=== PATIENT | female | born 1940 | race Two or more races ===

== ENCOUNTER 2024-05-10 10:37 | Emergency (ER) | payer MEDICARE, MEDICAID, SELFPAY ==
--- NOTE | 2024-05-10 11:11 | XR_ITS ---
Examination: AP lateral chest 2 views TECHNIQUE: AP upright chest lateral 2 views Exam date and time: May 10, 2024 1208 hours INDICATIONS: Chest pain today FINDINGS: Mild enlargement cardiac contour No pneumonia or pulmonary edema Moderate osteopenia Increased AP dimension chest IMPRESSION: COPD Mild hepatomegaly No pneumonia or pulmonary edema
--- NOTE | 2024-05-10 11:11 | EKG_ITS ---
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
--- NOTE | 2024-05-10 11:11 | PD.EDRME ---
Rapid Medical Screening Exam RME Arrival date/time: 05/10/24 10:37 83-year-old female presents to the emergency department today with complaints of generalized pain patient reports taking 2 nitros prior to arrival Chief Complaint: Anxiety Time Seen by Provider: 05/10/24 10:44
[2024-05-10 11:18] VITALS: BP 109/59; PULSE 73; RESP 18; TEMP 36.6; O2SAT 95; BMI 28.5
[2024-05-10 11:46] LABS: Basophils % (Auto) 0 % (0-2.5); Eosinophils # (Auto) 0.1 Thou/mm3 (0.0-0.5); Eosinophils % (Auto) 3 % (0-10); Hematocrit 35.3 % (36.0-46.0); Hemoglobin 11.4 g/dL (12.0-16.0); Immature Granulocytes % (Auto) 0 % (0-0); Immature Granulocytes Auto 0.01 Thou/mm3 (0.00-0.00); Lymphocytes # (Auto) 1.5 Thou/mm3 (1.0-4.8); Lymphocytes % (Auto) 30 % (10-50); Mean Corpuscular HGB Conc 32.3 g/dl (31.0-37.0); Mean Corpuscular Hemoglobin 26.5 pg (25.0-35.0); Mean Corpuscular Volume 82 fL (80-100); Monocytes # (Auto) 0.4 Thou/mm3 (0.0-0.8); Monocytes % (Auto) 8 % (0-12); Neutrophils # (Auto) 2.9 Thou/mm3 (1.8-7.7); Neutrophils % (Auto) 59 % (37-80); Nucleated Red Blood Cell % 0 /100 WBC (0); Platelet Count 230 Thou/mm3 (140-440); Red Blood Count 4.31 Miln/mm3 (4.00-5.20); White Blood Count 4.9 Thou/mm3 (3.6-11.0)
[2024-05-10 12:04] LABS: Partial Thromboplastin Time 26.1 Seconds (22.0-36.0); Prothrombin Time 11.4 Seconds (9.0-12.2)
[2024-05-10 12:07] LABS: Alanine Aminotransferase 16 U/L (10-49); Albumin/Globulin Ratio 1.3 (1.2-2.2); Alkaline Phosphatase 103 U/L (46-116); Anion Gap 4 (7-16); Aspartate Amino Transferase 23 U/L (0-34); BUN/Creatinine Ratio 29 Ratio (12-20); Bilirubin,Total 0.9 mg/dL (0.3-1.2); Blood Urea Nitrogen 38 mg/dL (9-23); Calcium 10.1 mg/dL (8.3-10.6); Calcium (Corrected) 10.1 mg/dL (8.5-10.1); Carbon Dioxide 31.6 mMol/L (20.0-31.0); Chloride 100 mMol/L (98-107); Creatinine (Component) 1.3 mg/dL (0.6-1.3); Estimated Creatinine Clearance 23.5 mL/min (>60); Globulin 3.1 gm/dL (2.3-3.5); Glucose 106 mg/dL (74-106); Magnesium 2.2 mg/dL (1.6-2.6); Osmolality,Calculated 280 (275-295); Sodium 136 mMol/L (136-145); Total Protein 7.1 gm/dL (5.7-8.2); Troponin I 0.026 ng/mL (0.0-0.045); eGFR 40 See Note
[2024-05-10 12:08] LABS: B-Type Natriuretic Peptide > 3280 pg/mL (0-100)
--- NOTE | 2024-05-10 12:40 | EDNOTE_ITS ---
ED General RME/HPI General Chief complaint: Anxiety Stated complaint: Anxiety, pain all over Time Seen by Provider: 05/10/24 10:44 Arrival date/time: 05/10/24 10:37 CC: Throat pressure/pain and then changed to anxiety HPI ongoing for the past 2 weeks after she stopped taking medicines that were given to her by her PCP for the prior 2 weeks. Granddaughter at bedside states the patient story changes all the time for the patient has no chest pain shortness of breath or difficulty breathing. Patient is awake alert and oriented states that she called her doctor when this onset started but nobody answered the phone . Going to the patient's medication show the patient has a history of diet hypertension diabetes GERD and is on tramadol. RME / HPI RME / HPI narrative: 05/10/24 10:37 83-year-old female presents to the emergency department today with complaints of generalized pain patient reports taking 2 nitros prior to arrival Related Data Home Medications ?Medication ?Instructions ?Recorded ?Confirmed furosemide 20 mg tablet (Lasix) 20 mg PO QDAY #0 tabs 06/20/14 10/26/21 loratadine 10 mg tablet (Claritin) 10 mg PO QDAY #0 tabs 06/20/14 10/26/21 tramadol 50 mg tablet (Ultram) 1 tab PO QID PRN PAIN #0 tabs 06/20/14 10/26/21 atorvastatin 10 mg tablet (Lipitor) 10 mg PO HS #0 tabs 12/22/15 10/26/21 benazepril 20 mg tablet (Lotensin) 20 mg PO QDAY #0 tabs 12/22/15 10/26/21 nitroglycerin 0.4 mg sublingual 0.4 mg SL PRN PRN CHEST PAIN #0 09/19/16 10/26/21 tablet (Nitrostat) tabs ticagrelor 90 mg tablet (Brilinta) 90 mg PO BID ##0 09/19/16 10/26/21 amlodipine 5 mg tablet (Norvasc) 5 mg PO QDAY 09/16/20 10/26/21 aspirin 81 mg capsule,delayed 81 mg PO QDAY 09/16/20 10/26/21 release albuterol 90 mcg/actuation aerosol 90 mcg inhalation Q4HR PRN Dyspnea 10/26/21 10/26/21 inhaler meloxicam 15 mg tablet 15 mg PO QDAY 10/26/21 10/26/21 mirabegron 25 mg tablet,extended 25 mg PO QDAY 10/26/21 10/26/21 release 24 hr (Myrbetriq) Previous Rx's ?Medication ?Instructions ?Recorded pantoprazole 40 mg granules 40 mg PO QDAY #30 ea 08/15/21 delayed-release for susp in packet (Protonix) Allergies Allergy/AdvReac Type Severity Reaction Status Date / Time codeine Allergy Unknown Verified 08/19/22 19:51 Review of Systems Review of Systems Narrative Review of Systems: GEN: No fever, no chills, no weight loss EYES: No discharge, no visual changes, no pain HEENT: No ear pain, no congestion, no sore throat PULM: No shortness of breath, no cough, no congestion CV: No chest pain, no dyspnea on exertion, no palpitations GI: No nausea, no vomiting, no diarrhea, no pain, no constipation : No frequency, no urgency, no dysuria MUSC/SKEL: No joint pain, no back pain SKIN: No rash PSYCH: No hallucinations, no depression HEME/LYMPH: No easy bleeding or bruising tendencies NEURO: No weakness, no headache Past Medical History Past Medical History NEUROLOGIC: Negative Neurological Disorders CARDIAC: Positive Cardiac Disorders, Myocardial Infarction, Cardiac Arrhythmia, Angina, Hypercholesterolemia, Edema and Hypertension; Negative Congestive Heart Failure RESPIRATORY: Positive Asthma, Bronchitis and Pneumonia; Negative Chronic Obstructive Pulmonary Disease (COPD) GASTROINTESTINAL: Negative Gastrointestinal Disorders GENITOURINARY: Positive Genitourinary Disorders and Kidney Stones; Negative Renal Disease MUSCULOSKELETAL: Positive Musculoskeletal Disorders and Arthritis ENT: Positive Cataracts ENDOCRINE: Positive Endocrine Disorders and Diabetes Mellitus Type 2; Negative Diabetes Mellitus Type 1 HEMATOLOGIC: Negative Blood Disorders or Anemia PSYCHO/SOCIAL: Positive Depression and Anxiety OTHER HISTORY: Positive Chicken Pox; Negative Measles, Mumps or Cancer Surgical History SURGICAL: Positive Coronary Stent, Cardiac Catheterization, Angiogram and Hysterectomy Social History SMOKING STATUS: Current every day smoker ED Exam Narrative Physical exam: [General: Frail but not disheveled not in any acute distress Head normocephalic HEENT: Within acceptable limits Neck is supple nontender Chest equal chest rise nontender to palpation Respiratory: Clear to auscultation no wheezes crackles or rubs CV: Rate rhythm is irregular no murmurs rubs or clicks Abdomen is distended secondary to body habitus soft nontender no masses positive bowel sounds all 4 quadrants Back: No CVA tenderness no spinous process tenderness from cervical spine thoracic and lumbar spine Skin: Intact no petechiae rash induration ulceration or crepitus Extremities: Moving all extremity against resistance cap refill less than 2 seconds neurosensory intact Neuro: Awake alert oriented x2, person and place, Glascow coma 15 no focal deficits] Course Quality Measures none Orders Category Date Time Status EKG (ED ONLY) *Do not use* NOW Care 05/10/24 11:11 Completed EKG (ED Only) Stat Exams 05/10/24 11:11 Draft XR chest 2V Stat Exams 05/10/24 11:11 Completed B-Type Natriuretic Peptide Stat Lab 05/10/24 11:23 Completed CBC Stat Lab 05/10/24 11:23 Completed Comprehensive Metabolic Panel Stat Lab 05/10/24 11:23 Completed Magnesium Stat Lab 05/10/24 11:23 Completed Partial Thromboplastin Time Stat Lab 05/10/24 11:23 Completed Prothrombin Time with INR Stat Lab 05/10/24 11:23 Completed Troponin I Stat Lab 05/10/24 11:23 Completed Urinalysis Stat Lab 05/10/24 12:33 Completed Urinalysis Stat Lab 05/10/24 12:40 Ordered Sodium Chloride 0.9% 1000 ml [Ns] 1,000 ml Med 05/10/24 13:09 Discontinued IV 999 mls/hr Sodium Chloride 0.9% 1000 ml [Ns] 500 ml Med 05/10/24 13:03 Discontinued IV 999 mls/hr Sodium Chloride 0.9% 500 ml [Ns] 500 ml Med 05/10/24 14:33 Active IV 500 mls/hr Vital Signs Vital signs: Vital Signs Temperature 97.9 F 05/10/24 11:18 Pulse Rate 73 05/10/24 11:18 Respiratory Rate 18 05/10/24 11:18 Blood Pressure 109/59 L 05/10/24 11:18 Pulse Oximetry (%) 95 05/10/24 11:18 Oxygen Delivery Method Room Air 05/10/24 11:18 [facility] Patient data External records reviewed:: [facility] previous records Clinical information provided by:: patient and family Social determinants that could affect healthcare access:: none Patient has the following chronic illnesses:: A-fib hypertension hyperlipidemia How is presenting disease/condition affected by chronic disease/condition?: u neffected by Evaluation data The following diagnostics were reviewed and interpreted by me:: lab results and EKG tracing(s) Lab and/or radiology exams considered but not ordered:: EKG performed at 1135 shows a ventricular rate of 81 QRS of 185 QTc of 466 this is A-fib with left bundle branch block. CBC shows no acute leukocytosis anemia thrombocytopenia CMP shows no significant electrolyte abnormalities, BUN is elevated at 38. And is normal, no transaminitis or T. bili ovation BNP is elevated, Troponin is negative Interpretation Summary: Patient mildly hypotensive although she states that her blood pressure usually runs low over the course of 3 hours the patient was given 1 L of fluid for the elevated BUN. The patient has no shortness of breath or difficulty breathing. Although the BNP is elevated I feel the patient was intervascular dry. The patient states she has no complaints whatsoever now patient is awake alert oriented with stable vital signs we will discharge the patient home. Medications Medications considered but not ordered:: None Medication administrations:: Medication Administration History Sodium Chloride (Ns) 500 mls @ 500 mls/hr IV .Q1H ONE Stop: 05/10/24 15:32 Last Admin: 05/10/24 14:36 Dose: 500 mls/hr Documented By: GARY Discontinued Medications Sodium Chloride (Ns) 500 mls @ 999 mls/hr IV .Q31M ONE Stop: 05/10/24 13:33 Last Admin: 05/10/24 13:59 Dose: Not Given Documented By: GARY Non-Admin Reason: Discontinued Sodium Chloride (Ns) 1,000 mls @ 999 mls/hr IV .Q1H1M ONE Stop: 05/10/24 14:09 Last Infusion: 05/10/24 13:59 Dose: Infused Documented By: Infusion: 05/10/24 13:58 Dose: 999 mls/hr Documented By: Admin: 05/10/24 13:12 Dose: 999 mls/hr Documented By: GARY None Consultations Consultation(s) initiated? (list below): No Diagnosis Differential Diagnosis ED Complaint MDM: CHF ACS pneumonia Most likely diagnosis given after review of the tests above:: Anxiety Admission Indicated Admission indicated?: not indicated Explain why admission is indicated or not indicated:: Stable for outpatient follow-up Admission Request Was there a request for admission?: No Disposition Plan Disposition Plan: Discharge Discharge Attestation Discharge Attestation: The patient and all family members were given an opportunity to ask questions and understood the discharge instructions. Discharge instructions specifically effects, indications for sooner follow up or return to the emergency department, and the expected course of current diagnosis. Patient condition: Stable Medical Decision Making Differential Diagnosis Differential Diagnosis: CHF ACS pneumonia Lab Data 05/10/24 11:23 05/10/24 11:23 Labs: Lab Results 05/10/24 05/10/24 Range/Units 11:23 12:33 WBC 4.9 (3.6-11.0) Thou/mm3 RBC 4.31 (4.00-5.20) Miln/mm3 Hgb 11.4 L (12.0-16.0) g/dL Hct 35.3 L (36.0-46.0) % MCV 82 (80-100) fL MCH 26.5 (25.0-35.0) pg MCHC 32.3 (31.0-37.0) g/dl RDW Std Deviation 52.0 H (36.4-46.3) fL Plt Count 230 (140-440) Thou/mm3 Neut % (Auto) 59 (37-80) % Lymph % (Auto) 30 (10-50) % [place] % (Auto) 8 (0-12) % Eos % (Auto) 3 (0-10) % Baso % (Auto) 0 (0-2.5) % Neut # (Auto) 2.9 (1.8-7.7) Thou/mm3 Lymph # (Auto) 1.5 (1.0-4.8) Thou/mm3 [place] # (Auto) 0.4 (0.0-0.8) Thou/mm3 Eos # (Auto) 0.1 (0.0-0.5) Thou/mm3 Baso # (Auto) 0.0 (0.0-0.2) Thou/mm3 Immature Gran # (Auto) 0.01 H (0.00-0.00) Thou/mm3 Absolute Nucleated RBC 0.00 (0.00-0.00) Thou/mm3 Immature Gran % 0 (0-0) % Nucleated RBC % 0 (0) /100 WBC PT 11.4 (9.0-12.2) Seconds INR 1.0 (0.9-1.3) APTT 26.1 (22.0-36.0) Seconds Sodium 136 (136-145) mMol/L Potassium 5.0 (3.4-5.1) mMol/L Chloride 100 (98-107) mMol/L Carbon Dioxide 31.6 H (20.0-31.0) mMol/L Anion Gap 4 L (7-16) BUN 38 H (9-23) mg/dL Creatinine 1.3 (0.6-1.3) mg/dL Estim Creat Clear Calc 23.5 L (>60) mL/min eGFR 40 L (60 - ) See Note BUN/Creatinine Ratio 29 H (12-20) Ratio Glucose 106 (74-106) mg/dL Calculated Osmolality 280 (275-295) Calcium 10.1 (8.3-10.6) mg/dL Corrected Calcium 10.1 (8.5-10.1) mg/dL Magnesium 2.2 (1.6-2.6) mg/dL Total Bilirubin 0.9 (0.3-1.2) mg/dL AST 23 (0-34) U/L ALT 16 (10-49) U/L Alkaline Phosphatase 103 (46-116) U/L Troponin I 0.026 (0.0-0.045) ng/mL B-Natriuretic Peptide > 3280 H* (0-100) pg/mL Total Protein 7.1 (5.7-8.2) gm/dL Albumin 4.0 (3.4-4.8) gm/dL Globulin 3.1 (2.3-3.5) gm/dL Albumin/Globulin Ratio 1.3 (1.2-2.2) Ur Collection Type Clean Catch Urine Color Colorless A (Lt Yel-Yel) Urine Clarity Clear (Clear/Hazy) Urine pH 6.5 (5.0-7.0) Ur Specific [place] 1.006 (1.001-1.035) Urine Protein Negative (Neg - Trace) Urine Glucose (UA) 1+ A (Negative) Urine Ketones Negative (Negative) Urine Blood Negative (Negative) Urine Nitrite Negative (Negative) Urine Bilirubin Negative (Negative) Urine Urobilinogen (Auto) Negative (0.0-1.0) mg/dL Ur Leukocyte Esterase Negative (Negative) Urine RBC 1 (0-3) /hpf Urine WBC 1 (0-5) /hpf Ur Squamous Epith Cells 0 (0-5) /hpf Urine Bacteria None (None) Discharge Plan Plan Patient Disposition: HOME (Self Care) Patient condition on transfer: Stable Prescriptions/Referrals Prescriptions/Med Rec: No Action tramadol [Ultram] 50 MG tablet 1 tab PO QID PRN (Reason: PAIN) Qty: 0 Patient Comments: FOR PAIN, NOT TO EXCEED 8 TABS IN 24 HRS furosemide [Lasix] 20 MG tablet 20 mg PO QDAY Qty: 0 loratadine [Claritin] 10 MG tablet 10 mg PO QDAY Qty: 0 benazepril [Lotensin] 20 MG tablet 20 mg PO QDAY Qty: 0 atorvastatin [Lipitor] 10 MG tablet 10 mg PO HS Qty: 0 nitroglycerin [Nitrostat] 0.4 MG tablet, sublingual 0.4 mg SL PRN PRN (Reason: CHEST PAIN) Qty: 0 Brilinta 90 MG tablet 90 mg PO BID Qty: 0 pantoprazole [Protonix] [address] for susp in packet 40 mg PO QDAY Qty: 30 0RF amlodipine [Norvasc] 5 mg Tablet 5 mg PO QDAY aspirin 81 mg Capsule,Delayed Release(Dr/Ec) 81 mg PO QDAY meloxicam 15 mg Tablet 15 mg PO QDAY Myrbetriq 25 mg Tablet Extended Release 24 Hr 25 mg PO QDAY albuterol 90 mcg/actuation Aerosol 90 mcg INHALATION Q4HR PRN (Reason: Dyspnea) Referrals: Maryanne Fontana PA-C [Primary Care Provider] - In 1 week Problem List Clinical Impression: Throat pain Patient/Caregiver Discharge Instructions Education Materials: Understanding the Pain Response Additional Instructions: Continue taking all medications as prescribed there is worsening of symptoms return the emergency room immediately for further evaluation. Print Language: Monegasque Stand Alone Forms: Yesi Award Info., Patient Portal Info Letter, Work/School Release BERTIN/JEAN Supervising Physician BERTIN/JEAN Supervising Physician: Maninder Cristina ENP
[2024-05-10 12:56] LABS: Collection Type, Urine Clean Catch; Squamous Epithelial Cell,Urine 0 /hpf (0-5)
[2024-05-10 13:11] LABS: Bilirubin,Urine Negative (Negative); Blood,Urine Negative (Negative); Clarity,Urine Clear (Clear/Hazy); Color,Urine Colorless (Lt Yel-Yel); Glucose, Urine 1+ (Negative); Ketones,Urine Negative (Negative); Leukocyte Esterase,Urine Negative (Negative); Nitrite,Urine Negative (Negative); PH,Urine 6.5 (5.0-7.0); Protein,Urine Negative (Neg - Trace); RBC,Urine 1 /hpf (0-3); Specific Gravity,Urine 1.006 (1.001-1.035); Urobilinogen,Urine Negative mg/dL (0.0-1.0); WBC,Urine 1 /hpf (0-5)
[2024-05-10] MEDS: SODIUM CHLORIDE 0.9% 1000 ML 1,000 ML 999 ML IV (13:12)
--- NOTE | 2024-05-10 14:01 | PC.NURSE ---
500 mls given per provider. 500 bag infused
[2024-05-10 14:05] VITALS: BP 102/58; PULSE 82; RESP 20; O2SAT 95
[2024-05-10] MEDS: SODIUM CHLORIDE 0.9% 500 ML 500 ML IV (14:36)
[2024-05-10 16:02] VITALS: BP 97/58
== END 2024-05-10 16:04 | disposition home or self-care (01) ==
PROVIDERS: Nurse Practitioner Primary Care; Emergency Provider Emergency Medicine; PCP Physician Assistant
DX: R07.0 Pain in throat (principal); R07.9 Chest pain, unspecified; I48.91 Unspecified atrial fibrillation; I44.7 Left bundle-branch block, unspecified; I10 Essential (primary) hypertension; E78.00 Pure hypercholesterolemia, unspecified; I25.2 Old myocardial infarction; F17.210 Nicotine dependence, cigarettes, uncomplicated; Z79.02 Long term (current) use of antithrombotics/antiplatelets
CPT/HCPCS: 36415; 71046; 80053; 81001; 83735; 83880; 84484; 85025; 85610; 85730; 93005; 99284; J7030; J7040

== ENCOUNTER 2024-06-10 09:22 | Emergency (ER) | payer MEDICARE, MEDICAID, SELFPAY ==
[2024-06-10 09:54] VITALS: BP 104/53; PULSE 87; RESP 20; TEMP 36.8; O2SAT 96; BMI 21.7
--- NOTE | 2024-06-10 10:51 | PD.EDRME ---
Rapid Medical Screening Exam [facility] Arrival date/time: 06/10/24 09:22 Chief Complaint: Shortness of Breath/Dyspnea Vital signs: Vital Signs Temperature 98.2 F 06/10/24 09:54 Pulse Rate 87 06/10/24 09:54 Respiratory Rate 20 06/10/24 09:54 Blood Pressure 104/53 L 06/10/24 09:54 Pulse Oximetry (%) 96 06/10/24 09:54 Oxygen Delivery Method Room Air 06/10/24 09:54 E Narrative: 83-year-old patient presents emergency department with complaint of shortness of breath and difficulty breathing for the past 1 week. Patient is currently afebrile nontoxic-appearing. Patient appears in respiratory distress
--- NOTE | 2024-06-10 10:52 | XR_ITS ---
Examination: PA lateral chest 2 views Technique: Upright PA lateral chest 2 views Exam date and time: June 10, 2024 1137 hrs. Comparison May 10, 2024 Indications: Chest pain coughing sore throat today Findings: Mild to moderate CHF Mild to moderate enlargement cardiac contour Enlarged ectatic thoracic aorta. Prominent vascular congestion including central vascular engorgement. Perihilar basilar edema. Increased AP dimension chest Moderate to advanced diffuse thoracic degenerative disc disease Impression: Mild to moderate CHF
[2024-06-10] MEDS: ALBUTEROL/IPRATROPIUM (Duoneb) RT SOL 3 ML NEBU 6 ML INH (11:04)
[2024-06-10 11:13] VITALS: PULSE 79; RESP 20; O2SAT 99
--- NOTE | 2024-06-10 14:15 | EDNOTE_ITS ---
ED SOB =RME/HPI General Chief Complaint: Shortness of Breath/Dyspnea Stated Complaint: CX PAIN; COUGH, SORE THROAT; HX ASTHMA Time Seen by Provider: 06/10/24 14:13 Arrival date/time: 06/10/24 09:22 This is an 83-year-old female that comes in with complaints of chest pain that happened earlier in the day but denies chest pain at this time. Patient also has complaints of fever, runny nose, cough, and shortness of breath. Patient reports history of high blood pressure, arthritis, hyperlipidemia. Patient repo rts that history of CAD with stents. RME / HPI RME / HPI Narrative: 83-year-old patient presents emergency department with complaint of shortness of breath and difficulty breathing for the past 1 week. Patient is currently afebrile nontoxic-appearing. Patient appears in respiratory distress Related Data Home Medications ?Medication ?Instructions ?Recorded ?Confirmed furosemide 20 mg tablet (Lasix) 20 mg PO QDAY #0 tabs 06/20/14 10/26/21 loratadine 10 mg tablet (Claritin) 10 mg PO QDAY #0 tabs 06/20/14 10/26/21 tramadol 50 mg tablet (Ultram) 1 tab PO QID PRN PAIN #0 tabs 06/20/14 10/26/21 atorvastatin 10 mg tablet (Lipitor) 10 mg PO HS #0 tabs 12/22/15 10/26/21 benazepril 20 mg tablet (Lotensin) 20 mg PO QDAY #0 tabs 12/22/15 10/26/21 nitroglycerin 0.4 mg sublingual 0.4 mg SL PRN PRN CHEST PAIN #0 09/19/16 10/26/21 tablet (Nitrostat) tabs ticagrelor 90 mg tablet (Brilinta) 90 mg PO BID ##0 09/19/16 10/26/21 amlodipine 5 mg tablet (Norvasc) 5 mg PO QDAY 09/16/20 10/26/21 aspirin 81 mg capsule,delayed 81 mg PO QDAY 09/16/20 10/26/21 release albuterol 90 mcg/actuation aerosol 90 mcg inhalation Q4HR PRN Dyspnea 10/26/21 10/26/21 inhaler meloxicam 15 mg tablet 15 mg PO QDAY 10/26/21 10/26/21 mirabegron 25 mg tablet,extended 25 mg PO QDAY 10/26/21 10/26/21 release 24 hr (Myrbetriq) Previous Rx's ?Medication ?Instructions ?Recorded pantoprazole 40 mg granules 40 mg PO QDAY #30 ea 08/15/21 delayed-release for susp in packet (Protonix) albuterol sulfate 90 mcg/actuation 2 puff inhalation QID PRN 06/10/24 aerosol inhaler shortness of breath or wheezing #8.5 grams oseltamivir 75 mg capsule (Tamiflu) 75 mg PO BID 5 days #10 caps 06/10/24 Allergies Allergy/AdvReac Type Severity Reaction Status Date / Time codeine Allergy Unknown Verified 06/10/24 09:24 Review of Systems Review of Systems Systems Reviewed: All systems reviewed, normal except as documented Past Medical History Past Medical History NEUROLOGIC: Negative Neurological Disorders CARDIAC: Positive Cardiac Disorders, Myocardial Infarction, Cardiac Arrhythmia, Angina, Hypercholesterolemia, Edema and Hypertension; Negative Congestive Heart Failure RESPIRATORY: Positive Asthma, Bronchitis and Pneumonia; Negative Chronic Obstructive Pulmonary Disease (COPD) GASTROINTESTINAL: Negative Gastrointestinal Disorders GENITOURINARY: Positive Genitourinary Disorders and Kidney Stones; Negative Renal Disease MUSCULOSKELETAL: Positive Musculoskeletal Disorders and Arthritis ENT: Positive Cataracts ENDOCRINE: Positive Endocrine Disorders and Diabetes Mellitus Type 2; Negative Diabetes Mellitus Type 1 HEMATOLOGIC: Negative Blood Disorders or Anemia PSYCHO/SOCIAL: Positive Depression and Anxiety OTHER HISTORY: Positive Chicken Pox; Negative Measles, Mumps or Cancer Surgical History SURGICAL: Positive Coronary Stent, Cardiac Catheterization, Angiogram and Hysterectomy Social History SMOKING STATUS: Current every day smoker ED Exam General General appearance: Present alert and in no apparent distress Head Head exam: Present atraumatic Eye Eye exam: Present normal appearance, PERRL and EOMI ENT ENT exam: Present normal exam, normal oropharynx and mucous membranes moist Neck Neck exam: Present normal inspection, full ROM and trachea midline Chest Chest inspection: Present normal inspection and symmetric chest wall rise Respiratory Respiratory exam: Present other (Expiratory wheezing posteriorly. Improved with breathing treatments.) Cardiovascular Cardiovascular exam: Present normal heart sounds Abdominal Exam Abdominal exam: Present soft Extremities Exam Extremities exam: Present normal inspection and full ROM Back Exam Back exam: Present normal inspection and full ROM Neurological Exam Neurological exam: Present alert, oriented X3 and CN II-XII intact Psychiatric Psychiatric exam: Present normal affect and normal mood Skin Skin exam: Present warm, dry, intact and normal color Course Quality Measures none Orders Category Date Time Status Bedside COVID-19 Antigen Test NOW Care 06/10/24 14:34 Completed Bedside Influenza A&B Antigen Test NOW Care 06/10/24 14:35 Completed EKG (ED ONLY) *Do not use* NOW Care 06/10/24 14:34 Completed EKG (ED Only) Stat Exams 06/10/24 14:33 Draft XR chest 2V Stat Exams 06/10/24 10:52 Completed BNP [B-Type Natriuretic Peptide] Stat Lab 06/10/24 15:32 Completed CBC Stat Lab 06/10/24 15:32 Completed Comprehensive Metabolic Panel Stat Lab 06/10/24 15:32 Completed Procalcitonin Stat Lab 06/10/24 15:32 Completed Troponin I Stat Lab 06/10/24 15:32 Completed ALBUTEROL RT 0.5ml [Proventil Rt 0.5ml] Med 06/10/24 14:33 Discontinued 2.5 mg INH X1 ONE Albuterol/Ipratr Rt Torri [Duoneb Rt Torri] Med 06/10/24 10:51 Discontinued 6 ml INH X1 ONE Oseltamivir [Tamiflu] Med 06/10/24 15:15 Discontinued 75 mg PO X1 ONE Sodium Chloride Rt Torri 0.9% [NS Rt Torri 0.9%] Med 06/10/24 14:33 Discontinued 3 ml INH PRN PRN Vital Signs Vital signs: Vital Signs Temperature 98.2 F 06/10/24 09:54 Pulse Rate 87 06/10/24 09:54 Respiratory Rate 20 06/10/24 09:54 Blood Pressure 104/53 L 06/10/24 09:54 Pulse Oximetry (%) 96 06/10/24 09:54 Oxygen Delivery Method Room Air 06/10/24 09:54 Procedures -ED EKG Interpretation #1: Date of EK06/10/24 Time of EK:46 Rate: 97 Interpretation: Interpreted by me (With the left bundle branch block.) EKG Impression: Bundle branch block and Atrial fibrillation Shortness of Breath / Dyspnea MDM Narrative MDM Narrative:: chest x ray shows: Findings: Mild to moderate CHF Mild to moderate enlargement cardiac contour Enlarged ectatic thoracic aorta. Prominent vascular congestion including central vascular engorgement. Perihilar basilar edema. Increased AP dimension chest Moderate to advanced diffuse thoracic degenerative disc disease Impression: Mild to moderate CHF Patient's breathing did improve with the 2 breathing treatments. Patient was given Tamiflu for positive influenza. C BC and BMP unremarkable. Patient did have an elevation of BNP of greater than 3280. Chest x-ray shows mild CHF. Be cause of cardiac history I was concerned and called hospitalist team to admit. I called hospitalist team and tried admit patient to the hospital they excepted patient but patient does not want to be admitted. Patient's son is at bedside with patient. Hospitalist discussed at length benefits of staying in the hospital and risk of going home all including . Patient would like to be discharged home. I told patient to come back to the emergency room if symptoms change or worsen. Follow-up with primary provider in 1 to 2 days. Patient data External records reviewed:: [facility] previous records Clinical information provided by:: patient Social determinants that could affect healthcare access:: none Patient has the following chronic illnesses:: See HPI How is presenting disease/condition affected by chronic disease/condition?: exacerbated by Evaluation data The following diagnostics were reviewed and interpreted by me:: lab results, radiology exam(s) and EKG tracing(s) Lab and/or radiology exams considered but not ordered:: None Interpretation Summary: See note Medications / Prescriptions Medications or Prescriptions considered but not ordered:: None Medication administrations:: Medication Administration History Discontinued Medications Albuterol (Albuterol Rt 2.5 Mg/0.5 Ml Nebu) 2.5 mg INH X1 ONE Stop: 06/10/24 14:34 Last Admin: 06/10/24 16:51 Dose: 2.5 mg Documented By: FRANDY Albuterol/Ipratropium (Albuterol/Ipratropium (Duoneb) Rt Torri 3 Ml Nebu) 6 ml INH X1 ONE Stop: 06/10/24 10:52 Last Admin: 06/10/24 11:04 Dose: 6 ml Documented By: EV Oseltamivir Phosphate (Oseltamivir 75 Mg Capsule) 75 mg PO X1 ONE Stop: 06/10/24 15:16 Last Admin: 06/10/24 15:52 Dose: 75 mg Documented By: VG Sodium Chloride (Sodium Chloride Rt Torri 0.9% 3 Ml Nebu) 3 ml INH PRN PRN PRN Reason: SOLN Stop: 07/10/24 14:32 Last Admin: 06/10/24 16:51 Dose: 3 ml Documented By: FYS See MAR Consultations Consultation(s) initiated? (list below): No Diagnosis Shortness of Breath Differential Diagnosis: acute exacerbation of chronic obstructive airways disease, congestive heart failure, community acquired pneumonia, asthma with exacerbation and other (OH, CHF) Most likely diagnosis given after review of the tests above:: Influenza Admission Indicated Admission indicated?: indicated Admission Request Was there a request for admission?: Yes Admission Attestation Admission request attestation: Discussed case with Hospitalist service regarding admission. Discussed patients ED course, exam findings, labs, and radiology results. The Hospitalist agrees to accept the patient for admission. Patient refused Disposition Plan Disposition Plan: Discharge Discharge Attestation Discharge Attestation: The patient and all family members were given an opportunity to ask questions and understood the discharge instructions. Discharge instructions specifically effects, indications for sooner follow up or return to the emergency department, and the expected course of current diagnosis. Patient condition: Stable Discharge Plan Plan Patient Disposition: HOME (Self Care) Patient condition on transfer: Stable Prescriptions/Referrals Prescriptions/Med Rec: New albuterol sulfate 90 mcg/actuation HFA aerosol inhaler 2 puff inhalation QID PRN (Reason: shortness of breath or wheezing) Qty: 8.5 0RF oseltamivir [Tamiflu] 75 mg capsule 75 mg PO BID 5 Days Qty: 10 0RF No Action tramadol [Ultram] 50 MG tablet 1 tab PO QID PRN (Reason: PAIN) Qty: 0 Patient Comments: FOR PAIN, NOT TO EXCEED 8 TABS IN 24 HRS furosemide [Lasix] 20 MG tablet 20 mg PO QDAY Qty: 0 loratadine [Claritin] 10 MG tablet 10 mg PO QDAY Qty: 0 benazepril [Lotensin] 20 MG tablet 20 mg PO QDAY Qty: 0 atorvastatin [Lipitor] 10 MG tablet 10 mg PO HS Qty: 0 nitroglycerin [Nitrostat] 0.4 MG tablet, sublingual 0.4 mg SL PRN PRN (Reason: CHEST PAIN) Qty: 0 Brilinta 90 MG tablet 90 mg PO BID Qty: 0 pantoprazole [Protonix] [address] for susp in packet 40 mg PO QDAY Qty: 30 0RF amlodipine [Norvasc] 5 mg Tablet 5 mg PO QDAY aspirin 81 mg Capsule,Delayed Release(Dr/Ec) 81 mg PO QDAY meloxicam 15 mg Tablet 15 mg PO QDAY Myrbetriq 25 mg Tablet Extended Release 24 Hr 25 mg PO QDAY albuterol 90 mcg/actuation Aerosol 90 mcg INHALATION Q4HR PRN (Reason: Dyspnea) Referrals: Maryanne Fontana PA-C [Primary Care Provider] - In 1 week Problem List Clinical Impression: Influenza A, RAD (reactive airway disease) Patient/Caregiver Discharge Instructions Discharge Activity: activity as tolerated Education Materials: ED Influenza (Adult) Additional Instructions: Follow-up with primary provider in 1 to 2 days. Come back to the emergency room if symptoms change or worsen. Print Language: Lao Stand Alone Forms: Yesi Award Info., Patient Portal Info Letter PA/SONAR SUBSYSTEM EQUIPMENT OPERATOR Supervising Physician PA/JEAN Supervising Physician: keisha
[2024-06-10 14:30] VITALS: BP 97/60; PULSE 83; RESP 20; TEMP 36.8; O2SAT 96
--- NOTE | 2024-06-10 14:33 | EKG_ITS ---
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
[2024-06-10 15:38] VITALS: BP 107/63; PULSE 92; RESP 21; TEMP 36.8; O2SAT 95
[2024-06-10] MEDS: OSELTAMIVIR 75 MG CAPSULE PO (15:52)
[2024-06-10 15:58] LABS: Basophils % (Auto) 0 % (0-2.5); Eosinophils % (Auto) 0 % (0-10); Hematocrit 33.1 % (36.0-46.0); Hemoglobin 10.5 g/dL (12.0-16.0); Immature Granulocytes % (Auto) 1 % (0-0); Immature Granulocytes Auto 0.03 Thou/mm3 (0.00-0.00); Lymphocytes # (Auto) 0.7 Thou/mm3 (1.0-4.8); Lymphocytes % (Auto) 11 % (10-50); Mean Corpuscular HGB Conc 31.7 g/dl (31.0-37.0); Mean Corpuscular Hemoglobin 26.4 pg (25.0-35.0); Mean Corpuscular Volume 83 fL (80-100); Monocytes # (Auto) 0.5 Thou/mm3 (0.0-0.8); Monocytes % (Auto) 9 % (0-12); Neutrophils # (Auto) 4.7 Thou/mm3 (1.8-7.7); Neutrophils % (Auto) 79 % (37-80); Nucleated Red Blood Cell % 0 /100 WBC (0); Platelet Count 218 Thou/mm3 (140-440); RDW Standard Deviation 56.3 fL (36.4-46.3); Red Blood Count 3.98 Miln/mm3 (4.00-5.20); White Blood Count 5.9 Thou/mm3 (3.6-11.0)
[2024-06-10 16:17] LABS: B-Type Natriuretic Peptide > 3280 pg/mL (0-100)
[2024-06-10 16:28] LABS: Alanine Aminotransferase 17 U/L (10-49); Albumin, Serum 4.4 gm/dL (3.4-4.8); Albumin/Globulin Ratio 1.6 (1.2-2.2); Alkaline Phosphatase 116 U/L (46-116); Anion Gap 8 (7-16); Aspartate Amino Transferase 23 U/L (0-34); BUN/Creatinine Ratio 28 Ratio (12-20); Bilirubin,Total 0.8 mg/dL (0.3-1.2); Blood Urea Nitrogen 33 mg/dL (9-23); Calcium 9.4 mg/dL (8.3-10.6); Calcium (Corrected) 9.4 mg/dL (8.5-10.1); Carbon Dioxide 25.9 mMol/L (20.0-31.0); Chloride 104 mMol/L (98-107); Creatinine (Component) 1.2 mg/dL (0.6-1.3); Estimated Creatinine Clearance 27.1 mL/min (>60); Globulin 2.8 gm/dL (2.3-3.5); Glucose 102 mg/dL (74-106); Osmolality,Calculated 282 (275-295); Sodium 138 mMol/L (136-145); Total Protein 7.2 gm/dL (5.7-8.2); eGFR 44 See Note
[2024-06-10 16:51] VITALS: PULSE 100; PULSE 92; RESP 24; O2SAT 100
[2024-06-10] MEDS: SODIUM CHLORIDE RT SOL 0.9% 3 ML NEBU INH (16:51)
[2024-06-10] MEDS: ALBUTEROL RT 2.5 MG/0.5 ML NEBU INH (16:51)
--- NOTE | 2024-06-10 17:47 | PD.RESEVENT ---
Documentation for date of: 06/10/24 Event Note Event Note: We were called today to assess 83-year-old female with past medical history of HFrEF (40 to 45% in 2019), A-fib, arthritis, hyperlipidemia, and hypertension due to influenza positive pneumonia. Patient initially complained of shortness of breath cough anxiety and she took 2 nitroglycerin tablets prior to coming to the ED. She said that she had a sick contact of her grandson during New Year's Michelle, but denies any fevers, chills, or sweats. Initial BNP was elevated and patient had 1+ pitting edema bilateral, but clinical picture showed more pneumonia. During assessment patient stated that she did not want to be admitted to the hospital and risk were discussed with the patient and she understood the risks which could also include . Told the patient that she experience any worsening symptoms or symptoms persisted for prolonged time to come back to the ED. Spoke with ED physician, patient wanted to be admitted to the hospital. Case disclosed with Attending Dr. Keke Roldan PGY1
[2024-06-10 18:15] LABS: Procalcitonin 0.18 ng/ml (0.0-0.49)
[2024-06-10 18:19] VITALS: BP 112/66; PULSE 100; RESP 20; TEMP 37.2; O2SAT 94
== END 2024-06-10 18:20 | disposition home or self-care (01) ==
PROVIDERS: Nurse Practitioner Family; Emergency Provider Emergency Medicine; PCP Physician Assistant
DX: J10.1 Influenza due to other identified influenza virus with other respiratory manifestations (principal); J45.909 Unspecified asthma, uncomplicated; E78.5 Hyperlipidemia, unspecified; I25.10 Atherosclerotic heart disease of native coronary artery without angina pectoris; Z95.5 Presence of coronary angioplasty implant and graft; M19.90 Unspecified osteoarthritis, unspecified site
CPT/HCPCS: 36415; 71046; 80053; 83880; 84145; 84484; 85025; 87400; 87811; 94640; 99284; A9270

== ENCOUNTER 2024-08-19 19:49 | Inpatient (IN) | payer MEDICARE, MEDICAID, SELFPAY ==
[2024-08-19] VITALS (7 sets, daily range): BP systolic 103–114; BP diastolic 45–69; PULSE 81–101; RESP 20–95; TEMP 36.3–36.6; O2SAT 93–100; BMI 35.5
--- NOTE | 2024-08-19 20:11 | EKG_ITS ---
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
--- NOTE | 2024-08-19 20:11 | XR_ITS ---
Examination: PA chest single view Technique: Upright PA chest single view Exam date and time: August 19, 2024, 2019 hrs. Comparison June 10, 2024 Indications: Coughing beginning 2 months ago Findings: Mild heart failure Moderate enlargement cardiac contour with prominent vascular congestion Suspicious for early pneumonia in the right upper lobe Impression: Mild heart failure Suspicious for early pneumonia in the right upper lobe
--- NOTE | 2024-08-19 20:12 | PD.EDRME ---
Rapid Medical Screening Exam [facility] Arrival date/time: 08/19/24 19:49 83F with history of HTN, afib, and CAD/GA presents to ED with 2 weeks of cough and intermittent SOB. Patient has been taking ABX from clinic w/o relief. Chief Complaint: Shortness of Breath/Dyspnea Vital signs: Vital Signs Temperature 97.4 F 08/19/24 20:07 Pulse Rate 92 08/19/24 20:07 Respiratory Rate 20 08/19/24 20:07 Blood Pressure 114/69 08/19/24 20:07 Pulse Oximetry (%) 96 08/19/24 20:07 Oxygen Delivery Method Room Air 08/19/24 20:07
[2024-08-19] MEDS: ALBUTEROL/IPRATROPIUM (Duoneb) RT SOL 3 ML NEBU INH (20:36)
[2024-08-19 21:22] LABS: Basophils % (Auto) 0 % (0-2.5); Eosinophils % (Auto) 0 % (0-10); Hemoglobin 11.2 g/dL (12.0-16.0); Immature Granulocytes % (Auto) 0 % (0-0); Immature Granulocytes Auto 0.02 Thou/mm3 (0.00-0.00); Lymphocytes # (Auto) 1.2 Thou/mm3 (1.0-4.8); Lymphocytes % (Auto) 20 % (10-50); Mean Corpuscular HGB Conc 31.1 g/dl (31.0-37.0); Mean Corpuscular Hemoglobin 25.6 pg (25.0-35.0); Mean Corpuscular Volume 82 fL (80-100); Monocytes # (Auto) 0.4 Thou/mm3 (0.0-0.8); Monocytes % (Auto) 7 % (0-12); Neutrophils # (Auto) 4.5 Thou/mm3 (1.8-7.7); Neutrophils % (Auto) 72 % (37-80); Nucleated Red Blood Cell # 0.02 Thou/mm3 (0.00-0.00); Nucleated Red Blood Cell % 0 /100 WBC (0); Platelet Count 310 Thou/mm3 (140-440); RDW Standard Deviation 56.9 fL (36.4-46.3); Red Blood Count 4.37 Miln/mm3 (4.00-5.20); White Blood Count 6.2 Thou/mm3 (3.6-11.0)
[2024-08-19 21:38] LABS: B-Type Natriuretic Peptide > 3280 pg/mL (0-100)
--- NOTE | 2024-08-19 21:40 | PD.EDSOB ---
ED SOB =RME/HPI General Chief Complaint: Shortness of Breath/Dyspnea Stated Complaint: couugh Time Seen by Provider: 08/19/24 20:21 Arrival date/time: 08/19/24 19:49 RME / HPI RME / HPI Narrative: 08/19/24 19:49 83F with history of HTN, afib, and CAD/VA presents to ED with 2 weeks of cough and intermittent SOB. Patient has been taking ABX from clinic w/o relief. DR. POOJA ALONSO ED EVALUATION: 83 year old female with past medical history significant for hypertension, atrial fibrillation, and CHF presents to the Emergency Department accompanied by the son with complaint of shortness of breath and wheezing onset 2 months. Symptoms are moderate. Patient saw her PCP today for her dyspnea and was sent over for evaluation. She states she took her ASA at home today. She states she is not really coughing, just has a sporadic cough with white phlegm. No chest pain. Related Data Home Medications ?Medication ?Instructions ?Recorded ?Confirmed furosemide 20 mg tablet (Lasix) 20 mg PO QDAY #0 tabs 06/20/14 10/26/21 loratadine 10 mg tablet (Claritin) 10 mg PO QDAY #0 tabs 06/20/14 10/26/21 tramadol 50 mg tablet (Ultram) 1 tab PO QID PRN PAIN #0 tabs 06/20/14 10/26/21 atorvastatin 10 mg tablet (Lipitor) 10 mg PO HS #0 tabs 12/22/15 10/26/21 benazepril 20 mg tablet (Lotensin) 20 mg PO QDAY #0 tabs 12/22/15 10/26/21 nitroglycerin 0.4 mg sublingual 0.4 mg SL PRN PRN CHEST PAIN #0 09/19/16 10/26/21 tablet (Nitrostat) tabs ticagrelor 90 mg tablet (Brilinta) 90 mg PO BID ##0 09/19/16 10/26/21 amlodipine 5 mg tablet (Norvasc) 5 mg PO QDAY 09/16/20 10/26/21 aspirin 81 mg capsule,delayed 81 mg PO QDAY 09/16/20 10/26/21 release albuterol 90 mcg/actuation aerosol 90 mcg inhalation Q4HR PRN Dyspnea 10/26/21 10/26/21 inhaler meloxicam 15 mg tablet 15 mg PO QDAY 10/26/21 10/26/21 mirabegron 25 mg tablet,extended 25 mg PO QDAY 10/26/21 10/26/21 release 24 hr (Myrbetriq) Previous Rx's ?Medication ?Instructions ?Recorded pantoprazole 40 mg granules 40 mg PO QDAY #30 ea 08/15/21 delayed-release for susp in packet (Protonix) albuterol sulfate 90 mcg/actuation 2 puff inhalation QID PRN 06/10/24 aerosol inhaler shortness of breath or wheezing #8.5 grams Allergies Allergy/AdvReac Type Severity Reaction Status Date / Time codeine Allergy Unknown Verified 08/19/24 19:56 Review of Systems Review of Systems Systems Reviewed: All systems reviewed, normal except as documented Past Medical History Past Medical History NEUROLOGIC: Negative Neurological Disorders CARDIAC: Positive Cardiac Disorders, Myocardial Infarction, Cardiac Arrhythmia, Angina, Hypercholesterolemia, Edema and Hypertension; Negative Congestive Heart Failure RESPIRATORY: Positive Asthma, Bronchitis and Pneumonia; Negative Chronic Obstructive Pulmonary Disease (COPD) GASTROINTESTINAL: Negative Gastrointestinal Disorders GENITOURINARY: Positive Genitourinary Disorders and Kidney Stones; Negative Renal Disease MUSCULOSKELETAL: Positive Musculoskeletal Disorders and Arthritis ENT: Positive Cataracts ENDOCRINE: Positive Endocrine Disorders and Diabetes Mellitus Type 2; Negative Diabetes Mellitus Type 1 HEMATOLOGIC: Negative Blood Disorders or Anemia PSYCHO/SOCIAL: Positive Depression and Anxiety OTHER HISTORY: Positive Chicken Pox; Negative Measles, Mumps or Cancer Surgical History SURGICAL: Positive Coronary Stent, Cardiac Catheterization, Angiogram and Hysterectomy Social History SMOKING STATUS: Never smoker SUBSTANCE USE: does not use ALCOHOL: Never ED Exam Narrative Physical exam: GENERAL APPEARANCE:? alert and oriented x 4, well-developed, well-nourished. HEENT: Normocephalic, atraumatic; pupils equal, round, reactive to light; EOMI; mucous membranes pink, moist; oropharynx clear NECK: Supple LUNGS: There is wheezing throughout and coarse breath sounds throughout as well. HEART: Regular rate, regular rhythm; normal S1, S2; no murmurs ABDOMEN: non distended; normal BS;? soft, no tenderness, no guarding, no rebound; no masses, no organomegaly, no hernia?? BACK:? no CVA tenderness EXTREMITIES:? atraumatic; no edema NEUROLOGIC: awake; alert and oriented x4; cranial nerves II-XII grossly intact; no focal sensory or motor deficits PSYCHIATRIC:? appropriate mood and affect SKIN: warm, dry, normal color; no rashes Course Quality Measures none Orders Category Date Time Status Admit to Inpatient Status Routine Admission 08/19/24 23:35 Active Patient Condition Routine Admission 08/19/24 23:35 Ordered Bedrest QS Care 08/19/24 23:35 Active Bedside COVID-19 Antigen Test NOW Care 08/19/24 22:00 Active Bedside Influenza A&B Antigen Test NOW Care 08/19/24 22:00 Completed COVID-19 Screening Questionnaire NOW Care 08/19/24 23:26 Active Geologist NOW Care 08/19/24 22:04 Active Continuous Pulse Oximetry NOW Care 08/19/24 22:04 Completed EKG (ED ONLY) *Do not use* NOW Care 08/19/24 20:11 Completed EKG (ED ONLY) *Do not use* NOW Care 08/19/24 23:46 Active Flu & Pneumonia Vaccine Screen ONCE Care 08/19/24 23:41 Active Fluid restriction QSHIFT Care 08/19/24 23:41 Active Insert IV NOW Care 08/19/24 22:04 Active Miscellaneous Nursing Order NOW Care 08/19/24 23:50 Active Notify provider NEEDED Care 08/19/24 23:35 Active Obtain weight daily Care 08/19/24 23:36 Active Strict Intake and Output Q1H Care 08/19/24 23:45 Ordered Consult to Cardiology Urgent Cons 08/19/24 23:47 Ordered Diet Cardiac Diet 08/19/24 Dinner Active CA echo doppler complete Stat Exams 08/19/24 23:41 Ordered EKG (ED Only) Stat Exams 08/19/24 20:11 Draft EKG (ED Only) Stat Exams 08/19/24 23:41 Ordered US abdomen Routine Exams 08/19/24 23:43 Ordered XR chest 1V portable Stat Exams 08/19/24 20:11 Completed Arterial Blood Gas Stat Lab 08/19/24 22:35 Completed B-Type Natriuretic Peptide Stat Lab 08/19/24 20:56 Completed CBC AM DRAW Lab 08/20/24 05:00 Ordered CBC AM DRAW Lab 08/21/24 05:00 Ordered CBC AM DRAW Lab 08/22/24 05:00 Ordered CBC Stat Lab 08/19/24 20:56 Completed Comprehensive Metabolic Panel AM DRAW Lab 08/20/24 05:00 Ordered Comprehensive Metabolic Panel AM DRAW Lab 08/21/24 05:00 Ordered Comprehensive Metabolic Panel AM DRAW Lab 08/22/24 05:00 Ordered Comprehensive Metabolic Panel Stat Lab 08/19/24 20:56 Completed D-Dimer Stat Lab 08/19/24 23:43 Ordered Magnesium AM DRAW Lab 08/20/24 05:00 Ordered Magnesium AM DRAW Lab 08/21/24 05:00 Ordered Magnesium AM DRAW Lab 08/22/24 05:00 Ordered Magnesium Stat Lab 08/19/24 20:56 Completed Partial Thromboplastin Time Stat Lab 08/19/24 20:56 Completed Phosphorous AM DRAW Lab 08/20/24 05:00 Ordered Phosphorous AM DRAW Lab 08/21/24 05:00 Ordered Phosphorous AM DRAW Lab 08/22/24 05:00 Ordered Procalcitonin Stat Lab 08/19/24 20:56 Completed Prothrombin Time with INR Stat Lab 08/19/24 20:56 Completed RSV [Respiratory Syncytial Virus Ag] Stat Lab 08/19/24 22:20 Completed Thyroid Stimulating Hormone Routine Lab 08/19/24 23:45 Ordered Troponin I Q6H Lab 08/20/24 01:00 Ordered Troponin I Q6H Lab 08/20/24 07:00 Ordered Troponin I Stat Lab 08/19/24 20:56 Completed Urinalysis Routine Lab 08/19/24 23:42 Ordered Acetaminophen Tab [Tylenol Tab] Med 08/19/24 23:35 Active 650 mg PO Q6H PRN Albuterol/Ipratr Rt Torri [Duoneb Rt Torri] Med 08/19/24 23:35 Active 3 ml INH Q6HRRT PRN Albuterol/Ipratr Rt Torri [Duoneb Rt Torri] Med 08/19/24 20:11 Discontinued 3 ml INH X1 ONE Apixaban [Eliquis] Med 08/20/24 09:00 Active 2.5 mg PO BID Aspirin Med 08/19/24 22:22 Discontinued 325 mg PO X1 ONE Aspirin [Ecotrin] Med 08/20/24 09:00 Active 81 mg PO QDAY Bumetanide Inj [Bumex Inj] Med 08/20/24 09:00 Active 1 mg IVP QDAY Furosemide Inj [Lasix Inj] Med 08/19/24 22:22 Discontinued 40 mg IVP X1 ONE Furosemide Inj [Lasix Inj] Med 08/19/24 23:56 Once 40 mg IVP X1 ONE Furosemide [Lasix Inj] Med 08/19/24 23:41 Discontinued 20 mg IVP X1 ONE Heparin Inj Med 08/20/24 06:00 Discontinued 5,000 unit SC Q8HR MethylPREDNISolone.* [SoluMEDROL Inj] Med 08/19/24 22:06 Discontinued 125 mg IVP X1 ONE Pantoprazole [Protonix] Med 08/20/24 09:00 Active 40 mg PO QDAY Code Status Routine Oth 08/19/24 23:35 Ordered Oxygen Delivery NOW RT 08/19/24 22:04 Active Oxygen Delivery PRN RT 08/19/24 23:37 Active Vital Signs Vital signs: Vital Signs Temperature 97.4 F 08/19/24 20:07 Pulse Rate 92 08/19/24 20:07 Respiratory Rate 20 08/19/24 20:07 Blood Pressure 114/69 08/19/24 20:07 Pulse Oximetry (%) 96 08/19/24 20:07 Oxygen Delivery Method Room Air 08/19/24 20:07 Procedures -ED EKG Interpretation #1: Date of EK08/19/24 Time of EK:15 Rate: 94 Interpretation: Interpreted by me Additional EKG comment: atrial fibrillation, ventricular rate of 94, left axis deviation, left bundle branch block, no sign of acute ischemia based on sgarbossa criteria, unchaged from EKG dated 06/12/24 Shortness of Breath / Dyspnea MDM Narrative MDM Narrative:: I, Lilibeth Friedman, am scribing for and in the presence of Dr. Fields. Patient data External records reviewed:: [facility] previous records (Reviewed last ED visit dated 06/16/24, discharged with the following: Influenza A) Clinical information provided by:: patient and family (son) Social determinants that could affect healthcare access:: none Patient has the following chronic illnesses:: hypertension, atrial fibrillation, and CHF How is presenting disease/condition affected by chronic disease/condition?: exacerbated by Evaluation data The following diagnostics were reviewed and interpreted by me:: lab results, radiology exam(s) and EKG tracing(s) Lab and/or radiology exams considered but not ordered:: none Interpretation Summary: 1 view portable chest xray Indication: shortness of breath My interpretation: cardiomegaly, chronic changes, vascular congestion, mild CHF Medications / Prescriptions Medications or Prescriptions considered but not ordered:: none Medication administrations:: Medication Administration History Acetaminophen (Acetaminophen 325 Mg Tablet) 650 mg PO Q6H PRN PRN Reason: Fever >101.5 Stop: 09/18/24 23:34 Albuterol/Ipratropium (Albuterol/Ipratropium (Duoneb) Rt Torri 3 Ml Nebu) 3 ml INH Q6HRRT PRN PRN Reason: WHEEZING Stop: 09/19/24 00:59 Apixaban (Apixaban 2.5 Mg Tablet) 2.5 mg PO BID [facility] Stop: 09/19/24 08:59 Aspirin (Aspirin Ec 81 Mg Tabec) 81 mg PO QDAY [facility] Stop: 09/19/24 08:59 Bumetanide (Bumetanide Inj 0.25 Mg/Ml Vial 4 Ml) 1 mg IVP QDAY [facility] Stop: 09/19/24 08:59 Furosemide (Furosemide Inj 10 Mg/Ml 4ml Vial) 40 mg IVP X1 ONE Stop: 08/19/24 23:57 Pantoprazole Sodium (Pantoprazole 40 Mg Tablet) 40 mg PO QDAY [facility] Stop: 09/19/24 08:59 Discontinued Medications Albuterol/Ipratropium (Albuterol/Ipratropium (Duoneb) Rt Torri 3 Ml Nebu) 3 ml INH X1 ONE Stop: 08/19/24 20:12 Last Admin: 08/19/24 20:36 Dose: 3 ml Documented By: NE Aspirin (Aspirin 325 Mg Tablet) 325 mg PO X1 ONE Stop: 08/19/24 22:23 Last Admin: 08/19/24 22:41 Dose: 325 mg Documented By: CCT Furosemide (Furosemide Inj 10 Mg/Ml 4ml Vial) 40 mg IVP X1 ONE Stop: 08/19/24 22:23 Last Admin: 08/19/24 22:40 Dose: 40 mg Documented By: CCT Furosemide (Furosemide Inj 10 Mg/Ml Vial 2 Ml) 20 mg IVP X1 ONE Stop: 08/19/24 23:42 Heparin Sodium (Porcine) (Heparin Sod Inj 5000 Unit/Ml Vial) 5,000 unit SC Q8HR [facility] Stop: 09/03/24 05:59 Methylprednisolone Sodium Succinate (Methylprednisolone Sod Succ 62.5 Mg/Ml 2ml Vial) 125 mg IVP X1 ONE Stop: 08/19/24 22:07 Last Admin: 08/19/24 22:40 Dose: 125 mg Documented By: CCT see above Consultations Consultation(s) initiated? (list below): Yes Consultation #1 (Physician, Specialty, Details): Discussed test HPI, PMHx, lab, radiology results and/or management with hospitalist. Will admit for further evaluation and management. Accepts patient for admission. Time: 22:23 Diagnosis Shortness of Breath Differential Diagnosis: acute exacerbation of chronic obstructive airways disease, congestive heart failure and community acquired pneumonia Most likely diagnosis given after review of the tests above:: CHF exacerbation troponin elevated Admission Indicated Admission indicated?: indicated Admission Request Was there a request for admission?: Yes Admission Attestation Admission request attestation: Discussed case with [] from Hospitalist service regarding admission. Discussed patients ED course, exam findings, labs, and radiology results. The Hospitalist [agrees,declines] to accept the patient for admission. Disposition Plan Disposition Plan: Admit Discharge Plan Plan Patient Disposition: Admit Acute Care w/in Hospital Prescriptions/Referrals Prescriptions/Med Rec: No Action tramadol [Ultram] 50 MG tablet 1 tab PO QID PRN (Reason: PAIN) Qty: 0 Patient Comments: FOR PAIN, NOT TO EXCEED 8 TABS IN 24 HRS furosemide [Lasix] 20 MG tablet 20 mg PO QDAY Qty: 0 loratadine [Claritin] 10 MG tablet 10 mg PO QDAY Qty: 0 benazepril [Lotensin] 20 MG tablet 20 mg PO QDAY Qty: 0 atorvastatin [Lipitor] 10 MG tablet 10 mg PO HS Qty: 0 nitroglycerin [Nitrostat] 0.4 MG tablet, sublingual 0.4 mg SL PRN PRN (Reason: CHEST PAIN) Qty: 0 Brilinta 90 MG tablet 90 mg PO BID Qty: 0 pantoprazole [Protonix] [address] for susp in packet 40 mg PO QDAY Qty: 30 0RF amlodipine [Norvasc] 5 mg Tablet 5 mg PO QDAY aspirin 81 mg Capsule,Delayed Release(Dr/Ec) 81 mg PO QDAY meloxicam 15 mg Tablet 15 mg PO QDAY Myrbetriq 25 mg Tablet Extended Release 24 Hr 25 mg PO QDAY albuterol 90 mcg/actuation Aerosol 90 mcg INHALATION Q4HR PRN (Reason: Dyspnea) albuterol sulfate 90 mcg/actuation HFA aerosol inhaler 2 puff inhalation QID PRN (Reason: shortness of breath or wheezing) Qty: 8.5 0RF Referrals: No Primary/Family,Physician [Primary Care Provider] - In 1 week Problem List Clinical Impression: CHF exacerbation, Troponin level elevated Patient/Caregiver Discharge Instructions Print Language: Urdu Stand Alone Forms: [employer] Award Info., Patient Portal Info Letter
[2024-08-19 21:47] LABS: Alanine Aminotransferase 41 U/L (10-49); Albumin/Globulin Ratio 1.3 (1.2-2.2); Alkaline Phosphatase 123 U/L (46-116); Anion Gap 6 (7-16); Aspartate Amino Transferase 33 U/L (0-34); BUN/Creatinine Ratio 43 Ratio (12-20); Bilirubin,Total 0.6 mg/dL (0.3-1.2); Blood Urea Nitrogen 65 mg/dL (9-23); Calcium 9.5 mg/dL (8.3-10.6); Calcium (Corrected) 9.5 mg/dL (8.5-10.1); Chloride 107 mMol/L (98-107); Creatinine (Component) 1.5 mg/dL (0.6-1.3); Estimated Creatinine Clearance 26.1 mL/min (>60); Glucose 108 mg/dL (74-106); Osmolality,Calculated 299 (275-295); Potassium 4.6 mMol/L (3.4-5.1); Procalcitonin 0.15 ng/ml (0.0-0.49); Sodium 140 mMol/L (136-145); eGFR 34 See Note
[2024-08-19 21:51] LABS: Troponin I 0.054 ng/mL (0.0-0.045)
[2024-08-19 22:40] LABS: INR 1.1 (0.9-1.3); Partial Thromboplastin Time 27.8 Seconds (22.0-36.0); Prothrombin Time 12.3 Seconds (9.0-12.2)
[2024-08-19] MEDS: MethylPREDNISolone SOD SUCC 62.5 MG/ML 2ML VIAL 125 MG IVP (22:40)
[2024-08-19] MEDS: FUROSEMIDE INJ 10 MG/ML 4ML VIAL 40 MG IVP (22:40)
[2024-08-19] MEDS: Aspirin 325 MG TABLET PO (22:41)
[2024-08-19 22:45] LABS: Magnesium 2.3 mg/dL (1.6-2.6)
[2024-08-19 22:52] LABS: Respiratory Syncytial Virus Ag Positive (Negative)
[2024-08-19 23:31] LABS: Base Excess -1 (-3-3); HCO3 24 mEq/L (20-26); Inspired Oxygen, FIO2 21 %; O2 Saturation 97 % (91-98); PCO2 38 mmHg (32.0-48.0); PO2 79 mmHg (83-108)
[2024-08-19 23:33] LABS: Allen Test Performed/OK; Puncture Site Right Radial
--- NOTE | 2024-08-19 23:43 | XR_ITS ---
Examination: Abdomen sonogram, complete Date and time of exam: August 20, 2024 at 0042 hrs. Indications: Diarrhea abdominal pain today Technique: Multiple real-time grayscale transabdominal sonographic images of the abdomen have been obtained. Findings: Absent gallbladder Common bile duct 0.6 cm Pancreatic head 2.7 cm Proximal aorta visualized 1.6 cm Liver 12.8 cm fatty infiltration. Normal hepatopedal portal venous flow Patent IVC Right kidney 7.2 cm cortex 1.4 cm Left kidney 9.2 cm cortex 1.5 cm Spleen 6.9 cm Impression: Normal common bile duct. Fatty liver Small kidneys with bilateral renal cortical thinning, no hydronephrosis
--- NOTE | 2024-08-19 23:58 | ESHP_ITS ---
<Statement entered by Shravan Lr MD - 08/21/24 04:51> 83-year-old female with multiple comorbidities including hypertension, hyperlipidemia with subsequent CAD and heart failure with reduced EF with a EF 40-45% and atrial fibrillation who presented with signs and symptoms of acute systolic CHF exacerbation. Currently, patient is not on any oxygen and does have crackles and lower extremity edema for which plan to start patient on IV diuretic therapy and monitor closely. Also there is a concern for possible community-acquired pneumonia for which we will start patient on Rocephin and azithromycin.I reviewed above note and agree with findings and plans. I have also personally examined the patient with medicine team and went over assessment and plan with medical team including video editing intern and resident physician. Documentation for date of: 08/19/24 HPI History of Present Illness Chief complaint: SOB and abdominal pain History of present illness: HPI:An 83-year-old female Malian speaker patient, poor historian with past medical history of hypertension, CHF last echo in chart was in 2019 EF of 40 to 45% following up with manager of development Dr. Franks, coronary artery disease, A-fib on Eliquis, chronic abdominal pain, came to the ED after she was referred by her PCP because of shortness of breath. Her son mentions that she has been suffering from chronic pain for the past 20 years after she had hernia repair surgery, and she has been following up with her PCP in which 3 days ago he started the patient on a medication that made her have diarrhea and worsened her abdominal pain. They contacted her primary care physician through the phone however he heard that the patient was wheezy and and heard her out of her breath and she recommended her to go to the ED. Upon presentation patient mentions that her shortness of breath has been going on for a long time and she has been taking water pills and following up with Dr. Franks. Home medications:Pending med rec ED course: On presentation patient was short of breath, unable to speak 1 sentence in a single breath. Vital signs was normal except heart rate was 92, she was saturating As per the ED note patient was wheezy, 96% on room air. Her labs showed hemoglobin of 11.2, her ABG was only significant for mild hypoxia of 79, CMP was only significant for BUN of 65, serum creatinine 1.5 her baseline is 1.2, glucose 108, troponin was within normal limits, BNP was more than 3200, chest x-ray showed vascular congestion, pending official read. He tested positive for RSV virus. Patient was given breathing treatment, methylprednisolone, Lasix 40 mg, and aspirin 325mg, PMH: As above Social hx: Alcohol: Remote history of social drinking Tobacco: Remote history of smoking 3 cigarettes/day Illicit drugs: Denied Allergies: Codeine Review of Systems Review of Systems Systems Reviewed: All systems reviewed, normal except as documented Exam Vital Signs Temp Pulse Resp BP Pulse Ox O2 Del Method O2 Flow Rate 97.8 F 101 H 20 103/45 L 100 Room Air 6 08/19/24 22:40 08/19/24 23:31 08/19/24 23:31 08/19/24 22:40 08/19/24 23:19 08/19/24 23:19 08/19/24 20:38 Narrative Exam GEN: AOx3, short of breath, Malian speaker HEENT: NC/AC, oral mucosa dry, neck supple CVS: RRR, S1-S2 present, no murmurs appreciated RESP: Diffuse fine crepitations bilaterally more on the back GI: soft,non distended, mild discomfort on palpation, NBS MSK: able to move all 4 limbs, +1 lower extremity edema SKIN: warm and dry MECHANICAL PRODUCT ENGINEER: CN II-XII and Sensation grossly intact. Results: Labs 08/19/24 20:56 08/19/24 20:56 Labs: Short CBC 08/19/24 Range/Units 20:56 WBC 6.2 (3.6-11.0) Thou/mm3 Hgb 11.2 L (12.0-16.0) g/dL Hct 36.0 (36.0-46.0) % Plt Count 310 (140-440) Thou/mm3 BMP 08/19/24 20:56 Sodium 140 Potassium 4.6 Chloride 107 Carbon Dioxide 27.0 BUN 65 H Creatinine 1.5 H Glucose 108 H Calcium 9.5 Cardiac Enzymes 08/19/24 Range/Units 20:56 Troponin I 0.054 H* (0.0-0.045) ng/mL Liver Function 08/19/24 Range/Units 20:56 Total Bilirubin 0.6 (0.3-1.2) mg/dL AST 33 (0-34) U/L ALT 41 (10-49) U/L Alkaline Phosphatase 123 H (46-116) U/L Albumin 4.0 (3.4-4.8) gm/dL ABG Interpretation ABG results: 08/19/24 22:35 ABG pH 7.40 ABG pCO2 38 ABG pO2 79 L ABG HCO3 24 ABG O2 Saturation 97 ABG Base Excess -1 Quality Measures Quality Measures none Advance care planning discussed with:: patient and child Medications Home Medications and Allergies Home Medications ?Medication ?Instructions ?Recorded ?Confirmed ?Type furosemide 20 mg tablet (Lasix) 20 mg PO QDAY #0 tabs 06/20/14 10/26/21 History loratadine 10 mg tablet (Claritin) 10 mg PO QDAY #0 ta bs 06/20/14 10/26/21 History tramadol 50 mg tablet (Ultram) 1 tab PO QID PRN PAIN # 0 tabs 06/20/14 10/26/21 History atorvastatin 10 mg tablet (Lipitor) 10 mg PO HS #0 tab s 12/22/15 10/26/21 History benazepril 20 mg tablet (Lotensin) 20 mg PO QDAY #0 ta bs 12/22/15 10/26/21 History nitroglycerin 0.4 mg sublingual 0.4 mg SL PRN PRN CHES T PAIN #0 09/19/16 10/26/21 History tablet (Nitrostat) tabs ticagrelor 90 mg tablet (Brilinta) 90 mg PO BID ##0 10/26/21 History amlodipine 5 mg tablet (Norvasc) 5 mg PO QDAY 09/16/20 10/26/21 History aspirin 81 mg capsule,delayed 81 mg PO QDAY 09/16/20 0 10/26/21 History release albuterol 90 mcg/actuation aerosol 90 mcg inhalation Q 4HR PRN Dyspnea 10/26/21 10/26/21 History inhaler meloxicam 15 mg tablet 15 mg PO QDAY 10/26/2110/26 History mirabegron 25 mg tablet,extended 25 mg PO QDAY 2 10/26/21 History release 24 hr (Myrbetriq) Allergies Allergy/AdvReac Type Severity Reaction Status Date / Time codeine Allergy Unknown Verified 08/19/24 19:56 Visit Medications Acetaminophen (Acetaminophen 325 Mg Tablet) 650 mg PO Q6H PRN PRN Reason: Fever >101.5 Stop: 09/18/24 23:34 Albuterol/Ipratropium (Albuterol/Ipratropium (Duoneb) Rt Torri 3 Ml Nebu) 3 ml INH Q6HRRT PRN PRN Reason: WHEEZING Stop: 09/19/24 00:59 Apixaban (Apixaban 2.5 Mg Tablet) 2.5 mg PO BID [facility] Stop: 09/19/24 08:59 Aspirin (Aspirin Ec 81 Mg Tabec) 81 mg PO QDAY [facility] Stop: 09/19/24 08:59 Bumetanide (Bumetanide Inj 0.25 Mg/Ml Vial 4 Ml) 1 mg IVP QDAY [facility] Stop: 09/19/24 08:59 Pantoprazole Sodium (Pantoprazole 40 Mg Tablet) 40 mg PO QDAY [facility] Stop: 09/19/24 08:59 Discontinued Medications Albuterol/Ipratropium (Albuterol/Ipratropium (Duoneb) Rt Torri 3 Ml Nebu) 3 ml INH X1 ONE Stop: 08/19/24 20:12 Last Admin: 08/19/24 20:36 Dose: 3 ml Aspirin (Aspirin 325 Mg Tablet) 325 mg PO X1 ONE Stop: 08/19/24 22:23 Last Admin: 08/19/24 22:41 Dose: 325 mg Furosemide (Furosemide Inj 10 Mg/Ml 4ml Vial) 40 mg IVP X1 ONE Stop: 08/19/24 22:23 Last Admin: 08/19/24 22:40 Dose: 40 mg Furosemide (Furosemide Inj 10 Mg/Ml Vial 2 Ml) 20 mg IVP X1 ONE Stop: 08/19/24 23:42 Furosemide (Furosemide Inj 10 Mg/Ml 4ml Vial) 40 mg IVP X1 ONE Stop: 08/19/24 23:57 Heparin Sodium (Porcine) (Heparin Sod Inj 5000 Unit/Ml Vial) 5,000 unit SC Q8HR [facility] Stop: 09/03/24 05:59 Methylprednisolone Sodium Succinate (Methylprednisolone Sod Succ 62.5 Mg/Ml 2ml Vial) 125 mg IVP X1 ONE Stop: 08/19/24 22:07 Last Admin: 08/19/24 22:40 Dose: 125 mg Assessment & Plan Plan Summary:An 83-year-old female Malian speaker patient, poor historian with past medical history of hypertension, CHF last echo in chart was in 2019 EF of 40 to 45% following up with manager of development Dr. Franks, coronary artery disease, A-fib on Eliquis, chronic abdominal pain, came to the ED after she was referred by her PCP because of shortness of breath. Patient was admitted for management of acute CHF exacerbation and abdominal pain work up.. Assessment and plan #Acute CHF exacerbation #Suspected pneumonia #Hx of CAD #History of coronary artery disease #A-fib on Eliquis Patient is known case of CHF, presented with severe shortness of breath, orthopnea, paroxysmal nocturnal dyspnea, mild lower extremity edema. Examination she had coarse crepitations BNP more than 3200, WBC within normal limits, no fever or chills. Chest x-ray showed vascular congestion, possible early pneumonia WBC within normal limits, saturating 96% on room air. Plan ? Admit patient to telemetry ? Consult manager of development Dr. Alvarado - Continue patient on aspirin 81mg po qday ? Echocardiogram ? Start the patient on Bumex 1 mg daily ? Give the patient another dose of Lasix 40 mg IV x 1 ? Strict in and out ? Fluid restriction to 1500 mL ? Start the patient on ceftriaxone, azithromycin for suspected pneumonia ? Resume the patient Eliquis ? Consider resuming home medication for goal-directed medical therapy for heart failure #Questionable History of hypertension plan - follow up on med rec and resume if appropriate #hx of Asthma plan - Duonebs q6hrrt as needed Hospital Maintenance: FEN:Cardiac diet DVT ppx:On eliquis GI ppx:protonix IV lines:PIV Jay:Yes Code status:Full code Dispo: Tele - Patient's plan and care discussed with my attending, Dr. Adeline Mota MD Internal Medicine PGY-2
[2024-08-20] VITALS (11 sets, daily range): BP systolic 93–110; BP diastolic 52–88; PULSE 77–109; RESP 18–94; TEMP 36.1–36.9; O2SAT 90–99
[2024-08-20 00:33] LABS: Collection Type, Urine Clean Catch; RBC,Urine 0 /hpf (0-3)
[2024-08-20] MEDS: FUROSEMIDE INJ 10 MG/ML 4ML VIAL 40 MG IVP (00:34)
[2024-08-20 00:57] LABS: D-Dimer 295 ng/mL (<600)
[2024-08-20] MEDS: LORazepam 2 MG/ML VIAL 0.5 MG IVP (01:10)
[2024-08-20 01:34] LABS: Bacteria,Urine Rare; Bilirubin,Urine Negative (Negative); Blood,Urine Negative (Negative); Clarity,Urine Turbid (Clear/Hazy); Color,Urine Colorless (Lt Yel-Yel); Glucose, Urine Negative (Negative); Hyaline Casts,Urine < 1 /hpf (0-1); Ketones,Urine Negative (Negative); Leukocyte Esterase,Urine Positive (Negative); Nitrite,Urine Negative (Negative); PH,Urine 6.5 (5.0-7.0); Protein,Urine Negative (Neg - Trace); Specific Gravity,Urine 1.011 (1.001-1.035); Squamous Epithelial Cell,Urine < 1 /hpf (0-5); Urobilinogen,Urine Negative mg/dL (0.0-1.0); WBC,Urine 1 /hpf (0-5)
[2024-08-20 02:01] LABS: Thyroid Stimulating Hormone 3.09 uIU/mL (0.55-4.78); Troponin I 0.044 ng/mL (0.0-0.045)
--- NOTE | 2024-08-20 03:27 | PRELIM_ITS ---
Ultrasound Abdomen with doppler and wave doppler spectral analysis the portal vein is patent with hepatopetal flow and normal with Doppler spectral analysis.. August 20, 2024 0042 hours Clinical history: Abdominal pain, Agoraphobia Technique: Grayscale and color flow images of the abdomen are provided. Hepatic and portal veins were also imaged with color flow images. Comparison: None. Findings: The study is limited by the limited patient cooperation and hyperventilation. The liver demonstrates heterogenous echogenicity. No intrahepatic biliary ductal dilatation. The gallbladder is not visualized. The common bile duct is normal in caliber at 5.7 mm. No free fluid is demonstrated on the submitted images. The pancreas is mildly hyperechoic. The right kidney measures 7.2 cm. The left kidney measures 9.2 cm. There is no hydronephrosis and the corticomedullary differentiation is maintained. The spleen is normal measuring 6.9 cm in length. The abdominal aorta and inferior vena cava to the extent visualized are within normal limits. Reina sign is not available at the time of this report. Impression: Mildly hyperechoic pancreas, consider acute pancreatitis in the differential diagnosis. The gallbladder was not visualized, consider further evaluation if clinically indicated. Heterogenous liver are suspicious for cirrhosis. Report Electronically Signed By: Omar Kulkarni 08/20/2024 3:26:54 AM [EST]
[2024-08-20] MEDS: cefTRIAXone 1,000 MG in SODIUM CHLORIDE 0.9% (Popper) 50 ML 100 MG IV (07:02)
[2024-08-20 07:06] LABS: Basophils % (Auto) 0 % (0-2.5); Eosinophils % (Auto) 0 % (0-10); Hematocrit 36.2 % (36.0-46.0); Hemoglobin 11.7 g/dL (12.0-16.0); Immature Granulocytes % (Auto) 0 % (0-0); Immature Granulocytes Auto 0.01 Thou/mm3 (0.00-0.00); Lymphocytes # (Auto) 0.4 Thou/mm3 (1.0-4.8); Lymphocytes % (Auto) 9 % (10-50); Mean Corpuscular HGB Conc 32.3 g/dl (31.0-37.0); Mean Corpuscular Hemoglobin 26.1 pg (25.0-35.0); Mean Corpuscular Volume 81 fL (80-100); Monocytes % (Auto) 1 % (0-12); Neutrophils # (Auto) 3.5 Thou/mm3 (1.8-7.7); Neutrophils % (Auto) 90 % (37-80); Nucleated Red Blood Cell # 0.02 Thou/mm3 (0.00-0.00); Nucleated Red Blood Cell % 1 /100 WBC (0); Platelet Count 318 Thou/mm3 (140-440); RDW Standard Deviation 55.2 fL (36.4-46.3); Red Blood Count 4.48 Miln/mm3 (4.00-5.20); White Blood Count 3.9 Thou/mm3 (3.6-11.0)
[2024-08-20 07:35] LABS: Glucose Estimated Average 143 mg/dL (80-131); Hemoglobin A1C 6.6 % Hgb (4.8-6.0)
[2024-08-20 07:39] LABS: Alanine Aminotransferase 38 U/L (10-49); Albumin, Serum 4.1 gm/dL (3.4-4.8); Albumin/Globulin Ratio 1.4 (1.2-2.2); Alkaline Phosphatase 122 U/L (46-116); Anion Gap 9 (7-16); Aspartate Amino Transferase 28 U/L (0-34); BUN/Creatinine Ratio 38 Ratio (12-20); Bilirubin,Total 0.6 mg/dL (0.3-1.2); Blood Urea Nitrogen 60 mg/dL (9-23); Calcium 9.1 mg/dL (8.3-10.6); Calcium (Corrected) 9.1 mg/dL (8.5-10.1); Carbon Dioxide 25.7 mMol/L (20.0-31.0); Cardiac Risk Estimate 1.9 RATIO (3.7-5.6); Chloride 104 mMol/L (98-107); Cholesterol 125 mg/dL (132-200); Creatinine (Component) 1.6 mg/dL (0.6-1.3); Estimated Creatinine Clearance 24.5 mL/min (>60); Globulin 2.9 gm/dL (2.3-3.5); Glucose 207 mg/dL (74-106); HDL Cholesterol 67 mg/dL (40-60); LDL Cholesterol,Calculated 47 mg/dL (0-130); Lipase 32 U/L (12-53); Magnesium 2.3 mg/dL (1.6-2.6); Osmolality,Calculated 300 (275-295); Phosphorous 3.6 mg/dL (2.4-5.1); Sodium 139 mMol/L (136-145); Triglycerides 57 mg/dL (30-150); Troponin I 0.036 ng/mL (0.0-0.045); eGFR 31 See Note
--- NOTE | 2024-08-20 08:07 | PC.CC ---
Patient is an 83 year old female who presents to the Emergency Department for CHF Exacerbation. 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 Limits of confidentiality were discussed. Patient appears to be alert and oriented to self, location and situation. Patient was pleasant and engaged in initial assessment. Patient confirmed information on demographics. Patient is currently unemployed and lives with her son and her three grandchildren. Patient stated her surrogate decision maker is her daughter Janeth Lovett . Patients primary care physician is Maryanne Fontana and her pharmacy of preference is [facility]. Patient stated she ambulates using a walker and is able to complete her ADL's independently. Upon discharge patient plans to return home. developmental services worker will follow up with any discharge needs.
[2024-08-20] MEDS: ASPIRIN EC 81 MG TABEC PO (08:55)
[2024-08-20] MEDS: AZITHROMYCIN 250 MG TABLET 500 MG PO (08:55)
[2024-08-20] MEDS: APIXABAN 2.5 MG TABLET PO ×2 (08:55→20:36)
[2024-08-20] MEDS: PANTOPRAZOLE 40 MG TABLET PO (08:55)
[2024-08-20] MEDS: BUMETANIDE INJ 0.25 MG/ML VIAL 4 ML 1 MG IVP (08:55)
[2024-08-20] MEDS: predniSONE 20 MG TABLET 40 MG PO (12:00)
[2024-08-20] MEDS: INSULIN LISPRO (AdmeLOG) 1 UNIT/0.01 ML UNIT SC ×2 (12:01→18:10)
[2024-08-20] MEDS: HYDROcodone/APAP 5/325 TABLET 1 TAB PO (12:42)
--- NOTE | 2024-08-20 15:45 | ESPR_ITS ---
Documentation for date of: 08/20/24 Subjective Subjective Interval history: No overnight events. Patient seen examined at bedside, and moderate distress. Patient complaining of chronic abdominal pain and lower back pain exacerbated by uncomfortable bed. Patient denies shortness of breath despite visibly short of breath on exam. Patient has fever, chills, chest pain, nausea, vomiting. Contact patient in chair, encourage patient to remain for treatment. Discontinue ceftriaxone. Will continue treatment for COPD and CHF exacerbations. [place] 5 x 1 given for abdominal pain. Exam Vital Signs Temp Pulse Resp BP Pulse Ox O2 Del Method O2 Flow Rate 97.0 F 93 20 107/76 95 Room Air 6 08/20/24 14:19 08/20/24 14:19 08/20/24 14:19 08/20/24 14:19 08/20/24 14:19 08/20/24 14:08/19/24 20:38 Narrative Exam PE: Gen: Well-developed and well-nourished. Moderate distress. HEENT: NCAT, PERRLA, EOMI, MMM, anicteric conjunctivae. CVS: normal S1 and S2. RRR. No M/R/G. Resp: Diffuse expiratory wheezing. Amphoric breath sounds. Abd: Diffuse abdominal tenderness. MSK: Good ROM in BUE & BLE. No rash. Trace BLE edema. Neuro: CN II-XII grossly intact. Strength 5/5 in BUE & BLE. Alert and oriented x3. Psych: appropriate mood and affect. Objective Labs 08/20/24 06:59 08/20/24 06:59 Labs: Laboratory Results - last 24 hr 08/19/24 08/19/24 08/19/24 20:56 22:20 22:35 WBC 6.2 RBC 4.37 Hgb 11.2 L Hct 36.0 MCV 82 MCH 25.6 MCHC 31.1 RDW Std Deviation 56.9 H Plt Count 310 Neut % (Auto) 72 Lymph % (Auto) 20 [place] % (Auto) 7 Eos % (Auto) 0 Baso % (Auto) 0 Neut # (Auto) 4.5 Lymph # (Auto) 1.2 [place] # (Auto) 0.4 Eos # (Auto) 0.0 Baso # (Auto) 0.0 Immature Gran # (Auto) 0.02 H Absolute Nucleated RBC 0.02 H Immature Gran % 0 Nucleated RBC % 0 PT 12.3 H INR 1.1 APTT 27.8 D-Dimer 295 Puncture Site Right Radial ABG pH 7.40 ABG pCO2 38 ABG pO2 79 L ABG HCO3 24 ABG O2 Saturation 97 ABG Base Excess -1 FiO2 21 Sodium 140 Potassium 4.6 Chloride 107 Carbon Dioxide 27.0 Anion Gap 6 L BUN 65 H Creatinine 1.5 H Estim Creat Clear Calc 26.1 L eGFR 34 L BUN/Creatinine Ratio 43 H Glucose [address] Glu mg/dL Hemoglobin A1c Calculated Osmolality 299 H Calcium 9.5 Corrected Calcium 9.5 Phosphorus Magnesium 2.3 Total Bilirubin 0.6 AST 33 ALT 41 Alkaline Phosphatase 123 H Troponin I 0.054 H* B-Natriuretic Peptide > 3280 H* Total Protein 7.0 Albumin 4.0 Globulin 3.0 Albumin/Globulin Ratio 1.3 Triglycerides Cholesterol LDL Cholesterol, Calc HDL Cholesterol Cholesterol/HDL Ratio Lipase Procalcitonin 0.15 TSH Ur Collection Type Urine Color Urine Clarity Urine pH Ur Specific [place] Urine Protein Urine Glucose (UA) Urine Ketones Urine Blood Urine Nitrite Urine Bilirubin Urine Urobilinogen (Auto) Ur Leukocyte Esterase Urine RBC Urine WBC Ur Squamous Epith Cells Urine Bacteria Hyaline Casts RSV Rapid Positive A 08/20/24 08/20/24 08/20/24 00:13 01:12 06:59 WBC 3.9 RBC 4.48 Hgb 11.7 L Hct 36.2 MCV 81 MCH 26.1 MCHC 32.3 RDW Std Deviation 55.2 H Plt Count 318 Neut % (Auto) 90 H Lymph % (Auto) 9 L [place] % (Auto) 1 Eos % (Auto) 0 Baso % (Auto) 0 Neut # (Auto) 3.5 Lymph # (Auto) 0.4 L [place] # (Auto) 0.0 Eos # (Auto) 0.0 Baso # (Auto) 0.0 Immature Gran # (Auto) 0.01 H Absolute Nucleated RBC 0.02 H Immature Gran % 0 Nucleated RBC % 1 H PT INR APTT D-Dimer Puncture Site ABG pH ABG pCO2 ABG pO2 ABG HCO3 ABG O2 Saturation ABG Base Excess FiO2 Sodium 139 Potassium 4.0 D Chloride 104 Carbon Dioxide 25.7 Anion Gap 9 BUN 60 H Creatinine 1.6 H Estim Creat Clear Calc 24.5 L eGFR 31 L BUN/Creatinine Ratio 38 H Glucose [address] Glu mg/dL 143 H Hemoglobin A1c 6.6 H Calculated Osmolality 300 H Calcium 9.1 Corrected Calcium 9.1 Phosphorus 3.6 Magnesium 2.3 Total Bilirubin 0.6 AST 28 ALT 38 Alkaline Phosphatase 122 H Troponin I 0.044 0.036 B-Natriuretic Peptide Total Protein 7.0 Albumin 4.1 Globulin 2.9 Albumin/Globulin Ratio 1.4 Triglycerides 57 Cholesterol 125 L LDL Cholesterol, Calc 47 HDL Cholesterol 67 H Cholesterol/HDL Ratio 1.9 L Lipase 32 Procalcitonin TSH 3.09 Ur Collection Type Clean Catch Urine Color Colorless A Urine Clarity Turbid A Urine pH 6.5 Ur Specific [place] 1.011 Urine Protein Negative Urine Glucose (UA) Negative Urine Ketones Negative Urine Blood Negative Urine Nitrite Negative Urine Bilirubin Negative Urine Urobilinogen (Auto) Negative Ur Leukocyte Esterase Positive Urine RBC 0 Urine WBC 1 Ur Squamous Epith Cells < 1 Urine Bacteria Rare Hyaline Casts < 1 RSV Rapid ABG Interpretation ABG results: 08/19/24 22:35 ABG pH 7.40 ABG pCO2 38 ABG pO2 79 L ABG HCO3 24 ABG O2 Saturation 97 ABG Base Excess -1 Quality Measures Quality Measures VTE prophylaxis Advance care planning discussed with:: patient and child Assessment & Plan Assessment Current Active Medications: Generic Name Dose Route Start Last Admin Trade Name Freq PRN Reason Stop Dose Admin Acetaminophen 650 mg 08/19/24 23:35 Acetaminophen 325 Mg Tablet PO 09/18/24 23:34 Q6H PRN Fever >101.5 Albuterol/Ipratropium 3 ml 08/19/24 23:35 Albuterol/Ipratropium (Duoneb) Rt Torri 3 Ml Nebu INH 09/19/24 00:59 Q6HRRT PRN WHEEZING Apixaban 2.5 mg 08/20/24 09:00 08/20/24 08:55 Apixaban 2.5 Mg Tablet PO 09/19/24 08:59 2.5 mg BID ALVARO Administration Aspirin 81 mg 08/20/24 09:00 08/20/24 08:55 Aspirin Ec 81 Mg Tabec PO 09/19/24 08:59 81 mg QDAY ALVARO Administration Azithromycin 500 mg 08/20/24 09:00 08/20/24 08:55 Azithromycin 250 Mg Tablet PO 08/24/24 08:59 500 mg QDAY ALVARO Administration Bumetanide 1 mg 08/20/24 09:00 08/20/24 08:55 Bumetanide Inj 0.25 Mg/Ml Vial 4 Ml IVP 09/19/24 08:59 1 mg QDAY ALVARO Administration Dextrose 25 ml 08/20/24 09:46 Dextrose 50%-Water Inj 50 Ml Syringe IV 09/19/24 09:45 Q15MIN PRN BG 50-70 responsive npo pt Dextrose 50 ml 08/20/24 09:46 Dextrose 50%-Water Inj 50 Ml Syringe IV 09/19/24 09:45 Q15MIN PRN BG <50 OR BG <70 & pt unresponsive Glucagon 1 mg 08/20/24 09:46 Glucagon Inj 1 Mg Vial IM Q15MIN PRN BG <70, and no IV access Insulin Human Lispro 0 unit 08/20/24 11:30 08/20/24 12:01 Insulin Lispro (Admelog) 1 Unit/0.01 Ml Unit SC 09/19/24 11:29 1 unit AC ALVARO Administration Protocol Pantoprazole Sodium 40 mg 08/20/24 09:00 08/20/24 08:55 Pantoprazole 40 Mg Tablet PO 09/19/24 08:59 40 mg QDAY ALVARO Administration Prednisone 40 mg 08/20/24 11:15 08/20/24 12:00 Prednisone 20 Mg Tablet PO 08/23/24 11:13 40 mg QDAY ALVARO Administration Plan 83-year-old female Mohawk speaker patient, poor historian with past medical history of hypertension, CHF last echo in chart was in 2019 EF of 40 to 45% following up with director of safety and security Dr. Franks, coronary artery disease, A-fib on Eliquis, chronic abdominal pain, came to the ED after she was referred by her PCP because of shortness of breath. Patient was admitted for management of acute CHF exacerbation and abdominal pain work up.. #Acute hypoxic respiratory failure (resolved) secondary to #Acute CHF exacerbation #COPD exacerbation #Emphysema #RSV infection Patient is known case of CHF, presented with severe shortness of breath, orthopnea, paroxysmal nocturnal dyspnea, mild lower extremity edema. BNP more than 3200, WBC within normal limits, no fever or chills. Chest x-ray showed vascular congestion, possible early pneumonia. WBC within normal limits, saturating 96% on room air. Patient has known history of emphysema, is a lifelong smoker. RSV positive, likely trigger for COPD and CHF exacerbations. -Admit patient to telemetry -Consult director of safety and security Dr. Alvarado -Echocardiogram ordered, follow-up -Bumex 1 mg IV daily -Strict in and out -Fluid restriction to 1500 mL -Azithromycin 500 mg p.o. daily x 3 days (started 08/20) -DuoNebs as needed -Prednisone 40 mg p.o. daily x 5 days (finished 08/23) #Hx of CAD #History of coronary artery disease #A-fib on Eliquis #History of hypertension #Hx of Asthma Patient history as above -Continue patient on aspirin 81mg po qday -Eliquis 2.5 mg p.o. twice daily -Consider resuming other home meds when appropriate DVT prophylaxis: Eliquis GI prophylaxis: Protonix Diet: Cardiac, low-sodium, fluid restriction 1500 cc Lines: Peripheral IV, pure wick Code status: Full code Plan of care discussed with attending Dr. Luu. Praful Klein MD PGY?1 Attending Provider Attestation/Addendum I attest that I was physically present for the evaluation, physical examination, lab and imaging review of the patient with the residents. I discussed the case with the residents and agree with the findings and plans of care as documented above. Bedside, sent was upset that she had to stay in the bed all the time. Transferred her to a chair, patient was short of breath even on transfer or talking continuously. But able to saturate well on room air. Tested positive for RSV. Will continue her diuretics and azithromycin but discontinue Rocephin. Continues to be on steroids. Awaiting PT evaluation. Kassi Luu MD
[2024-08-20] MEDS: ACETAMINOPHEN 325 MG TABLET 650 MG PO (20:35)
[2024-08-20] MEDS: ALBUTEROL/IPRATROPIUM (Duoneb) RT SOL 3 ML NEBU INH (20:58)
[2024-08-21] VITALS (7 sets, daily range): BP systolic 94–108; BP diastolic 56–62; PULSE 85–101; RESP 16–96; TEMP 36.2–36.6; O2SAT 93–99
[2024-08-21 06:26] LABS: Basophils % (Auto) 0 % (0-2.5); Eosinophils % (Auto) 0 % (0-10); Hematocrit 34.6 % (36.0-46.0); Hemoglobin 11.2 g/dL (12.0-16.0); Immature Granulocytes % (Auto) 0 % (0-0); Immature Granulocytes Auto 0.03 Thou/mm3 (0.00-0.00); Lymphocytes # (Auto) 0.7 Thou/mm3 (1.0-4.8); Lymphocytes % (Auto) 8 % (10-50); Mean Corpuscular HGB Conc 32.4 g/dl (31.0-37.0); Mean Corpuscular Volume 80 fL (80-100); Monocytes # (Auto) 0.4 Thou/mm3 (0.0-0.8); Monocytes % (Auto) 5 % (0-12); Neutrophils # (Auto) 7.4 Thou/mm3 (1.8-7.7); Neutrophils % (Auto) 86 % (37-80); Nucleated Red Blood Cell # 0.03 Thou/mm3 (0.00-0.00); Nucleated Red Blood Cell % 0 /100 WBC (0); Platelet Count 306 Thou/mm3 (140-440); Red Blood Count 4.31 Miln/mm3 (4.00-5.20); White Blood Count 8.6 Thou/mm3 (3.6-11.0)
[2024-08-21 06:54] LABS: Alanine Aminotransferase 32 U/L (10-49); Albumin, Serum 3.6 gm/dL (3.4-4.8); Albumin/Globulin Ratio 1.3 (1.2-2.2); Alkaline Phosphatase 107 U/L (46-116); Anion Gap 9 (7-16); Aspartate Amino Transferase 22 U/L (0-34); BUN/Creatinine Ratio 44 Ratio (12-20); Bilirubin,Total 0.5 mg/dL (0.3-1.2); Blood Urea Nitrogen 57 mg/dL (9-23); Calcium 9.1 mg/dL (8.3-10.6); Calcium (Corrected) 9.4 mg/dL (8.5-10.1); Carbon Dioxide 28.1 mMol/L (20.0-31.0); Chloride 103 mMol/L (98-107); Creatinine (Component) 1.3 mg/dL (0.6-1.3); Estimated Creatinine Clearance 26.5 mL/min (>60); Globulin 2.8 gm/dL (2.3-3.5); Glucose 150 mg/dL (74-106); Magnesium 2.1 mg/dL (1.6-2.6); Osmolality,Calculated 298 (275-295); Phosphorous 3.6 mg/dL (2.4-5.1); Sodium 140 mMol/L (136-145); Total Protein 6.4 gm/dL (5.7-8.2); eGFR 40 See Note
[2024-08-21] MEDS: predniSONE 20 MG TABLET 40 MG PO (08:37)
[2024-08-21] MEDS: PANTOPRAZOLE 40 MG TABLET PO (08:38)
[2024-08-21] MEDS: ASPIRIN EC 81 MG TABEC PO (08:38)
[2024-08-21] MEDS: APIXABAN 2.5 MG TABLET PO (08:38)
[2024-08-21] MEDS: BUMETANIDE INJ 0.25 MG/ML VIAL 4 ML 1 MG IVP (08:38)
[2024-08-21] MEDS: AZITHROMYCIN 250 MG TABLET 500 MG PO (08:38)
[2024-08-21] MEDS: ALBUTEROL/IPRATROPIUM (Duoneb) RT SOL 3 ML NEBU INH (10:53)
[2024-08-21] MEDS: INSULIN LISPRO (AdmeLOG) 1 UNIT/0.01 ML UNIT SC (13:00)
--- NOTE | 2024-08-21 13:36 | PD.RESPRO ---
Documentation for date of: 08/21/24 Subjective Subjective Interval history: No overnight events. Patient seen examined at bedside, mild distress, improved from yesterday. Patient continues to endorse abdominal pain, denies shortness of breath, chest pain, fever, chills, nausea, vomiting. Continue current medical management. Pending PT eval. Exam Vital Signs Temp Pulse Resp BP Pulse Ox O2 Del Method O2 Flow Rate 97.9 F 91 19 104/59 L 93 L Nasal Cannula 2 08/21/24 12:00 08/21/24 12:00 08/21/24 12:00 08/21/24 12:00 08/21/24 12:00 08/21/24 12:00 08/21/24 12:00 Narrative Exam PE: Gen: Well-developed and well-nourished. Mild distress. HEENT: NCAT, PERRLA, EOMI, MMM, anicteric conjunctivae. CVS: normal S1 and S2. RRR. No M/R/G. Resp: Diffuse expiratory wheezing. Amphoric breath sounds. Abd: Diffuse abdominal tenderness. MSK: Good ROM in BUE & BLE. No rash. Trace BLE edema. Neuro: CN II-XII grossly intact. Strength 5/5 in BUE & BLE. Alert and oriented x3. Psych: appropriate mood and affect. Objective Labs 08/21/24 04:36 08/21/24 04:36 Labs: Laboratory Results - last 24 hr 08/21/24 04:36 WBC 8.6 D RBC 4.31 Hgb 11.2 L Hct 34.6 L MCV 80 MCH 26.0 MCHC 32.4 RDW Std Deviation 55.0 H Plt Count 306 Neut % (Auto) 86 H Lymph % (Auto) 8 L [place] % (Auto) 5 Eos % (Auto) 0 Baso % (Auto) 0 Neut # (Auto) 7.4 Lymph # (Auto) 0.7 L [place] # (Auto) 0.4 Eos # (Auto) 0.0 Baso # (Auto) 0.0 Immature Gran # (Auto) 0.03 H Absolute Nucleated RBC 0.03 H Immature Gran % 0 Nucleated RBC % 0 Sodium 140 Potassium 4.0 Chloride 103 Carbon Dioxide 28.1 Anion Gap 9 BUN 57 H Creatinine 1.3 Estim Creat Clear Calc 26.5 L eGFR 40 L BUN/Creatinine Ratio 44 H Glucose 150 H D Calculated Osmolality 298 H Calcium 9.1 Corrected Calcium 9.4 Phosphorus 3.6 Magnesium 2.1 Total Bilirubin 0.5 AST 22 ALT 32 Alkaline Phosphatase 107 Total Protein 6.4 Albumin 3.6 D Globulin 2.8 Albumin/Globulin Ratio 1.3 ABG Interpretation ABG results: 08/19/24 22:35 ABG pH 7.40 ABG pCO2 38 ABG pO2 79 L ABG HCO3 24 ABG O2 Saturation 97 ABG Base Excess -1 Quality Measures Quality Measures VTE prophylaxis Advance care planning discussed with:: patient Assessment & Plan Assessment Current Active Medications: Generic Name Dose Route Start Last Admin Trade Name Freq PRN Reason Stop Dose Admin Acetaminophen 650 mg 08/19/24 23:35 08/20/24 20:35 Acetaminophen 325 Mg Tablet PO 09/18/24 23:34 650 mg Q6H PRN Administration Fever >101.5 Albuterol/Ipratropium 3 ml 08/19/24 23:35 08/21/24 10:53 Albuterol/Ipratropium (Duoneb) Rt Torri 3 Ml Nebu INH 09/19/24 00:59 3 ml Q6HRRT PRN Administration WHEEZING Apixaban 2.5 mg 08/20/24 09:00 08/21/24 08:38 Apixaban 2.5 Mg Tablet PO 09/19/24 08:59 2.5 mg BID ALVARO Administration Aspirin 81 mg 08/20/24 09:00 08/21/24 08:38 Aspirin Ec 81 Mg Tabec PO 09/19/24 08:59 81 mg QDAY ALVARO Administration Azithromycin 500 mg 08/20/24 09:00 08/21/24 08:38 Azithromycin 250 Mg Tablet PO 08/24/24 08:59 500 mg QDAY ALVARO Administration Bumetanide 1 mg 08/20/24 09:00 08/21/24 08:38 Bumetanide Inj 0.25 Mg/Ml Vial 4 Ml IVP 09/19/24 08:59 1 mg QDAY ALVARO Administration Dextrose 25 ml 08/20/24 09:46 Dextrose 50%-Water Inj 50 Ml Syringe IV 09/19/24 09:45 Q15MIN PRN BG 50-70 responsive npo pt Dextrose 50 ml 08/20/24 09:46 Dextrose 50%-Water Inj 50 Ml Syringe IV 09/19/24 09:45 Q15MIN PRN BG <50 OR BG <70 & pt unresponsive Glucagon 1 mg 08/20/24 09:46 Glucagon Inj 1 Mg Vial IM Q15MIN PRN BG <70, and no IV access Insulin Human Lispro 0 unit 08/20/24 11:30 08/21/24 13:00 Insulin Lispro (Admelog) 1 Unit/0.01 Ml Unit SC 09/19/24 11:29 1 unit AC ALVARO Administration Protocol Pantoprazole Sodium 40 mg 08/20/24 09:00 08/21/24 08:38 Pantoprazole 40 Mg Tablet PO 09/19/24 08:59 40 mg QDAY ALVARO Administration Prednisone 40 mg 08/20/24 11:15 08/21/24 08:37 Prednisone 20 Mg Tablet PO 08/23/24 11:13 40 mg QDAY ALVARO Administration Plan 83-year-old female Bol[place]ian speaker patient, poor historian with past medical history of hypertension, CHF last echo in chart was in 2019 EF of 40 to 45% following up with senior medical billing specialist Dr. Franks, coronary artery disease, A-fib on Eliquis, chronic abdominal pain, came to the ED after she was referred by her PCP because of shortness of breath. Patient was admitted for management of acute CHF exacerbation and abdominal pain work up.. #Acute hypoxic respiratory failure (resolved) secondary to #Acute CHF exacerbation #COPD exacerbation #Emphysema #RSV infection Patient is known case of CHF, presented with severe shortness of breath, orthopnea, paroxysmal nocturnal dyspnea, mild lower extremity edema. BNP more than 3200, WBC within normal limits, no fever or chills. Chest x-ray showed vascular congestion, possible early pneumonia. WBC within normal limits, saturating 96% on room air. Patient has known history of emphysema, is a lifelong smoker. RSV positive, likely trigger for COPD and CHF exacerbations. -Admit patient to telemetry -Consult senior medical billing specialist Dr. Franks -Echocardiogram ordered, follow-up -Bumex 1 mg IV daily -Strict in and out -Fluid restriction to 1500 mL -Azithromycin 500 mg p.o. daily x 3 days (started 08/20) -DuoNebs as needed -Prednisone 40 mg p.o. daily x 5 days (finished 08/23) #Hx of CAD #History of coronary artery disease #A-fib on Eliquis #History of hypertension #Hx of Asthma Patient history as above -Continue patient on aspirin 81mg po qday -Eliquis 2.5 mg p.o. twice daily -Consider resuming other home meds when appropriate DVT prophylaxis: Eliquis GI prophylaxis: Protonix Diet: Cardiac, low-sodium, fluid restriction 1500 cc Lines: Peripheral IV, pure wick Code status: Full code Plan of care discussed with attending Dr. Luu. Praful Klein MD PGY?1
--- NOTE | 2024-08-21 14:34 | PC.SS ---
Patient needs a manual wheelchair for home. The patient and her family are requesting a wheel chair. Patients diagnosis creates mobility limitations that significantly impairs ability to participate in the patient?s activities of daily living either in their entirety or in a reasonable timeframe in the home and the patient?s mobility limitations cannot be sufficiently resolved with an appropriately fitted cane or walker. Also, the use of a manual wheelchair will sufficiently improve patients ability to participate in the activities of daily living in the home and the patient is willing to use the wheelchair that is provided in the home. The patient has some one in the home that is available, willing and able to provide assistance with the wheelchair.
--- NOTE | 2024-08-21 15:02 | PD.RESDS ---
Planned Discharge Date 08/21/24 DS: Providers Provider Date of admission: 08/19/24 23:35 Primary care physician: Physician No Primary/Family Admitting Provider: Shravan Lr MD Attending Provider on Admission: Kassi Luu MD Consults: 08/19/24 23:47 Consult to Cardiology Urgent Comment: CHF exacerbation Consulting Provider: Paddy Franks 08/20/24 09:25 Referral Physical Therapy Routine Comment: Physician Instructions: Attending Provider on DC: Kassi Luu MD Discharging Provider: Praful Klein MD DS: Diagnosis Problem List Completed Was Problem List Reviewed/Reconciled?: Yes Hospital Course Hospital Course Hospital course: 83-year-old female with past medical history of hypertension, emphysema, CHF, coronary artery disease, A-fib on Eliquis, chronic abdominal pain, came to the ED on 08/19/2024 with chief complaint of shortness of breath, admitted due to CHF exacerbation and COPD exacerbation. Patient found to have positive RSV test in the ED. Patient to with diuretics, azithromycin, DuoNebs as needed. Patient started on steroid course. Patient complained of chronic abdominal and lower back pain, adequately controlled with [place]. Patient showed significant symptomatic improvement with treatment, was cleared by PT for discharge back home. Patient medically stable and cleared for discharge. Discharge plan: You have been started on the following medications: -Prednisone 40 mg/day for 2 days Please continue taking all other medications as previously prescribed. Please follow-up with your PCP in 1-2 weeks. Please follow-up with double spindle shaper operator in 1-2 weeks. Return to the ED if you develop new or worsening symptoms. Diagnoses: #Acute hypoxic respiratory failure (resolved) secondary to #Acute CHF exacerbation, improved #COPD exacerbation, improved #Emphysema #RSV infection #Hx of CAD #History of coronary artery disease #A-fib on Eliquis #History of hypertension #Hx of Asthma Plan of care discussed with senior resident Dr. Alexis PGY?[address] Luu. Praful Klein MD PGY?1 Time Spent with Patient Time attestation: Total time spent providing and/or coordinating discharge services: Exam Vital Signs Temp Pulse Resp BP Pulse Ox O2 Del Method O2 Flow Rate 97.9 F 91 19 104/59 L 93 L Nasal Cannula 2 08/21/24 12:00 08/21/24 12:08/21/24 12:08/21/24 12:08/21/24 12:08/21/24 12:08/21/24 12:00 Narrative Exam PE: Gen: Well-developed and well-nourished. Mild distress. HEENT: NCAT, PERRLA, EOMI, MMM, anicteric conjunctivae. CVS: normal S1 and S2. RRR. No M/R/G. Resp: Diffuse expiratory wheezing. Amphoric breath sounds. Abd: Diffuse abdominal tenderness. MSK: Good ROM in BUE & BLE. No rash. Trace BLE edema. Neuro: CN II-XII grossly intact. Strength 5/5 in BUE & BLE. Alert and oriented x3. Psych: appropriate mood and affect. Discharge Plan Plan Patient Disposition: HOME (Self Care) Patient condition on transfer: Stable Care Plan Goals: You have been started on the following medications: -Prednisone 40 mg/day for 2 days Please continue taking all other medications as previously prescribed. Please follow-up with your primary care provider in 1-2 weeks. Please follow-up with double spindle shaper operator in 1-2 weeks. Return to the ED if you develop new or worsening symptoms. [place] comenzado a katie los siguientes medicamentos: Prednisone 40 mg/d?a osito 2 d?as Contin?e tomando todos los dem?s medicamentos seg?n lo prescrito previamente. Consulte con [facility] m?dico de cabecera en 1 o 2 semanas. Consulte con [facility] cardi?logo en 1 o 2 semanas. Regrese a urgencias si presenta s?ntomas nuevos o empeoran. Prescriptions/Referrals Prescriptions/Med Rec: New prednisone 20 mg Tablet 40 mg PO QDAY 2 Days Qty: 4 0RF Continued tramadol [Ultram] 50 MG tablet 1 tab PO QID PRN (Reason: PAIN) Qty: 0 Patient Comments: FOR PAIN, NOT TO EXCEED 8 TABS IN 24 HRS furosemide [Lasix] 20 MG tablet 40 mg PO BID Qty: 0 Patient Comments: 1 and 1/2 tablets by mouth loratadine [Claritin] 10 MG tablet 10 mg PO QDAY Qty: 0 benazepril [Lotensin] 20 MG tablet 20 mg PO QDAY Qty: 0 atorvastatin [Lipitor] 10 MG tablet 10 mg PO HS Qty: 0 nitroglycerin [Nitrostat] 0.4 MG tablet, sublingual 0.4 mg SL PRN PRN (Reason: CHEST PAIN) Qty: 0 Brilinta 90 MG tablet 90 mg PO BID Qty: 0 pantoprazole [Protonix] [address] for susp in packet 40 mg PO QDAY Qty: 30 0RF amlodipine [Norvasc] 5 mg Tablet 5 mg PO QDAY aspirin 81 mg Capsule,Delayed Release(Dr/Ec) 81 mg PO QDAY meloxicam 15 mg Tablet 15 mg PO QDAY mirabegron [Myrbetriq] 25 mg Tablet Extended Release 24 Hr 25 mg PO QDAY albuterol 90 mcg/actuation Aerosol 90 mcg INHALATION Q4HR PRN (Reason: Dyspnea) albuterol sulfate 90 mcg/actuation HFA aerosol inhaler 2 puff inhalation QID PRN (Reason: shortness of breath or wheezing) Qty: 8.5 0RF spironolactone 25 mg tablet 25 mg PO .am Patient Comments: TAKE 1/2 TABLET BY MOUTH EVERY MORNING A DIURETIC Trelegy Ellipta 100-62.5-25 mcg blister with device 1 inh inhalation QDAY Entresto 49-51 mg tablet 1 tab PO BID Rx Instructions: take 1/2 tablet by mouth twice daily Jardiance 10 mg tablet 10 mg PO QDAY Eliquis 2.5 mg tablet 2.5 mg PO BID Referrals: No Primary/Family,Physician [Primary Care Provider] - Patient/Caregiver Discharge Instructions Discharge Activity: walk with walker only, as per physical therapy and resume usual activities Education Materials: Heart Failure Meds, Heart Failure Signs of Flare-Up, Coping with Heart Failure, RSV (Respiratory Syncytial Virus), Heart Failure Print Language: Kittitian Stand Alone Forms: Yesi Award Info., Patient Portal Info Letter Discharge Order Discharge Orders: Discharge (Routine); Ordered 08/21/24 Ordered By: Praful Klein Quality Discharge Quality Measures VTE prophylaxis Attestestation Attestation I attest that I was physically present for the evaluation, physical examination, lab and imaging review of the patient with the residents. I discussed the case with the residents and agree with the findings and plans of care as documented above. At bedside today, patient appears comfortable, saturating well on room air. Only has trace pedal edema, less concerning for CHF exacerbation. More likely to have COPD exacerbation from RSV infection. Evaluated by PT, recommended discharge to home with wheelchair. We will arrange for wheelchair for the patient and discharge her on short course of steroid for her COPD exacerbation. Recommended patient to follow-up with PCP and cardiology in 1 to 2 weeks of discharge. Kassi Luu MD
--- NOTE | 2024-08-21 15:33 | PC.SS ---
Follow up note: PT called to indicate that patient will need a manual wheelchair for home. Possible d/c home today. Family at bedside. IHSS information provided
== END 2024-08-21 18:37 | disposition home or self-care (01) | DRG 291 ==
LOC: SERX 22:22 → SERHOLD 23:58 → S2SX 08-20 09:51 → S3NX 08-20 14:09
PROVIDERS: Physician Assistant; Student in an Organized Health Care Education/Training Program; Admitting Provider Internal Medicine; Emergency Provider Emergency Medicine; Visit Provider Student in an Organized Health Care Education/Training Program
DX: I11.0 Hypertensive heart disease with heart failure (principal); I50.23 Acute on chronic systolic (congestive) heart failure; J96.01 Acute respiratory failure with hypoxia; J44.1 Chronic obstructive pulmonary disease with (acute) exacerbation; I25.10 Atherosclerotic heart disease of native coronary artery without angina pectoris; I48.91 Unspecified atrial fibrillation; M54.50 Low back pain, unspecified; G89.29 Other chronic pain; R19.7 Diarrhea, unspecified; B97.4 Respiratory syncytial virus as the cause of diseases classified elsewhere; R10.9 Unspecified abdominal pain; J43.9 Emphysema, unspecified; Z79.01 Long term (current) use of anticoagulants; Z87.891 Personal history of nicotine dependence; Z79.899 Other long term (current) drug therapy; Z79.82 Long term (current) use of aspirin; Z79.02 Long term (current) use of antithrombotics/antiplatelets; I25.2 Old myocardial infarction
CPT/HCPCS: 36415; 36600; 71045; 76700; 80053; 80061; 81001; 82803; 83036; 83690; 83735; 83880; 84100; 84145; 84443; 84484; 85025; 85379; 85610; 85730; 87400; 87634; 87811; 93005; 94640; 96374; 96375; 97162; 99285; A9270; J0696; J1815; J1940; J2060; J2919; J3490; J7050; J7512

== ENCOUNTER 2024-12-27 18:04 | Inpatient (IN) | payer MEDICARE, MEDICAID, SELFPAY ==
[2024-12-27 19:58] VITALS: BP 111/73; PULSE 92; RESP 20; TEMP 36.6; O2SAT 96
--- NOTE | 2024-12-27 21:07 | XR_ITS ---
Examination: AP chest single view TECHNIQUE: Upright AP chest single view Date and time: December 27, 2026 2136 hours INDICATIONS: Shortness of breath today. FINDINGS: Mild enlargement cardiac contour Moderate vascular congestion. No lobar pneumonia or pulmonary edema IMPRESSION: Moderate vascular congestion
--- NOTE | 2024-12-27 21:08 | EKG_ITS ---
[facility] Test Date: 2024-12-27 Pat Name: MARTINE HOWARD Department: Room: - Gender: Female Clinical Research Monitor: : 1940 Requested By: Claire Sanchez Order Number: [id number] Reading MD: Claire Sanchez Measurements Intervals [place] Rate: 97 P: SD: QRS: -51 QRSD: 168 T: 142 QT: 393 QTc: 499 Interpretive Statements ATRIAL FIBRILLATION LEFT AXIS DEVIATION [QRS AXIS < -30] LEFT BUNDLE BRANCH BLOCK [120+ ms QRS DURATION, 80+ ms Q/S IN V1/V2, 85+ ms R IN I/aVL/V5/V6] Compared to ECG 08/20/2024 00:01:41 No significant changes /store/S0/[id number].pdf
--- NOTE | 2024-12-27 21:08 | EDNOTE_ITS ---
ED SOB =RME/HPI General Chief Complaint: General Adult/Misc Complain Stated Complaint: SWOLLEN LEGS, PAIN INSIDE , SENT BY PCP Time Seen by Provider: 12/27/24 21:07 Arrival date/time: 12/27/24 18:04 Limitations: no limitations RME / HPI RME / HPI Narrative: Patient is a 84-year-old female who is here today with her daughter who provides the history. She is [place]-speaking. She is here with a 1 week history of increased lower leg edema, exertional dyspnea, and fatigue. She also has increasing anxiety. She has had no falls or injury. She has no chest pain. She does have a history of CHF, anxiety, hyperlipidemia, hypertension, and atrial fibrillation. She takes Lasix 40 mg daily in addition to Eliquis 2.5 mg. Related Data Home Medications ?Medication ?Instructions ?Recorded ?Confirmed furosemide 20 mg tablet (Lasix) 40 mg PO BID #0 tabs 0 06/20/14 08/20/24 loratadine 10 mg tablet (Claritin) 10 mg PO QDAY #0 ta bs 06/20/14 08/20/24 tramadol 50 mg tablet (Ultram) 1 tab PO QID PRN PAIN # 0 tabs 06/20/14 10/26/21 atorvastatin 10 mg tablet (Lipitor) 10 mg PO HS #0 tab s 12/22/15 08/20/24 benazepril 20 mg tablet (Lotensin) 20 mg PO QDAY #0 ta bs 12/22/15 10/26/21 nitroglycerin 0.4 mg sublingual 0.4 mg SL PRN PRN CHES T PAIN #0 09/19/16 10/26/21 tablet (Nitrostat) tabs ticagrelor 90 mg tablet (Brilinta) 90 mg PO BID ##0 10/26/21 amlodipine 5 mg tablet (Norvasc) 5 mg PO QDAY 09/16/20 10/26/21 aspirin 81 mg capsule,delayed 81 mg PO QDAY 09/16/20 0 08/20/24 release albuterol 90 mcg/actuation aerosol 90 mcg inhalation Q 4HR PRN Dyspnea 10/26/21 10/26/21 inhaler meloxicam 15 mg tablet 15 mg PO QDAY 10/26/2110/26 mirabegron 25 mg tablet,extended 25 mg PO QDAY 2 08/20/24 release 24 hr (Myrbetriq) apixaban 2.5 mg tablet (Eliquis) 2.5 mg PO BID 5 08/20/24 empagliflozin 10 mg tablet 10 mg PO QDAY 08/20/2408/05 (Jardiance) fluticasone fur. 100 mcg-umeclid 1 inh inhalation QDAY 08/20/24 08/20/24 62.5 mcg-vilant 25 mcg inhalat.powder (Trelegy Ellipta) sacubitril 49 mg-valsartan 51 mg 1 tab PO BID 08/20/24 08/20/24 tablet (Entresto) spironolactone 25 mg tablet 25 mg PO .am 08/20/2408/05 Previous Rx's ?Medication ?Instructions ?Recorded pantoprazole 40 mg granules 40 mg PO QDAY #30 ea 08/15 delayed-release for susp in packet (Protonix) albuterol sulfate 90 mcg/actuation 2 puff inhalation Q ID PRN 06/10/24 aerosol inhaler shortness of breath or wheez ing #8.5 grams Allergies Allergy/AdvReac Type Severity Reaction Status Date / Time codeine Allergy Intermediate ITCHY Verified 12/27/24 18:11 Review of Systems Review of Systems Systems Reviewed: All systems reviewed, normal except as documented ED Exam General Limitations: Present no limitations General appearance: Present alert and in no apparent distress Head Head exam: Present atraumatic Eye Eye exam: Present normal appearance, PERRL and EOMI ENT ENT exam: Present normal exam, normal oropharynx and mucous membranes moist Neck Neck exam: Present normal inspection, full ROM and trachea midline Chest Chest inspection: Present normal inspection and symmetric chest wall rise Respiratory Respiratory exam: Present normal lung sounds bilaterally Cardiovascular Cardiovascular exam: Present regular rate, normal rhythm and normal heart sounds Abdominal Exam Abdominal exam: Present soft and normal bowel sounds Extremities Exam Extremities exam: Present normal inspection, full ROM and pedal edema (+3 pretibial bilateral edema) Back Exam Back exam: Present normal inspection and full ROM Neurological Exam Neurological exam: Present alert and oriented X3 Psychiatric Psychiatric exam: Present normal affect and normal mood Skin Skin exam: Present warm, dry, intact and normal color Course Quality Measures none Orders Category Date Time Status COVID-19 Screening Questionnaire NOW Care 12/27/24 22:14 Ordered Decision to Admit X1 Care 12/27/24 22:14 Ordered EKG (ED ONLY) *Do not use* NOW Care 12/27/24 21:08 Completed EKG (ED Only) Stat Exams 12/27/24 21:08 Draft XR chest 1V Stat Exams 12/27/24 21:07 Taken BNP [B-Type Natriuretic Peptide] Stat Lab 12/27/24 21:23 Completed CBC Stat Lab 12/27/24 21:23 Completed CMP [Comprehensive Metabolic Panel] Stat Lab 12/27/24 21:23 Completed Mag [Magnesium] Stat Lab 12/27/24 21:23 Completed Furosemide [Lasix Inj] Med 12/27/24 21:10 Discontinued 40 mg IM X1 ONE Vital Signs Vital signs: Vital Signs Temperature 97.8 F 12/27/24 19:58 Pulse Rate 92 12/27/24 19:58 Respiratory Rate 20 12/27/24 19:58 Blood Pressure 111/73 12/27/24 19:58 Pulse Oximetry (%) 96 12/27/24 19:58 Oxygen Delivery Method Room Air 12/27/24 19:58 Shortness of Breath / Dyspnea MDM Narrative MDM Narrative:: Patient is a 84-year-old female who is here today with her daughter who provides the history. She is [place]-speaking. She is here with a 1 week history of increased lower leg edema, exertional dyspnea, and fatigue. She also has increasing anxiety. She has had no falls or injury. She has no chest pain. She does have a history of CHF, anxiety, hyperlipidemia, hypertension, and atrial fibrillation. She takes Lasix 40 mg daily in addition to Eliquis 2.5 mg. On exam, patient is ill-appearing but nontoxic-appearing. She has no tachypnea. She has significant lower leg edema bilaterally. Her vital signs are stable. She is oxygenating at 96% on room air. Workup reveals moderate anemia and a creatinine of 1.5. Her BNP is greater than 3280. Checks her reveals vascular congestion. EKG reveals atrial fibrillation. Patient received a single dose of furosemide 40 mg here. We will admit to medicine, Dr. Luu was contacted, case discussed, he will see the patient in the ER. Patient data External records reviewed:: [facility] previous records Clinical information provided by:: patient and family Social determinants that could affect healthcare access:: none Patient has the following chronic illnesses:: Hypertension, asthma, hyperlipidemia, CHF, atrial fibrillation How is presenting disease/condition affected by chronic disease/condition?: exacerbated by Evaluation data The following diagnostics were reviewed and interpreted by me:: lab results (CBC reveals moderate anemia hemoglobin 9.5 hematocrit 30.1. There is no leukocytosis. Metabolic panel reveals creatinine 1.5, her creatinine passes ranged between 1.6-1.3. Glucose is 110. Patient's BNP is greater than 3280.), radiology exam(s) (Vascular congestion, no pneumonia) and EKG tracing(s) (Atrial fibrillation at no ST changes or dynamic T waves.) Lab and/or radiology exams considered but not ordered:: n/a Interpretation Summary: CHF exasperation Medications / Prescriptions Medications or Prescriptions considered but not ordered:: n/a Medication administrations:: Medication Administration History Discontinued Medications Furosemide (Furosemide Inj 10 Mg/Ml Vial 2 Ml) 40 mg IM X1 ONE Stop: 12/27/24 21:11 Last Admin: 12/27/24 22:01 Dose: 40 mg Documented By: CB See above Consultations Consultation(s) initiated? (list below): No Diagnosis Shortness of Breath Differential Diagnosis: congestive heart failure, community acquired pneumonia and asthma with exacerbation Most likely diagnosis given after review of the tests above:: CHF Admission Indicated Admission indicated?: indicated Admission Request Was there a request for admission?: Yes Admission Attestation Admission request attestation: Discussed case with [] from Hospitalist service regarding admission. Discussed patients ED course, exam findings, labs, and radiology results. The Hospitalist [agrees,declines] to accept the patient for admission. Disposition Plan Disposition Plan: Admit Discharge Plan Plan Patient Disposition: Admit Acute Care w/in Hospital Patient condition on transfer: Stable Prescriptions/Referrals Prescriptions/Med Rec: No Action tramadol [Ultram] 50 MG tablet 1 tab PO QID PRN (Reason: PAIN) Qty: 0 Patient Comments: FOR PAIN, NOT TO EXCEED 8 TABS IN 24 HRS furosemide [Lasix] 20 MG tablet 40 mg PO BID Qty: 0 Patient Comments: 1 and 1/2 tablets by mouth loratadine [Claritin] 10 MG tablet 10 mg PO QDAY Qty: 0 benazepril [Lotensin] 20 MG tablet 20 mg PO QDAY Qty: 0 atorvastatin [Lipitor] 10 MG tablet 10 mg PO HS Qty: 0 nitroglycerin [Nitrostat] 0.4 MG tablet, sublingual 0.4 mg SL PRN PRN (Reason: CHEST PAIN) Qty: 0 Brilinta 90 MG tablet 90 mg PO BID Qty: 0 pantoprazole [Protonix] [address] for susp in packet 40 mg PO QDAY Qty: 30 0RF amlodipine [Norvasc] 5 mg Tablet 5 mg PO QDAY aspirin 81 mg Capsule,Delayed Release(Dr/Ec) 81 mg PO QDAY meloxicam 15 mg Tablet 15 mg PO QDAY mirabegron [Myrbetriq] 25 mg Tablet Extended Release 24 Hr 25 mg PO QDAY albuterol 90 mcg/actuation Aerosol 90 mcg INHALATION Q4HR PRN (Reason: Dyspnea) albuterol sulfate 90 mcg/actuation HFA aerosol inhaler 2 puff inhalation QID PRN (Reason: shortness of breath or wheezing) Qty: 8.5 0RF spironolactone 25 mg tablet 25 mg PO .am Patient Comments: TAKE 1/2 TABLET BY MOUTH EVERY MORNING A DIURETIC Trelegy Ellipta 100-62.5-25 mcg blister with device 1 inh inhalation QDAY Entresto 49-51 mg tablet 1 tab PO BID Rx Instructions: take 1/2 tablet by mouth twice daily Jardiance 10 mg tablet 10 mg PO QDAY Eliquis 2.5 mg tablet 2.5 mg PO BID Referrals: No Primary/Family,Physician [Primary Care Provider] - In 1 week Problem List Clinical Impression: CHF (congestive heart failure) Patient/Caregiver Discharge Instructions Print Language: [place] Island[place] Stand Alone Forms: Yesi Award Info., Patient Portal Info Letter
[2024-12-27 21:41] LABS: Basophils # (Auto) 0.0 Thou/mm3 (0.0-0.2); Basophils % (Auto) 0 % (0-2.5); Eosinophils # (Auto) 0.1 Thou/mm3 (0.0-0.5); Eosinophils % (Auto) 2 % (0-10); Hematocrit 30.1 % (36.0-46.0); Hemoglobin 9.5 g/dL (12.0-16.0); Immature Granulocytes Auto 0.02 Thou/mm3 (0.00-0.00); Lymphocytes # (Auto) 0.9 Thou/mm3 (1.0-4.8); Lymphocytes % (Auto) 18 % (10-50); Mean Corpuscular HGB Conc 31.6 g/dl (31.0-37.0); Mean Corpuscular Hemoglobin 24.6 pg (25.0-35.0); Mean Corpuscular Volume 78 fL (80-100); Monocytes # (Auto) 0.5 Thou/mm3 (0.0-0.8); Monocytes % (Auto) 10 % (0-12); Neutrophils # (Auto) 3.5 Thou/mm3 (1.8-7.7); Neutrophils % (Auto) 70 % (37-80); Nucleated Red Blood Cell # 0.00 Thou/mm3 (0.00-0.00); Nucleated Red Blood Cell % 0 /100 WBC (0); Platelet Count 250 Thou/mm3 (140-440); RDW Standard Deviation 58.3 fL (36.4-46.3); Red Blood Count 3.86 Miln/mm3 (4.00-5.20); White Blood Count 5.0 Thou/mm3 (3.6-11.0)
[2024-12-27 22:01] VITALS: BP 111/73; PULSE 92
[2024-12-27] MEDS: FUROSEMIDE INJ 10 MG/ML VIAL 2 ML 40 MG IM (22:01)
[2024-12-27 22:03] LABS: B-Type Natriuretic Peptide > 3280 pg/mL (0-100)
[2024-12-27 22:05] LABS: Alanine Aminotransferase 35 U/L (10-49); Albumin, Serum 3.8 gm/dL (3.4-4.8); Albumin/Globulin Ratio 1.4 (1.2-2.2); Alkaline Phosphatase 200 U/L (46-116); Anion Gap 8 (7-16); Aspartate Amino Transferase 38 U/L (0-34); BUN/Creatinine Ratio 42 Ratio (12-20); Bilirubin,Total 0.7 mg/dL (0.3-1.2); Blood Urea Nitrogen 63 mg/dL (9-23); Calcium 8.9 mg/dL (8.3-10.6); Calcium (Corrected) 9.1 mg/dL (8.5-10.1); Carbon Dioxide 28.8 mMol/L (20.0-31.0); Chloride 101 mMol/L (98-107); Creatinine (Component) 1.5 mg/dL (0.6-1.3); Estimated Creatinine Clearance 20.9 mL/min (>60); Globulin 2.7 gm/dL (2.3-3.5); Glucose 110 mg/dL (74-106); Magnesium 2.2 mg/dL (1.6-2.6); Osmolality,Calculated 294 (275-295); Potassium 5.0 mMol/L (3.4-5.1); Sodium 138 mMol/L (136-145); Total Protein 6.5 gm/dL (5.7-8.2); eGFR 34 See Note
[2024-12-27 22:32] VITALS: BP 101/57; PULSE 95; RESP 22; TEMP 36.7; O2SAT 97
--- NOTE | 2024-12-27 22:45 | ECHO_ITS ---
Transthoracic Echo Report Ht (in): 59 Wt (lb): 128 Exam Location: Echo Lab Status: Emergency Bobbin Washer: Alexus Dueñas Indications: Procedure Performed: BP: 100 / 72 HR: 116 MEASUREMENTS (Male / Female) Normal Values 2D ECHO LV Diastolic Diameter PLAX 6.0 cm 4.2 - 5.9 / 3.9 - 5.3 cm LV Systolic Diameter PLAX 5.4 cm IVS Diastolic Thickness 0.7 cm 0.6 - 1.0 / 0.6 - 0.9 cm LVPW Diastolic Thickness 1.2 cm 0.6 - 1.0 / 0.6 - 0.9 cm LV Relative Wall Thickness 0.3 LVOT Diameter 1.9 cm Aortic Root Diameter 2.4 cm LA Systolic Diameter LX 4.7 cm 3.0 - 4.0 / 2.7 - 3.8 cm LV Ejection Fraction MOD BP 17.5 % >= 55 % LV Cardiac Index MOD BP 3102.3 cm?/min?m? LV Ejection Fraction MOD 4C 18.0 % LV Cardiac Index MOD 4C 3176.1 cm?/min?m? LV Ejection Fraction 4C AL 21.1 % LV Cardiac Index 4C AL 3920.6 cm?/min?m? LV Ejection Fraction MOD 2C 15.5 % LV Cardiac Index MOD 2C 2733.0 cm?/min?m? LV Ejection Fraction 2C AL 17.3 % LV Cardiac Index 2C AL 3173.8 cm?/min?m? LA Volume Index 63.3 cm?/m? 16 - 28 cm?/m? M-MODE Aortic Root Diameter MM 2.7 cm LA Systolic Diameter MM 4.9 cm LA Ao Ratio MM 1.8 AV Cusp Separation MM 1.8 cm DOPPLER AV Peak Velocity 151.0 cm/s AV Peak Gradient 9.1 mmHg AV Mean Gradient 5.0 mmHg AV Velocity Time Integral 29.1 cm LVOT Peak Velocity 122.0 cm/s LVOT Peak Gradient 6.0 mmHg LVOT Velocity Time Integral 24.2 cm LVOT Cardiac Index 5068.1 cm?/min?m? AV Area Cont Eq vti 2.4 cm? AV Area Cont Eq pk 2.3 cm? MV Area PHT 4.1 cm? MR Peak Velocity 398.5 cm/s MR Peak Gradient 63.5 mmHg Mitral E Point Velocity 72.3 cm/s Mitral A Point Velocity 22.3 cm/s Mitral E to A Ratio 3.2 LV E' Lateral Velocity 10.6 cm/s Mitral E to LV E' Lateral Ratio 6.8 LV E' Septal Velocity 3.9 cm/s Mitral E to LV E' Septal Ratio 18.4 TR Peak Velocity 346.7 cm/s TR Peak Gradient 48.1 mmHg PV Peak Velocity 103.0 cm/s PV Peak Gradient 4.2 mmHg FINDINGS Left Ventricle The left ventricular cavity size is mildly increased with normal wall thickness. The ejection fraction is visually estimated at 20 %. Global left ventricular systolic function is severely decreased. There is grade II diastolic dysfunction of the left ventricle Right Ventricle The right ventricular size is mildy increased with mildly decreased systolic function. The estimated right ventricular systolic pressure, 72 mmHg. RAP 15. Left Atrium Severely increased left atrial volume 63.3 mL/m?. Right Atrium The right atrium is normal by two-dimensional imaging, color flow and Doppler imaging with no structural abnormalities, no thrombus formation present. Atrial Septum The interatrial septum appears normal with no evidence of a shunt. Aorta The aorta is normal by two-dimensional, color flow and Doppler interrogation. Mitral Valve Iousitav-wj-whngpo mitral regurgitation. Aortic Valve Aortic valve sclerosis. Tricuspid Valve There is moderate to severe tricuspid valve regurgitation. Pulmonic Valve The pulmonic valve is not well visualized. There is no significant pulmonic valve regurgitation. Vessels Dilated inferior vena cava. Pericardium The pericardium is normal by two-dimensional imaging. There is no significant pericardial effusion. CONCLUSIONS Indication: CHF exacerbation Dilated cardiomyopathy with severe global hypokinesis. Estimated EF at 20 %. The Rv Vsize is mildy increased with mildly decreased systolic function. Moderate pulmonary hypetension estimated PASP, 65 mmHg. Severely increased LA volume. [id number] MR and TR. Aortic valve sclerosis no stensois Dilated IVC. Kayla Peralta (Electronically Signed) Final Date: 30 December 2024 14:10
[2024-12-27 23:53] VITALS: BP 97/55; PULSE 96; RESP 17; TEMP 36.7; O2SAT 93
[2024-12-28] VITALS (17 sets, daily range): BP systolic 98–118; BP diastolic 54–74; PULSE 85–132; RESP 15–88; TEMP 36.1–37.7; O2SAT 90–99
--- NOTE | 2024-12-28 00:14 | PD.RESHP ---
Documentation for date of: 12/28/24 [facility] History of Present Illness History of present illness: Carla Dos Santos an 84-year-old F with a PMH of hypertension, emphysema, HFrEF (EF of 40-45% per 2019 echo), coronary artery disease, T2DM, A-fib on Eliquis, hip injury 2/2 traumatic fall, and chronic abdominal pain who presents today with 2 weeks of generalized deterioration. According to daughter, who translated for her Telugu-speaking mother, the patient has recently stopped being able to self?ambulate with her walker and her legs have grown more swollen. In the last 2 weeks, she has also complained that everything hurts , had episodes of hyperventilation, and screamed all night while sleeping very little. When asked to clarify regarding the location of her pain, patient refers vaguely to the stomach region and her feet but insists that everything hurts. Other symptoms the patient endorsed included palpitations (one of the most significant complaints that incited the current admission per daughter), chest pain, dry cough, shortness of breath, wheezing, umbilical abdominal pain, nausea, urinary incontinence, depression, and anxiety. During the interview, patient also expressed the desire to be laid on her right side in order to alleviate pain she was feeling due to her right shoulder fracture (not a typo). At this time, she rates her pain as a 6 out of 10. In the ED, vitals showed: BP 111/73 HR 92 RR 20 Temp 97.8 SpO2 96% on room air ED Course: CBC showed low hemoglobin 9.5, slightly low MCV 78, and high RDW 58.3. CMP showed high BUN 63, high creatinine 1.5, low EGFR of 34, slightly elevated AST 38 (normal ALT 35), high alkaline phosphatase 200, and significantly elevated BNP 3280. Imaging: CXR showed moderate vascular congestion, possibly suggesting acute exacerbation of CHF. EKG has been conducted but has not been read. In the ED, patient was given IM Lasix 40 mg x 1, IV Ativan 0.5 mg x 1, nicotine patch 7 mg x 1, and restarted on her home medication of p.o. buspirone 7.5 mg twice daily. Patient was admitted for the work-up and management of acute CHF exacerbation. An order for cardiology consult (Dr. Franks) has been placed. Review of Systems Review of Systems Narrative Review of Systems: (per daughter) General: Denies fevers or chills HEENT: Denies congestion or sore throat Heart: Endorses palpitations. Endorses chest pain. Endorses leg swelling. Lungs: Endorses dry cough. Endorses shortness of breath. Endorses wheezing. Abdomen: Endorses abdominal pain (umbilical). Endorses nausea. Denies vomiting, constipation, diarrhea, or blood in stool Genitourinary: Endorses urinary incontinence. Denies frequency, urgency, dysuria, or hematuria Neurology: Denies any changes in vision, weakness or difficulty speaking Psychiatric: Endorses depression and anxiety. Endorses new forgetfulness and confusion. Denies active suicidal ideation Review of systems otherwise negative except what is mentioned above. Past Medical History Past Medical History NEUROLOGIC: Negative Neurological Disorders CARDIAC: Positive Cardiac Disorders, Myocardial Infarction, Cardiac Arrhythmia, Angina, Hypercholesterolemia, Edema and Hypertension; Negative Congestive Heart Failure RESPIRATORY: Positive Asthma, Bronchitis and Pneumonia; Negative Chronic Obstructive Pulmonary Disease (COPD) GASTROINTESTINAL: Negative Gastrointestinal Disorders GENITOURINARY: Positive Genitourinary Disorders and Kidney Stones; Negative Renal Disease MUSCULOSKELETAL: Positive Musculoskeletal Disorders and Arthritis ENT: Positive Cataracts ENDOCRINE: Positive Endocrine Disorders and Diabetes Mellitus Type 2; Negative Diabetes Mellitus Type 1 HEMATOLOGIC: Negative Blood Disorders or Anemia PSYCHO/SOCIAL: Positive Depression and Anxiety OTHER HISTORY: Positive Chicken Pox; Negative Measles, Mumps or Cancer Surgical History SURGICAL: Positive Coronary Stent, Cardiac Catheterization, Angiogram and Hysterectomy Social History SMOKING STATUS: Current every day smoker SECOND HAND EXPOSURE: Yes SUBSTANCE USE: does not use Past Medical History Comments PMH COMMENT: (per daughter) PMH: hypertension, emphysema, HFrEF (EF of 40-45% per 2019 echo), coronary artery disease, T2DM, A-fib, hip injury 2/2 traumatic fall, and chronic abdominal pain PSH: cholecystectomy, bilateral salpingo-oophorectomy Medications: patient did not know but an order for medication reconciliation has been made Allergies: Vicodin (itchy eyes and swelling) FH: both mother and father had history of heart failure SH: lives in a home in [place], with son and 2 granddaughters, current smoker who has smoked an average of 4-5 cigarettes per day for 68 years, no significant drinking or recreational drug use history Exam Vital Signs Temp Pulse Resp BP Pulse Ox O2 Del Method 98.0 F 96 17 97/55 L 93 L Room Air 07/23/25 23:53 12/27/24 23:53 12/27/24 23:53 12/27/24 23:53 12/27/24 23:53 12/27/24 23:53 Narrative Exam Physical Exam: General: Distressed, agitated. Skin: Warm, dry, intact, no obvious rash. Head: Normocephalic, atraumatic. Eye: Normal conjunctiva, PERRL. Throat: Oral mucosa moist. No obvious lesions in oropharynx. Cardiovascular: Tachycardic rate and rhythm, no murmur, +S1/S2. Respiratory: Tachypneic. Lungs are clear to auscultation, no crackles, no wheezing. Gastrointestinal: Tenderness to palpation of epigastric, umbilical, and suprapubic abdominal regions. Soft, non-distended. No guarding or rebound tenderness. Extremities: 2+ bilateral pitting edema. No cyanosis, no clubbing. 2+ radial pulse bilaterally, 2+ posterior tibial pulse bilaterally. Neuro: No focal deficits observed. Conversant, moving all extremities. No overt cerebellar signs/incoordination. Psychiatric: Uncooperative, dysphoric and weepy affect. Results: Labs 12/27/24 21:23 12/27/24 21:23 Labs: Short CBC 12/27/24 Range/Units 21:23 WBC 5.0 (3.6-11.0) Thou/mm3 Hgb 9.5 L (12.0-16.0) g/dL Hct 30.1 L (36.0-46.0) % Plt Count 250 (140-440) Thou/mm3 BMP 12/27/24 21:23 Sodium 138 Potassium 5.0 Chloride 101 Carbon Dioxide 28.8 BUN 63 H Creatinine 1.5 H Glucose 110 H Calcium 8.9 Liver Function 12/27/24 Range/Units 21:23 Total Bilirubin 0.7 (0.3-1.2) mg/dL AST 38 H (0-34) U/L ALT 35 (10-49) U/L Alkaline Phosphatase 200 H (46-116) U/L Albumin 3.8 (3.4-4.8) gm/dL Quality Measures Quality Measures none Advance care planning discussed with:: child (daughter) Medications Home Medications and Allergies Home Medications ?Medication ?Instructions ?Recorded ?Confirmed ?Type furosemide 20 mg tablet (Lasix) 40 mg PO BID #0 tabs 06/20/14 08/20/24 History loratadine 10 mg tablet (Claritin) 10 mg PO QDAY #0 tabs 06/20/14 08/20/24 History tramadol 50 mg tablet (Ultram) 1 tab PO QID PRN PAIN #0 tabs 06/20/14 10/26/21 History atorvastatin 10 mg tablet (Lipitor) 10 mg PO HS #0 tabs 12/22/15 08/20/24 History benazepril 20 mg tablet (Lotensin) 20 mg PO QDAY #0 tabs 12/22/15 10/26/21 History nitroglycerin 0.4 mg sublingual 0.4 mg SL PRN PRN CHEST PAIN #0 09/19/16 10/26/21 History tablet (Nitrostat) tabs ticagrelor 90 mg tablet (Brilinta) 90 mg PO BID ##0 09/19/16 10/26/21 History amlodipine 5 mg tablet (Norvasc) 5 mg PO QDAY 09/16/20 10/26/21 History aspirin 81 mg capsule,delayed 81 mg PO QDAY 09/16/20 08/20/24 History release albuterol 90 mcg/actuation aerosol 90 mcg inhalation Q4HR PRN Dyspnea 10/26/21 10/26/21 History inhaler meloxicam 15 mg tablet 15 mg PO QDAY 10/26/21 10/26/21 History mirabegron 25 mg tablet,extended 25 mg PO QDAY 10/26/21 08/20/24 History release 24 hr (Myrbetriq) apixaban 2.5 mg tablet (Eliquis) 2.5 mg PO BID 08/20/24 08/20/24 History empagliflozin 10 mg tablet 10 mg PO QDAY 08/20/24 08/20/24 History (Jardiance) fluticasone fur. 100 mcg-umeclid 1 inh inhalation QDAY 08/20/24 08/20/24 History 62.5 mcg-vilant 25 mcg inhalat.powder (Trelegy Ellipta) sacubitril 49 mg-valsartan 51 mg 1 tab PO BID 08/20/24 08/20/24 History tablet (Entresto) spironolactone 25 mg tablet 25 mg PO .am 08/20/24 08/20/24 History Allergies Allergy/AdvReac Type Severity Reaction Status Date / Time codeine Allergy Intermediate ITCHY Verified 12/27/24 18:11 Visit Medications Acetaminophen (Acetaminophen 325 Mg Tablet) 650 mg PO Q6H PRN PRN Reason: PAIN SCALE 1-3 (mild Stop: 01/26/25 22:43 Apixaban (Apixaban 2.5 Mg Tablet) 2.5 mg PO BID [facility] Stop: 01/27/25 08:59 Bumetanide (Bumetanide Inj 0.25 Mg/Ml Vial 4 Ml) 1 mg IVP BIDD [facility] Stop: 01/27/25 05:59 Buspirone HCl (Buspirone Hcl 5 Mg Tablet) 7.5 mg PO BID [facility] Stop: 01/27/25 00:04 Dextrose (Dextrose 50%-Water Inj 50 Ml Syringe) 25 ml IV Q15MIN PRN PRN Reason: BG 50-70 responsive npo pt Stop: 01/26/25 22:43 Dextrose (Dextrose 50%-Water Inj 50 Ml Syringe) 50 ml IV Q15MIN PRN PRN Reason: BG <50 OR BG <70 & pt unresponsive Stop: 01/26/25 22:43 Glucagon (Glucagon Inj 1 Mg Vial) 1 mg IM Q15MIN PRN PRN Reason: BG <70, and no IV access Insulin Human Lispro (Insulin Lispro (Admelog) 1 Unit/0.01 Ml Unit) 0 unit SC ACHS [facility]; Protocol Stop: 01/27/25 07:29 Levalbuterol HCl (Levalbuterol Rt 0.63 Mg/3 Ml Nebu) 0.63 mg INH Q8HR PRN PRN Reason: WHEEZING Stop: 01/26/25 22:50 Ondansetron HCl (Ondansetron Inj 2 Mg/Ml Inj 2 Ml) 4 mg IVP Q6H PRN; Protocol PRN Reason: NAUSEA OR VOMITING Stop: 01/26/25 22:43 Sennosides (Senna Tablet) 1 tab PO QDAY [facility]; Protocol Stop: 01/27/25 08:59 Discontinued Medications Buspirone HCl (Buspirone Hcl 5 Mg Tablet) 7.5 mg PO BID [facility] Stop: 01/27/25 08:59 Furosemide (Furosemide Inj 10 Mg/Ml Vial 2 Ml) 40 mg IM X1 ONE Stop: 12/27/24 21:11 Last Admin: 12/27/24 22:01 Dose: 40 mg Heparin Sodium (Porcine) (Heparin Sod Inj 5000 Unit/Ml Vial) 5,000 unit SC Q12HR [facility] Stop: 01/11/25 08:59 Assessment & Plan Assessment Carla Dos Santos an 84-year-old F with a PMH of hypertension, emphysema, HFrEF (EF of 40-45% per 2019 echo), coronary artery disease, T2DM, A-fib on Eliquis, hip injury 2/2 traumatic fall, and chronic abdominal pain who presents today with 2 weeks of generalized deterioration. Patient was admitted for the work-up and management of acute CHF exacerbation. #Acute exacerbation of HFrEF #Anasarca NYHA severity classification: IV Patient endorsed shortness of breath, onset 2 weeks ago, that worsens with exertion and laying flat, and is normally on Lotensin 20 mg qD, Entresto 49-51 mg BID, Lasix 40 mg TID, Jardiance 10 mg qD, and spironolactone 25 mg qAM. Patient has history of HFrEF, last EF 40-45% in 2019. Last time patient had a hospitalization for CHF exacerbation here at [facility] was 08/19/2024. CMP showed a significantly elevated BNP 3280 and CXR showed moderate vascular congestion. Diagnostic Inquiry 1. Ordered an EKG to detect arrhythmia (atrial fibrillation increases likelihood of HFpEF) and signs of acute or prior ischemic event 2. Ordered CBC and CMP to assess for conditions associated with HF exacerbation (especially hyponatremia which may suggest severe HF) 3. Ordered echocardiogram to assess current EF (last echo done 6 years ago in 2019) 4. Cardiology consult, awaiting recommendations Treatment Plan -Maintain SpO2 above 90% and ventilation 1. Ordered continuous pulse oximetry 2. Supplemental oxygen and ventilatory support as indicated 3. Consider elevation of the head of patient's bed to semi-Lakhani's position (between 30 and 45 degrees) to allow gravity to shift excess fluid downwards and away from the lungs -Correct hemodynamic and intravascular volume derangements 2/2 acute HF decompensation 1. Started IV Bumex 1 mg BID for diuresis and reduction of volume overload 2. Ordered continuous blood pressure and cardiac monitoring 3. Ordered strict I&O as well as daily weights to monitor volume status 4. Ordered fluid restriction of 1800 mL #Emphysema #Shortness of breath #Wheezing Patient is a current smoker who has smoked an average of 4-5 cigarettes per day for 68 years Upon admission, SpO2 was 96% on room air Home medications include: albuterol sulfate inhaler, Trelegy Ellipta inhaler Diagnostic Inquiry -No current recommendation (CXR negative for pneumonia or other acute pulmonary processes besides vascular congestion) Treatment Plan -Inhaled levalbuterol 0.63 mg q8HR prn for symptomatic treatment of shortness of breath/wheezing -CHF management as listed above #Microcytic anemia Low hemoglobin 9.5 in the setting of slightly low MCV 78 and elevated RDW 58.3 is suggestive of possible iron deficiency anemia Differentials include: anemia of chronic disease, active bleeding or hemolysis, sideroblastic anemia Diagnostic Inquiry -Reticulocyte count -Iron panel -Ferritin Treatment Plan -No current recommendation (awaiting work-up results) #Shoulder fracture (right) Daughter mentioned patient having a right shoulder fracture which the patient seemed to be complaining about Diagnostic Inquiry -Consider shoulder X-ray Treatment Plan -Pain management as necessary #Chronic medical problems #Atrial Fibrillation (chronic) #T2DM #Depression/anxiety #Agitation 2/2 delirium and/or dementia #Chronic smoker (Agitation 2/2 delirium and/or dementia) Patient was agitated in the early hours of 12/28/2024 In the setting of recent changes in memory and behavior per daughter, current agitation is suspected to be 2/2 progressing dementia (with possible hospital environment delirium contribution) Diagnostic Inquiry -No current recommendation Treatment Plan -Restarted home medications: Eliquis 2.5 mg BID, Buspar 7.5 mg BID -Insulin sliding scale -s/p IV Ativan 0.5 mg x2 and IV Haloperidol 1 mg x1 for agitation (first administration of Ativan 0.5 only was insufficient for quelling agitation) -Nicotine patch 7 mg x1 Hospital Management: Disposition: undergoing work-up and management of acute CHF exacerbation Diet: cardiac GI Prophylaxis: none Bowel Prophylaxis: senna DVT Prophylaxis: Eliquis CODE STATUS: Full Code I have examined the patient and conferred with my attending, Dr. Luu, and my senior resident, Dr. Stearns, regarding them. Nicolas Wolfe, DO PGY-1 Internal Medicine Attending Provider Attestation/Addendum I attest that I was physically present for the evaluation, physical examination, lab and imaging review of the patient with the residents. I discussed the case with the residents and agree with the findings and plans of care as documented above. After examination of the patient and review of the clinical data I feel that this patient needs admission to the hospital for further treatment/evaluation. Patient is a 84 years old female with past medical history of hypertension, CHF, emphysema, CAD, A-fib who presented to the ED with complaint of generalized weakness, bilateral pedal edema, exertional dyspnea. As per the daughter, she has been having the symptoms getting progressively worse for more than a week. Patient is also having increasing anxiety. In the ED, vitals are within normal limits, patient is saturating well on room air. Noted to have 2+ bilateral pedal edema below knee level. Patient appears tired but wakes up on calling and able to follow commands. Daughter at bedside stated that patient makes urine but despite being on furosemide 40 mg 3 times daily, has not been producing enough urine. Lab results are significant for hemoglobin of 9.5, MCV 78. Also noted to have BUN/creatinine of 63/1.5, baseline appears to be around 1.3. BNP is more than 3280. Chest x-ray was obtained, shows vascular congestion. EKG shows A-fib. We will admit the patient for HFrEF exacerbation and anasarca. We will start her on aggressive diuresis with IV Bumex 1 mg twice daily, strict ins and outs, fluid restriction, daily weights. We will also obtain echocardiography and cardiology consult. We will resume her Eliquis for A-fib. Added nicotine patch as patient continues to smoke. Started on insulin regimen for diabetes. Kassi Luu MD
[2024-12-28] MEDS: LORazepam 2 MG/ML VIAL 0.5 MG IVP ×2 (01:57→03:50)
[2024-12-28] MEDS: NICOTINE PATCH 7 MG/24 HR PATCH.TD24 TOP (02:28)
[2024-12-28] MEDS: HALOPERIDOL LACT INJ 5 MG/ML VIAL 1 MG IV (03:50)
[2024-12-28 05:56] LABS: Basophils # (Auto) 0.0 Thou/mm3 (0.0-0.2); Basophils % (Auto) 0 % (0-2.5); Eosinophils # (Auto) 0.1 Thou/mm3 (0.0-0.5); Eosinophils % (Auto) 2 % (0-10); Hematocrit 32.6 % (36.0-46.0); Hemoglobin 10.3 g/dL (12.0-16.0); Immature Granulocytes Auto 0.03 Thou/mm3 (0.00-0.00); Immature Reticulocyte Fraction 30.9 % (3.0-15.9); Lymphocytes # (Auto) 1.6 Thou/mm3 (1.0-4.8); Lymphocytes % (Auto) 23 % (10-50); Mean Corpuscular HGB Conc 31.6 g/dl (31.0-37.0); Mean Corpuscular Hemoglobin 25.2 pg (25.0-35.0); Mean Corpuscular Volume 80 fL (80-100); Monocytes # (Auto) 0.5 Thou/mm3 (0.0-0.8); Monocytes % (Auto) 8 % (0-12); Neutrophils # (Auto) 4.5 Thou/mm3 (1.8-7.7); Neutrophils % (Auto) 66 % (37-80); Nucleated Red Blood Cell # 0.02 Thou/mm3 (0.00-0.00); Nucleated Red Blood Cell % 0 /100 WBC (0); Platelet Count 245 Thou/mm3 (140-440); RDW Standard Deviation 59.0 fL (36.4-46.3); Red Blood Count 4.09 Miln/mm3 (4.00-5.20); Reticulocyte % (Auto) 2.2 % (0.5-1.5); Reticulocyte Absolute Auto 90.0 Biln/L (25.0-75.0); Reticulocyte Hgb Content 23.0 pg (28.0-35.0); White Blood Count 6.7 Thou/mm3 (3.6-11.0)
[2024-12-28 06:09] LABS: Alanine Aminotransferase 36 U/L (10-49); Albumin, Serum 4.2 gm/dL (3.4-4.8); Albumin/Globulin Ratio 1.8 (1.2-2.2); Alkaline Phosphatase 209 U/L (46-116); Anion Gap 8 (7-16); Aspartate Amino Transferase 50 U/L (0-34); BUN/Creatinine Ratio 43 Ratio (12-20); Bilirubin,Total 1.0 mg/dL (0.3-1.2); Blood Urea Nitrogen 60 mg/dL (9-23); Calcium 9.8 mg/dL (8.3-10.6); Calcium (Corrected) 9.8 mg/dL (8.5-10.1); Carbon Dioxide 27.0 mMol/L (20.0-31.0); Chloride 100 mMol/L (98-107); Creatinine (Component) 1.4 mg/dL (0.6-1.3); Estimated Creatinine Clearance 22.4 mL/min (>60); Globulin 2.4 gm/dL (2.3-3.5); Glucose 132 mg/dL (74-106); Osmolality,Calculated 289 (275-295); Potassium 5.0 mMol/L (3.4-5.1); Sodium 135 mMol/L (136-145); Total Protein 6.6 gm/dL (5.7-8.2); eGFR 37 See Note
[2024-12-28 06:10] LABS: Ferritin 11 ng/mL (7.3-270.7); Iron 15 mcg/dL (50-170); Percent Iron Saturation 3 % (20-55); Total Iron Binding Capacity 474 mcg/dL (250-425); Unsaturated Iron Binding 459 (225-295)
[2024-12-28] MEDS: BUMETANIDE INJ 0.25 MG/ML VIAL 4 ML 1 MG IVP ×2 (06:21→20:27)
--- NOTE | 2024-12-28 07:45 | PC.NURSE ---
pt brief and linens changed, purewick placed, pt adjusted in bed.
[2024-12-28 08:09] LABS: Base Excess 4 (-3-3); HCO3 30 mEq/L (20-26); Inspired O2, VO2 Liters 4 L/min; O2 Saturation 99 % (91-98); PCO2 47 mmHg (32.0-48.0); PO2 113 mmHg (83-108); pH, Arterial 7.41 (7.35-7.45)
--- NOTE | 2024-12-28 08:09 | PC.CC ---
Patient is a 84 year-old female who presents to the hospital for CHF Exacerbation. CALEBWStephanie made [id number] contact with patient. ASW introduced self, role, and reason for visit.?Patient was not alert and oriented. At bedside was patient's daughter, Janeth Lovett . ASW completed initial with patient's daughter, Janeth. Patient's daughter has POA and this documentation was provided to registration to be scanned into patient's chart. Patient resides with her son Pepito Rodriguez and her two granddaughters. Per daughter, patient was able to ambulate with a walker up until approximately a week ago when she began to have generalized weakness now is requiring a wheelchair to ambulate. Patient is max assist with her ADLs. Patient requires oxygen the daughter is not sure how many liters. Patient's produce department manager is Dr. Franks, cancer provider Johann, and primary provider is Maryanne Fontana. Patient pharmacy for prescription medications is [facility]. Upon discharge the patient's family plans to take her back home. administrative services specialist to follow up with any discharge needs.
[2024-12-28 08:10] LABS: Allen Test Performed/OK; Puncture Site Right Radial
--- NOTE | 2024-12-28 09:06 | XR_ITS ---
Examination: CT brain head without contrast. 2-D sagittal coronal reconstructions Date and time of exam:December 28, 2024 1009 hours Comparison June 17, 2016 INDICATIONS: Onset left-sided body weakness today CTDI: vol (mGy):21.2 DLP: (mGycm):799 Technique: Multiple CT axial sections of the brain have been obtained, 5 mm slice thickness. Contrast has not been administered. 2-D sagittal, coronal reconstructions have been obtained Low dose protocols were performed. One or more of the following dose reduction techniques were used; automated exposure control, adjustment of the mA and/or KV according to patient size, use of iterative reconstruction technique. Findings: No significant ventricular enlargement. Intra-axial or extra-axial hemorrhage density is not seen. No mass effect or midline shift Basal cisterns are not remarkable. Fourth ventricle is midline. Cranial vault intact. Impression: Negative for acute hemorrhage, mass effect or midline shift Consider brain MRI MRA stroke protocol follow-up
[2024-12-28] MEDS: APIXABAN 2.5 MG TABLET PO ×2 (09:51→20:22)
--- NOTE | 2024-12-28 10:00 | PC.NURSE ---
PT TAKEN TO CT.
--- NOTE | 2024-12-28 11:30 | PC.NURSE ---
brief and linens changed, pt adjusted in bed.
--- NOTE | 2024-12-28 13:24 | PD.RESPRO ---
Documentation for date of: 12/28/24 Overnight admission, for acute congestive heart failure, HFrEF 40-45% (02/2019) with orthopnea, PND, and lower peripheral edema.Chest x-ray noted moderate vascular congestion. BNP >3280. Patient was admitted for CHF exacerbation, fluid restricted, and start on agressive diuretics with Bumex 1 mg IV BID. Continue to fluid restrict. Pending medication reconciliation. Family at bedside given rapid decline within the last 2 weeks with increased confusion and no longer Alert and Oreinetated to self. Patient previously able to ambulate with walker and overall independent to activity of daily living. Patient now presented with acute encephalopathy, concern for stroke vs UTI giventurbid urine and positive leukoocyte w/ rare bacteria. NO suprapubic tenderness, continue to monitor as there is no elevation in WBC vs delirium in the setting of Ativan & Haloperidol given on admission with buspirone. Currently holding buspirone as per daughter at bedside, increased confusion with buspirone. CT head ordered. MRI. Mild hypervolemic hyponatremia, likely in the setting of CHF exacerbation. DEMETRIUS on CKD, strict ins and out. BUN/Cr 43 likely pre-renal. Previous US noted small bilateral renal cortical thinning. Fatty liver. Hemoglobin 10.3 and Hct 32.6 w/ iron deficiency, consider iron outpatient. Sever osteopenia noted on should x-ray, outpatient bisphophonates. Pending medication reconcilliation. Bumex 1 mg IV BID. Continue diuresis. Asprin 81 mg and Atorvastatin 40 mg HS. PO. MRI brain. Pending Neuro Loan Smith PGY 1 Subjective Subjective Interval history: Patient seen and examined at bedside this AM. Per daughter, patient has been deteriorating for the past 2 weeks, suddenly, is unable to walk anymore due to dyspnea on exertion and generalized weakness. Also endorsed accompanying headache at the beginning. Daughter also reports that patient fell recently, obtained XR imaging outpatient for right arm which sustained a small fracture. Unable to be evaluated with MRI due to claustrophobia. Patient endorses diffuse abdominal pain, was very anxious during interview. Labs and vitals were reviewed. CT head negative for acute changes. Plan to order MRI head due to concern for stroke, patient was agreeable as long as she is sedated. Consulted neurology Dr. Alexis for recommendations. Will consult PT for evaluation. Ordered XR for bilateral humerus due to pain, concern for fracture. Will continue diuresing. Ordered haloperidol prn for anxiety tonight. Review of systems otherwise negative except what is mentioned above. Exam Vital Signs Temp Pulse Resp BP Pulse Ox O2 Del Method O2 Flow Rate 98.4 F 93 23 H 108/60 97 Nasal Cannula 4 12/28/24 11:57 12/28/24 11:57 12/28/24 11:57 12/28/24 11:57 12/28/24 11:57 12/28/24 11:57 12/28/24 11:57 Narrative Exam Physical Exam General: Awake, in mild acute distress due to anxiety. Conversational. Elderly woman laying in bed. Confused. HEENT: Normocephalic, atraumatic, mucous membranes moist. Heart: Irregular rhythm, normal S1 and S2, no murmurs. Lungs: Clear to auscultation with no wheezing or crackles appreciated. Mild rhonchi likely secondary extensive to smoking history. Abdomen: Soft, nondistended, positive bowel sounds. Diffuse tenderness on palpation, chronic. No guarding or rebound tenderness. Neurologic: Alert and oriented x1 (oriented to self, not time or place), no gross neurological deficit, and patient able to move all 4 extremities. Extremities: 2+ pitting lower extremity edema bilaterally. Skin: No rash or ecchymoses. Objective Labs 12/29/24 05:02 12/29/24 05:02 Labs: Laboratory Results - last 24 hr 12/27/24 12/28/24 12/28/24 21:23 05:30 08:04 WBC 5.0 6.7 RBC 3.86 L 4.09 Hgb 9.5 L 10.3 L Hct 30.1 L 32.6 L MCV 78 L 80 MCH 24.6 L 25.2 MCHC 31.6 31.6 RDW Std Deviation 58.3 H 59.0 H Plt Count 250 245 Neut % (Auto) 70 66 Lymph % (Auto) 18 23 [place] % (Auto) 10 8 Eos % (Auto) 2 2 Baso % (Auto) 0 0 Neut # (Auto) 3.5 4.5 Lymph # (Auto) 0.9 L 1.6 [place] # (Auto) 0.5 0.5 Eos # (Auto) 0.1 0.1 Baso # (Auto) 0.0 0.0 Immature Gran # (Auto) 0.02 H 0.03 H Absolute Nucleated RBC 0.00 0.02 H Immature Gran % 0 0 Nucleated RBC % 0 0 Retic Count (auto) 2.2 H Absolute Retic 90.0 H Immature Retic Fraction 30.9 H Retic Hgb Content CHr 23.0 L Puncture Site Right Radial ABG pH 7.41 ABG pCO2 47 ABG pO2 113 H ABG HCO3 30 H ABG O2 Saturation 99 H ABG Base Excess 4 H Oxygen Liter Flow 4 Sodium 138 135 L Potassium 5.0 5.0 Chloride 101 100 Carbon Dioxide 28.8 27.0 Anion Gap 8 8 BUN 63 H 60 H Creatinine 1.5 H 1.4 H Estim Creat Clear Calc 20.9 L 22.4 L eGFR 34 L 37 L BUN/Creatinine Ratio 42 H 43 H Glucose 110 H 132 H Calculated Osmolality 294 289 Calcium 8.9 9.8 Corrected Calcium 9.1 9.8 Magnesium 2.2 Iron 15 L TIBC 474 H Iron Saturation 3 L Unsat Iron Binding 459 H Ferritin 11 Total Bilirubin 0.7 1.0 AST 38 H 50 H ALT 35 36 Alkaline Phosphatase 200 H 209 H B-Natriuretic Peptide > 3280 H* Total Protein 6.5 6.6 Albumin 3.8 4.2 Globulin 2.7 2.4 Albumin/Globulin Ratio 1.4 1.8 ABG Interpretation ABG results: 12/28/24 08:04 ABG pH 7.41 ABG pCO2 47 ABG pO2 113 H ABG HCO3 30 H ABG O2 Saturation 99 H ABG Base Excess 4 H Quality Measures Quality Measures none Advance care planning discussed with:: patient and other (daughter) Assessment & Plan Assessment Current Active Medications: Generic Name Dose Route Start Last Admin Trade Name Freq PRN Reason Stop Dose Admin Acetaminophen 650 mg 12/27/24 22:44 Acetaminophen 325 Mg Tablet PO 01/26/25 22:43 Q6H PRN PAIN SCALE 1-3 (mild Apixaban 2.5 mg 12/28/24 09:00 12/28/24 09:51 Apixaban 2.5 Mg Tablet PO 01/27/25 08:59 2.5 mg BID AVLARO Administration Bumetanide 1 mg 12/28/24 06:00 12/28/24 06:21 Bumetanide Inj 0.25 Mg/Ml Vial 4 Ml IVP 01/27/25 05:59 1 mg BIDD ALVARO Administration Buspirone HCl 7.5 mg 12/28/24 00:05 12/28/24 09:45 Buspirone Hcl 5 Mg Tablet PO 01/27/25 00:04 Not Given BID ALVARO Dextrose 25 ml 12/27/24 22:44 Dextrose 50%-Water Inj 50 Ml Syringe IV 01/26/25 22:43 Q15MIN PRN BG 50-70 responsive npo pt Dextrose 50 ml 12/27/24 22:44 Dextrose 50%-Water Inj 50 Ml Syringe IV 01/26/25 22:43 Q15MIN PRN BG <50 OR BG <70 & pt unresponsive Glucagon 1 mg 12/27/24 22:44 Glucagon Inj 1 Mg Vial IM Q15MIN PRN BG <70, and no IV access Insulin Human Lispro 0 unit 12/28/24 07:30 12/28/24 11:51 Insulin Lispro (Admelog) 1 Unit/0.01 Ml Unit SC 01/27/25 07:29 Not Given ACHS [facility] Protocol Levalbuterol HCl 0.63 mg 12/27/24 22:51 Levalbuterol Rt 0.63 Mg/3 Ml Nebu INH 01/26/25 22:50 Q8HR PRN WHEEZING Nicotine 7 mg 12/29/24 09:00 Nicotine Patch 7 Mg/24 Hr Patch.Td24 TOP 01/28/25 08:59 QDAY ALVARO Ondansetron HCl 4 mg 12/27/24 22:44 Ondansetron Inj 2 Mg/Ml Inj 2 Ml IVP 01/26/25 22:43 Q6H PRN NAUSEA OR VOMITING Protocol Sennosides 1 tab 12/28/24 09:00 12/28/24 09:51 Senna Tablet PO 01/27/25 08:59 1 tab QDAY [facility] Administration Protocol Plan Patient is a 84 year old female with past medical history of HTN, emphysemia, HFrEF (EF 40-45%), CAD, DM2 non insulin dependent, Afib on Eliquis, and chronic abdominal pain who presented on 12/28 for 2 weeks of generalized deterioration, admitted for work up and management of acute CHF exacerbation. #Acute on chronic CHF exacerbation #HFrEF EF 40-45% (02/2019) #Mild Pulmonic valve regurgitation Patient endorsed worsening dyspnea on exertion, orthopnea, and paroxysmal nocturnal dyspnea. Physical exam was pertinent for JVD and 2+ pitting lower extremity edema bilaterally. Home medications include benazepril, Lasix, Jardiance, and spiranolactone. Patient follows with emergency service worker Dr. Franks outpatient. Echo 02/12/19: EF 40-45% with trace MR with valve thickening, mild TR, mild pulmonic valve regurgitation, and sclerotic aortic valve. Plan: - Pending echo - Continue IV Bumex 1g BID - Strict I&O's, daily weights - Fluid restriction 1800 mL -K>4 and Mg >2 - Supplemental oxygen as needed, keep O2 saturation between 88-92% -Pending medication reconciliation -work toward GDMT, may be taking entresto as home medication - Consult cardiology Dr. Franks, appreciate recommendation #Acute metabolic encephalopathy #rule out stroke #Generalized weakness Per daughter, patient has been deteriorating for the past 2 weeks, started suddenly. Complained of headache during the first week and has been unable to ambulate independently. Is also not at mental baseline. On physical exam, patient was unable to lift her arms, likely due to pain but also concern for neurologic deficit, physicist solid earth strength was 4/5. Also endorses urinary incontinence since 2 week onset. Possible NPH (wet, wacky, wobbly) versus stroke versus medication induced (per daughter, pt is confused on buspirone). CT head negative for acute hemorrhage, mass effect or midline shift, no ventricular abnormalities noted; patient is agreeable to MRI with sedation. Physical exam was unremarkable for specific pattern of neurologic deficit. Additionally per daughter, she fell recently and previous imaging showed possible fracture of right humerus. Required MRI for better evaluation but patient was too anxious to do test. Plan: - ASA 81 mg and home dose atorvastatin - Ordered bilateral humerus XRs - Ordered MRI without contrast - Ordered EEG - Ordered PT evaluation - Consulted neurology Dr. Alexis, appreciate recommendations #DEMETRIUS on CKD # Bilateral Renal Cortical thinning, US (08/2024) Patient has a past medical history likely underlying CKD given bilateral renal cortical thinning from previous echo sounds. DEMETRIUS likely pre-renal given raio. Plan -Strick ins and out -avoid nephrotoxins -renall dose medication -if worsening DEMETRIUS on CKD consider nephrology consult #Anxiety Takes Buspar 7.5mg BID at home; however was discontinued recently as it caused the patient to be confused. Continues to be anxious throughout admission, likely due to hospital/medical environment. - Hold home dose Buspar (may be contributing to encephalopathy) - Haloperidol prn #Emphysema #COPD Patient has been smoking average of 4-5 cigarettes daily for the past 68 years, continues to smoke. Has developed emphysema/COPD as a result. - Continue levalbuterol prn - CHF management as above - Supplemental oxygen as needed, keep O2 saturation 88-92% #Microcytic anemia #BRISA On admission, Hgb 9.5 with MCV 78 and RDW 58.3. Baseline appears to be around 11. Iron panel 12/28 shows iron 15, TIBC 474, iron saturation 3, unsat iron binding 459, indicating iron deficiency anemia. Denies hemoptysis, melena, blood per rectum, hematuria, low concern for acute bleed at this time. - Consider starting on iron supplementation outpatient - Continue to monitor H&H #Afib on Eliquis Takes Eliquis 2.5 mg daily. - Continue home dose Eliquis #DM2, non insulin dependent A1c 08/20 was 6.6. Per daugther this is a recent diagnosis, taking Jardiance at home. - start on sensitive insulin sliding scale #Hx of CAD Takes atorvastatin at home. - Continue home dose atorvastatin - Pending lipid panel #Incidential, Severe Osteopenia, noted on humerous #Fatty liver Health Maintenance Disposition: management of CHF exacerbation, work up for weakness, concern for stroke DVT prophylaxis: Eliquis GI prophylaxis: Senna Diet: Cardiac CODE STATUS: FULL Patient plan of care was discussed with the resident, Dr. Smith, and attending physician, Dr. Cooper. Molly Montano, PGY-1 - The patient's plan was discussed with attending Dr. Kenneth Smith MD PGY2 Internal Medicine Attending Provider Attestation/Addendum I have examined the patient, reviewed labs and imaging findings, discussed the case with the resident(s), and reviewed entered orders. I agree with the plan of care as outlined in this note, with these additional summaries/recommendations: Patient seen at bedside. No acute overnight events. Patient was admitted for acute CHF exacerbation and fluid overload. Previous echo in 2019 showed EF of 40 to 45%. Echocardiogram ordered. Continue with diuresis, strict I's and O's, and fluid restriction. Cardiology consulted, recommendations appreciated. We will institute goal-directed medical therapy as needed based on echocardiogram results. Patient has underlying atrial fibrillation on Eliquis. Pulse has been somewhat labile with short runs of rapid ventricular response. Currently controlled and we will monitor closely. Patient has a history of emphysematous COPD and continue breathing treatments as needed. Continue insulin sliding scale for diabetes mellitus type 2 with Accu-Cheks. Order physical therapy consultation. Patient updated on the plan and in agreement. All questions answered to satisfaction. Please see residents note for additional details and management. Dr. Kenneth MD
--- NOTE | 2024-12-28 15:30 | PC.NURSE ---
pt is increasingly agitated, attempting to get out of bed and take off gown/monitor. admitting provider called and notified. provider to come to bedside to assess pt and speak with daughter.
--- NOTE | 2024-12-28 16:27 | XR_ITS ---
Examination: Bilateral humerus 4 views TECHNIQUE: AP and lateral right and left humerus 4 views Date and time: December 28, 2024 1652 hours INDICATIONS: Patient fell last night with injury to both arms, arm pain FINDINGS: No bilateral shoulder fractures or dislocations Right and left humeral shaft appear intact There is severe osteopenia IMPRESSION: No fractures detected Given the severe osteopenia, recommend short-term follow-up films as clinically warranted
--- NOTE | 2024-12-28 17:32 | PD.RESCONSUL ---
HPI Data of Consult Requesting Physician: Kassi Luu MD Admitting Provider: Kassi Luu MD Attending Provider: Kassi Luu MD Primary Care Provider: Physician No Primary/Family Consult Narrative History of present illness: Carla Dos Santos an 84-year-old F with a PMH of hypertension, emphysema, HFrEF (EF of 40-45% per 2019 echo), coronary artery disease, T2DM, A-fib on Eliquis, hip injury 2/2 traumatic fall, and chronic abdominal pain who presented 12/27 with 2 weeks of generalized deterioration. According to daughter, the patient has recently stopped being able to self?ambulate with her walker and her legs have grown more swollen. In the last 2 weeks, she has also complained that everything hurts , had episodes of hyperventilation, and screamed all night while sleeping very little. Patient admitted for acute exacerbation of CHF. Patient examined at bedside. Daughter reports that patient is able to perform ADLs at home at baseline, but over the past 2 weeks she has been unable to perform these tasks on her own. Daughter does not remember any previous illnesses, hospitalizations, traumas that preceded her 2 weeks of declining function. In the evening patient was visited by family members and was interactive, engaged engaging in conversation, remembering family members names. Denies any symptoms. cc:: cc: Kassi Luu MD Review of Systems Review of Systems Narrative Review of Systems: 14 point review of system negative other than HPI Exam Vital Signs Temp Pulse Resp BP Pulse Ox O2 Del Method O2 Flow Rate 98.5 F 97 21 H 116/67 96 Nasal Cannula 3 12/28/24 14:12 12/28/24 17:23 12/28/24 17:23 12/28/24 17:23 12/28/24 17:23 12/28/24 17:23 12/28/24 17:23 Narrative Exam General: No acute distress, well nourished, sitting on edge of bed and conversing with family members Eye: PERRL, EOMI, normal conjunctiva, no scleral icterus HENT: Normocephalic, atraumatic, hearing intact to conversation at normal volume, moist oral mucosa Neck: Supple, non-tender, no JVD, no lymphadenopathy Lungs: Non-labored respirations, symmetric chest rise Heart: Peripheral pulses intact bilaterally Abdomen: Soft, non-tender, non-distended Musculoskeletal: Normal range of motion and strength Skin: Skin is warm, dry, no rashes or lesions. Psychiatric: Cooperative, appropriate mood and affect Neurologic: Mental status: Orientation: AOx1 Communication: Patient is cooperative and can follow simple instructions Language: Speech fluent, normal rate and volume, comprehension intact Cranial nerves: CN II: Visual thayer intact CN III: Pupils equal, round, and reactive to light CN III, IV, : No gaze deviation, no nystagmus Horizontal pursuit: intact Vertical pursuit: intact Ptosis: none CN V: Facial sensation to light touch intact bilaterally at the forehead, cheeks, and jaw line CN VII: Face symmetric, no facial droop appreciated CN VIII: Able to hear and respond to conversation at normal volume, intact to finger rub CN IX, X: Palate elevation symmetric, uvula midline CN XI: Head turn and shoulder shrug strong, symmetric bilaterally CN XII: Normal tongue protrusion without deviation, no fasciculations Motor: Normal bulk and tone No atrophy No abnormal movements or fasciculations Muscle strength 5/5 b/l and symmetric in all extremities Light touch intact and symmetric in all extremities Results Labs 12/28/24 05:30 12/28/24 05:30 Labs: Short CBC 12/27/24 12/28/24 Range/Units 21:23 05:30 WBC 5.0 6.7 (3.6-11.0) Thou/mm3 Hgb 9.5 L 10.3 L (12.0-16.0) g/dL Hct 30.1 L 32.6 L (36.0-46.0) % Plt Count 250 245 (140-440) Thou/mm3 BMP 12/27/24 12/28/24 21:23 05:30 Sodium 138 135 L Potassium 5.0 5.0 Chloride 101 100 Carbon Dioxide 28.8 27.0 BUN 63 H 60 H Creatinine 1.5 H 1.4 H Glucose 110 H 132 H Calcium 8.9 9.8 Liver Function 12/27/24 12/28/24 Range/Units 21:23 05:30 Total Bilirubin 0.7 1.0 (0.3-1.2) mg/dL AST 38 H 50 H (0-34) U/L ALT 35 36 (10-49) U/L Alkaline Phosphatase 200 H 209 H (46-116) U/L Albumin 3.8 4.2 (3.4-4.8) gm/dL ABG Interpretation ABG results: 12/28/24 08:04 ABG pH 7.41 ABG pCO2 47 ABG pO2 113 H ABG HCO3 30 H ABG O2 Saturation 99 H ABG Base Excess 4 H Quality Measures Quality Measures none Advance care planning discussed with:: patient and child Medications Home Medications and Allergies Home Medications ?Medication ?Instructions ?Recorded ?Confirmed ?Type furosemide 20 mg tablet (Lasix) 40 mg PO BID #0 tabs 06/20/14 12/28/24 History loratadine 10 mg tablet (Claritin) 10 mg PO QDAY #0 tabs 06/20/14 12/28/24 History tramadol 50 mg tablet (Ultram) 1 tab PO QID PRN PAIN #0 tabs 06/20/14 12/28/24 History atorvastatin 10 mg tablet (Lipitor) 10 mg PO HS #0 tabs 12/22/15 12/28/24 History nitroglycerin 0.4 mg sublingual 0.4 mg SL PRN PRN CHEST PAIN #0 09/19/16 12/28/24 History tablet (Nitrostat) tabs aspirin 81 mg capsule,delayed 81 mg PO QDAY 09/16/20 12/28/24 History release albuterol 90 mcg/actuation aerosol 90 mcg inhalation Q4HR PRN Dyspnea 10/26/21 12/28/24 History inhaler mirabegron 25 mg tablet,extended 25 mg PO QDAY 10/26/21 12/28/24 History release 24 hr (Myrbetriq) apixaban 2.5 mg tablet (Eliquis) 2.5 mg PO BID 08/20/24 12/28/24 History empagliflozin 10 mg tablet 10 mg PO QDAY 08/20/24 12/28/24 History (Jardiance) fluticasone fur. 100 mcg-umeclid 1 inh inhalation QDAY 08/20/24 08/20/24 History 62.5 mcg-vilant 25 mcg inhalat.powder (Trelegy Ellipta) sacubitril 49 mg-valsartan 51 mg 1 tab PO BID 08/20/24 12/28/24 History tablet (Entresto) spironolactone 25 mg tablet 25 mg PO .am 08/20/24 12/28/24 History Allergies Allergy/AdvReac Type Severity Reaction Status Date / Time codeine Allergy Intermediate ITCHY Verified 12/27/24 18:11 Visit Medications Acetaminophen (Acetaminophen 325 Mg Tablet) 650 mg PO Q6H PRN PRN Reason: PAIN SCALE 1-3 (mild Stop: 01/26/25 22:43 Apixaban (Apixaban 2.5 Mg Tablet) 2.5 mg PO BID [facility] Stop: 01/27/25 08:59 Last Admin: 12/28/24 09:51 Dose: 2.5 mg Aspirin (Aspirin Ec 81 Mg Tabec) 81 mg PO QDAY [facility] Stop: 01/28/25 08:59 Atorvastatin Calcium (Atorvastatin Calcium 20 Mg Tablet) 40 mg PO HS [facility] Stop: 01/27/25 20:59 Bumetanide (Bumetanide Inj 0.25 Mg/Ml Vial 4 Ml) 1 mg IVP BIDD [facility] Stop: 01/27/25 05:59 Last Admin: 12/28/24 06:21 Dose: 1 mg Buspirone HCl (Buspirone Hcl 5 Mg Tablet) 7.5 mg PO BID [facility] Stop: 01/27/25 00:04 Last Admin: 12/28/24 09:45 Dose: Not Given Dextrose (Dextrose 50%-Water Inj 50 Ml Syringe) 25 ml IV Q15MIN PRN PRN Reason: BG 50-70 responsive npo pt Stop: 01/26/25 22:43 Dextrose (Dextrose 50%-Water Inj 50 Ml Syringe) 50 ml IV Q15MIN PRN PRN Reason: BG <50 OR BG <70 & pt unresponsive Stop: 01/26/25 22:43 Glucagon (Glucagon Inj 1 Mg Vial) 1 mg IM Q15MIN PRN PRN Reason: BG <70, and no IV access Haloperidol Lactate (Haloperidol Lact Inj 5 Mg/Ml Vial) 0.5 mg IM Q30MIN PRN PRN Reason: AGITATION Insulin Human Lispro (Insulin Lispro (Admelog) 1 Unit/0.01 Ml Unit) 0 unit [place] [facility]; Protocol Stop: 01/27/25 07:29 Last Admin: 12/28/24 17:03 Dose: Not Given Levalbuterol HCl (Levalbuterol Rt 0.63 Mg/3 Ml Nebu) 0.63 mg INH Q8HR PRN PRN Reason: WHEEZING Stop: 01/26/25 22:50 Nicotine (Nicotine Patch 7 Mg/24 Hr Patch.Td24) 7 mg TOP QDAY ALVARO Stop: 01/28/25 08:59 Ondansetron HCl (Ondansetron Inj 2 Mg/Ml Inj 2 Ml) 4 mg IVP Q6H PRN; Protocol PRN Reason: NAUSEA OR VOMITING Stop: 01/26/25 22:43 Sennosides (Senna Tablet) 1 tab PO QDAY ALVARO; Protocol Stop: 01/27/25 08:59 Last Admin: 12/28/24 09:51 Dose: 1 tab Discontinued Medications Buspirone HCl (Buspirone Hcl 5 Mg Tablet) 7.5 mg PO BID ALVARO Stop: 01/27/25 08:59 Furosemide (Furosemide Inj 10 Mg/Ml Vial 2 Ml) 40 mg IM X1 ONE Stop: 12/27/24 21:11 Last Admin: 12/27/24 22:01 Dose: 40 mg Haloperidol Lactate (Haloperidol Lact Inj 5 Mg/Ml Vial) 1 mg IV X1 ONE Stop: 12/28/24 03:34 Last Admin: 12/28/24 03:50 Dose: 1 mg Heparin Sodium (Porcine) (Heparin Sod Inj 5000 Unit/Ml Vial) 5,000 unit SC Q12HR [facility] Stop: 01/11/25 08:59 Lorazepam (Lorazepam 2 Mg/Ml Vial) 0.5 mg IVP X1 ONE Stop: 12/28/24 01:39 Last Admin: 12/28/24 01:57 Dose: 0.5 mg Lorazepam (Lorazepam 2 Mg/Ml Vial) 0.5 mg IVP X1 ONE Stop: 12/28/24 03:30 Last Admin: 12/28/24 03:50 Dose: 0.5 mg Nicotine (Nicotine Patch 7 Mg/24 Hr Patch.Td24) 7 mg TOP X1 ONE Stop: 12/28/24 00:40 Last Admin: 12/28/24 02:28 Dose: 7 mg Assessment & Plan Plan #Generalized weakness # AMS, improving Per daughter, patient has been unable to walk for the past 2 weeks, likely worsening due to CHF exacerbation. On initial physical exam, patient was unable to lift her arms due to pain. Patient able to perform ADLs at baseline, no longer at baseline over the past [address] head: Negative for acute hemorrhage No focal neuro deficits noted on exam. AOx1 DDX: delirium, acute CHF exacerbation, dementia, DEMETRIUS, CVA Plan: - MRI/MRA w/ and w/o - Pending lipid panel, A1C, TTE #Anxiety Home med: Buspar 7.5mg BID Plan: - Management per primary - Continue home dose Buspar - Haloperidol prn #Afib On Eliquis 2.5 mg BID #Acute CHF exacerbation #HFrEF (EF 40-45%) (02/2019) Patient endorsed worsening dyspnea on exertion, orthopnea, and paroxysmal nocturnal dyspnea. Physical exam was pertinent for JVD and 2+ pitting lower extremity edema bilaterally. Home medications include benazepril, Lasix, Jardiance, and spiranolactone. #Emphysema #DEMETRIUS #COPD #Microcytic anemia #DM2, non insulin dependent A1c 08/20 was 6.6. Per daugther this is a recent diagnosis, taking Jardiance at home. #Hx of CAD Plan: - Management per primary Plan discussed with Dr. Vanesa Allison, PGY1 Attending Provider Attestation/Addendum I personally have seen and examined the patient at the bedside and I agreed with the resident's findings, assessment and plan of care. Follow-up with MRI brain and EEG.
[2024-12-28] MEDS: ATORVASTATIN CALCIUM 20 MG TABLET 40 MG PO (20:23)
[2024-12-29] VITALS (12 sets, daily range): BP systolic 100–136; BP diastolic 55–81; PULSE 86–116; RESP 16–28; TEMP 36.1–36.6; O2SAT 97–99; BMI 29.9
[2024-12-29] MEDS: HALOPERIDOL LACT INJ 5 MG/ML VIAL IM ×2 (01:32→03:04)
[2024-12-29] MEDS: BUMETANIDE INJ 0.25 MG/ML VIAL 4 ML 1 MG IVP ×2 (06:20→17:18)
[2024-12-29 06:39] LABS: Basophils # (Auto) 0.0 Thou/mm3 (0.0-0.2); Basophils % (Auto) 1 % (0-2.5); Eosinophils # (Auto) 0.1 Thou/mm3 (0.0-0.5); Eosinophils % (Auto) 1 % (0-10); Hematocrit 31.5 % (36.0-46.0); Hemoglobin 9.6 g/dL (12.0-16.0); Immature Granulocytes Auto 0.01 Thou/mm3 (0.00-0.00); Lymphocytes # (Auto) 1.2 Thou/mm3 (1.0-4.8); Lymphocytes % (Auto) 23 % (10-50); Mean Corpuscular HGB Conc 30.5 g/dl (31.0-37.0); Mean Corpuscular Hemoglobin 24.4 pg (25.0-35.0); Mean Corpuscular Volume 80 fL (80-100); Monocytes # (Auto) 0.5 Thou/mm3 (0.0-0.8); Monocytes % (Auto) 10 % (0-12); Neutrophils # (Auto) 3.5 Thou/mm3 (1.8-7.7); Neutrophils % (Auto) 66 % (37-80); Nucleated Red Blood Cell # 0.00 Thou/mm3 (0.00-0.00); Nucleated Red Blood Cell % 0 /100 WBC (0); Platelet Count 217 Thou/mm3 (140-440); RDW Standard Deviation 58.8 fL (36.4-46.3); Red Blood Count 3.94 Miln/mm3 (4.00-5.20); White Blood Count 5.3 Thou/mm3 (3.6-11.0)
[2024-12-29 07:21] LABS: Glucose Estimated Average 140 mg/dL (80-131); Hemoglobin A1C 6.5 % Hgb (4.8-6.0)
[2024-12-29 07:28] LABS: Alanine Aminotransferase 36 U/L (10-49); Albumin, Serum 3.7 gm/dL (3.4-4.8); Albumin/Globulin Ratio 1.4 (1.2-2.2); Alkaline Phosphatase 187 U/L (46-116); Anion Gap 14 (7-16); Aspartate Amino Transferase 50 U/L (0-34); BUN/Creatinine Ratio 36 Ratio (12-20); Bilirubin,Total 1.0 mg/dL (0.3-1.2); Blood Urea Nitrogen 54 mg/dL (9-23); Calcium 9.0 mg/dL (8.3-10.6); Calcium (Corrected) 9.2 mg/dL (8.5-10.1); Carbon Dioxide 26.3 mMol/L (20.0-31.0); Cardiac Risk Estimate 1.7 RATIO (3.7-5.6); Chloride 100 mMol/L (98-107); Cholesterol 98 mg/dL (132-200); Creatinine (Component) 1.5 mg/dL (0.6-1.3); Estimated Creatinine Clearance 22.5 mL/min (>60); Globulin 2.7 gm/dL (2.3-3.5); Glucose 102 mg/dL (74-106); HDL Cholesterol 57 mg/dL (40-60); LDL Cholesterol,Calculated 32 mg/dL (0-130); Magnesium 2.0 mg/dL (1.6-2.6); Osmolality,Calculated 294 (275-295); Phosphorous 3.6 mg/dL (2.4-5.1); Potassium 4.6 mMol/L (3.4-5.1); Sodium 140 mMol/L (136-145); Total Protein 6.4 gm/dL (5.7-8.2); Triglycerides 47 mg/dL (30-150); eGFR 34 See Note
[2024-12-29] MEDS: ASPIRIN EC 81 MG TABEC PO (08:49)
[2024-12-29] MEDS: APIXABAN 2.5 MG TABLET PO ×2 (08:49→20:44)
[2024-12-29] MEDS: NICOTINE PATCH 7 MG/24 HR PATCH.TD24 TOP (08:49)
[2024-12-29] MEDS: ACETAMINOPHEN 325 MG TABLET 650 MG PO (08:49)
--- NOTE | 2024-12-29 09:55 | XR_ITS ---
Examination: Abdomen sonogram, complete Date and time of exam: December 29, 2024 1046 hours INDICATIONS: Abdominal pain this week. Technique: Multiple real-time grayscale transabdominal sonographic images of the abdomen have been obtained. Findings: Absent gallbladder Normal common bile duct 0.5 cm Pancreatic head 3.3 cm Aorta not enlarged. Liver 16.6 cm fatty infiltration lobular contour Normal hepatopedal portal venous flow Patent IVC Right kidney 10.5 cm cortex 1.4 cm Left kidney 9.5 cm cortex 1.2 cm Mild renal scar formation Spleen 8.3 cm IMPRESSION: Normal common bile duct Mild hepatomegaly fatty infiltration, suspect primary hepatocellular disease
--- NOTE | 2024-12-29 10:07 | ESPR_ITS ---
Documentation for date of: 12/29/24 Overnight. Patient given X 1 of PRN Haloperidol. Patient continues to be agitated. Patient is alert and not orientated to self, place, or time. Per family history, this a decline within the last two weeks. Patient previously able to perform Activities of daily living. Previously complained of severe headache. Per daughter continues to deny any recent falls. CT head negative. MRI ordered, d/c. Per neurology recommendations to order EEG and discontinue MRI. Concern for dementia. Resume buspar 10 mg TID, cymbalta 20 once daily, and Gabapentin 300 mg TID. Discontinue Seroquel. Consider reducing Bumex from 1 mg BID to once daily. Pending Echo. Subjective Subjective Interval history: Overnight, patient continued to be anxious and complained of worsening abdominal pain, given tramadol x1 and assigned sitter. Has Haloperidol and Seroquel prn. Patient seen and examined at bedside this AM. Patient was re-oriented when family present. She continues to endorse diffuse abdominal pain, will get abdominal US. Per daughter, patient has had chronic pain since hernia repair but patient more vocal regarding pain recently. Labs and vitals were reviewed. Urine output not well recorded in ED but has good urine output per nurse, will measure more closely. Pending MRI w/o contrast and EEG to rule out stroke. Review of systems otherwise negative except what is mentioned above. Exam Vital Signs Temp Pulse Resp BP Pulse Ox O2 Del Method O2 Flow Rate 96.9 F 87 18 115/75 98 Room Air 1 12/29/24 08:00 12/29/24 08:00 12/29/24 08:00 12/29/24 08:00 12/29/24 08:00 12/29/24 08:00 12/29/24 07:17 Narrative Exam Physical Exam General: Awake, in mild acute distress due to anxiety. Conversational. Elderly woman laying in bed. Confused. HEENT: Normocephalic, atraumatic, mucous membranes moist. Heart: Regular rate and rhythm, normal S1 and S2, no murmurs. Lungs: Clear to auscultation with no wheezing or crackles appreciated. Mild rhonchi likely secondary extensive to smoking history. Abdomen: Soft, nondistended, positive bowel sounds. Diffuse tenderness on palpation, chronic. No guarding or rebound tenderness. Neurologic: Alert and oriented x1 (oriented to self, not time or place), no gross neurological deficit, and patient able to move all 4 extremities. Extremities: 2+ pitting lower extremity edema bilaterally. Skin: No rash or ecchymoses. Objective Labs 12/30/24 05:55 12/30/24 05:55 Labs: Laboratory Results - last 24 hr 12/29/24 05:02 WBC 5.3 RBC 3.94 L Hgb 9.6 L Hct 31.5 L MCV 80 MCH 24.4 L MCHC 30.5 L RDW Std Deviation 58.8 H Plt Count 217 Neut % (Auto) 66 Lymph % (Auto) 23 [place] % (Auto) 10 Eos % (Auto) 1 Baso % (Auto) 1 Neut # (Auto) 3.5 Lymph # (Auto) 1.2 [place] # (Auto) 0.5 Eos # (Auto) 0.1 Baso # (Auto) 0.0 Immature Gran # (Auto) 0.01 H Absolute Nucleated RBC 0.00 Immature Gran % 0 Nucleated RBC % 0 Sodium 140 Potassium 4.6 Chloride 100 Carbon Dioxide 26.3 Anion Gap 14 BUN 54 H Creatinine 1.5 H Estim Creat Clear Calc 22.5 L eGFR 34 L BUN/Creatinine Ratio 36 [address] Glucose [address] Glu mg/dL 140 H Hemoglobin A1c 6.5 H Calculated Osmolality 294 Calcium 9.0 Corrected Calcium 9.2 Phosphorus 3.6 Magnesium 2.0 Total Bilirubin 1.0 AST 50 H ALT 36 Alkaline Phosphatase 187 H D Total Protein 6.4 Albumin 3.7 D Globulin 2.7 Albumin/Globulin Ratio 1.4 Triglycerides 47 Cholesterol 98 L LDL Cholesterol, Calc 32 HDL Cholesterol 57 Cholesterol/HDL Ratio 1.7 L ABG Interpretation ABG results: 12/28/24 08:04 ABG pH 7.41 ABG pCO2 47 ABG pO2 113 H ABG HCO3 30 H ABG O2 Saturation 99 H ABG Base Excess 4 H Quality Measures Quality Measures none Advance care planning discussed with:: patient and child Assessment & Plan Assessment Current Active Medications: Generic Name Dose Route Start Last Admin Trade Name Freq PRN Reason Stop Dose Admin Acetaminophen 650 mg 12/27/24 22:44 12/29/24 08:49 Acetaminophen 325 Mg Tablet PO 01/26/25 22:43 650 mg Q6H PRN Administration PAIN SCALE 1-3 (mild Apixaban 2.5 mg 12/28/24 09:00 12/29/24 08:49 Apixaban 2.5 Mg Tablet PO 01/27/25 08:59 2.5 mg BID ALVARO Administration Aspirin 81 mg 12/29/24 09:00 12/29/24 08:49 Aspirin Ec 81 Mg Tabec PO 01/28/25 08:59 81 mg QDAY ALVARO Administration Atorvastatin Calcium 40 mg 12/28/24 21:00 12/28/24 20:23 Atorvastatin Calcium 20 Mg Tablet PO 01/27/25 20:59 40 mg HS ALVARO Administration Bumetanide 1 mg 12/28/24 06:00 12/29/24 06:20 Bumetanide Inj 0.25 Mg/Ml Vial 4 Ml IVP 01/27/25 05:59 1 mg BIDD ALVARO Administration Buspirone HCl 7.5 mg 12/28/24 00:05 12/28/24 09:45 Buspirone Hcl 5 Mg Tablet PO 01/27/25 00:04 Not Given BID ALVARO Dextrose 25 ml 12/27/24 22:44 Dextrose 50%-Water Inj 50 Ml Syringe IV 01/26/25 22:43 Q15MIN PRN BG 50-70 responsive npo pt Dextrose 50 ml 12/27/24 22:44 Dextrose 50%-Water Inj 50 Ml Syringe IV 01/26/25 22:43 Q15MIN PRN BG <50 OR BG <70 & pt unresponsive Glucagon 1 mg 12/27/24 22:44 Glucagon Inj 1 Mg Vial IM Q15MIN PRN BG <70, and no IV access Haloperidol Lactate 0.5 mg 12/28/24 16:20 12/29/24 03:04 Haloperidol Lact Inj 5 Mg/Ml Vial IM 0.5 mg Q30MIN PRN Administration AGITATION Insulin Human Lispro 0 unit 12/28/24 07:30 12/29/24 08:54 Insulin Lispro (Admelog) 1 Unit/0.01 Ml Unit SC 01/27/25 07:29 Not Given ACHS [facility] Protocol Levalbuterol HCl 0.63 mg 12/27/24 22:51 Levalbuterol Rt 0.63 Mg/3 Ml Nebu INH 01/26/25 22:50 Q8HR PRN WHEEZING Nicotine 7 mg 12/29/24 09:00 12/29/24 08:49 Nicotine Patch 7 Mg/24 Hr Patch.Td24 TOP 01/28/25 08:59 7 mg QDAY ALVARO Administration Ondansetron HCl 4 mg 12/27/24 22:44 Ondansetron Inj 2 Mg/Ml Inj 2 Ml IVP 01/26/25 22:43 Q6H PRN NAUSEA OR VOMITING Protocol Sennosides 1 tab 12/28/24 09:00 12/29/24 08:49 Senna Tablet PO 01/27/25 08:59 1 tab QDAY ALVARO Administration Protocol Tramadol HCl 50 mg 12/28/24 22:08 12/28/24 22:28 Tramadol Hcl 50 Mg Tablet PO 01/02/25 22:07 50 mg Q6HR PRN Administration PAIN SCALE 7-10 (Severe Plan Patient is a 84 year old female with past medical history of HTN, emphysemia, HFrEF (EF 40-45%), CAD, DM2 non insulin dependent, Afib on Eliquis, and chronic abdominal pain who presented on 12/28 for 2 weeks of generalized deterioration, admitted for work up and management of acute CHF exacerbation. #Acute on chronic CHF exacerbation #HFrEF EF 40-45% (02/2019) #Mild Pulmonic valve regurgitation Patient endorsed worsening dyspnea on exertion, orthopnea, and paroxysmal nocturnal dyspnea. Physical exam was pertinent for JVD and 2+ pitting lower extremity edema bilaterally. Home medications include benazepril, Lasix, Jardiance, and spiranolactone. Patient follows with photographic equipment assembler Dr. Franks outpatient. Echo 02/12/19: EF 40-45% with trace MR with valve thickening, mild TR, mild pulmonic valve regurgitation, and sclerotic aortic valve. Plan: - Pending echo - Continue IV Bumex 1g BID - Strict I&O's, daily weights - Fluid restriction 1800 mL - K>4 and Mg >2 - Supplemental oxygen as needed, keep O2 saturation between 88-92% - Pending medication reconciliation - work toward GDMT, may be taking entresto as home medication - Consult cardiology Dr. Franks, appreciate recommendation #Acute encephalopathy, metabolic vs toxic vs infectious #Rule out stroke #Generalized weakness Per daughter, patient has been deteriorating for the past 2 weeks, started suddenly. Complained of headache during the first week and has been unable to ambulate independently. Is also not at mental baseline per family. On physical exam, patient was unable to lift her arms, likely due to pain but also concern for neurologic deficit, infrastructure analyst strength was 4/5. Also endorses urinary incontinence since 2 week onset. Will need to rule out stroke. Unlikely NPH (wet, wacky, wobbly) as CT head did not note any ventricular abnormalities/enlargement. Possibly medication induced; per daughter, pt is confused on buspirone but is one of her home medications. Possibly infectious, is having worsening abdominal pain, UA not ordered on admission CT head negative for acute hemorrhage, mass effect or midline shift; patient is agreeable to MRI with sedation. 12/29: Per daughter, patient has been having chronic abdominal pain since hernia repair (mesh placed?); however has been worsening as of late. PT evaluated patient, recommend SNF for short term rehab but patient not enthusiastic, family understands and will discuss with patient. Plan: - Continue ASA 81 mg and home dose atorvastatin - Ordered abdominal ultrasound, CT deferred due to DEMETRIUS - Ordered UA - Pending MRI without contrast - Pending EEG - Consulted neurology Dr. Alexis, appreciate recommendations #DEMETRIUS on CKD #Bilateral Renal Cortical thinning, US (08/2024) Patient has a past medical history likely underlying CKD given bilateral renal cortical thinning from previous echo sounds. DEMETRIUS likely pre-renal given elevated BUN/Cr ratio, patient is altered and likely has not been well hydrated. Baseline creatinine 1.3 in 2023. Likely worsened with diuresis. Plan -Strict I&O's -Avoid nephrotoxins -Renally dose medication -if worsening DEMETRIUS on CKD, consider nephrology consult #Anxiety Takes Buspar 7.5mg BID at home; however was discontinued recently as it caused the patient to be confused. Continues to be anxious throughout admission, likely due to hospital/medical environment. - Hold home dose Buspar (may be contributing to encephalopathy) - Haloperidol, Seroquel, and diphenhydramine prn #Emphysema #COPD Patient has been smoking average of 4-5 cigarettes daily for the past 68 years, continues to smoke. Has developed emphysema/COPD as a result. - Continue levalbuterol prn - CHF management as above - Supplemental oxygen as needed, keep O2 saturation 88-92% #Microcytic anemia #BRISA On admission, Hgb 9.5 with MCV 78 and RDW 58.3. Baseline appears to be around 11. Iron panel 12/28 shows iron 15, TIBC 474, iron saturation 3, unsat iron binding 459, indicating iron deficiency anemia. Denies hemoptysis, melena, blood per rectum, hematuria, low concern for acute bleed at this time. - Consider starting on iron supplementation outpatient - Continue to monitor H&H #Afib on Eliquis Takes Eliquis 2.5 mg daily. - Continue home dose Eliquis #DM2, non insulin dependent A1c 08/20 was 6.6. Per karleneugther this is a recent diagnosis, taking Jardiance at home. - Continue sensitive insulin sliding scale #Hx of CAD Takes atorvastatin at home. Lipid panel 12/29: trig 47, total chol 98, LDL 32, HDL 57. ASCVD risk score: unable to be calculated as pt is over 79. - Continue home dose atorvastatin #Incidential, Severe Osteopenia, noted on humerus XR - Consider on starting bisphosphonates outpatient - Family still concerned for fracture, scheduled open MRI outpatient #NAFLD On US abdomen. No significant alcohol use on history. - Recommend weight loss and diet modification # Health Maintenance Disposition: management of CHF exacerbation, work up for weakness, concern for stroke DVT prophylaxis: Eliquis GI prophylaxis: Senna Diet: Cardiac CODE STATUS: FULL Patient plan of care was discussed with the resident, Dr. Smith, and attending physician, Dr. Cooper. Molly Montano, PGY-1 - The patient's plan was discussed with attending Dr. Daniele Smith MD PGY2 Internal Medicine Attending Provider Attestation/Addendum I have examined the patient, reviewed labs and imaging findings, discussed the case with the resident(s), and reviewed entered orders. I agree with the plan of care as outlined in this note, with these additional summaries/recommendations: Patient seen at bedside. No acute overnight events. Additional history obtained from family who report patient has a stepwise decline in her mentation and ambulation over the last couple weeks. CT head on admission negative for acute hemorrhage, mass effect or midline shift. Etiology unclear at this time although possibly secondary to metabolic causes versus undiagnosed dementia. In-house neurology consulted, recommendations appreciated. Will obtain brain MRI to rule out old/subacute stroke. Order EEG to rule out seizures. Consult physical therapy. Patient also diagnosed acute CHF exacerbation and fluid overload. Previous echo in 2019 showed EF of 40 to 45%. Echocardiogram ordered. Continue with diuresis, strict I's and O's, and fluid restriction. Cardiology consulted, recommendations appreciated. We will institute goal- directed medical therapy as needed based on echocardiogram results. Patient has underlying atrial fibrillation on Eliquis. Pulse has been somewhat labile with short runs of rapid ventricular response. Currently controlled and we will monitor closely. Patient has a history of emphysematous COPD and continue breathing treatments as needed. Continue insulin sliding scale for diabetes mellitus type 2 with Accu-Cheks. Order physical therapy consultation. Patient updated on the plan and in agreement. All questions answered to satisfaction. Please see residents note for additional details and management. Dr. Kenneth MD
--- NOTE | 2024-12-29 12:46 | PC.SS ---
SS received a call from [facility], PT recommendation is SNF but family is unsure at this time. PT stated if pt goes home, she will need HH with DME: 3in1 BSC and a hospital bed. SS met with pt and family at bedside. Dtr Janeth was present. SS explained SS can NOT order DME if pt goes to SNF. Janeth stated she wants to wait to speak to her siblings, she can have an answer for me around 4pm.
--- NOTE | 2024-12-29 13:04 | PC.SS ---
SS submitted SNF referral, pending responses.
--- NOTE | 2024-12-29 13:37 | PD.RESPRO ---
Documentation for date of: 12/29/24 Subjective Subjective Interval history: Patient evaluated at bedside. Patient sitting up at the edge of the bed, with psychomotor agitation. Daughter at bedside, notes that patient cognition and mood fluctuates throughout the day. Patient given hydroxyzine dose in preparation for MRI, only made patient more anxious. Overnight patient was trying to get up out of bed most likely secondary to anxiety. Daughter notes that patient's symptoms, though more intensely exacerbated over the past 2 weeks, have been ongoing for at least several months. At least 1 month ago patient was seen by primary care doctor who had brought up the diagnosis of dementia, which prompted patient and daughter to initiate POA paperwork. Three weeks ago patient and daughter were able to sign and notarize medical power of workers compensation defense attorney paperwork. 2 months ago patient was prescribed BuSpar 7.5 mg twice daily for anxiety. Daughter noticed that BuSpar was not helping patient's agitation or mood after at leat a 6-week trial and thus discontinued. Per daughter, patient has not tried other antidepressants. Patient has been refusing to eat when alone at least for the past 2 months, only eats when family members actively encouraged her to do so. Patient has chronic headaches, takes Tylenol and Slid[place] almost daily, more exacerbated over the past 3 weeks. Daughter notes that patient's medication including Slidell was completed before time of appropriate refill. Overall, daughter notes that patient has had a more progressive cognitive decline, with headaches, depression, anxiety, excess use of Tylenol and [place]/polypharmacy, and possible dementia all contributing. Exam Vital Signs Temp Pulse Resp BP Pulse Ox O2 Del Method O2 Flow Rate 97.8 F 116 H 25 H 100/72 99 Nasal Cannula 3 12/29/24 12:00 12/29/24 12:12/29/24 12:12/29/24 12:00 12/29/24 12:00 12/29/24 12:12/29/24 12:00 Narrative Exam General: No acute distress, well nourished, sitting on edge of bed and conversing with family members Eye: PERRL, EOMI, normal conjunctiva, no scleral icterus HENT: Normocephalic, atraumatic, hearing intact to conversation at normal volume, moist oral mucosa Neck: Supple, non-tender, no JVD, no lymphadenopathy Lungs: Non-labored respirations, symmetric chest rise Heart: Peripheral pulses intact bilaterally Abdomen: Soft, non-tender, non-distended Musculoskeletal: Normal range of motion and strength Skin: Skin is warm, dry, no rashes or lesions. Psychiatric: Cooperative, anxious. Patient's mood fluctuates throughout the day. Neurologic: Mental status: Orientation: AOx1. Ability to name family members fluctuates throughout the day Communication: Patient is cooperative and can follow simple instructions Language: Speech fluent, normal rate and volume, comprehension intact Cranial nerves: CN II: Visual thayer intact CN III: Pupils equal, round, and reactive to light CN III, IV, : No gaze deviation, no nystagmus Horizontal pursuit: intact Vertical pursuit: intact Ptosis: none CN V: Facial sensation to light touch intact bilaterally at the forehead, cheeks, and jaw line CN VII: Face symmetric, no facial droop appreciated CN VIII: Able to hear and respond to conversation at normal volume, intact to finger rub CN IX, X: Palate elevation symmetric, uvula midline CN XI: Head turn and shoulder shrug strong, symmetric bilaterally CN XII: Normal tongue protrusion without deviation, no fasciculations Motor: Normal bulk and tone No atrophy Psychomotor agitation Muscle strength 5/5 b/l and symmetric in b/l lower extremities. Elbow flexion and extension symmetric and 5/5. Shoulder abduction 3/5 but easily fatigued Light touch intact and symmetric in all extremities Objective Labs 12/30/24 05:55 12/30/24 05:55 Labs: Laboratory Results - last 24 hr 12/29/24 05:02 WBC 5.3 RBC 3.94 L Hgb 9.6 L Hct 31.5 L MCV 80 MCH 24.4 L MCHC 30.5 L RDW Std Deviation 58.8 H Plt Count 217 Neut % (Auto) 66 Lymph % (Auto) 23 [place] % (Auto) 10 Eos % (Auto) 1 Baso % (Auto) 1 Neut # (Auto) 3.5 Lymph # (Auto) 1.2 [place] # (Auto) 0.5 Eos # (Auto) 0.1 Baso # (Auto) 0.0 Immature Gran # (Auto) 0.01 H Absolute Nucleated RBC 0.00 Immature Gran % 0 Nucleated RBC % 0 Sodium 140 Potassium 4.6 Chloride 100 Carbon Dioxide 26.3 Anion Gap 14 BUN 54 H Creatinine 1.5 H Estim Creat Clear Calc 22.5 L eGFR 34 L BUN/Creatinine Ratio 36 [address]ucose [address] Glu mg/dL 140 H Hemoglobin A1c 6.5 H Calculated Osmolality 294 Calcium 9.0 Corrected Calcium 9.2 Phosphorus 3.6 Magnesium 2.0 Total Bilirubin 1.0 AST 50 H ALT 36 Alkaline Phosphatase 187 H D Total Protein 6.4 Albumin 3.7 D Globulin 2.7 Albumin/Globulin Ratio 1.4 Triglycerides 47 Cholesterol 98 L LDL Cholesterol, Calc 32 HDL Cholesterol 57 Cholesterol/HDL Ratio 1.7 L ABG Interpretation ABG results: 12/28/24 08:04 ABG pH 7.41 ABG pCO2 47 ABG pO2 113 H ABG HCO3 30 H ABG O2 Saturation 99 H ABG Base Excess 4 H Quality Measures Quality Measures none Advance care planning discussed with:: patient and child Assessment & Plan Assessment Current Active Medications: Generic Name Dose Route Start Last Admin Trade Name Freq PRN Reason Stop Dose Admin Acetaminophen 650 mg 12/27/24 22:44 12/29/24 08:49 Acetaminophen 325 Mg Tablet PO 01/26/25 22:43 650 mg Q6H PRN Administration PAIN SCALE 1-3 (mild Apixaban 2.5 mg 12/28/24 09:00 12/29/24 08:49 Apixaban 2.5 Mg Tablet PO 01/27/25 08:59 2.5 mg BID ALVARO Administration Aspirin 81 mg 12/29/24 09:00 12/29/24 08:49 Aspirin Ec 81 Mg Tabec PO 01/28/25 08:59 81 mg QDAY ALVARO Administration Atorvastatin Calcium 40 mg 12/28/24 21:00 12/28/24 20:23 Atorvastatin Calcium 20 Mg Tablet PO 01/27/25 20:59 40 mg HS ALVARO Administration Bumetanide 1 mg 12/28/24 06:00 12/29/24 06:20 Bumetanide Inj 0.25 Mg/Ml Vial 4 Ml IVP 01/27/25 05:59 1 mg BIDD ALVARO Administration Buspirone HCl 7.5 mg 12/28/24 00:05 12/28/24 09:45 Buspirone Hcl 5 Mg Tablet PO 01/27/25 00:04 Not Given BID ALVARO Dextrose 25 ml 12/27/24 22:44 Dextrose 50%-Water Inj 50 Ml Syringe IV 01/26/25 22:43 Q15MIN PRN BG 50-70 responsive npo pt Dextrose 50 ml 12/27/24 22:44 Dextrose 50%-Water Inj 50 Ml Syringe IV 01/26/25 22:43 Q15MIN PRN BG <50 OR BG <70 & pt unresponsive Glucagon 1 mg 12/27/24 22:44 Glucagon Inj 1 Mg Vial IM Q15MIN PRN BG <70, and no IV access Haloperidol Lactate 0.5 mg 12/28/24 16:20 12/29/24 03:04 Haloperidol Lact Inj 5 Mg/Ml Vial IM 0.5 mg Q30MIN PRN Administration AGITATION Hydroxyzine HCl 25 mg 12/29/24 12:00 12/29/24 12:27 Hydroxyzine Hcl 25 Mg Tablet PO 01/28/25 11:59 25 mg QDAY ALVARO Administration Insulin Human Lispro 0 unit 12/28/24 07:30 12/29/24 12:27 Insulin Lispro (Admelog) 1 Unit/0.01 Ml Unit SC 01/27/25 07:29 Not Given ACHS [facility] Protocol Levalbuterol HCl 0.63 mg 12/27/24 22:51 Levalbuterol Rt 0.63 Mg/3 Ml Nebu INH 01/26/25 22:50 Q8HR PRN WHEEZING Nicotine 21 mg 12/30/24 09:00 Nicotine Patch 21 Mg/24 Hr Patch.Td24 TOP 01/29/25 08:59 QDAY ALVARO Ondansetron HCl 4 mg 12/27/24 22:44 Ondansetron Inj 2 Mg/Ml Inj 2 Ml IVP 01/26/25 22:43 Q6H PRN NAUSEA OR VOMITING Protocol Sennosides 1 tab 12/28/24 09:00 12/29/24 08:49 Senna Tablet PO 01/27/25 08:59 1 tab QDAY ALVARO Administration Protocol Tramadol HCl 50 mg 12/28/24 22:08 12/28/24 22:28 Tramadol Hcl 50 Mg Tablet PO 01/02/25 22:07 50 mg Q6HR PRN Administration PAIN SCALE 7-10 (Severe Plan # Generalized weakness # AMS, fluctuates Per daughter, patient has been unable to walk for the past 2 weeks, likely worsening due to CHF exacerbation. On initial physical exam, patient was unable to lift her arms due to pain. Patient able to perform ADLs at baseline, no longer at baseline over the past 2 weeks. A1C: 6.5 Lipids: Triglyceride 47, Cholesterol 98, LDL 32, HDL 57 CT head: Negative for acute hemorrhage No focal neuro deficits noted on exam. AOx1 Meds received: Buspar, Haldol, Tramadol, Ativan, Quetiapine DDX: polypharmacy, delirium, acute CHF exacerbation, dementia, DEMETRIUS, CVA, deconditioning Most likely acute delirium on chronic dementia, exacerbated by DEMETRIUS and CHF exacerbation Plan: - Patient unable to tolerate MRI/MRA w/ and w/o due to agitation despite hydroxyzine. MRI not needed at this time, as nonspecific dementia can be diagnosed with EEG. - EEG - TTE - F/U neurology outpatient #Anxiety # Headache - chronic Home med: Buspar 7.5mg BID - started 2 months ago, discontinued because med was not helping anxiety Patient takes Tylenol and [place] at home daily for headaches Patient expressed depressed mood for over 2 months Plan: - Increase Buspar to 10 mg TID - Start Duloxetine 20 mg daily for depression and chronic pain/headaches - Start Gabapentin 300 mg TID #Afib On Eliquis 2.5 mg BID #Acute CHF exacerbation #HFrEF (EF 40-45%) (02/2019) Patient endorsed worsening dyspnea on exertion, orthopnea, and paroxysmal nocturnal dyspnea. Physical exam was pertinent for JVD and 2+ pitting lower extremity edema bilaterally. Home medications include benazepril, Lasix, Jardiance, and spiranolactone. #Emphysema #DEMETRIUS #COPD #Microcytic anemia #DM2, non insulin dependent (A1C 6.5) A1c 08/20 was 6.6. Per daughter this is a recent diagnosis, taking Jardiance at home. #Hx of CAD #Mild hepatomegaly with fatty infiltration Plan: - Management per primary Plan discussed with Dr. Vanesa Allison, PGY1 Attending Provider Attestation/Addendum Patient was seen and examined at the bedside and I agreed with resident's findings, assessment and plan of care. Will try GP for headache, increased Bupar and try Duloxetine for dual benefits. Continue to monitor her closely.
[2024-12-29] MEDS: NICOTINE PATCH 14 MG/24 HR PATCH.TD24 TOP (13:40)
[2024-12-29] MEDS: DULoxetine HCL 20 MG CAPSULE PO (19:01)
--- NOTE | 2024-12-29 19:43 | PC.NURSE ---
technical document writer arrived on unit to do echocardiogram on patient. Family member is at bedside with patient.
[2024-12-29] MEDS: ATORVASTATIN CALCIUM 20 MG TABLET 40 MG PO (20:44)
[2024-12-29] MEDS: GABAPENTIN 300 MG CAPSULE PO (21:07)
--- NOTE | 2024-12-29 21:22 | PC.NURSE ---
Patient's family was notified regarding visiting hours and was told multiple times. Patient's family replied by saying okay to staff. When nurse went to round on patient, the family members were still there after multiple notifying them regarding visiting hours. Security was contacted and notified.
--- NOTE | 2024-12-29 23:42 | RESP.EEG ---
EEG has been completed and is ready for MD interpretation. NOTE: Pt moving and talking through most of the procedure. Pt agitated and restless.
[2024-12-30] VITALS (12 sets, daily range): BP systolic 91–110; BP diastolic 51–78; PULSE 82–115; RESP 20–24; TEMP 36–36.6; O2SAT 96–98; BMI 29.9
[2024-12-30] MEDS: BUMETANIDE INJ 0.25 MG/ML VIAL 4 ML 1 MG IVP ×2 (05:09→14:51)
[2024-12-30] MEDS: GABAPENTIN 300 MG CAPSULE PO ×3 (05:10→21:29)
[2024-12-30 06:16] LABS: Basophils # (Auto) 0.0 Thou/mm3 (0.0-0.2); Basophils % (Auto) 1 % (0-2.5); Eosinophils # (Auto) 0.0 Thou/mm3 (0.0-0.5); Eosinophils % (Auto) 1 % (0-10); Hematocrit 30.5 % (36.0-46.0); Hemoglobin 9.6 g/dL (12.0-16.0); Immature Granulocytes Auto 0.02 Thou/mm3 (0.00-0.00); Lymphocytes # (Auto) 0.8 Thou/mm3 (1.0-4.8); Lymphocytes % (Auto) 12 % (10-50); Mean Corpuscular HGB Conc 31.5 g/dl (31.0-37.0); Mean Corpuscular Hemoglobin 24.7 pg (25.0-35.0); Mean Corpuscular Volume 79 fL (80-100); Monocytes # (Auto) 0.4 Thou/mm3 (0.0-0.8); Monocytes % (Auto) 7 % (0-12); Neutrophils # (Auto) 4.9 Thou/mm3 (1.8-7.7); Neutrophils % (Auto) 79 % (37-80); Nucleated Red Blood Cell # 0.00 Thou/mm3 (0.00-0.00); Nucleated Red Blood Cell % 0 /100 WBC (0); Platelet Count 229 Thou/mm3 (140-440); RDW Standard Deviation 58.2 fL (36.4-46.3); Red Blood Count 3.88 Miln/mm3 (4.00-5.20); White Blood Count 6.2 Thou/mm3 (3.6-11.0)
[2024-12-30 06:34] LABS: Alanine Aminotransferase 36 U/L (10-49); Albumin, Serum 3.9 gm/dL (3.4-4.8); Albumin/Globulin Ratio 1.5 (1.2-2.2); Alkaline Phosphatase 187 U/L (46-116); Anion Gap 10 (7-16); Aspartate Amino Transferase 46 U/L (0-34); BUN/Creatinine Ratio 41 Ratio (12-20); Bilirubin,Total 0.9 mg/dL (0.3-1.2); Blood Urea Nitrogen 58 mg/dL (9-23); Calcium 8.8 mg/dL (8.3-10.6); Calcium (Corrected) 8.9 mg/dL (8.5-10.1); Carbon Dioxide 28.9 mMol/L (20.0-31.0); Chloride 100 mMol/L (98-107); Creatinine (Component) 1.4 mg/dL (0.6-1.3); Estimated Creatinine Clearance 24.1 mL/min (>60); Globulin 2.6 gm/dL (2.3-3.5); Glucose 141 mg/dL (74-106); Magnesium 2.3 mg/dL (1.6-2.6); Osmolality,Calculated 295 (275-295); Phosphorous 3.3 mg/dL (2.4-5.1); Potassium 4.4 mMol/L (3.4-5.1); Sodium 139 mMol/L (136-145); Total Protein 6.5 gm/dL (5.7-8.2); eGFR 37 See Note
--- NOTE | 2024-12-30 07:45 | XR_ITS ---
Examination: AP chest single view Technique one AP portable upright chest single view Date and time: December 30, 2024, 0757 hrs., Comparison December 27, 2024 Indications: Chest pain today. Findings: Mild CHF. Moderate cardiomegaly. Prominent vascular congestion with basilar edema. Impression: Mild CHF.
[2024-12-30] MEDS: NICOTINE PATCH 21 MG/24 HR PATCH.TD24 TOP (09:49)
[2024-12-30] MEDS: ASPIRIN EC 81 MG TABEC PO (09:50)
[2024-12-30] MEDS: APIXABAN 2.5 MG TABLET PO ×2 (09:51→21:29)
[2024-12-30] MEDS: DULoxetine HCL 20 MG CAPSULE PO (09:51)
--- NOTE | 2024-12-30 14:03 | ESPR_ITS ---
Documentation for date of: 12/30/24 Subjective Subjective Interval history: The patient was evaluated at bedside, currently seen sitting upright in bed, patient's granddaughter is helping her finish her breakfast. Patient's daughter was present at the bedside, questions and concerns were answered. No acute overnight events reported. Urine output 600 mL overnight, patient is net fluid +1600 mL. Increased diuretics to 1 mg Bumex IV three times daily Spoke to daughter regarding possible diagnosis of dementia and she did report that the patient's PCP Dr. Bazzi, was concerned about dementia as patient had been missing her medications and forgetting to eat her meals unless brought to attention by family. The patient is pending neurology recommendations. Exam Vital Signs Temp Pulse Resp BP Pulse Ox O2 Del Method O2 Flow Rate 97.9 F 96 21 H 105/77 98 Nasal Cannula 3 12/30/24 12:00 12/30/24 12:00 12/30/24 12:00 12/30/24 12:00 12/30/24 12:00 12/30/24 12:00 12/30/24 12:00 Narrative Exam Physical Exam General: Awake, in no acute distress due to anxiety. Conversational. Elderly woman sitting upright at the edge of bed, eating her breakfast. Being helped by her granddaughter. HEENT: Normocephalic, atraumatic, mucous membranes moist. Heart: Regular rate and rhythm, normal S1 and S2, no murmurs. Lungs: Clear to auscultation with no wheezing or crackles appreciated. Mild rhonchi likely secondary extensive to smoking history. Abdomen: Soft, nondistended, positive bowel sounds. Diffuse tenderness on palpation, chronic. No guarding or rebound tenderness. Neurologic: Alert and oriented x1 (oriented to self, not time or place), no gross neurological deficit, and patient able to move all 4 extremities. Extremities: 2+ pitting lower extremity edema bilaterally. Skin: No rash or ecchymoses. Objective Labs 12/31/24 05:16 12/31/24 05:16 Labs: Laboratory Results - last 24 hr 12/30/24 05:55 WBC 6.2 RBC 3.88 L Hgb 9.6 L Hct 30.5 L MCV 79 L MCH 24.7 L MCHC 31.5 RDW Std Deviation 58.2 H Plt Count 229 Neut % (Auto) 79 Lymph % (Auto) 12 [place] % (Auto) 7 Eos % (Auto) 1 Baso % (Auto) 1 Neut # (Auto) 4.9 Lymph # (Auto) 0.8 L [place] # (Auto) 0.4 Eos # (Auto) 0.0 Baso # (Auto) 0.0 Immature Gran # (Auto) 0.02 H Absolute Nucleated RBC 0.00 Immature Gran % 0 Nucleated RBC % 0 Sodium 139 Potassium 4.4 Chloride 100 Carbon Dioxide 28.9 Anion Gap 10 BUN 58 H Creatinine 1.4 H Estim Creat Clear Calc 24.1 L eGFR 37 L BUN/Creatinine Ratio 41 H Glucose 141 H Calculated Osmolality 295 Calcium 8.8 Corrected Calcium 8.9 Phosphorus 3.3 Magnesium 2.3 Total Bilirubin 0.9 AST 46 H ALT 36 Alkaline Phosphatase 187 H Total Protein 6.5 Albumin 3.9 Globulin 2.6 Albumin/Globulin Ratio 1.5 ABG Interpretation ABG results: 12/28/24 08:04 ABG pH 7.41 ABG pCO2 47 ABG pO2 113 H ABG HCO3 30 H ABG O2 Saturation 99 H ABG Base Excess 4 H Quality Measures Quality Measures none Advance care planning discussed with:: patient Assessment & Plan Assessment Current Active Medications: Generic Name Dose Route Start Last Admin Trade Name Freq PRN Reason Stop Dose Admin Acetaminophen 650 mg 12/27/24 22:44 12/29/24 08:49 Acetaminophen 325 Mg Tablet PO 01/26/25 22:43 650 mg Q6H PRN Administration PAIN SCALE 1-3 (mild Apixaban 2.5 mg 12/28/24 09:00 12/30/24 09:51 Apixaban 2.5 Mg Tablet PO 01/27/25 08:59 2.5 mg BID ALVARO Administration Aspirin 81 mg 12/29/24 09:00 12/30/24 09:50 Aspirin Ec 81 Mg Tabec PO 01/28/25 08:59 81 mg QDAY ALVARO Administration Atorvastatin Calcium 40 mg 12/28/24 21:00 12/29/24 20:44 Atorvastatin Calcium 20 Mg Tablet PO 01/27/25 20:59 40 mg HS ALVARO Administration Bumetanide 1 mg 12/30/24 14:00 Bumetanide Inj 0.25 Mg/Ml Vial 4 Ml IVP 01/29/25 13:59 Q8HR ALVARO Buspirone HCl 10 mg 12/29/24 22:00 Buspirone Hcl 5 Mg Tablet PO 01/28/25 21:59 TID ALVARO Dextrose 25 ml 12/27/24 22:44 Dextrose 50%-Water Inj 50 Ml Syringe IV 01/26/25 22:43 Q15MIN PRN BG 50-70 responsive npo pt Dextrose 50 ml 12/27/24 22:44 Dextrose 50%-Water Inj 50 Ml Syringe IV 01/26/25 22:43 Q15MIN PRN BG <50 OR BG <70 & pt unresponsive Duloxetine HCl 20 mg 12/29/24 17:30 12/30/24 09:51 Duloxetine Hcl 20 Mg Capsule PO 01/28/25 17:29 20 mg QDAY ALVARO Administration Gabapentin 300 mg 12/29/24 22:00 12/30/24 05:10 Gabapentin 300 Mg Capsule PO 01/28/25 21:59 300 mg TID ALVARO Administration Glucagon 1 mg 12/27/24 22:44 Glucagon Inj 1 Mg Vial IM Q15MIN PRN BG <70, and no IV access Haloperidol Lactate 0.5 mg 12/28/24 16:20 12/29/24 03:04 Haloperidol Lact Inj 5 Mg/Ml Vial IM 0.5 mg Q30MIN PRN Administration AGITATION Insulin Human Lispro 0 unit 12/28/24 07:30 12/29/24 20:43 Insulin Lispro (Admelog) 1 Unit/0.01 Ml Unit SC 01/27/25 07:29 Not Given ACHS [facility] Protocol Levalbuterol HCl 0.63 mg 12/27/24 22:51 Levalbuterol Rt 0.63 Mg/3 Ml Nebu INH 01/26/25 22:50 Q8HR PRN WHEEZING Nicotine 21 mg 12/30/24 09:00 12/30/24 09:49 Nicotine Patch 21 Mg/24 Hr Patch.Td24 TOP 01/29/25 08:59 21 mg QDAY ALVARO Administration Non-Formulary Medication 10 mg 12/30/24 09:00 Empagliflozin [Jardiance] PO 01/29/25 08:59 QDAY ALVARO Ondansetron HCl 4 mg 12/27/24 22:44 Ondansetron Inj 2 Mg/Ml Inj 2 Ml IVP 01/26/25 22:43 Q6H PRN NAUSEA OR VOMITING Protocol Sacubitril/Valsartan 2 tab 12/30/24 09:00 12/30/24 09:50 Sacubitril 24 Mg/Valsartan 26 Mg Tablet PO 01/29/25 08:59 2 tab BID ALVARO Administration Sennosides 1 tab 12/28/24 09:00 12/30/24 09:50 Senna Tablet PO 01/27/25 08:59 1 tab QDAY ALVARO Administration Protocol Tramadol HCl 50 mg 12/28/24 22:08 12/28/24 22:28 Tramadol Hcl 50 Mg Tablet PO 01/02/25 22:07 50 mg Q6HR PRN Administration PAIN SCALE 7-10 (Severe Plan Patient is a 84 year old female with past medical history of HTN, emphysemia, HFrEF (EF 40-45%), CAD, DM2 non insulin dependent, Afib on Eliquis, and chronic abdominal pain who presented on 12/28 for 2 weeks of generalized deterioration, admitted for work up and management of acute CHF exacerbation. #Acute on chronic CHF exacerbation #HFrEF EF 40-45% (02/2019) #Mild Pulmonic valve regurgitation Patient endorsed worsening dyspnea on exertion, orthopnea, and paroxysmal nocturnal dyspnea. Physical exam was pertinent for JVD and 2+ pitting lower extremity edema bilaterally. Home medications include benazepril, Lasix, Jardiance, and spiranolactone. Patient follows with executive meeting manager Dr. Franks outpatient. Echo 02/12/19: EF 40-45% with trace MR with valve thickening, mild TR, mild pulmonic valve regurgitation, and sclerotic aortic valve. Plan: - Pending echo - Continue IV Bumex 1g TID - Strict I&O's, daily weights - Fluid restriction 1800 mL - K>4 and Mg >2 - Supplemental oxygen as needed, keep O2 saturation between 88-92% - Pending medication reconciliation - work toward GDMT, may be taking entresto as home medication - Consult cardiology Dr. Franks, appreciate recommendation #Acute encephalopathy, metabolic vs toxic vs infectious #Rule out stroke #Generalized weakness Per daughter, patient has been deteriorating for the past 2 weeks, started suddenly. Complained of headache during the first week and has been unable to ambulate independently. Is also not at mental baseline per family. On physical exam, patient was unable to lift her arms, likely due to pain but also concern for neurologic deficit, sales consultant residential manager strength was 4/5. Also endorses urinary incontinence since 2 week onset. Will need to rule out stroke. Unlikely NPH (wet, wacky, wobbly) as CT head did not note any ventricular abnormalities/enlargement. Possibly medication induced; per daughter, pt is confused on buspirone but is one of her home medications. Possibly infectious, is having worsening abdominal pain, UA not ordered on admission CT head negative for acute hemorrhage, mass effect or midline shift; patient is agreeable to MRI with sedation. 12/29: Per daughter, patient has been having chronic abdominal pain since hernia repair (mesh placed?); however has been worsening as of late. PT evaluated patient, recommend SNF for short term rehab but patient not enthusiastic, family understands and will discuss with patient. Plan: - Continue ASA 81 mg and home dose atorvastatin - Ordered abdominal ultrasound, CT deferred due to DEMETRIUS - Ordered UA - Pending MRI without contrast - Pending EEG - Consulted neurology Dr. Alexis, appreciate recommendations #DEMETRIUS on CKD #Bilateral Renal Cortical thinning, US (08/2024) Patient has a past medical history likely underlying CKD given bilateral renal cortical thinning from previous echo sounds. DEMETRIUS likely pre-renal given elevated BUN/Cr ratio, patient is altered and likely has not been well hydrated. Baseline creatinine 1.3 in 2023. Likely worsened with diuresis. Plan -Strict I&O's -Avoid nephrotoxins -Renally dose medication -if worsening DEMETRIUS on CKD, consider nephrology consult #Anxiety Takes Buspar 7.5mg BID at home; however was discontinued recently as it caused the patient to be confused. Continues to be anxious throughout admission, likely due to hospital/medical environment. - Hold home dose Buspar (may be contributing to encephalopathy) - Haloperidol, Seroquel, and diphenhydramine prn #Emphysema #COPD Patient has been smoking average of 4-5 cigarettes daily for the past 68 years, continues to smoke. Has developed emphysema/COPD as a result. - Continue levalbuterol prn - CHF management as above - Supplemental oxygen as needed, keep O2 saturation 88-92% #Microcytic anemia #BRISA On admission, Hgb 9.5 with MCV 78 and RDW 58.3. Baseline appears to be around 11. Iron panel 12/28 shows iron 15, TIBC 474, iron saturation 3, unsat iron binding 459, indicating iron deficiency anemia. Denies hemoptysis, melena, blood per rectum, hematuria, low concern for acute bleed at this time. - Consider starting on iron supplementation outpatient - Continue to monitor H&H #Afib on Eliquis Takes Eliquis 2.5 mg daily. - Continue home dose Eliquis #DM2, non insulin dependent A1c 08/20 was 6.6. Per daugther this is a recent diagnosis, taking Jardiance at home. - Continue sensitive insulin sliding scale #Hx of CAD Takes atorvastatin at home. Lipid panel 12/29: trig 47, total chol 98, LDL 32, HDL 57. ASCVD risk score: unable to be calculated as pt is over 79. - Continue home dose atorvastatin #Incidential, Severe Osteopenia, noted on humerus XR - Consider on starting bisphosphonates outpatient - Family still concerned for fracture, scheduled open MRI outpatient #NAFLD On US abdomen. No significant alcohol use on history. - Recommend weight loss and diet modification Health Maintenance Disposition: management of CHF exacerbation, work up for weakness, concern for stroke DVT prophylaxis: Eliquis GI prophylaxis: Senna Diet: Cardiac CODE STATUS: FULL The patient's plan was discussed with attending Dr. Daniele Coombs pgy3 Attending Provider Attestation/Addendum I have examined the patient, reviewed labs and imaging findings, discussed the case with the resident(s), and reviewed entered orders. I agree with the plan of care as outlined in this note, with these additional summaries/recommendations: Patient & family seen at bedside. No acute overnight events. Family reports patient was being evaluated outpatient for dementia. Family endorses forgetfulness, forgetting to eat and drink foods, and agitation at night most likely consistent with undiagnosed dementia. CT head on admission negative for acute hemorrhage, mass effect or midline shift. Continue non-pharm measures to prevent delirium. In-house neurology consulted, recommendations appreciated. Cancel MRI as findings are not consistent with CVA. Pending EEG to rule out seizures. Physical therapy recommends SNF when medically cleared for discharge and family in agreement. Patient also diagnosed acute CHF exacerbation and fluid overload. Previous echo in 2019 showed EF of 40 to 45%. Echocardiogram ordered. Continue with diuresis, strict I's and O's, and fluid restriction. Patient is still net positive and we will increase IV diuresis. Cardiology consulted, recommendations appreciated. Continue goal-directed medical therapy and titrate as tolerated. Patient has underlying atrial fibrillation on Eliquis. Pulse has been somewhat labile with short runs of rapid ventricular response. Currently controlled and we will monitor closely. Patient has a history of emphysematous COPD and continue breathing treatments as needed. Continue insulin sliding scale for diabetes mellitus type 2 with Accu-Cheks. Order physical therapy consultation. Patient updated on the plan and in agreement. All questions answered to satisfaction. Please see residents note for additional details and management. Dr. Kenneth MD
--- NOTE | 2024-12-30 14:12 | PC.NURSE ---
pt's daughter brought in two bottles of Jaurdiance form home. Sent to pharmacy for verification and dispense
[2024-12-30] MEDS: JARDIANCE (EMPAGLIFLOZIN) 10 MG TABLET PO (15:52)
[2024-12-30 17:34] LABS: Collection Type, Urine Clean Catch; Squamous Epithelial Cell,Urine 0 /hpf (0-5)
[2024-12-30 17:55] LABS: Bacteria,Urine 1+; Bilirubin,Urine Negative (Negative); Blood,Urine Negative (Negative); Clarity,Urine Clear (Clear/Hazy); Color,Urine Lt-Yellow (Lt Yel-Yel); Glucose, Urine Negative (Negative); Hyaline Casts,Urine < 1 /hpf (0-1); Ketones,Urine Negative (Negative); Leukocyte Esterase,Urine Positive (Negative); Nitrite,Urine Positive (Negative); PH,Urine 5.0 (5.0-7.0); Protein,Urine Negative (Neg - Trace); RBC,Urine 1 /hpf (0-3); Specific Gravity,Urine 1.011 (1.001-1.035); Urobilinogen,Urine Negative mg/dL (0.0-1.0); WBC,Urine 13 /hpf (0-5)
--- NOTE | 2024-12-30 19:09 | PC.NURSE ---
Notified hospitalist Dr. Ramos regarding patient and family concern regarding patient having blurry vision after patient received a medication. Paitient and family does not know which medication may have caused the blurry vision. Per family member, after a few minutes the patient was able to regain her vision. Patient is laying in bed resting and is showing no sign of distress. Patient's family is at bedside.
[2024-12-30] MEDS: ATORVASTATIN CALCIUM 20 MG TABLET 40 MG PO (21:28)
--- NOTE | 2024-12-30 23:56 | ESPR_ITS ---
Documentation for date of: 12/30/24 Subjective Subjective Interval history: Patient is in telemetry with family at the bedside, still confused, could not sleep last night. Given Haldol this morning at 3 am. Exam - Neurology Vital Signs Temp Pulse Resp BP Pulse Ox O2 Del Method O2 Flow Rate 97.9 F 85 24 H 93/51 L 96 Nasal Cannula 3 12/30/24 20:00 12/30/24 22:08 12/30/24 20:00 12/30/24 22:08 12/30/24 20:00 12/30/24 20:00 12/30/24 20:00 Objective Labs 12/30/24 05:55 12/30/24 05:55 Labs: Laboratory Results - last 24 hr 12/30/24 12/30/24 05:55 16:40 WBC 6.2 RBC 3.88 L Hgb 9.6 L Hct 30.5 L MCV 79 L MCH 24.7 L MCHC 31.5 RDW Std Deviation 58.2 H Plt Count 229 Neut % (Auto) 79 Lymph % (Auto) 12 [place] % (Auto) 7 Eos % (Auto) 1 Baso % (Auto) 1 Neut # (Auto) 4.9 Lymph # (Auto) 0.8 L [place] # (Auto) 0.4 Eos # (Auto) 0.0 Baso # (Auto) 0.0 Immature Gran # (Auto) 0.02 H Absolute Nucleated RBC 0.00 Immature Gran % 0 Nucleated RBC % 0 Sodium 139 Potassium 4.4 Chloride 100 Carbon Dioxide 28.9 Anion Gap 10 BUN 58 H Creatinine 1.4 H Estim Creat Clear Calc 24.1 L eGFR 37 L BUN/Creatinine Ratio 41 H Glucose 141 H Calculated Osmolality 295 Calcium 8.8 Corrected Calcium 8.9 Phosphorus 3.3 Magnesium 2.3 Total Bilirubin 0.9 AST 46 H ALT 36 Alkaline Phosphatase 187 H Total Protein 6.5 Albumin 3.9 Globulin 2.6 Albumin/Globulin Ratio 1.5 Ur Collection Type Clean Catch Urine Color Lt-Yellow Urine Clarity Clear Urine pH 5.0 Ur Specific [place] 1.011 Urine Protein Negative Urine Glucose (UA) Negative Urine Ketones Negative Urine Blood Negative Urine Nitrite Positive Urine Bilirubin Negative Urine Urobilinogen (Auto) Negative Ur Leukocyte Esterase Positive Urine RBC 1 Urine WBC 13 H Ur Squamous Epith Cells 0 Urine Bacteria 1+ A Hyaline Casts < 1 ABG Interpretation ABG results: 12/28/24 08:04 ABG pH 7.41 ABG pCO2 47 ABG pO2 113 H ABG HCO3 30 H ABG O2 Saturation 99 H ABG Base Excess 4 H Assessment & Plan Additional Assessment & Plan Additional Plan: Altered mental status with baseline dementia: Most likely acute delirium on chronic dementia, exacerbated by DEMETRIUS and CHF exacerbation Per daughter, patient has been unable to walk for the past 2 weeks, likely worsening due to CHF exacerbation. Patient able to perform ADLs at baseline, no longer at baseline over the past 2 weeks. Workup: CT head: Negative for acute hemorrhage No focal neuro deficits noted Plan: - Patient unable to tolerate MRI/MRA w/ and w/o due to agitation despite hydroxyzine. MRI not needed at this time, as nonspecific dementia can be diagnosed with EEG. - FU with EEG #Anxiety: -Continue Buspar 10 mg TID and Duloxetine 20 mg daily # Headache - chronic: -continue Gabapentin 300 mg TID #Afib On Eliquis 2.5 mg BID #Acute CHF exacerbation #HFrEF (EF 40-45%) (02/2019) #Emphysema #DEMETRIUS #COPD #Microcytic anemia #DM2, non insulin dependent (A1C 6.5): A1c 08/20 was 6.6. Per daughter this is a recent diagnosis, taking Jardiance at home. #Hx of CAD #Mild hepatomegaly with fatty infiltration Plan: - Management per primary
[2024-12-31] VITALS (16 sets, daily range): BP systolic 89–109; BP diastolic 49–71; PULSE 75–107; RESP 17–21; TEMP 36.3–36.8; O2SAT 97–100; BMI 30.4
[2024-12-31] MEDS: GABAPENTIN 300 MG CAPSULE PO ×3 (06:00→21:09)
[2024-12-31] MEDS: BUMETANIDE INJ 0.25 MG/ML VIAL 4 ML 1 MG IVP ×2 (06:00→14:10)
[2024-12-31 06:02] LABS: Basophils # (Auto) 0.0 Thou/mm3 (0.0-0.2); Basophils % (Auto) 0 % (0-2.5); Eosinophils # (Auto) 0.1 Thou/mm3 (0.0-0.5); Eosinophils % (Auto) 2 % (0-10); Hematocrit 31.5 % (36.0-46.0); Hemoglobin 9.7 g/dL (12.0-16.0); Immature Granulocytes Auto 0.02 Thou/mm3 (0.00-0.00); Lymphocytes # (Auto) 0.7 Thou/mm3 (1.0-4.8); Lymphocytes % (Auto) 14 % (10-50); Mean Corpuscular HGB Conc 30.8 g/dl (31.0-37.0); Mean Corpuscular Hemoglobin 24.7 pg (25.0-35.0); Mean Corpuscular Volume 80 fL (80-100); Monocytes # (Auto) 0.3 Thou/mm3 (0.0-0.8); Monocytes % (Auto) 6 % (0-12); Neutrophils # (Auto) 4.0 Thou/mm3 (1.8-7.7); Neutrophils % (Auto) 77 % (37-80); Nucleated Red Blood Cell # 0.00 Thou/mm3 (0.00-0.00); Nucleated Red Blood Cell % 0 /100 WBC (0); Platelet Count 220 Thou/mm3 (140-440); RDW Standard Deviation 58.9 fL (36.4-46.3); Red Blood Count 3.93 Miln/mm3 (4.00-5.20); White Blood Count 5.1 Thou/mm3 (3.6-11.0)
[2024-12-31 06:37] LABS: Alanine Aminotransferase 33 U/L (10-49); Albumin, Serum 3.7 gm/dL (3.4-4.8); Albumin/Globulin Ratio 1.4 (1.2-2.2); Alkaline Phosphatase 182 U/L (46-116); Anion Gap 11 (7-16); Aspartate Amino Transferase 42 U/L (0-34); BUN/Creatinine Ratio 33 Ratio (12-20); Bilirubin,Total 1.0 mg/dL (0.3-1.2); Blood Urea Nitrogen 40 mg/dL (9-23); Calcium 8.7 mg/dL (8.3-10.6); Calcium (Corrected) 8.9 mg/dL (8.5-10.1); Carbon Dioxide 26.9 mMol/L (20.0-31.0); Chloride 101 mMol/L (98-107); Creatinine (Component) 1.2 mg/dL (0.6-1.3); Estimated Creatinine Clearance 28.3 mL/min (>60); Globulin 2.6 gm/dL (2.3-3.5); Glucose 106 mg/dL (74-106); Magnesium 1.8 mg/dL (1.6-2.6); Osmolality,Calculated 287 (275-295); Phosphorous 3.1 mg/dL (2.4-5.1); Potassium 3.9 mMol/L (3.4-5.1); Sodium 139 mMol/L (136-145); Total Protein 6.3 gm/dL (5.7-8.2); eGFR 44 See Note
[2024-12-31] MEDS: cefTRIAXone/D5w 1gm IV premix 1 GM/50 ML BAG IV (09:26)
[2024-12-31] MEDS: APIXABAN 2.5 MG TABLET PO ×2 (09:28→21:09)
[2024-12-31] MEDS: DULoxetine HCL 20 MG CAPSULE PO (09:28)
[2024-12-31] MEDS: JARDIANCE (EMPAGLIFLOZIN) 10 MG TABLET PO (09:28)
[2024-12-31] MEDS: ASPIRIN EC 81 MG TABEC PO (09:28)
[2024-12-31] MEDS: NICOTINE PATCH 21 MG/24 HR PATCH.TD24 TOP (09:29)
--- NOTE | 2024-12-31 09:56 | PC.SS ---
Addendum entered by Savana Houston 12/31/24 16:01: Per afternoon rounding notes, the pt has a UTI, on IV antibiotics and her heart failure is worsening. Pt will remain at the hospital one more day. Addendum entered by Savana Houston 12/31/24 11:59: Packet is ready and in Chart. SS will need to arrange transportation to SNF upon d/c. PASSR is completed and inside packet at the Chart station. Addendum entered by Savana Houston 12/31/24 11:47: Per attending resident, Pt will remain at the hospital one more day for cardiology to see her due to dx of heat failure. Attending was made aware that pt was accepted to [facility] and all has been submitted for acceptance. At this point, we are waiting for pt to be medically cleared to be d/c to SNF. Original Note: SS submitted to [facility] along with updated packet and PASSR. [facility] accepted, per Margaux Yi [phone]. ASW will submit for AUTH. [facility] will do a bedside with pt and family today, possibly.
--- NOTE | 2024-12-31 13:42 | ESPR_ITS ---
Documentation for date of: 12/31/24 Subjective Subjective Interval history: No acute events overnight. Patient seen and examined at bedside this AM. Patient continues to be pleasantly confused. Patient still appears to be fluid overloaded, increased Bumex to 3 times daily, will start on chest physio as needed. UA from 12/30 showed UTI, pending urine cultures. Started on IV ceftriaxone. DEMETRIUS resolved. Still pending EEG. Continue Buspar, gabapentin and duloxetine. Review of systems otherwise negative except what is mentioned above. Exam Vital Signs Temp Pulse Resp BP Pulse Ox O2 Del Method O2 Flow Rate 97.4 F 88 18 89/49 L 97 Nasal Cannula 3 12/31/24 11:57 12/31/24 11:57 12/31/24 11:57 12/31/24 11:57 12/31/24 11:57 12/31/24 11:57 12/31/24 11:57 Narrative Exam Physical Exam General: Awake, in mild acute distress due to anxiety. Conversational. Elderly woman laying in bed. Confused. HEENT: Normocephalic, atraumatic, mucous membranes moist. Heart: Regular rate and rhythm, normal S1 and S2, no murmurs. Lungs: Clear to auscultation with no wheezing or crackles appreciated. Mild rhonchi likely secondary extensive to smoking history. Abdomen: Soft, nondistended, positive bowel sounds. Diffuse tenderness on palpation, chronic. No guarding or rebound tenderness. Neurologic: Alert and oriented x1 (oriented to self, not time or place), no gross neurological deficit, and patient able to move all 4 extremities. Extremities: 2+ pitting lower extremity edema bilaterally. Skin: No rash or ecchymoses. Objective Labs 01/01/25 05:20 01/01/25 05:20 Labs: Laboratory Results - last 24 hr 12/30/24 12/31/24 16:40 05:16 WBC 5.1 RBC 3.93 L Hgb 9.7 L Hct 31.5 L MCV 80 MCH 24.7 L MCHC 30.8 L RDW Std Deviation 58.9 H Plt Count 220 Neut % (Auto) 77 Lymph % (Auto) 14 Barber % (Auto) 6 Eos % (Auto) 2 Baso % (Auto) 0 Neut # (Auto) 4.0 Lymph # (Auto) 0.7 L Barber # (Auto) 0.3 Eos # (Auto) 0.1 Baso # (Auto) 0.0 Immature Gran # (Auto) 0.02 H Absolute Nucleated RBC 0.00 Immature Gran % 0 Nucleated RBC % 0 Sodium 139 Potassium 3.9 D Chloride 101 Carbon Dioxide 26.9 Anion Gap 11 BUN 40 H Creatinine 1.2 Estim Creat Clear Calc 28.3 L eGFR 44 L BUN/Creatinine Ratio 33 H Glucose 106 Calculated Osmolality 287 Calcium 8.7 Corrected Calcium 8.9 Phosphorus 3.1 Magnesium 1.8 Total Bilirubin 1.0 AST 42 H ALT 33 Alkaline Phosphatase 182 H Total Protein 6.3 Albumin 3.7 Globulin 2.6 Albumin/Globulin Ratio 1.4 Ur Collection Type Clean Catch Urine Color Lt-Yellow Urine Clarity Clear Urine pH 5.0 Ur Specific Vidor 1.011 Urine Protein Negative Urine Glucose (UA) Negative Urine Ketones Negative Urine Blood Negative Urine Nitrite Positive Urine Bilirubin Negative Urine Urobilinogen (Auto) Negative Ur Leukocyte Esterase Positive Urine RBC 1 Urine WBC 13 H Ur Squamous Epith Cells 0 Urine Bacteria 1+ A Hyaline Casts < 1 ABG Interpretation ABG results: 12/28/24 08:04 ABG pH 7.41 ABG pCO2 47 ABG pO2 113 H ABG HCO3 30 H ABG O2 Saturation 99 H ABG Base Excess 4 H Quality Measures Quality Measures none Advance care planning discussed with:: patient and child Assessment & Plan Assessment Current Active Medications: Generic Name Dose Route Start Last Admin Trade Name Freq PRN Reason Stop Dose Admin Acetaminophen 650 mg 12/27/24 22:44 12/29/24 08:49 Acetaminophen 325 Mg Tablet PO 01/26/25 22:43 650 mg Q6H PRN Administration PAIN SCALE 1-3 (mild Apixaban 2.5 mg 12/28/24 09:00 12/31/24 09:28 Apixaban 2.5 Mg Tablet PO 01/27/25 08:59 2.5 mg BID ALVARO Administration Aspirin 81 mg 12/29/24 09:00 12/31/24 09:28 Aspirin Ec 81 Mg Tabec PO 01/28/25 08:59 81 mg QDAY ALVARO Administration Atorvastatin Calcium 40 mg 12/28/24 21:00 12/30/24 21:28 Atorvastatin Calcium 20 Mg Tablet PO 01/27/25 20:59 40 mg HS ALVARO Administration Bumetanide 1 mg 12/30/24 14:00 12/31/24 06:00 Bumetanide Inj 0.25 Mg/Ml Vial 4 Ml IVP 01/29/25 13:59 1 mg Q8HR ALVARO Administration Buspirone HCl 10 mg 12/29/24 22:00 Buspirone Hcl 5 Mg Tablet PO 01/28/25 21:59 TID ALVARO Jardiance ( 0 ea 12/30/24 15:00 12/31/24 09:28 Empagliflozin) 10 Mg PO 01/29/25 14:59 1 tablet Tablet DAILY ALVARO Administration Dextrose 25 ml 12/27/24 22:44 Dextrose 50%-Water Inj 50 Ml Syringe IV 01/26/25 22:43 Q15MIN PRN BG 50-70 responsive npo pt Dextrose 50 ml 12/27/24 22:44 Dextrose 50%-Water Inj 50 Ml Syringe IV 01/26/25 22:43 Q15MIN PRN BG <50 OR BG <70 & pt unresponsive Duloxetine HCl 20 mg 12/29/24 17:30 12/31/24 09:28 Duloxetine Hcl 20 Mg Capsule PO 01/28/25 17:29 20 mg QDAY ALVARO Administration Gabapentin 300 mg 12/29/24 22:00 12/31/24 06:00 Gabapentin 300 Mg Capsule PO 01/28/25 21:59 300 mg TID ALVARO Administration Glucagon 1 mg 12/27/24 22:44 Glucagon Inj 1 Mg Vial IM Q15MIN PRN BG <70, and no IV access Haloperidol Lactate 0.5 mg 12/28/24 16:20 12/29/24 03:04 Haloperidol Lact Inj 5 Mg/Ml Vial IM 0.5 mg Q30MIN PRN Administration AGITATION Ceftriaxone Sodium/Dextrose 1 gm in 50 mls @ 100 mls/hr 12/31/24 07:35 12/31/24 09:26 Rocephin/D5w 1gm Iv Premix IV 01/07/25 07:34 100 mls/hr QDAY ALVARO Administration Insulin Human Lispro 0 unit 12/28/24 07:30 12/31/24 11:54 Insulin Lispro (Admelog) 1 Unit/0.01 Ml Unit SC 01/27/25 07:29 Not Given ACHS ALVARO Protocol Levalbuterol HCl 0.63 mg 12/27/24 22:51 Levalbuterol Rt 0.63 Mg/3 Ml Nebu INH 01/26/25 22:50 Q8HR PRN WHEEZING Midodrine 2.5 mg 12/31/24 09:08 Midodrine 5 Mg Tablet PO 01/30/25 13:59 TID PRN Hypotension Nicotine 21 mg 12/30/24 09:00 12/31/24 09:29 Nicotine Patch 21 Mg/24 Hr Patch.Td24 TOP 01/29/25 08:59 21 mg QDAY ALVARO Administration Ondansetron HCl 4 mg 12/27/24 22:44 Ondansetron Inj 2 Mg/Ml Inj 2 Ml IVP 01/26/25 22:43 Q6H PRN NAUSEA OR VOMITING Protocol Sacubitril/Valsartan 1 tab 12/31/24 21:00 Sacubitril 24 Mg/Valsartan 26 Mg Tablet PO 01/30/25 20:59 BID ALVARO Sennosides 1 tab 12/28/24 09:00 12/31/24 09:28 Senna Tablet PO 01/27/25 08:59 1 tab QDAY ALVARO Administration Protocol Tramadol HCl 50 mg 12/28/24 22:08 12/28/24 22:28 Tramadol Hcl 50 Mg Tablet PO 01/02/25 22:07 50 mg Q6HR PRN Administration PAIN SCALE 7-10 (Severe Plan Patient is a 84 year old female with past medical history of HTN, emphysema, HFrEF (EF 40-45%), CAD, DM2 non insulin dependent, Afib on Eliquis, and chronic abdominal pain who presented on 12/28 for 2 weeks of generalized deterioration, admitted for work up and management of acute CHF exacerbation, found to have UTI. #Acute on chronic CHF exacerbation #HFrEF EF 40-45% (02/2019) #Mild Pulmonic valve regurgitation Patient endorsed worsening dyspnea on exertion, orthopnea, and paroxysmal nocturnal dyspnea. Physical exam was pertinent for JVD and 2+ pitting lower extremity edema bilaterally. Home medications include benazepril, Lasix, Jardiance, and spiranolactone. Patient follows with receiving room clerk Dr. Franks outpatient. Echo 02/12/19: EF 40-45% with trace MR with valve thickening, mild TR, mild pulmonic valve regurgitation, and sclerotic aortic valve. Echo 12/27/24: EF 20% with dilated cardiomyopathy with severe global hypokinesis, moderate pulmonary hypertension. Plan: - Increased IV Bumex 1g TID - Strict I&O's, daily weights - Fluid restriction 1800 mL - K>4 and Mg >2 - Supplemental oxygen as needed, keep O2 saturation between 88-92% - Continue Entresto as tolerated (MAP >65), work toward GDMT - Consult cardiology Dr. Franks, appreciate recommendation #Acute encephalopathy 2/2 UTI #Stroke - ruled out #Generalized weakness Per daughter, patient has been deteriorating for the past 2 weeks, started suddenly. Complained of headache during the first week and has been unable to ambulate independently. Is also not at mental baseline per family. On physical exam, patient was unable to lift her arms, likely due to pain but also concern for neurologic deficit, director of vocational training strength was 4/5. Also endorses urinary incontinence since 2 week onset. Will need to rule out stroke. Unlikely NPH (wet, wacky, wobbly) as CT head did not note any ventricular abnormalities/enlargement. Possibly medication induced; per daughter, pt is confused on buspirone but is one of her home medications. Possibly infectious, is having worsening abdominal pain, UA positive CT head negative for acute hemorrhage, mass effect or midline shift. Per neurology, patient has had step walsh decline in mental status, likely secondary to dementia. Pending EEG read. 12/29: Per daughter, patient has been having chronic abdominal pain since hernia repair (mesh placed?); however has been worsening as of late. PT evaluated patient, recommend SNF for short term rehab but patient not enthusiastic, family understands and will discuss with patient. 12/30: Abdominal US shows absent gallbladder, mild renal scar formation, and mild hepatomegaly with fatty infiltration, otherwise unremarkable. 12/31: UA 12/30 shows positive leukocyte esterase, nitrites, 13 WBC, and +1 bacteria, pending urine culture Plan: - Continue ASA 81 mg and home dose atorvastatin - Pending urine culture - Pending EEG - Consulted neurology Dr. Alexis, appreciate recommendations #DEMETRIUS on CKD - resolved #Bilateral Renal Cortical thinning, US (08/2024) Patient has a past medical history likely underlying CKD given bilateral renal cortical thinning from previous echo sounds. DEMETRIUS likely pre-renal given elevated BUN/Cr ratio, patient is altered and likely has not been well hydrated. Baseline creatinine 1.3 in 2023. Likely worsened with diuresis. Plan -Strict I&O's -Avoid nephrotoxins -Renally dose medication -if worsening DEMETRIUS on CKD, consider nephrology consult #Anxiety Takes Buspar 7.5mg BID at home; however was discontinued recently as it caused the patient to be confused. Continues to be anxious throughout admission, likely due to hospital/medical environment. - BuSpar 10 mg 3 times daily - Duloxitine 20 mg daily per neurology - Haloperidol, Seroquel, and diphenhydramine prn #Emphysema #COPD Patient has been smoking average of 4-5 cigarettes daily for the past 68 years, continues to smoke. Has developed emphysema/COPD as a result. - Continue levalbuterol prn - CHF management as above - Supplemental oxygen as needed, keep O2 saturation 88-92% #Microcytic anemia #BRISA On admission, Hgb 9.5 with MCV 78 and RDW 58.3. Baseline appears to be around 11. Iron panel 12/28 shows iron 15, TIBC 474, iron saturation 3, unsat iron binding 459, indicating iron deficiency anemia. Denies hemoptysis, melena, blood per rectum, hematuria, low concern for acute bleed at this time. - Consider starting on iron supplementation outpatient - Continue to monitor H&H #Afib on Eliquis Takes Eliquis 2.5 mg daily. - Continue home dose Eliquis #DM2, non insulin dependent A1c 08/20 was 6.6. Per daugther this is a recent diagnosis, taking Jardiance at home. - Continue sensitive insulin sliding scale #Hx of CAD Takes atorvastatin at home. Lipid panel 12/29: trig 47, total chol 98, LDL 32, HDL 57. ASCVD risk score: unable to be calculated as pt is over 79. - Continue home dose atorvastatin #Incidential, Severe Osteopenia, noted on humerus XR - Consider on starting bisphosphonates outpatient - Family still concerned for fracture, scheduled open MRI outpatient #NAFLD On US abdomen. No significant alcohol use on history. - Recommend weight loss and diet modification outpatient Health Maintenance Disposition: management of CHF exacerbation DVT prophylaxis: Eliquis GI prophylaxis: Senna Diet: Cardiac CODE STATUS: FULL Patient plan of care was discussed with the attending physician, Dr. Cooper. Molly Montano, PGY-1 Attending Provider Attestation/Addendum I have examined the patient, reviewed labs and imaging findings, discussed the case with the resident(s), and reviewed entered orders. I agree with the plan of care as outlined in this note, with these additional summaries/recommendations: Patient and family seen at bedside. Patient is still net positive for CHF exacerbation. Increase diuresis. I suspect MARIA LUISA's may not be adequately tracked as patient removed her Jay catheter. Will see if we can replace PureWick catheter. Echocardiogram completed which revealed dilated cardiomyopathy with severe global hypokinesis, EF 20%, moderate pulmonary hypertension, and aortic valve sclerosis. Per patient's family she follows cardiology Dr. Franks and have been informed that patient's heart failure has worsened. We will follow-up with cardiology for any additional recommendations. We will attempt to reinstitute goal-directed medical therapy as tolerated although patient is currently hypotensive and unable to titrate up further. Patient was suspected of having encephalopathy on admission and later determined most likely underlying dementia as etiology. Although we did obtain urinalysis today that revealed urinary tract infection and possibly infectious component. Order urine culture and start IV antibiotic. Patient has underlying atrial fibrillation on Eliquis. Pulse has been somewhat labile with short runs of rapid ventricular response. Currently controlled and we will monitor closely. Patient has a history of emphysematous COPD and continue breathing treatments as needed. Continue insulin sliding scale for diabetes mellitus type 2 with Accu-Cheks. Patient updated on the plan and in agreement. All questions answered to satisfaction. Please see residents note for additional details and management. Dr. Kenneth MD
[2024-12-31] MEDS: MIDODRINE 5 MG TABLET 2.5 MG PO ×2 (14:08→21:09)
--- NOTE | 2024-12-31 15:13 | ESCONSULT_ITS ---
<Statement entered by Ana Luisa Adhikari MD - 01/03/25 13:02> I personally evaluated examined this patient with resident physician Dr. Hansen PGY 2 patient has known history of chronic systolic heart failure A-fib chronic left bundle branch block on Eliquis and medical management came severe shortness of acute decompensated systolic heart failure I reviewed the findings and all essential components with PGY 2 examined the patient took the history patient appears to be in class IV congestive heart failure with orthopnea PND and acute decompensated heart failure aggressive IV diuretic to be continued GDMT with HUSSAIN ARB as tolerated and low-dose beta-mallorie once the patient's heart failure improves. Patient may meet criteria for AIR ANALYSIS TECHNICIAN defibrillator implantation once her heart failure improves and if she can lay flat for more than 1 hour. Also may require right and left heart cardiac evaluation prior to discharge in preparation for possible AIR ANALYSIS TECHNICIAN-D implantation only indicated if there is no revascularization lesions. Evaluated the patient with resident physician will continue to monitor the patient closely HPI Data of Consult Requesting Physician: Kassi Luu MD Admitting Provider: Kassi Luu MD Attending Provider: Kassi Luu MD Primary Care Provider: Physician No Primary/Family Consult Narrative History of present illness: Ms. Dos Santos is a 83-year-old female Thai speaker patient with past medical history of hypertension, HFrEF EF 20% , CAD status post PCI, type 2 diabetes and A-fib rate controlled on Eliquis following up with reel blade bender furnace tender Dr. Franks presented to the ED on 12/28/2024 complaining of generalized weakness. Patient's family is at bedside who stated the patient has progressively complained of worsening shortness of breath for several weeks now. Patient is aware that her heart is functioning low however she was told by her reel blade bender furnace tender that she would not be a candidate for any type of intervention however the family is unsure the reasoning behind it. Patient normally ambulates independently however for the past week and a half patient had worsening edema in her lower extremity and stopped ambulating. Patient also had worsening shortness of breath and was unable to lay flat. Patient has regular follow-ups with her reel blade bender furnace tender regarding her orthopnea. Patient has been on GDMT for a long time and has been very compliant with her medications. Patient has not had repeat angiograms since 2019 and no other stents were placed since then. Patient currently denies any chest pain, pressure. Currently patient only has shortness of breath and orthopnea. Patient denies any dizziness, syncopal episodes or PND. Patient does not use any oxygen at home. Cardiology is consulted for worsening acute decompensated heart failure. PMH: Hypertension, COPD, type 2 diabetes, HFrEF, CAD status post PCI, A-fib on Eliquis PSH: Cholecystectomy, bilateral salpingo-oophorectomy, PCI SH: Currently smokes 4 to 5 cigarettes daily for the past 68 years, denies use of any illicit drugs and denies alcohol. Medications: Eliquis 2.5 mg twice daily, spironolactone 25 mg, atorvastatin 10 mg, aspirin 81 mg, Jardiance 10 mg, Entresto 1 tablet twice daily, Trelegy inhaler cc:: cc: Kassi Luu MD Review of Systems Review of Systems Systems Reviewed: All systems reviewed, normal except as documented Exam Vital Signs Temp Pulse Resp BP Pulse Ox O2 Del Method O2 Flow Rate 97.4 F 87 18 97/71 97 Nasal Cannula 3 12/31/24 11:57 12/31/24 14:10 12/31/24 11:57 12/31/24 14:10 12/31/24 11:57 12/31/24 11:57 12/31/24 11:57 Narrative Exam GENERAL: A&Ox3 . Awake, Not in acute distress NEURO: no focal neurological deficits HEENT: Atraumatic, Normocephalic. mucous membranes moist. Eyes open, symmetrical, & clear HEART: regular rhythm and rate, S3 gallop and systolic murmur heard, JVD LUNGS: Clear to auscultation with no wheezing or crackles. ABDOMEN: soft, non-distended, non-tender, bowel sounds heard, no guarding or rebound tenderness SKIN: No Rash or ecchymoses EXTREMITIES: 1+ LE edema, no tenderness in LE, L shoulder tenderness, able to move all 4 extremities, pedal pulses palpated Results Labs 12/31/24 05:16 12/31/24 05:16 Labs: Short CBC 12/31/24 Range/Units 05:16 WBC 5.1 (3.6-11.0) Thou/mm3 Hgb 9.7 L (12.0-16.0) g/dL Hct 31.5 L (36.0-46.0) % Plt Count 220 (140-440) Thou/mm3 BMP 12/31/24 05:16 Sodium 139 Potassium 3.9 D Chloride 101 Carbon Dioxide 26.9 BUN 40 H Creatinine 1.2 Glucose 106 Calcium 8.7 Liver Function 12/31/24 Range/Units 05:16 Total Bilirubin 1.0 (0.3-1.2) mg/dL AST 42 H (0-34) U/L ALT 33 (10-49) U/L Alkaline Phosphatase 182 H (46-116) U/L Albumin 3.7 (3.4-4.8) gm/dL Urine 12/30/24 Range/Units 16:40 Urine Color Lt-Yellow (Lt Yel-Yel) Urine Clarity Clear (Clear/Hazy) Urine pH 5.0 (5.0-7.0) Ur Specific [place] 1.011 (1.001-1.035) Urine Protein Negative (Neg - Trace) Urine Glucose (UA) Negative (Negative) ABG Interpretation ABG results: 12/28/24 08:04 ABG pH 7.41 ABG pCO2 47 ABG pO2 113 H ABG HCO3 30 H ABG O2 Saturation 99 H ABG Base Excess 4 H Quality Measures Quality Measures none Advance care planning discussed with:: patient and child Medications Home Medications and Allergies Home Medications ?Medication ?Instructions ?Recorded ?Confirmed ?Type furosemide 20 mg tablet (Lasix) 40 mg PO BID #0 tabs 0 06/20/14 12/28/24 History loratadine 10 mg tablet (Claritin) 10 mg PO QDAY #0 ta bs 06/20/14 12/28/24 History tramadol 50 mg tablet (Ultram) 1 tab PO QID PRN PAIN # 0 tabs 06/20/14 12/28/24 History atorvastatin 10 mg tablet (Lipitor) 10 mg PO HS #0 tab s 12/22/15 12/28/24 History nitroglycerin 0.4 mg sublingual 0.4 mg SL PRN PRN CHES T PAIN #0 09/19/16 12/28/24 History tablet (Nitrostat) tabs aspirin 81 mg capsule,delayed 81 mg PO QDAY 09/16/20 0 12/28/24 History release albuterol 90 mcg/actuation aerosol 90 mcg inhalation Q 4HR PRN Dyspnea 10/26/21 12/28/24 History inhaler mirabegron 25 mg tablet,extended 25 mg PO QDAY 2 12/28/24 History release 24 hr (Myrbetriq) apixaban 2.5 mg tablet (Eliquis) 2.5 mg PO BID 5 12/28/24 History empagliflozin 10 mg tablet 10 mg PO QDAY 08/20/2412/06 History (Jardiance) fluticasone fur. 100 mcg-umeclid 1 inh inhalation QDAY 08/20/24 08/20/24 History 62.5 mcg-vilant 25 mcg inhalat.powder (Trelegy Ellipta) sacubitril 49 mg-valsartan 51 mg 1 tab PO BID 08/20/24 12/28/24 History tablet (Entresto) spironolactone 25 mg tablet 25 mg PO .am 08/20/2412/06 History Allergies Allergy/AdvReac Type Severity Reaction Status Date / Time codeine Allergy Intermediate ITCHY Verified 12/27/24 18:11 Visit Medications Acetaminophen (Acetaminophen 325 Mg Tablet) 650 mg PO Q6H PRN PRN Reason: PAIN SCALE 1-3 (mild Stop: 01/26/25 22:43 Last Admin: 12/29/24 08:49 Dose: 650 mg Apixaban (Apixaban 2.5 Mg Tablet) 2.5 mg PO BID ALVARO Stop: 01/27/25 08:59 Last Admin: 12/31/24 09:28 Dose: 2.5 mg Aspirin (Aspirin Ec 81 Mg Tabec) 81 mg PO QDAY ALVARO Stop: 01/28/25 08:59 Last Admin: 12/31/24 09:28 Dose: 81 mg Atorvastatin Calcium (Atorvastatin Calcium 20 Mg Tablet) 40 mg PO HS ALVARO Stop: 01/27/25 20:59 Last Admin: 12/30/24 21:28 Dose: 40 mg Bumetanide (Bumetanide Inj 0.25 Mg/Ml Vial 4 Ml) 1 mg IVP Q8HR ALVARO Stop: 01/29/25 13:59 Last Admin: 12/31/24 14:10 Dose: 1 mg Buspirone HCl (Buspirone Hcl 5 Mg Tablet) 10 mg PO TID ALVARO Stop: 01/28/25 21:59 Jardiance ( Empagliflozin) 10 Mg Tablet 0 ea PO DAILY [facility] Stop: 01/29/25 14:59 Last Admin: 12/31/24 09:28 Dose: 1 tablet Dextrose (Dextrose 50%-Water Inj 50 Ml Syringe) 25 ml IV Q15MIN PRN PRN Reason: BG 50-70 responsive npo pt Stop: 01/26/25 22:43 Dextrose (Dextrose 50%-Water Inj 50 Ml Syringe) 50 ml IV Q15MIN PRN PRN Reason: BG <50 OR BG <70 & pt unresponsive Stop: 01/26/25 22:43 Duloxetine HCl (Duloxetine Hcl 20 Mg Capsule) 20 mg PO QDAY [facility] Stop: 01/28/25 17:29 Last Admin: 12/31/24 09:28 Dose: 20 mg Gabapentin (Gabapentin 300 Mg Capsule) 300 mg PO TID [facility] Stop: 01/28/25 21:59 Last Admin: 12/31/24 14:10 Dose: 300 mg Glucagon (Glucagon Inj 1 Mg Vial) 1 mg IM Q15MIN PRN PRN Reason: BG <70, and no IV access Haloperidol Lactate (Haloperidol Lact Inj 5 Mg/Ml Vial) 0.5 mg IM Q30MIN PRN PRN Reason: AGITATION Last Admin: 12/29/24 03:04 Dose: 0.5 mg Ceftriaxone Sodium/Dextrose (Rocephin/D5w 1gm Iv Premix) 1 gm in 50 mls @ 100 mls/hr IV QDAY [facility] Stop: 01/07/25 07:34 Last Admin: 12/31/24 09:26 Dose: 100 mls/hr Insulin Human Lispro (Insulin Lispro (Admelog) 1 Unit/0.01 Ml Unit) 0 unit SC [facility]; Protocol Stop: 01/27/25 07:29 Last Admin: 12/31/24 11:54 Dose: Not Given Levalbuterol HCl (Levalbuterol Rt 0.63 Mg/3 Ml Nebu) 0.63 mg INH Q8HR PRN PRN Reason: WHEEZING Stop: 01/26/25 22:50 Midodrine (Midodrine 5 Mg Tablet) 2.5 mg PO TID [facility] Stop: 01/30/25 13:59 Last Admin: 12/31/24 14:08 Dose: 2.5 mg Nicotine (Nicotine Patch 21 Mg/24 Hr Patch.Td24) 21 mg TOP QDAY [facility] Stop: 01/29/25 08:59 Last Admin: 12/31/24 09:29 Dose: 21 mg Ondansetron HCl (Ondansetron Inj 2 Mg/Ml Inj 2 Ml) 4 mg IVP Q6H PRN; Protocol PRN Reason: NAUSEA OR VOMITING Stop: 01/26/25 22:43 Sacubitril/Valsartan (Sacubitril 24 Mg/Valsartan 26 Mg Tablet) 1 tab PO BID [facility] Stop: 01/30/25 20:59 Sennosides (Senna Tablet) 1 tab PO QDAY [facility]; Protocol Stop: 01/27/25 08:59 Last Admin: 12/31/24 09:28 Dose: 1 tab Tramadol HCl (Tramadol Hcl 50 Mg Tablet) 50 mg PO Q6HR PRN PRN Reason: PAIN SCALE 7-10 (Severe Stop: 01/02/25 22:07 Last Admin: 12/28/24 22:28 Dose: 50 mg Discontinued Medications Bumetanide (Bumetanide Inj 0.25 Mg/Ml Vial 4 Ml) 1 mg IVP BIDD [facility] Stop: 01/27/25 05:59 Last Admin: 12/30/24 05:09 Dose: 1 mg Buspirone HCl (Buspirone Hcl 5 Mg Tablet) 7.5 mg PO BID [facility] Stop: 01/27/25 08:59 Buspirone HCl (Buspirone Hcl 5 Mg Tablet) 7.5 mg PO BID [facility] Stop: 01/27/25 00:04 Last Admin: 12/28/24 09:45 Dose: Not Given Furosemide (Furosemide Inj 10 Mg/Ml Vial 2 Ml) 40 mg IM X1 ONE Stop: 12/27/24 21:11 Last Admin: 12/27/24 22:01 Dose: 40 mg Haloperidol Lactate (Haloperidol Lact Inj 5 Mg/Ml Vial) 1 mg IV X1 ONE Stop: 12/28/24 03:34 Last Admin: 12/28/24 03:50 Dose: 1 mg Heparin Sodium (Porcine) (Heparin Sod Inj 5000 Unit/Ml Vial) 5,000 unit SC Q12HR [facility] Stop: 01/11/25 08:59 Hydroxyzine HCl (Hydroxyzine Hcl 25 Mg Tablet) 25 mg PO QDAY [facility] Stop: 01/28/25 11:59 Last Admin: 12/29/24 12:27 Dose: 25 mg Lorazepam (Lorazepam 2 Mg/Ml Vial) 0.5 mg IVP X1 ONE Stop: 12/28/24 01:39 Last Admin: 12/28/24 01:57 Dose: 0.5 mg Lorazepam (Lorazepam 2 Mg/Ml Vial) 0.5 mg IVP X1 ONE Stop: 12/28/24 03:30 Last Admin: 12/28/24 03:50 Dose: 0.5 mg Midodrine (Midodrine 5 Mg Tablet) 2.5 mg PO TID PRN PRN Reason: Hypotension Stop: 01/30/25 13:59 Midodrine (Midodrine 5 Mg Tablet) 2.5 mg PO TID [facility]VARO Stop: 01/30/25 13:59 Nicotine (Nicotine Patch 7 Mg/24 Hr Patch.Td24) 7 mg TOP X1 ONE Stop: 12/28/24 00:40 Last Admin: 12/28/24 02:28 Dose: 7 mg Nicotine (Nicotine Patch 7 Mg/24 Hr Patch.Td24) 7 mg TOP QDAY [facility] Stop: 01/28/25 08:59 Last Admin: 12/29/24 08:49 Dose: 7 mg Nicotine (Nicotine Patch 14 Mg/24 Hr Patch.Td24) 14 mg TOP X1 ONE Stop: 12/29/24 13:35 Last Admin: 12/29/24 13:40 Dose: 14 mg Quetiapine Fumarate (Quetiapine Fumarate 25 Mg Tablet) 12.5 mg PO X1 ONE Stop: 12/28/24 17:46 Last Admin: 12/28/24 20:23 Dose: 12.5 mg Sacubitril/Valsartan (Sacubitril 24 Mg/Valsartan 26 Mg Tablet) 2 tab PO BID [facility] Stop: 01/29/25 08:59 Last Admin: 12/31/24 10:04 Dose: Not Given Sacubitril/Valsartan (Sacubitril 24 Mg/Valsartan 26 Mg Tablet) 1 tab PO BID [facility] Stop: 01/30/25 20:59 Assessment & Plan Plan Ms. Dos Santos is a 83-year-old female Thai speaker patient with past medical history of hypertension, HFrEF EF 20% , CAD status post PCI, type 2 diabetes and A-fib rate controlled on Eliquis following up with reel blade bender furnace tender Dr. Franks presented to the ED on 12/28/2024 complaining of generalized weakness. Cardiology is consulted for worsening acute decompensated heart failure. #Acute on chronic CHF exacerbation #HFrEF EF 20% #Chronic A-fib, rate controlled Patient has chronic history of HFrEF and follows Dr. Alvarado outpatient regularly. Patient has been on GDMT for a long time as well. -Patient has been having worsening shortness of breath and lower extremity edema as well as orthopnea. -Currently patient is saturating well on 3 L of oxygen and on physical examination patient has severe shortness of breath and S3 gallop and severe JVD -Echo done on 12/27/2024: Dilated cardiomyopathy with severe global hypokinesis. Estimated EF at 20 %. The Rv Vsize is mildy increased with mildly decreased systolic function. Moderate pulmonary hypetension estimated PASP, 65 mmHg. Severely increased LA volume. [id number] MR and TR. Aortic valve sclerosis no stensois. Dilated IVC. - EKG on admission shows A-fib with left bundle branch block, rate 97 QTc 499 -[id number] score 7 - 15.7% risk of stroke/TIA/systemic embolism. -Has bled score 3 -NYHA class lV, BNP on admission > 3280 Plan: -Recommend continue patient's home GDMT: Bumex, spironolactone, Entresto -Continue Eliquis 2.5mg BID, pt is currently rate controlled, will add beta mallorie as BP tolerates -Once patient is more stable and orthopnea improves, will discuss with patient option of AIR ANALYSIS TECHNICIAN, Pt does qualify because she is NYHA class IV and EKG shows left bundle branch block #CAD s/p PCI #Hx of [place] in 2019 -Patient has history of FL in 2019 and had 2 stents placed in [facility]. Patient follows Dr. Alvarado outpatient regularly -Pt denies any chest pain, pressure or palpitations -Takes atorvastatin and aspirin 81 mg daily at home. -Lipid panel 12/29: trig 47, total chol 98, LDL 32, HDL 57. Plan: - Continue home dose atorvastatin and aspirin #Acute encephalopathy 2/2 UTI #Stroke - ruled out #Generalized weakness #DM2, non insulin dependent #Microcytic anemia #Iron defiency anemia #DEMETRIUS on CKD - resolved #Bilateral Renal Cortical thinning, US (08/2024) #Severe Osteopenia, noted on humerus XR #NAFLD #Emphysema #COPD #Anxiety Thank you for the consult and allowing us to participate in the care of the patient. Cardiology will continue to follow. Assessment and plan discussed with my attending [employer] Dr. Onofre Hansen (PGY-2)- Internal medicine resident
[2024-12-31] MEDS: INSULIN LISPRO (AdmeLOG) 1 UNIT/0.01 ML UNIT SC (17:14)
--- NOTE | 2024-12-31 19:25 | VVPN_ITS ---
Telemedicine visit statement This visit was conducted with the use of phone was obtained on 12/31/24 at 1925. Documentation for date of: 12/31/24 Subjective Subjective Interval history: Patient is in telemetry, no new symptoms or issues overnight, still confused and agitated at times. Virtual exam Vital Signs Temp Pulse Resp BP Pulse Ox O2 Del Method O2 Flow Rate 98.0 F 95 17 96/54 L 98 Nasal Cannula 3 12/31/24 15:38 12/31/24 16:00 12/31/24 15:38 12/31/24 15:38 12/31/24 15:38 12/31/24 15:38 12/31/24 15:38 Objective Labs 01/01/25 05:20 01/01/25 05:20 Labs: Laboratory Results - last 24 hr 12/31/24 05:16 WBC 5.1 RBC 3.93 L Hgb 9.7 L Hct 31.5 L MCV 80 MCH 24.7 L MCHC 30.8 L RDW Std Deviation 58.9 H Plt Count 220 Neut % (Auto) 77 Lymph % (Auto) 14 [place] % (Auto) 6 Eos % (Auto) 2 Baso % (Auto) 0 Neut # (Auto) 4.0 Lymph # (Auto) 0.7 L [place] # (Auto) 0.3 Eos # (Auto) 0.1 Baso # (Auto) 0.0 Immature Gran # (Auto) 0.02 H Absolute Nucleated RBC 0.00 Immature Gran % 0 Nucleated RBC % 0 Sodium 139 Potassium 3.9 D Chloride 101 Carbon Dioxide 26.9 Anion Gap 11 BUN 40 H Creatinine 1.2 Estim Creat Clear Calc 28.3 L eGFR 44 L BUN/Creatinine Ratio 33 H Glucose 106 Calculated Osmolality 287 Calcium 8.7 Corrected Calcium 8.9 Phosphorus 3.1 Magnesium 1.8 Total Bilirubin 1.0 AST 42 H ALT 33 Alkaline Phosphatase 182 H Total Protein 6.3 Albumin 3.7 Globulin 2.6 Albumin/Globulin Ratio 1.4 ABG Interpretation ABG results: 12/28/24 08:04 ABG pH 7.41 ABG pCO2 47 ABG pO2 113 H ABG HCO3 30 H ABG O2 Saturation 99 H ABG Base Excess 4 H Assessment & Plan Assessment Altered mental status with baseline dementia: Most likely acute delirium on chronic dementia, exacerbated by DEMETRIUS and CHF exacerbation Per daughter, patient has been unable to walk for the past 2 weeks, likely worsening due to CHF exacerbation. Patient able to perform ADLs at baseline, but over the past 2 significantly impaired last 2 weeks. Workup: CT head: Negative for acute hemorrhage No focal neuro deficits noted EEG showed normal study. Will hold off on cognition enhancer therapy because of potential SE. #Anxiety: -Continue Buspar and Duloxetine 20 mg daily # Headache - chronic: -continue Gabapentin 300 mg TID with close monitoring for edema legs and kidney dysfunction #Afib On Eliquis 2.5 mg BID #Acute CHF exacerbation: on Goal directed medical therapy with Bumex, Spironolactone and Entresto #HFrEF (EF 40-45%) (02/2019) #Emphysema #DEMETRIUS #COPD #Microcytic anemia #DM2, non insulin dependent (A1C 6.5): A1c 08/20 was 6.6. Per daughter this is a recent diagnosis, taking Jardiance at home. #Hx of CAD #Mild hepatomegaly with fatty infiltration Plan: - Management per primary
[2024-12-31] MEDS: ATORVASTATIN CALCIUM 20 MG TABLET 40 MG PO (21:08)
[2025-01-01] VITALS (14 sets, daily range): BP systolic 90–121; BP diastolic 49–78; PULSE 70–100; RESP 14–21; TEMP 36.2–37; O2SAT 94–100; BMI 30.7
[2025-01-01] MEDS: MIDODRINE 5 MG TABLET 2.5 MG PO ×3 (05:34→22:06)
[2025-01-01] MEDS: GABAPENTIN 300 MG CAPSULE PO ×3 (05:34→22:05)
--- NOTE | 2025-01-01 05:49 | PD.RESPRO ---
Documentation for date of: 01/01/25 Subjective Subjective Interval history: Patient evaluated at bedside, accompanied by daughter. Denies new symptoms. Anxiety has improved somewhat, but patient's mentation fluctuates throughout the day. Exam Vital Signs Temp Pulse Resp BP Pulse Ox O2 Del Method O2 Flow Rate 97.2 F 70 14 90/52 L 99 Nasal Cannula 3 01/01/25 04:00 01/01/25 05:34 01/01/25 04:00 01/01/25 05:34 01/01/25 04:00 01/01/25 04:00 01/01/25 04:00 Narrative Exam General: No acute distress, well nourished, sitting on edge of bed and conversing with family members Eye: PERRL, EOMI, normal conjunctiva, no scleral icterus HENT: Normocephalic, atraumatic, hearing intact to conversation at normal volume, moist oral mucosa Neck: Supple, non-tender, no JVD, no lymphadenopathy Lungs: Non-labored respirations, symmetric chest rise Heart: Peripheral pulses intact bilaterally Abdomen: Soft, non-tender, non-distended Musculoskeletal: Normal range of motion and strength Skin: Skin is warm, dry, no rashes or lesions. Psychiatric: Cooperative, anxious. Patient's mood fluctuates throughout the day. Neurologic: Mental status: Orientation: AOx1. Ability to name family members fluctuates throughout the day Communication: Patient is cooperative and can follow simple instructions Language: Speech fluent, normal rate and volume, comprehension intact Cranial nerves: CN II: Visual thayer intact CN III: Pupils equal, round, and reactive to light CN III, IV, : No gaze deviation, no nystagmus Horizontal pursuit: intact Vertical pursuit: intact Ptosis: none CN V: Facial sensation to light touch intact bilaterally at the forehead, cheeks, and jaw line CN VII: Face symmetric, no facial droop appreciated CN VIII: Able to hear and respond to conversation at normal volume, intact to finger rub CN IX, X: Palate elevation symmetric, uvula midline CN XI: Head turn and shoulder shrug strong, symmetric bilaterally CN XII: Normal tongue protrusion without deviation, no fasciculations Motor: Normal bulk and tone No atrophy Psychomotor agitation Muscle strength 5/5 b/l and symmetric in b/l lower extremities. Elbow flexion and extension symmetric and 5/5. Shoulder abduction 3/5 but easily fatigued Light touch intact and symmetric in all extremities Objective Labs 01/01/25 05:20 01/01/25 05:20 Labs: Laboratory Results - last 24 hr 12/31/24 05:16 WBC 5.1 RBC 3.93 L Hgb 9.7 L Hct 31.5 L MCV 80 MCH 24.7 L MCHC 30.8 L RDW Std Deviation 58.9 H Plt Count 220 Neut % (Auto) 77 Lymph % (Auto) 14 [place] % (Auto) 6 Eos % (Auto) 2 Baso % (Auto) 0 Neut # (Auto) 4.0 Lymph # (Auto) 0.7 L [place] # (Auto) 0.3 Eos # (Auto) 0.1 Baso # (Auto) 0.0 Immature Gran # (Auto) 0.02 H Absolute Nucleated RBC 0.00 Immature Gran % 0 Nucleated RBC % 0 Sodium 139 Potassium 3.9 D Chloride 101 Carbon Dioxide 26.9 Anion Gap 11 BUN 40 H Creatinine 1.2 Estim Creat Clear Calc 28.3 L eGFR 44 L BUN/Creatinine Ratio 33 H Glucose 106 Calculated Osmolality 287 Calcium 8.7 Corrected Calcium 8.9 Phosphorus 3.1 Magnesium 1.8 Total Bilirubin 1.0 AST 42 H ALT 33 Alkaline Phosphatase 182 H Total Protein 6.3 Albumin 3.7 Globulin 2.6 Albumin/Globulin Ratio 1.4 ABG Interpretation ABG results: 12/28/24 08:04 ABG pH 7.41 ABG pCO2 47 ABG pO2 113 H ABG HCO3 30 H ABG O2 Saturation 99 H ABG Base Excess 4 H Quality Measures Quality Measures none Advance care planning discussed with:: patient and child Assessment & Plan Assessment Current Active Medications: Generic Name Dose Route Start Last Admin Trade Name Freq PRN Reason Stop Dose Admin Acetaminophen 650 mg 12/27/24 22:44 12/29/24 08:49 Acetaminophen 325 Mg Tablet PO 01/26/25 22:43 650 mg Q6H PRN Administration PAIN SCALE 1-3 (mild Apixaban 2.5 mg 12/28/24 09:00 12/31/24 21:09 Apixaban 2.5 Mg Tablet PO 01/27/25 08:59 2.5 mg BID ALVARO Administration Aspirin 81 mg 12/29/24 09:00 12/31/24 09:28 Aspirin Ec 81 Mg Tabec PO 01/28/25 08:59 81 mg QDAY ALVARO Administration Atorvastatin Calcium 40 mg 12/28/24 21:00 12/31/24 21:08 Atorvastatin Calcium 20 Mg Tablet PO 01/27/25 20:59 40 mg HS ALVARO Administration Bumetanide 1 mg 12/30/24 14:00 12/31/24 22:51 Bumetanide Inj 0.25 Mg/Ml Vial 4 Ml IVP 01/29/25 13:59 Not Given Q8HR ALVARO Buspirone HCl 10 mg 12/29/24 22:00 01/01/25 05:34 Buspirone Hcl 5 Mg Tablet PO 01/28/25 21:59 10 mg TID ALVARO Administration Jardiance ( 0 ea 12/30/24 15:00 12/31/24 09:28 Empagliflozin) 10 Mg PO 01/29/25 14:59 1 tablet Tablet DAILY ALVARO Administration Dextrose 25 ml 12/27/24 22:44 Dextrose 50%-Water Inj 50 Ml Syringe IV 01/26/25 22:43 Q15MIN PRN BG 50-70 responsive npo pt Dextrose 50 ml 12/27/24 22:44 Dextrose 50%-Water Inj 50 Ml Syringe IV 01/26/25 22:43 Q15MIN PRN BG <50 OR BG <70 & pt unresponsive Duloxetine HCl 20 mg 12/29/24 17:30 12/31/24 09:28 Duloxetine Hcl 20 Mg Capsule PO 01/28/25 17:29 20 mg QDAY ALVARO Administration Gabapentin 300 mg 12/29/24 22:00 01/01/25 05:34 Gabapentin 300 Mg Capsule PO 01/28/25 21:59 300 mg TID ALVARO Administration Glucagon 1 mg 12/27/24 22:44 Glucagon Inj 1 Mg Vial IM Q15MIN PRN BG <70, and no IV access Haloperidol Lactate 0.5 mg 12/28/24 16:20 12/29/24 03:04 Haloperidol Lact Inj 5 Mg/Ml Vial IM 0.5 mg Q30MIN PRN Administration AGITATION Ceftriaxone Sodium/Dextrose 1 gm in 50 mls @ 100 mls/hr 12/31/24 07:35 12/31/24 09:56 Rocephin/D5w 1gm Iv Premix IV 01/07/25 07:34 Infused QDAY ALVARO Infusion Insulin Human Lispro 0 unit 12/28/24 07:30 12/31/24 21:02 Insulin Lispro (Admelog) 1 Unit/0.01 Ml Unit SC 01/27/25 07:29 Not Given ACHS ALVARO Protocol Levalbuterol HCl 0.63 mg 12/27/24 22:51 Levalbuterol Rt 0.63 Mg/3 Ml Nebu INH 01/26/25 22:50 Q8HR PRN WHEEZING Midodrine 2.5 mg 12/31/24 14:00 01/01/25 05:34 Midodrine 5 Mg Tablet PO 01/30/25 13:59 2.5 mg TID ALVARO Administration Nicotine 21 mg 12/30/24 09:00 12/31/24 09:29 Nicotine Patch 21 Mg/24 Hr Patch.Td24 TOP 01/29/25 08:59 21 mg QDAY ALVARO Administration Ondansetron HCl 4 mg 12/27/24 22:44 Ondansetron Inj 2 Mg/Ml Inj 2 Ml IVP 01/26/25 22:43 Q6H PRN NAUSEA OR VOMITING Protocol Sacubitril/Valsartan 1 tab 12/31/24 21:00 12/31/24 21:08 Sacubitril 24 Mg/Valsartan 26 Mg Tablet PO 01/30/25 20:59 1 tab BID ALVARO Administration Sennosides 1 tab 12/28/24 09:00 12/31/24 09:28 Senna Tablet PO 01/27/25 08:59 1 tab QDAY ALVARO Administration Protocol Tramadol HCl 50 mg 12/28/24 22:08 12/31/24 17:22 Tramadol Hcl 50 Mg Tablet PO 01/02/25 22:07 50 mg Q6HR PRN Administration PAIN SCALE 7-10 (Severe Plan # Generalized weakness # AMS, fluctuates Per daughter, patient has been unable to walk for the past 2 weeks, likely worsening due to CHF exacerbation. On initial physical exam, patient was unable to lift her arms due to pain. Patient able to perform ADLs at baseline, no longer at baseline over the past 2 weeks. A1C: 6.5 Lipids: Triglyceride 47, Cholesterol 98, LDL 32, HDL 57 CT head: Negative for acute hemorrhage TTE: LVEF 20%. Dilated cardioyopathy, severe global hypokinesis EEG: Normal. No focal, diffuse, or generalized abnormalities. No focal neuro deficits noted on exam. AOx1 Meds received: Buspar, Haldol, Tramadol, Ativan, Quetiapine DDX: polypharmacy, delirium, acute CHF exacerbation, dementia, DEMETRIUS, CVA, deconditioning, UTI Most likely acute delirium on chronic dementia, exacerbated by DEMETRIUS and CHF exacerbation Plan: - Patient unable to tolerate MRI/MRA w/ and w/o due to agitation despite hydroxyzine. MRI not needed at this time, as nonspecific dementia can be diagnosed with EEG. - F/U neurology outpatient #Anxiety # Headache - chronic Home med: Buspar 7.5mg BID - started 2 months ago, discontinued because med was not helping anxiety Patient takes Tylenol and [place] at home daily for headaches Patient expressed depressed mood for over 2 months Plan: - COntinue Buspar to 10 mg TID - Continue Duloxetine 20 mg daily for depression and chronic pain/headaches - Continue Gabapentin 300 mg TID #Afib On Eliquis 2.5 mg BID #Acute CHF exacerbation #HFrEF (EF 40-45%) (02/2019) Patient endorsed worsening dyspnea on exertion, orthopnea, and paroxysmal nocturnal dyspnea. Physical exam was pertinent for JVD and 2+ pitting lower extremity edema bilaterally. Home medications include benazepril, Lasix, Jardiance, and spiranolactone. #Emphysema #DEMETRIUS #COPD #Microcytic anemia #Iron deficiency anemia #DM2, non insulin dependent (A1C 6.5) A1c 08/20 was 6.6. Per daughter this is a recent diagnosis, taking Jardiance at home. #Hx of CAD #Mild hepatomegaly with fatty infiltration Plan: - Management per primary Plan discussed with Dr. Vanesa Allison, PGY1 Attending Provider Attestation/Addendum Patient was seen and examined at the bedside and I agreed with resident's findings, assessment and plan of care. She is lot more calmer when she has family around. COntinue with current meds.
[2025-01-01 06:13] LABS: Basophils # (Auto) 0.0 Thou/mm3 (0.0-0.2); Basophils % (Auto) 0 % (0-2.5); Eosinophils # (Auto) 0.2 Thou/mm3 (0.0-0.5); Eosinophils % (Auto) 4 % (0-10); Hematocrit 31.3 % (36.0-46.0); Hemoglobin 9.7 g/dL (12.0-16.0); Immature Granulocytes Auto 0.01 Thou/mm3 (0.00-0.00); Lymphocytes # (Auto) 0.8 Thou/mm3 (1.0-4.8); Lymphocytes % (Auto) 17 % (10-50); Mean Corpuscular HGB Conc 31.0 g/dl (31.0-37.0); Mean Corpuscular Hemoglobin 25.2 pg (25.0-35.0); Mean Corpuscular Volume 81 fL (80-100); Monocytes # (Auto) 0.4 Thou/mm3 (0.0-0.8); Monocytes % (Auto) 9 % (0-12); Neutrophils # (Auto) 3.4 Thou/mm3 (1.8-7.7); Neutrophils % (Auto) 70 % (37-80); Nucleated Red Blood Cell # 0.00 Thou/mm3 (0.00-0.00); Nucleated Red Blood Cell % 0 /100 WBC (0); Platelet Count 232 Thou/mm3 (140-440); RDW Standard Deviation 59.7 fL (36.4-46.3); Red Blood Count 3.85 Miln/mm3 (4.00-5.20); White Blood Count 4.9 Thou/mm3 (3.6-11.0)
[2025-01-01] MEDS: BUMETANIDE INJ 0.25 MG/ML VIAL 4 ML 1 MG IVP ×2 (06:26→22:05)
[2025-01-01 06:33] LABS: Alanine Aminotransferase 28 U/L (10-49); Albumin, Serum 3.5 gm/dL (3.4-4.8); Albumin/Globulin Ratio 1.4 (1.2-2.2); Alkaline Phosphatase 165 U/L (46-116); Anion Gap 8 (7-16); Aspartate Amino Transferase 34 U/L (0-34); BUN/Creatinine Ratio 42 Ratio (12-20); Bilirubin,Total 0.7 mg/dL (0.3-1.2); Blood Urea Nitrogen 50 mg/dL (9-23); Calcium 8.6 mg/dL (8.3-10.6); Calcium (Corrected) 9.0 mg/dL (8.5-10.1); Carbon Dioxide 33.2 mMol/L (20.0-31.0); Chloride 100 mMol/L (98-107); Creatinine (Component) 1.2 mg/dL (0.6-1.3); Estimated Creatinine Clearance 28.4 mL/min (>60); Globulin 2.5 gm/dL (2.3-3.5); Glucose 119 mg/dL (74-106); Magnesium 1.8 mg/dL (1.6-2.6); Osmolality,Calculated 295 (275-295); Phosphorous 3.4 mg/dL (2.4-5.1); Potassium 3.9 mMol/L (3.4-5.1); Sodium 141 mMol/L (136-145); Total Protein 6.0 gm/dL (5.7-8.2); eGFR 44 See Note
[2025-01-01] MEDS: NICOTINE PATCH 21 MG/24 HR PATCH.TD24 TOP (08:19)
[2025-01-01] MEDS: ASPIRIN EC 81 MG TABEC PO (08:20)
[2025-01-01] MEDS: APIXABAN 2.5 MG TABLET PO (08:20)
[2025-01-01] MEDS: DULoxetine HCL 20 MG CAPSULE PO (08:22)
[2025-01-01] MEDS: POTASSIUM CHLORIDE 10% 20 MEQ/15 ML UDC PO (08:22)
[2025-01-01] MEDS: cefTRIAXone/D5w 1gm IV premix 1 GM/50 ML BAG IV (08:22)
--- NOTE | 2025-01-01 09:03 | PC.SS ---
[employer] CHIEF SCIENTIST confirmed with [facility] staff that patient has been accepted to SNF. Awaiting medical clearance for placement.
--- NOTE | 2025-01-01 09:05 | PC.SS ---
Update: Possible d/c pending medical clearance.
[2025-01-01] MEDS: Magnesium Sulfate 2 GM Ivpb 2 GM/50 ML BAG IV (09:33)
[2025-01-01] MEDS: JARDIANCE (EMPAGLIFLOZIN) 10 MG TABLET PO (09:34)
--- NOTE | 2025-01-01 11:16 | PD.RESPRO ---
Documentation for date of: 01/01/25 ------ No overnight events reported. Patient examined at bedside. Patient sitting at the edge of bed, following commands. Patient is alert and orientated X 1 which is improved from previous day. Day 2 of antibiotics. Family agreeable to SNF-->accepted at [facility]. Continue to diuresis. GDMT treatment with Entresto and Jardiace. Bumetanide 1 mg IV BID. Plan to discharge within the next 24 hours. Repeat BNP. Continue IV antibiotics for UTI, day 2. NET +200 Balance 1290/600/690 Loan Smith PGY2 Subjective Subjective Interval history: No acute events overnight. Patient seen and examined at bedside this AM. Complained of chronic bilateral shoulder pain, pain medication on board. Patient appears more conversational however still alert and oriented only x 1 (oriented to self, not time and place). Patient was sitting up on edge of bed and talking to hualeta this morning. She still has 2+ pitting edema lower extremities however will decrease Bumex to twice daily as patient has developed contraction alkalosis. Per nurse records, patient is still net positive +690, however urine output is not well measured as patient urinates in diaper. Blood pressures are soft, midodrine is on board. Pending urine cultures. Will continue IV ceftriaxone.Per Dr. Adhikari, possible TRAFFIC LINE PAINTER placement after treatment of infection and improvement of orthopnea, will discuss with Dr. Franks. Review of systems otherwise negative except what is mentioned above. Exam Vital Signs Temp Pulse Resp BP Pulse Ox O2 Del Method O2 Flow Rate 97.4 F 86 19 121/62 99 Nasal Cannula 2 01/01/25 08:00 01/01/25 08:00 01/01/25 08:00 01/01/25 08:00 01/01/25 08:00 01/01/25 08:00 01/01/25 08:00 Narrative Exam Physical Exam General: Awake in no acute distress. Conversational. Elderly woman sitting up on edge of bed. Pleasantly confused. HEENT: Normocephalic, atraumatic, mucous membranes moist. Heart: Regular rate and rhythm, normal S1 and S2, no murmurs. Lungs: Clear to auscultation with no wheezing or crackles appreciated. Mild rhonchi likely secondary extensive to smoking history. Abdomen: Soft, nondistended, positive bowel sounds. Diffuse tenderness on palpation, chronic. No guarding or rebound tenderness. Neurologic: Alert and oriented x1 (oriented to self, not time or place), no gross neurological deficit, and patient able to move all 4 extremities. Extremities: 2+ pitting lower extremity edema bilaterally. Skin: No rash or ecchymoses. Objective Labs 01/05/25 10:26 01/05/25 10:26 Labs: Laboratory Results - last 24 hr 01/01/25 05:20 WBC 4.9 RBC 3.85 L Hgb 9.7 L Hct 31.3 L MCV 81 MCH 25.2 MCHC 31.0 RDW Std Deviation 59.7 H Plt Count 232 Neut % (Auto) 70 Lymph % (Auto) 17 [place] % (Auto) 9 Eos % (Auto) 4 Baso % (Auto) 0 Neut # (Auto) 3.4 Lymph # (Auto) 0.8 L [place] # (Auto) 0.4 Eos # (Auto) 0.2 Baso # (Auto) 0.0 Immature Gran # (Auto) 0.01 H Absolute Nucleated RBC 0.00 Immature Gran % 0 Nucleated RBC % 0 Sodium 141 Potassium 3.9 Chloride 100 Carbon Dioxide 33.2 H Anion Gap 8 BUN 50 H Creatinine 1.2 Estim Creat Clear Calc 28.4 L eGFR 44 L BUN/Creatinine Ratio 42 H Glucose 119 H Calculated Osmolality 295 Calcium 8.6 Corrected Calcium 9.0 Phosphorus 3.4 Magnesium 1.8 Total Bilirubin 0.7 AST 34 ALT 28 Alkaline Phosphatase 165 H Total Protein 6.0 Albumin 3.5 Globulin 2.5 Albumin/Globulin Ratio 1.4 ABG Interpretation ABG results: 12/28/24 08:04 ABG pH 7.41 ABG pCO2 47 ABG pO2 113 H ABG HCO3 30 H ABG O2 Saturation 99 H ABG Base Excess 4 H Quality Measures Quality Measures none Advance care planning discussed with:: patient and child Assessment & Plan Assessment Current Active Medications: Generic Name Dose Route Start Last Admin Trade Name Freq PRN Reason Stop Dose Admin Acetaminophen 650 mg 12/27/24 22:44 12/29/24 08:49 Acetaminophen 325 Mg Tablet PO 01/26/25 22:43 650 mg Q6H PRN Administration PAIN SCALE 1-3 (mild Apixaban 2.5 mg 12/28/24 09:00 01/01/25 08:20 Apixaban 2.5 Mg Tablet PO 01/27/25 08:59 2.5 mg BID ALVARO Administration Aspirin 81 mg 12/29/24 09:00 01/01/25 08:20 Aspirin Ec 81 Mg Tabec PO 01/28/25 08:59 81 mg QDAY ALVARO Administration Atorvastatin Calcium 40 mg 12/28/24 21:00 12/31/24 21:08 Atorvastatin Calcium 20 Mg Tablet PO 01/27/25 20:59 40 mg HS ALVARO Administration Bumetanide 1 mg 01/01/25 21:00 Bumetanide Inj 0.25 Mg/Ml Vial 4 Ml IVP 01/31/25 20:59 BID ALVARO Buspirone HCl 10 mg 12/29/24 22:00 01/01/25 05:34 Buspirone Hcl 5 Mg Tablet PO 01/28/25 21:59 10 mg TID ALVARO Administration Jardiance ( 0 ea 12/30/24 15:00 01/01/25 09:34 Empagliflozin) 10 Mg PO 01/29/25 14:59 1 tablet Tablet DAILY ALVARO Administration Dextrose 25 ml 12/27/24 22:44 Dextrose 50%-Water Inj 50 Ml Syringe IV 01/26/25 22:43 Q15MIN PRN BG 50-70 responsive npo pt Dextrose 50 ml 12/27/24 22:44 Dextrose 50%-Water Inj 50 Ml Syringe IV 01/26/25 22:43 Q15MIN PRN BG <50 OR BG <70 & pt unresponsive Duloxetine HCl 20 mg 12/29/24 17:30 01/01/25 08:22 Duloxetine Hcl 20 Mg Capsule PO 01/28/25 17:29 20 mg QDAY ALVARO Administration Gabapentin 300 mg 12/29/24 22:00 01/01/25 05:34 Gabapentin 300 Mg Capsule PO 01/28/25 21:59 300 mg TID ALVARO Administration Glucagon 1 mg 12/27/24 22:44 Glucagon Inj 1 Mg Vial IM Q15MIN PRN BG <70, and no IV access Haloperidol Lactate 0.5 mg 12/28/24 16:20 12/29/24 03:04 Haloperidol Lact Inj 5 Mg/Ml Vial IM 0.5 mg Q30MIN PRN Administration AGITATION Ceftriaxone Sodium/Dextrose 1 gm in 50 mls @ 100 mls/hr 12/31/24 07:35 01/01/25 08:22 Rocephin/D5w 1gm Iv Premix IV 01/07/25 07:34 100 mls/hr QDAY ALVARO Administration Insulin Human Lispro 0 unit 12/28/24 07:30 01/01/25 11:12 Insulin Lispro (Admelog) 1 Unit/0.01 Ml Unit SC 01/27/25 07:29 Not Given ACHS ALVARO Protocol Levalbuterol HCl 0.63 mg 12/27/24 22:51 Levalbuterol Rt 0.63 Mg/3 Ml Nebu INH 01/26/25 22:50 Q8HR PRN WHEEZING Midodrine 2.5 mg 12/31/24 14:00 01/01/25 05:34 Midodrine 5 Mg Tablet PO 01/30/25 13:59 2.5 mg TID ALVARO Administration Nicotine 21 mg 12/30/24 09:00 01/01/25 08:19 Nicotine Patch 21 Mg/24 Hr Patch.Td24 TOP 01/29/25 08:59 21 mg QDAY ALVARO Administration Ondansetron HCl 4 mg 12/27/24 22:44 Ondansetron Inj 2 Mg/Ml Inj 2 Ml IVP 01/26/25 22:43 Q6H PRN NAUSEA OR VOMITING Protocol Sacubitril/Valsartan 1 tab 12/31/24 21:00 01/01/25 08:20 Sacubitril 24 Mg/Valsartan 26 Mg Tablet PO 01/30/25 20:59 1 tab BID ALVARO Administration Sennosides 1 tab 12/28/24 09:00 01/01/25 08:20 Senna Tablet PO 01/27/25 08:59 1 tab QDAY ALVARO Administration Protocol Tramadol HCl 50 mg 12/28/24 22:08 01/01/25 08:37 Tramadol Hcl 50 Mg Tablet PO 01/02/25 22:07 50 mg Q6HR PRN Administration PAIN SCALE 7-10 (Severe Plan Patient is a 84 year old female with past medical history of HTN, emphysema, HFrEF (EF 40-45%), CAD, DM2 non insulin dependent, Afib on Eliquis, and chronic abdominal pain who presented on 12/28 for 2 weeks of generalized deterioration, admitted for work up and management of acute CHF exacerbation, found to have UTI which is currently being treated with antibiotics. #Acute on chronic CHF exacerbation #HFrEF EF 40-45% (02/2019) #Mild Pulmonic valve regurgitation #Contraction alkalosis secondary to diuresis Patient endorsed worsening dyspnea on exertion, orthopnea, and paroxysmal nocturnal dyspnea. Physical exam was pertinent for JVD and 2+ pitting lower extremity edema bilaterally. Home medications include benazepril, Lasix, Jardiance, and spiranolactone. Patient follows with lining caser Dr. Franks outpatient. Echo 02/12/19: EF 40-45% with trace MR with valve thickening, mild TR, mild pulmonic valve regurgitation, and sclerotic aortic valve. Echo 12/27/24: EF 20% with dilated cardiomyopathy with severe global hypokinesis, moderate pulmonary hypertension. CXR 12/30/24: mild CHF with moderate cardiomegaly, prominent vascular congestion with basilar edema 01/01: Spoke with lining caser Dr. Franks, requested that we consult on-call lining caser Dr. Adhikari. Upon evaluation, Dr. Adhikari believes patient is candidate for TRAFFIC LINE PAINTER placement, but will have to schedule at a later date when patient is free of infection and able to lay flat on her back for at least [address] Adhikari will update Dr. Franks. Will continue to diurese, decrease dose as patient has developed contraction alkalosis. Plan: - Decrease IV Bumex 1g BID - Strict I&O's, daily weights - Fluid restriction 1800 mL - K>4 and Mg >2 - Supplemental oxygen as needed, keep O2 saturation between 88-92% - Continue Entresto as tolerated (MAP >65), work toward GDMT - Consult cardiology Dr. Franks, appreciate recommendation #Acute infectious encephalopathy 2/2 UTI #Stroke - ruled out #Generalized weakness Per daughter, patient has been deteriorating for the past 2 weeks, started suddenly. Complained of headache during the first week and has been unable to ambulate independently. Is also not at mental baseline per family. On physical exam, patient was unable to lift her arms, likely due to pain but also concern for neurologic deficit, dive superintendent strength was 4/5. Also endorses urinary incontinence since 2 week onset. Will need to rule out stroke. Unlikely NPH (wet, wacky, wobbly) as CT head did not note any ventricular abnormalities/enlargement. Possibly medication induced; per daughter, pt is confused on buspirone but is one of her home medications. Possibly infectious, is having worsening abdominal pain, UA positive CT head negative for acute hemorrhage, mass effect or midline shift. Per neurology, patient has had step walsh decline in mental status, likely secondary to dementia. Pending EEG read. 12/29: Per daughter, patient has been having chronic abdominal pain since hernia repair (mesh placed?); however has been worsening as of late. PT evaluated patient, recommend SNF for short term rehab but patient not enthusiastic, family understands and will discuss with patient. 12/30: Abdominal US shows absent gallbladder, mild renal scar formation, and mild hepatomegaly with fatty infiltration, otherwise unremarkable. 12/31: UA 12/30 shows positive leukocyte esterase, nitrites, 13 WBC, and +1 bacteria, pending urine culture. 01/01: EEG was normal, no signs of dementia. Patient is more conversational however alert and oriented x 1 still (oriented to self, not to place and time). Plan: - Continue ASA 81 mg and home dose atorvastatin - Continue IV ceftriaxone 1 g (12/31? - Pending urine culture - Consulted neurology Dr. Alexis, appreciate recommendations #DEMETRIUS on CKD - resolved #Bilateral Renal Cortical thinning, US (08/2024) Patient has a past medical history likely underlying CKD given bilateral renal cortical thinning from previous echo sounds. DEMETRIUS likely pre-renal given elevated BUN/Cr ratio, patient is altered and likely has not been well hydrated. Baseline creatinine 1.3 in 2023. Likely worsened with diuresis. Plan -Strict I&O's -Avoid nephrotoxins -Renally dose medication -if worsening DEMETRIUS on CKD, consider nephrology consult #Anxiety Takes Buspar 7.5mg BID at home; however was discontinued recently as it caused the patient to be confused. Continues to be anxious throughout admission, likely due to hospital/medical environment. - BuSpar 10 mg 3 times daily - Duloxitine 20 mg daily per neurology - Haloperidol, Seroquel, and diphenhydramine prn #Emphysema #COPD Patient has been smoking average of 4-5 cigarettes daily for the past 68 years, continues to smoke. Has developed emphysema/COPD as a result. - Continue levalbuterol prn - CHF management as above - Supplemental oxygen as needed, keep O2 saturation 88-92% #Microcytic anemia #BRISA On admission, Hgb 9.5 with MCV 78 and RDW 58.3. Baseline appears to be around 11. Iron panel 12/28 shows iron 15, TIBC 474, iron saturation 3, unsat iron binding 459, indicating iron deficiency anemia. Denies hemoptysis, melena, blood per rectum, hematuria, low concern for acute bleed at this time. - Consider starting on iron supplementation outpatient after cleared of infection - Continue to monitor H&H #Afib on Eliquis Takes Eliquis 2.5 mg daily. - Continue home dose Eliquis #DM2, non insulin dependent A1c 08/20 was 6.6. Per daugther this is a recent diagnosis, taking Jardiance at home. - Continue sensitive insulin sliding scale #Hx of CAD Takes atorvastatin at home. Lipid panel 12/29: trig 47, total chol 98, LDL 32, HDL 57. ASCVD risk score: unable to be calculated as pt is over 79. - Continue home dose atorvastatin #Incidential, Severe Osteopenia, noted on humerus XR - Consider on starting bisphosphonates outpatient - Family still concerned for fracture, scheduled open MRI outpatient #NAFLD On US abdomen. No significant alcohol use on history. - Recommend weight loss and diet modification outpatient Health Maintenance Disposition: management of CHF exacerbation, UTI, pending urine cultures DVT prophylaxis: Eliquis GI prophylaxis: Senna Diet: Cardiac CODE STATUS: FULL Patient plan of care was discussed with the resident, Dr. Smith, and attending physician, Dr. Cooper. Molly Montano, PGY-1 - The patient's plan was discussed with attending Dr. Kenneth Smith MD PGY2 Internal Medicine Attending Provider Attestation/Addendum I have examined the patient, reviewed labs and imaging findings, discussed the case with the resident(s), and reviewed entered orders. I agree with the plan of care as outlined in this note, with these additional summaries/recommendations: Patient and family seen at bedside. No acute overnight events. Echocardiogram completed which revealed dilated cardiomyopathy with severe global hypokinesis, EF 20%, moderate pulmonary hypertension, and aortic valve sclerosis. Patient was seen by in-house cardiology and appears they want to proceed with AICD placement. They will discuss risks and benefits of placement with cardiology today and we will follow-up on recommendations. MARIA LUISA's still show patient is net positive although she is wearing a diaper and likely not accurately tracked. BUN increasing and we will decrease Lasix today. We will attempt to reinstitute goal-directed medical therapy as tolerated although patient is currently hypotensive and unable to titrate up further. Patient was suspected of having encephalopathy on admission and later determined most likely underlying dementia as etiology. Although we did obtain urinalysis that revealed urinary tract infection and possibly infectious component. Order urine culture and continue IV antibiotic. Patient has underlying atrial fibrillation on Eliquis which may need to be held if patient decides to proceed with AICD. Currently controlled and we will monitor closely. Patient has a history of emphysematous COPD and continue breathing treatments as needed. Continue insulin sliding scale for diabetes mellitus type 2 with Accu-Cheks. Patient updated on the plan and in agreement. All questions answered to satisfaction. Please see residents note for additional details and management. Dr. Kenneth MD
--- NOTE | 2025-01-01 15:06 | ESPR_ITS ---
<Statement entered by Ana Luisa Adhikari MD - 01/03/25 13:03> I evaluated the patient examined with the resident physician PGY 2 Dr. Hansen. Patient is clinically improving slowly she has diuresed well successfully but still have some shortness of breath orthopnea difficult to get a good history but according to the daughter patient is being told to have possible ICD implantation in the past but thought to be not stable to have COMMUNICATIONS LEAD. Now she has acute decompensated heart failure slowly improving still not stable to COMMUNICATIONS LEAD-D implantation but will require coronary angiogram cardiac evaluation possible plan on performing next 2 days. She is on Eliquis which will be stopped in preparation for procedure in January 03. Eval the patient with Dr. Hansen PGY 2 agree with the treatment plan recommendation as documented. Continue diuretic therapy and monitor closely for any worsening of heart failure midodrine can be given for low blood pressure Documentation for date of: 01/01/25 Subjective Subjective Interval history: Patient seen at bedside. Patient also had some confusion and agitation earlier however patient is now oriented to place, time and recognizes family members around her. Currently patient is saturating well on 1 L oxygen. Patient's daughter is explained regarding patient's need for a COMMUNICATIONS LEAD-D device however patient needs to be more stable and able to lay flat for at least an hour for the procedure to be done. And prior to the COMMUNICATIONS LEAD-D device placement patient also have to be infection free and will need left heart cath to ensure there is no stenosis of the major arteries. If patient is not stable tomorrow we will plan for angiogram before discharge and patient will need to be seen outpatient and schedule COMMUNICATIONS LEAD-D as an outpatient procedure once patient is more stable and able to tolerate the procedure. Patient's daughter is agreeable will tentatively plan for angiogram for Wednesday. Will stop the Eliquis and aspirin and start the patient on Lovenox in case cardiac cath can be scheduled for Wednesday if patient is stable. Otherwise patient's shortness of breath has improved, patient is currently on Bumex 1 mg twice daily. On physical examination patient continues to have lower extremity edema. However patient denies any chest pain, palpitations or dizziness. Labs are reviewed and electrolytes are repleted. Exam Vital Signs Temp Pulse Resp BP Pulse Ox O2 Del Method O2 Flow Rate 97.3 F 74 21 H 95/49 L 94 L Nasal Cannula 2 01/01/25 12:00 01/01/25 14:24 01/01/25 12:00 01/01/25 14:24 01/01/25 12:00 01/01/25 12:00 01/01/25 12:00 Narrative Exam GENERAL: A&Ox3 . Awake, Not in acute distress NEURO: no focal neurological deficits HEENT: Atraumatic, Normocephalic. mucous membranes moist. Eyes open, symmetrical, & clear HEART: regular rhythm and rate, S3 gallop and systolic murmur heard, JVD LUNGS: Clear to auscultation with no wheezing or crackles. ABDOMEN: soft, non-distended, non-tender, bowel sounds heard, no guarding or rebound tenderness SKIN: No Rash or ecchymoses EXTREMITIES: 1+ LE edema, no tenderness in LE, L shoulder tenderness, able to move all 4 extremities, pedal pulses palpated Objective Labs 01/01/25 05:20 01/01/25 05:20 Labs: Laboratory Results - last 24 hr 01/01/25 05:20 WBC 4.9 RBC 3.85 L Hgb 9.7 L Hct 31.3 L MCV 81 MCH 25.2 MCHC 31.0 RDW Std Deviation 59.7 H Plt Count 232 Neut % (Auto) 70 Lymph % (Auto) 17 [place] % (Auto) 9 Eos % (Auto) 4 Baso % (Auto) 0 Neut # (Auto) 3.4 Lymph # (Auto) 0.8 L [place] # (Auto) 0.4 Eos # (Auto) 0.2 Baso # (Auto) 0.0 Immature Gran # (Auto) 0.01 H Absolute Nucleated RBC 0.00 Immature Gran % 0 Nucleated RBC % 0 Sodium 141 Potassium 3.9 Chloride 100 Carbon Dioxide 33.2 H Anion Gap 8 BUN 50 H Creatinine 1.2 Estim Creat Clear Calc 28.4 L eGFR 44 L BUN/Creatinine Ratio 42 H Glucose 119 H Calculated Osmolality 295 Calcium 8.6 Corrected Calcium 9.0 Phosphorus 3.4 Magnesium 1.8 Total Bilirubin 0.7 AST 34 ALT 28 Alkaline Phosphatase 165 H Total Protein 6.0 Albumin 3.5 Globulin 2.5 Albumin/Globulin Ratio 1.4 ABG Interpretation ABG results: 12/28/24 08:04 ABG pH 7.41 ABG pCO2 47 ABG pO2 113 H ABG HCO3 30 H ABG O2 Saturation 99 H ABG Base Excess 4 H Quality Measures Quality Measures none Advance care planning discussed with:: child Assessment & Plan Assessment Current Active Medications: Generic Name Dose Route Start Last Admin Trade Name Aurea PRN Reason Stop Dose Admin Acetaminophen 650 mg 12/27/24 22:44 12/29/24 08:49 Acetaminophen 325 Mg Tablet PO 01/26/25 22:43 650 mg Q6H PRN Administration PAIN SCALE 1-3 (mild Apixaban 2.5 mg 12/28/24 09:00 01/01/25 08:20 Apixaban 2.5 Mg Tablet PO 01/27/25 08:59 2.5 mg BID ALVARO Administration Aspirin 81 mg 12/29/24 09:00 01/01/25 08:20 Aspirin Ec 81 Mg Tabec PO 01/28/25 08:59 81 mg QDAY ALVARO Administration Atorvastatin Calcium 40 mg 12/28/24 21:00 12/31/24 21:08 Atorvastatin Calcium 20 Mg Tablet PO 01/27/25 20:59 40 mg HS ALVARO Administration Bumetanide 1 mg 01/01/25 21:00 Bumetanide Inj 0.25 Mg/Ml Vial 4 Ml IVP 01/31/25 20:59 BID ALVARO Buspirone HCl 10 mg 12/29/24 22:00 01/01/25 14:24 Buspirone Hcl 5 Mg Tablet PO 01/28/25 21:59 10 mg TID ALVARO Administration Jardiance ( 0 ea 12/30/24 15:00 01/01/25 09:34 Empagliflozin) 10 Mg PO 01/29/25 14:59 1 tablet Tablet DAILY ALVARO Administration Dextrose 25 ml 12/27/24 22:44 Dextrose 50%-Water Inj 50 Ml Syringe IV 01/26/25 22:43 Q15MIN PRN BG 50-70 responsive npo pt Dextrose 50 ml 12/27/24 22:44 Dextrose 50%-Water Inj 50 Ml Syringe IV 01/26/25 22:43 Q15MIN PRN BG <50 OR BG <70 & pt unresponsive Duloxetine HCl 20 mg 12/29/24 17:30 01/01/25 08:22 Duloxetine Hcl 20 Mg Capsule PO 01/28/25 17:29 20 mg QDAY ALVARO Administration Gabapentin 300 mg 12/29/24 22:00 01/01/25 14:24 Gabapentin 300 Mg Capsule PO 01/28/25 21:59 300 mg TID ALVARO Administration Glucagon 1 mg 12/27/24 22:44 Glucagon Inj 1 Mg Vial IM Q15MIN PRN BG <70, and no IV access Haloperidol Lactate 0.5 mg 12/28/24 16:20 12/29/24 03:04 Haloperidol Lact Inj 5 Mg/Ml Vial IM 0.5 mg Q30MIN PRN Administration AGITATION Ceftriaxone Sodium/Dextrose 1 gm in 50 mls @ 100 mls/hr 12/31/24 07:35 01/01/25 08:22 Rocephin/D5w 1gm Iv Premix IV 01/07/25 07:34 100 mls/hr QDAY ALVARO Administration Insulin Human Lispro 0 unit 12/28/24 07:30 01/01/25 11:12 Insulin Lispro (Admelog) 1 Unit/0.01 Ml Unit SC 01/27/25 07:29 Not Given ACHS ALVARO Protocol Levalbuterol HCl 0.63 mg 12/27/24 22:51 Levalbuterol Rt 0.63 Mg/3 Ml Nebu INH 01/26/25 22:50 Q8HR PRN WHEEZING Midodrine 2.5 mg 12/31/24 14:00 01/01/25 14:24 Midodrine 5 Mg Tablet PO 01/30/25 13:59 2.5 mg TID ALVARO Administration Nicotine 21 mg 12/30/24 09:00 01/01/25 08:19 Nicotine Patch 21 Mg/24 Hr Patch.Td24 TOP 01/29/25 08:59 21 mg QDAY ALVARO Administration Ondansetron HCl 4 mg 12/27/24 22:44 Ondansetron Inj 2 Mg/Ml Inj 2 Ml IVP 01/26/25 22:43 Q6H PRN NAUSEA OR VOMITING Protocol Sacubitril/Valsartan 1 tab 12/31/24 21:00 01/01/25 08:20 Sacubitril 24 Mg/Valsartan 26 Mg Tablet PO 01/30/25 20:59 1 tab BID ALVARO Administration Sennosides 1 tab 12/28/24 09:00 01/01/25 08:20 Senna Tablet PO 01/27/25 08:59 1 tab QDAY ALVARO Administration Protocol Tramadol HCl 50 mg 12/28/24 22:08 01/01/25 08:37 Tramadol Hcl 50 Mg Tablet PO 01/02/25 22:07 50 mg Q6HR PRN Administration PAIN SCALE 7-10 (Severe Plan Ms. Dos Santos is a 83-year-old female Portuguese speaker patient with past medical history of hypertension, HFrEF EF 20% , CAD status post PCI, type 2 diabetes and A-fib rate controlled on Eliquis following up with robotic welder Dr. Franks presented to the ED on 12/28/2024 complaining of generalized weakness. Cardiology is consulted for worsening acute decompensated heart failure. #Acute on chronic CHF exacerbation #Decompensated HF #HFrEF EF 20% #Chronic A-fib, rate controlled Patient has chronic history of HFrEF and follows Dr. Alvarado outpatient regularly. Patient has been on GDMT for a long time as well. -Patient has been having worsening shortness of breath and lower extremity edema as well as orthopnea. -Currently patient is saturating well on 3 L of oxygen and on physical examination patient has severe shortness of breath and S3 gallop and severe JVD -Echo done on 12/27/2024: Dilated cardiomyopathy with severe global hypokinesis. Estimated EF at 20 %. The Rv Vsize is mildy increased with mildly decreased systolic function. Moderate pulmonary hypetension estimated PASP, 65 mmHg. Severely increased LA volume. [id number] MR and TR. Aortic valve sclerosis no stensois. Dilated IVC. - EKG on admission shows A-fib with left bundle branch block, rate 97 QTc 499 -[id number] score 7 - 15.7% risk of stroke/TIA/systemic embolism. -Has bled score 3 -NYHA class lV, BNP on admission > 3280 Plan: -Recommend continue patient's home GDMT: Bumex, spironolactone, Entresto -Pt is currently rate controlled, will add beta mallorie as BP tolerates -Hold home Eliquis 2.5mg BID (due to possible angiogram on wednesday, will start pt on Lovenox) -Once patient is more stable and orthopnea improves, will discuss with patient option of COMMUNICATIONS LEAD-D, Pt does qualify because she is NYHA class IV and EKG shows left bundle branch block and EF < 35%. Prior to COMMUNICATIONS LEAD-D, pt will need to undergo cardiac angiogram to rule out worsening CAD or stent occulsion. #CAD s/p PCI #Hx of [place] in 2019 -Patient has history of [place] in 2019 and had 2 stents placed in [facility]. Patient follows Dr. Alvarado outpatient regularly -Pt denies any chest pain, pressure or palpitations -Takes atorvastatin and aspirin 81 mg daily at home. -Lipid panel 12/29: trig 47, total chol 98, LDL 32, HDL 57. Plan: - Continue home dose atorvastatin and aspirin #Acute encephalopathy 2/2 UTI #Stroke - ruled out #Generalized weakness #DM2, non insulin dependent #Microcytic anemia #Iron defiency anemia #DEMETRIUS on CKD - resolved #Bilateral Renal Cortical thinning, US (08/2024) #Severe Osteopenia, noted on humerus XR #NAFLD #Emphysema #COPD #Anxiety Thank you for the consult and allowing us to participate in the care of the patient. Cardiology will continue to follow. Assessment and plan discussed with my attending Inspector Repairer [place] Dr. Onofre Hansen (PGY-2)- Internal medicine resident
--- NOTE | 2025-01-01 16:31 | PC.SS ---
Rounding Note: Cardiology recommendations are pending.
[2025-01-01] MEDS: ATORVASTATIN CALCIUM 20 MG TABLET 40 MG PO (22:04)
[2025-01-02] VITALS (12 sets, daily range): BP systolic 98–117; BP diastolic 50–60; PULSE 75–108; RESP 14–25; TEMP 36–36.3; O2SAT 88–99; BMI 30.2; BMI 13.0
--- NOTE | 2025-01-02 01:57 | ESPR_ITS ---
Documentation for date of: 01/02/25 Subjective Subjective Interval history: Patient is in telemetry with family at the bedside. no new symptoms reported. Exam - Neurology Vital Signs Temp Pulse Resp BP Pulse Ox O2 Del Method O2 Flow Rate 97.0 F 85 17 117/51 L 97 Nasal Cannula 1 01/02/25 00:00 01/02/25 00:00 01/02/25 00:00 01/02/25 00:00 01/02/25 00:00 01/02/25 00:00 01/02/25 00:00 Narrative Exam General: No acute distress, well nourished, sitting on edge of bed and conversing with family members Eye: PERRL, EOMI, normal conjunctiva, no scleral icterus HENT: Normocephalic, atraumatic, hearing intact to conversation at normal volume, moist oral mucosa Neck: Supple, non-tender, no JVD, no lymphadenopathy Lungs: Non-labored respirations, symmetric chest rise Heart: Peripheral pulses intact bilaterally Abdomen: Soft, non-tender, non-distended Musculoskeletal: Normal range of motion and strength Skin: Skin is warm, dry, no rashes or lesions. Psychiatric: Cooperative, mood and affect: normal most of the time. Neurologic: Mental status: Orientation: AOx2. Ability to name family members fluctuates throughout the day Communication: Patient is cooperative and can follow simple instructions Language: Speech fluent, normal rate and volume, comprehension intact Cranial nerves:2-12 intact. Motor: Normal bulk and tone, No atrophy Muscle strength 5/5 b/l and symmetric in b/l lower extremities. Elbow flexion and extension symmetric and 5/5. Shoulder abduction 3/5 but easily fatigued Light touch intact and symmetric in all extremities coordination: intact to FNF and HKS bilaterally. No ataxia, dysmetria noted. Gait: not tested. Objective Labs 01/04/25 04:21 01/04/25 04:21 Labs: Laboratory Results - last 24 hr 01/01/25 05:20 WBC 4.9 RBC 3.85 L Hgb 9.7 L Hct 31.3 L MCV 81 MCH 25.2 MCHC 31.0 RDW Std Deviation 59.7 H Plt Count 232 Neut % (Auto) 70 Lymph % (Auto) 17 [place] % (Auto) 9 Eos % (Auto) 4 Baso % (Auto) 0 Neut # (Auto) 3.4 Lymph # (Auto) 0.8 L [place] # (Auto) 0.4 Eos # (Auto) 0.2 Baso # (Auto) 0.0 Immature Gran # (Auto) 0.01 H Absolute Nucleated RBC 0.00 Immature Gran % 0 Nucleated RBC % 0 Sodium 141 Potassium 3.9 Chloride 100 Carbon Dioxide 33.2 H Anion Gap 8 BUN 50 H Creatinine 1.2 Estim Creat Clear Calc 28.4 L eGFR 44 L BUN/Creatinine Ratio 42 H Glucose 119 H Calculated Osmolality 295 Calcium 8.6 Corrected Calcium 9.0 Phosphorus 3.4 Magnesium 1.8 Total Bilirubin 0.7 AST 34 ALT 28 Alkaline Phosphatase 165 H Total Protein 6.0 Albumin 3.5 Globulin 2.5 Albumin/Globulin Ratio 1.4 ABG Interpretation ABG results: 12/28/24 08:04 ABG pH 7.41 ABG pCO2 47 ABG pO2 113 H ABG HCO3 30 H ABG O2 Saturation 99 H ABG Base Excess 4 H Assessment & Plan Additional Assessment & Plan Additional Plan: Altered mental status with baseline dementia: improving Most likely acute delirium on chronic dementia, exacerbated by DEMETRIUS and CHF exacerbation Per daughter, patient has been unable to walk for the past 2 weeks, likely worsening due to CHF exacerbation. Patient able to perform ADLs at baseline, no longer at baseline over the past 2 weeks. No focal neuro deficits noted on exam Workup: CT head: Negative for acute hemorrhage EEG: normal #Anxiety: better when family is around -Continue Buspar 10 mg TID and Duloxetine 20 mg daily # Headache - chronic: -continue Gabapentin 300 mg TID #Afib : Eliquis 2.5 mg BID #Acute CHF exacerbation #HFrEF (EF 40-45%) (02/2019) #Emphysema #DEMETRIUS #COPD #Microcytic anemia #DM2, non insulin dependent (A1C 6.5): A1c 08/20 was 6.6. Per daughter this is a recent diagnosis, taking Jardiance at home. #Hx of CAD #Mild hepatomegaly with fatty infiltration Plan: - Management per primary
[2025-01-02] MEDS: GABAPENTIN 300 MG CAPSULE PO ×3 (05:43→21:41)
[2025-01-02] MEDS: MIDODRINE 5 MG TABLET 2.5 MG PO (05:43)
[2025-01-02 06:02] LABS: Basophils # (Auto) 0.0 Thou/mm3 (0.0-0.2); Basophils % (Auto) 1 % (0-2.5); Eosinophils # (Auto) 0.2 Thou/mm3 (0.0-0.5); Eosinophils % (Auto) 4 % (0-10); Hematocrit 30.1 % (36.0-46.0); Hemoglobin 9.3 g/dL (12.0-16.0); Immature Granulocytes Auto 0.01 Thou/mm3 (0.00-0.00); Lymphocytes # (Auto) 0.9 Thou/mm3 (1.0-4.8); Lymphocytes % (Auto) 18 % (10-50); Mean Corpuscular HGB Conc 30.9 g/dl (31.0-37.0); Mean Corpuscular Hemoglobin 25.1 pg (25.0-35.0); Mean Corpuscular Volume 81 fL (80-100); Monocytes # (Auto) 0.5 Thou/mm3 (0.0-0.8); Monocytes % (Auto) 9 % (0-12); Neutrophils # (Auto) 3.3 Thou/mm3 (1.8-7.7); Neutrophils % (Auto) 68 % (37-80); Nucleated Red Blood Cell # 0.00 Thou/mm3 (0.00-0.00); Nucleated Red Blood Cell % 0 /100 WBC (0); Platelet Count 232 Thou/mm3 (140-440); RDW Standard Deviation 60.3 fL (36.4-46.3); Red Blood Count 3.71 Miln/mm3 (4.00-5.20); White Blood Count 4.9 Thou/mm3 (3.6-11.0)
[2025-01-02 06:34] LABS: Alanine Aminotransferase 22 U/L (10-49); Albumin, Serum 3.2 gm/dL (3.4-4.8); Albumin/Globulin Ratio 1.4 (1.2-2.2); Alkaline Phosphatase 144 U/L (46-116); Anion Gap 8 (7-16); Aspartate Amino Transferase 29 U/L (0-34); BUN/Creatinine Ratio 41 Ratio (12-20); Bilirubin,Total 0.6 mg/dL (0.3-1.2); Blood Urea Nitrogen 45 mg/dL (9-23); Calcium 8.4 mg/dL (8.3-10.6); Calcium (Corrected) 9.0 mg/dL (8.5-10.1); Carbon Dioxide 31.4 mMol/L (20.0-31.0); Chloride 101 mMol/L (98-107); Creatinine (Component) 1.1 mg/dL (0.6-1.3); Estimated Creatinine Clearance 30.8 mL/min (>60); Globulin 2.3 gm/dL (2.3-3.5); Glucose 93 mg/dL (74-106); Magnesium 2.2 mg/dL (1.6-2.6); Osmolality,Calculated 290 (275-295); Phosphorous 3.1 mg/dL (2.4-5.1); Potassium 3.9 mMol/L (3.4-5.1); Sodium 140 mMol/L (136-145); Total Protein 5.5 gm/dL (5.7-8.2); eGFR 49 See Note
[2025-01-02 06:45] LABS: B-Type Natriuretic Peptide > 3280 pg/mL (0-100)
[2025-01-02] MEDS: INSULIN LISPRO (AdmeLOG) 1 UNIT/0.01 ML UNIT SC (07:57)
--- NOTE | 2025-01-02 09:39 | PC.SS ---
Update: Patient is pending cardiac cath procedure. Dr. Adhikari consulting.
[2025-01-02] MEDS: LEVOFLOXACIN 250 MG TABLET PO (09:40)
[2025-01-02] MEDS: DULoxetine HCL 20 MG CAPSULE PO (09:40)
[2025-01-02] MEDS: ENOXAPARIN SOD INJ 30 MG/0.3 ML SYRINGE SC (09:40)
[2025-01-02] MEDS: NICOTINE PATCH 21 MG/24 HR PATCH.TD24 TOP (09:40)
[2025-01-02] MEDS: JARDIANCE (EMPAGLIFLOZIN) 10 MG TABLET PO (10:08)
--- NOTE | 2025-01-02 11:45 | PD.RESPRO ---
Documentation for date of: 01/02/25 Senior Resident Attestation: I have discussed the case with supervising physician and credit intern physician involved in the care of patient. I personally saw and examined patient and discussed the assessment and plan with the entire medical team, including attending. I agree with assessment and plan as documented above. Loan Smith MD PGY-2 Internal Medicine Subjective Subjective Interval history: No acute events overnight. Patient seen and examined at bedside this AM. Patient continues to be doing much better, conversational with family at bedside. Per nurse tracking, patient is still net positive however per patient she is making good urine output, contraction alkalosis improved, will continue Bumex twice daily. Labs and vitals were reviewed. Urine cultures positive for Citrobacter fruendii, per sensitivities resistant to ceftriaxone, switched now to p.o. levofloxacin. Will continue for a total 10-day course. Due to persistent soft blood pressures, will increase midodrine to 5 mg TID. Per cardiology patient is well enough to have cath in anticipation for PRODUCT SALES REPRESENTATIVE placement, scheduled for cath tomorrow. Discontinued Eliquis, started on Lovenox. Anticipate discharge 24 hours after cath. Review of systems otherwise negative except what is mentioned above. Exam Vital Signs Temp Pulse Resp BP Pulse Ox O2 Del Method O2 Flow Rate 96.9 F 91 16 105/52 L 94 L Nasal Cannula 2 01/02/25 08:00 01/02/25 08:31 01/02/25 08:31 01/02/25 08:00 01/02/25 08:31 01/02/25 08:00 01/02/25 08:31 Narrative Exam Physical Exam General: Awake in no acute distress. Conversational. Elderly woman sitting up on edge of bed. Pleasantly confused. HEENT: Normocephalic, atraumatic, mucous membranes moist. Heart: Regular rate and rhythm, normal S1 and S2, no murmurs. Lungs: Clear to auscultation with no wheezing or crackles appreciated. Mild rhonchi likely secondary extensive to smoking history. Abdomen: Soft, nondistended, positive bowel sounds. Diffuse tenderness on palpation, chronic. No guarding or rebound tenderness. Neurologic: Alert and oriented X1 (oriented to self, not time or place), no gross neurological deficit, and patient able to move all 4 extremities. Extremities: 2+ pitting lower extremity edema bilaterally. Skin: No rash or ecchymoses. Objective Labs 01/03/25 04:16 01/03/25 04:16 Labs: Laboratory Results - last 24 hr 01/02/25 04:59 WBC 4.9 RBC 3.71 L Hgb 9.3 L Hct 30.1 L MCV 81 MCH 25.1 MCHC 30.9 L RDW Std Deviation 60.3 H Plt Count 232 Neut % (Auto) 68 Lymph % (Auto) 18 Levy % (Auto) 9 Eos % (Auto) 4 Baso % (Auto) 1 Neut # (Auto) 3.3 Lymph # (Auto) 0.9 L Levy # (Auto) 0.5 Eos # (Auto) 0.2 Baso # (Auto) 0.0 Immature Gran # (Auto) 0.01 H Absolute Nucleated RBC 0.00 Immature Gran % 0 Nucleated RBC % 0 Sodium 140 Potassium 3.9 Chloride 101 Carbon Dioxide 31.4 H Anion Gap 8 BUN 45 H Creatinine 1.1 Estim Creat Clear Calc 30.8 L eGFR 49 L BUN/Creatinine Ratio 41 H Glucose 93 Calculated Osmolality 290 Calcium 8.4 Corrected Calcium 9.0 Phosphorus 3.1 Magnesium 2.2 Total Bilirubin 0.6 AST 29 ALT 22 Alkaline Phosphatase 144 H D B-Natriuretic Peptide > 3280 H* Total Protein 5.5 L Albumin 3.2 L Globulin 2.3 Albumin/Globulin Ratio 1.4 ABG Interpretation ABG results: 12/28/24 08:04 ABG pH 7.41 ABG pCO2 47 ABG pO2 113 H ABG HCO3 30 H ABG O2 Saturation 99 H ABG Base Excess 4 H Quality Measures Quality Measures none Advance care planning discussed with:: patient and child (daughter) Assessment & Plan Assessment Current Active Medications: Generic Name Dose Route Start Last Admin Trade Name Freq PRN Reason Stop Dose Admin Acetaminophen 650 mg 12/27/24 22:44 12/29/24 08:49 Acetaminophen 325 Mg Tablet PO 01/26/25 22:43 650 mg Q6H PRN Administration PAIN SCALE 1-3 (mild Atorvastatin Calcium 40 mg 12/28/24 21:00 01/01/25 22:04 Atorvastatin Calcium 20 Mg Tablet PO 01/27/25 20:59 40 mg HS ALVARO Administration Bumetanide 1 mg 01/01/25 21:00 01/02/25 10:17 Bumetanide Inj 0.25 Mg/Ml Vial 4 Ml IVP 01/31/25 20:59 Not Given BID ALVARO Buspirone HCl 10 mg 12/29/24 22:00 01/02/25 05:43 Buspirone Hcl 5 Mg Tablet PO 01/28/25 21:59 10 mg TID ALVARO Administration Jardiance ( 0 ea 12/30/24 15:00 01/02/25 10:08 Empagliflozin) 10 Mg PO 01/29/25 14:59 1 tablet Tablet DAILY ALVARO Administration Dextrose 25 ml 12/27/24 22:44 Dextrose 50%-Water Inj 50 Ml Syringe IV 01/26/25 22:43 Q15MIN PRN BG 50-70 responsive npo pt Dextrose 50 ml 12/27/24 22:44 Dextrose 50%-Water Inj 50 Ml Syringe IV 01/26/25 22:43 Q15MIN PRN BG <50 OR BG <70 & pt unresponsive Duloxetine HCl 20 mg 12/29/24 17:30 01/02/25 09:40 Duloxetine Hcl 20 Mg Capsule PO 01/28/25 17:29 20 mg QDAY ALVARO Administration Enoxaparin Sodium 30 mg 01/02/25 09:00 01/02/25 09:40 Enoxaparin Sod Inj 30 Mg/0.3 Ml Syringe SC 01/16/25 08:59 30 mg QDAY ALVARO Administration Gabapentin 300 mg 12/29/24 22:00 01/02/25 05:43 Gabapentin 300 Mg Capsule PO 01/28/25 21:59 300 mg TID ALVARO Administration Glucagon 1 mg 12/27/24 22:44 Glucagon Inj 1 Mg Vial IM Q15MIN PRN BG <70, and no IV access Haloperidol Lactate 0.5 mg 12/28/24 16:20 12/29/24 03:04 Haloperidol Lact Inj 5 Mg/Ml Vial IM 0.5 mg Q30MIN PRN Administration AGITATION Insulin Human Lispro 0 unit 12/28/24 07:30 01/02/25 07:57 Insulin Lispro (Admelog) 1 Unit/0.01 Ml Unit SC 01/27/25 07:29 1 unit ACHS ALVARO Administration Protocol Levalbuterol HCl 0.63 mg 12/27/24 22:51 Levalbuterol Rt 0.63 Mg/3 Ml Nebu INH 01/26/25 22:50 Q8HR PRN WHEEZING Levofloxacin 250 mg 01/02/25 09:00 01/02/25 09:40 Levofloxacin 250 Mg Tablet PO 01/09/25 08:59 250 mg QDAY ALVARO Administration Midodrine 5 mg 01/02/25 14:00 Midodrine 5 Mg Tablet PO 02/01/25 13:59 TID ALVARO Nicotine 21 mg 12/30/24 09:00 01/02/25 09:40 Nicotine Patch 21 Mg/24 Hr Patch.Td24 TOP 01/29/25 08:59 21 mg QDAY ALVARO Administration Ondansetron HCl 4 mg 12/27/24 22:44 Ondansetron Inj 2 Mg/Ml Inj 2 Ml IVP 01/26/25 22:43 Q6H PRN NAUSEA OR VOMITING Protocol Sacubitril/Valsartan 1 tab 12/31/24 21:00 01/02/25 09:41 Sacubitril 24 Mg/Valsartan 26 Mg Tablet PO 01/30/25 20:59 1 tab BID ALVARO Administration Sennosides 1 tab 12/28/24 09:00 01/02/25 09:41 Senna Tablet PO 01/27/25 08:59 1 tab QDAY ALVARO Administration Protocol Tramadol HCl 50 mg 12/28/24 22:08 01/01/25 08:37 Tramadol Hcl 50 Mg Tablet PO 01/02/25 22:07 50 mg Q6HR PRN Administration PAIN SCALE 7-10 (Severe Plan Patient is a 84 year old female with past medical history of HTN, emphysema, HFrEF (EF 40-45%), CAD, DM2 non insulin dependent, Afib on Eliquis, and chronic abdominal pain who presented on 12/28 for 2 weeks of generalized deterioration, admitted for work up and management of acute CHF exacerbation, found to have UTI which is currently being treated with antibiotics. #Acute on chronic CHF exacerbation #HFrEF EF 20 % (12/27/2024) #Severe global hypokinesis #Moderate pulmonary hypertension #Contraction alkalosis secondary to diuresis #Hypotension 2/2 diuresis Patient endorsed worsening dyspnea on exertion, orthopnea, and paroxysmal nocturnal dyspnea. Physical exam was pertinent for JVD and 2+ pitting lower extremity edema bilaterally. Home medications include benazepril, Lasix, Jardiance, and spiranolactone. Patient follows with field operations coordinator Dr. Franks outpatient. Echo 02/12/19: EF 40-45% with trace MR with valve thickening, mild TR, mild pulmonic valve regurgitation, and sclerotic aortic valve. Echo 12/27/24: EF 20% with dilated cardiomyopathy with severe global hypokinesis, moderate pulmonary hypertension. CXR 12/30/24: mild CHF with moderate cardiomegaly, prominent vascular congestion with basilar edema 01/01: Spoke with field operations coordinator Dr. Franks, requested that we consult on-call field operations coordinator Dr. Adhikari. Upon evaluation, Dr. Adhikari believes patient is candidate for PRODUCT SALES REPRESENTATIVE placement, but will have to schedule at a later date when patient is free of infection and able to lay flat on her back for at least [address] Adhikari will update Dr. Franks. Will continue to diurese, decrease dose as patient has developed contraction alkalosis. 01/02: Patient continues to do well, weaning oxygen now on 1 L. Able to lay flat for at least 45 minutes. Per cardiology plan for cardiac cath tomorrow, will implant PRODUCT SALES REPRESENTATIVE-D later outpatient. Plan: - Plan for cardiac cath tomorrow - Continue IV Bumex 1g BID - Increase midodrine to 5 mg TID - Strict I&O's, daily weights - Fluid restriction 1800 mL - K>4 and Mg >2 - Supplemental oxygen as needed, keep O2 saturation between 88-92% - Continue Entresto as tolerated (MAP >65), work toward GDMT - Consult cardiology Dr. Franks, appreciate recommendation #Acute infectious encephalopathy 2/2 UTI #Stroke - ruled out #Generalized weakness Per daughter, patient has been deteriorating for the past 2 weeks, started suddenly. Complained of headache during the first week and has been unable to ambulate independently. Is also not at mental baseline per family. On physical exam, patient was unable to lift her arms, likely due to pain but also concern for neurologic deficit, organ tuner electronic strength was 4/5. Also endorses urinary incontinence since 2 week onset. Will need to rule out stroke. Unlikely NPH (wet, wacky, wobbly) as CT head did not note any ventricular abnormalities/enlargement. Possibly medication induced; per daughter, pt is confused on buspirone but is one of her home medications. Possibly infectious, is having worsening abdominal pain, UA positive CT head negative for acute hemorrhage, mass effect or midline shift. Per neurology, patient has had step walsh decline in mental status, likely secondary to dementia. Pending EEG read. 12/29: Per daughter, patient has been having chronic abdominal pain since hernia repair (mesh placed?); however has been worsening as of late. PT evaluated patient, recommend SNF for short term rehab but patient not enthusiastic, family understands and will discuss with patient. 12/30: Abdominal US shows absent gallbladder, mild renal scar formation, and mild hepatomegaly with fatty infiltration, otherwise unremarkable. 12/31: UA 12/30 shows positive leukocyte esterase, nitrites, 13 WBC, and +1 bacteria, pending urine culture. 01/01: EEG was normal, no signs of dementia. Patient is more conversational however alert and oriented x 1 still (oriented to self, not to place and time). 01/01: Urine culture positive for Citrobacter freundii. Based on sensitivities, resistant to ceftriaxone, will transition to oral levofloxacin. Plan: - Continue ASA 81 mg and home dose atorvastatin - Discontinue IV ceftriaxone 1 g (12/31?01/02), start on levofloxacin p.o. - Consulted neurology Dr. Alexis, appreciate recommendations #DEMETRIUS on CKD - resolved #Bilateral Renal Cortical thinning, US (08/2024) Patient has a past medical history likely underlying CKD given bilateral renal cortical thinning from previous echo sounds. DEMETRIUS likely pre-renal given elevated BUN/Cr ratio, patient is altered and likely has not been well hydrated. Baseline creatinine 1.3 in 2023. Likely worsened with diuresis. Plan -Strict I&O's -Avoid nephrotoxins -Renally dose medication -if worsening DEMETRIUS on CKD, consider nephrology consult #Anxiety Takes Buspar 7.5mg BID at home; however was discontinued recently as it caused the patient to be confused. Continues to be anxious throughout admission, likely due to hospital/medical environment. - BuSpar 10 mg 3 times daily - Duloxitine 20 mg daily per neurology - Haloperidol, Seroquel, and diphenhydramine prn #Emphysema #COPD Patient has been smoking average of 4-5 cigarettes daily for the past 68 years, continues to smoke. Has developed emphysema/COPD as a result. - Continue levalbuterol prn - CHF management as above - Supplemental oxygen as needed, keep O2 saturation 88-92% #Microcytic anemia #BRISA On admission, Hgb 9.5 with MCV 78 and RDW 58.3. Baseline appears to be around 11. Iron panel 12/28 shows iron 15, TIBC 474, iron saturation 3, unsat iron binding 459, indicating iron deficiency anemia. Denies hemoptysis, melena, blood per rectum, hematuria, low concern for acute bleed at this time. - Consider starting on iron supplementation outpatient after cleared of infection - Continue to monitor H&H #Afib on Eliquis Takes Eliquis 2.5 mg daily. Holding in anticipation for cardiac cath tomorrow, will restart after procedure. - Hold home dose Eliquis, will restart after cath - Started on Lovenox #DM2, non insulin dependent A1c 08/20 was 6.6. Per daugther this is a recent diagnosis, taking Jardiance at home. - Continue sensitive insulin sliding scale #Hx of CAD Takes atorvastatin at home. Lipid panel 12/29: trig 47, total chol 98, LDL 32, HDL 57. ASCVD risk score: unable to be calculated as pt is over 79. - Continue home dose atorvastatin #Incidential, Severe Osteopenia, noted on humerus XR - Consider on starting bisphosphonates outpatient - Family still concerned for fracture, scheduled open MRI outpatient #NAFLD On US abdomen. No significant alcohol use on history. - Recommend weight loss and diet modification outpatient Health Maintenance Disposition: management of CHF exacerbation, UTI, pending urine cultures DVT prophylaxis: Eliquis GI prophylaxis: Senna Diet: Cardiac CODE STATUS: FULL Patient plan of care was discussed with the resident, Dr. Smith, and attending physician, Dr. Luu. Molly Montano, PGY-1 Attending Provider Attestation/Addendum I attest that I was physically present for the evaluation, physical examination, lab and imaging review of the patient with the residents. I discussed the case with the residents and agree with the findings and plans of care as documented above. Kassi Luu MD
--- NOTE | 2025-01-02 14:19 | PC.SS ---
Rounding Note: Plan is for patient to obtain cardiac cath tomorrow.
[2025-01-02] MEDS: MIDODRINE 5 MG TABLET PO ×2 (14:25→21:41)
--- NOTE | 2025-01-02 21:18 | ESPR_ITS ---
<Statement entered by Ana Luisa Adhikari MD - 01/03/25 13:04> I personally evaluated examined the patient with PGY 2 Dr. Hansen agree with the treatment plan recommendation as documented all the components of the note reviewed by me discussed with the family about possibility of right and left heart cardiac catheterization in preparation for possible METAL FABRICATING SUPERVISOR-D implantation as an outpatient I would like to see her heart failure improved will be relayed down in table for at least an hour to do the METAL FABRICATING SUPERVISOR-D implantation. Documentation for date of: 01/02/25 Subjective Subjective Interval history: Patient seen at bedside. Patient was sitting on the side of the bed currently saturating above 94% on 2 L of oxygen. Patient continues to have some shortness of breath but denies any chest pain, tightness or palpitations. Patient is scheduled for bilateral cardiac catheterization for tomorrow morning patient and family is agreeable. Patient will remain n.p.o. and anticoagulations are stopped after midnight. After cardiac catheterization decision will be made regarding METAL FABRICATING SUPERVISOR-D placement and timing. Otherwise we will continue GDMT. Vitals are stable and labs are reviewed, electrolytes are repleted. Patient's kidney function is stable with creatinine 1.1, BUN 45 and GFR 48. BNP remains above 3280 and currently patient is on Bumex twice daily. Patient total dialysis 610 with urinary output of 1250. Exam Vital Signs Temp Pulse Resp BP Pulse Ox O2 Del Method O2 Flow Rate 97.3 F 79 20 99/56 L 98 Nasal Cannula 3 01/02/25 20:00 01/02/25 20:00 01/02/25 20:01/02/25 20:01/02/25 20:01/02/25 20:01/02/25 20:00 Narrative Exam GENERAL: A&Ox3 . Awake, Not in acute distress. Currently saturating via NC NEURO: no focal neurological deficits HEENT: Atraumatic, Normocephalic. mucous membranes moist. Eyes open, symmetrical, & clear HEART: regular rhythm and rate, S3 gallop and systolic murmur heard, JVD LUNGS: Clear to auscultation with no wheezing or crackles. ABDOMEN: soft, non-distended, non-tender, bowel sounds heard, no guarding or rebound tenderness SKIN: No Rash or ecchymoses EXTREMITIES: 1+ LE edema, no tenderness in LE, L shoulder tenderness, able to move all 4 extremities, pedal pulses palpated Objective Labs 01/02/25 04:59 01/02/25 04:59 Labs: Laboratory Results - last 24 hr 01/02/25 04:59 WBC 4.9 RBC 3.71 L Hgb 9.3 L Hct 30.1 L MCV 81 MCH 25.1 MCHC 30.9 L RDW Std Deviation 60.3 H Plt Count 232 Neut % (Auto) 68 Lymph % (Auto) 18 Callahan % (Auto) 9 Eos % (Auto) 4 Baso % (Auto) 1 Neut # (Auto) 3.3 Lymph # (Auto) 0.9 L Callahan # (Auto) 0.5 Eos # (Auto) 0.2 Baso # (Auto) 0.0 Immature Gran # (Auto) 0.01 H Absolute Nucleated RBC 0.00 Immature Gran % 0 Nucleated RBC % 0 Sodium 140 Potassium 3.9 Chloride 101 Carbon Dioxide 31.4 H Anion Gap 8 BUN 45 H Creatinine 1.1 Estim Creat Clear Calc 30.8 L eGFR 49 L BUN/Creatinine Ratio 41 H Glucose 93 Calculated Osmolality 290 Calcium 8.4 Corrected Calcium 9.0 Phosphorus 3.1 Magnesium 2.2 Total Bilirubin 0.6 AST 29 ALT 22 Alkaline Phosphatase 144 H D B-Natriuretic Peptide > 3280 H* Total Protein 5.5 L Albumin 3.2 L Globulin 2.3 Albumin/Globulin Ratio 1.4 ABG Interpretation ABG results: 12/28/24 08:04 ABG pH 7.41 ABG pCO2 47 ABG pO2 113 H ABG HCO3 30 H ABG O2 Saturation 99 H ABG Base Excess 4 H Quality Measures Quality Measures none Advance care planning discussed with:: child Assessment & Plan Assessment Current Active Medications: Generic Name Dose Route Start Last Admin Trade Name Freq PRN Reason Stop Dose Admin Acetaminophen 650 mg 12/27/24 22:44 12/29/24 08:49 Acetaminophen 325 Mg Tablet PO 01/26/25 22:43 650 mg Q6H PRN Administration PAIN SCALE 1-3 (mild Atorvastatin Calcium 40 mg 12/28/24 21:00 01/01/25 22:04 Atorvastatin Calcium 20 Mg Tablet PO 01/27/25 20:59 40 mg HS ALVARO Administration Bumetanide 1 mg 01/02/25 17:09 Bumetanide Inj 0.25 Mg/Ml Vial 4 Ml IVP 01/31/25 20:59 BID ALVARO Buspirone HCl 10 mg 12/29/24 22:00 01/02/25 14:24 Buspirone Hcl 5 Mg Tablet PO 01/28/25 21:59 10 mg TID ALVARO Administration Jardiance ( 0 ea 12/30/24 15:00 01/02/25 10:08 Empagliflozin) 10 Mg PO 01/29/25 14:59 1 tablet Tablet DAILY ALVARO Administration Dextrose 25 ml 12/27/24 22:44 Dextrose 50%-Water Inj 50 Ml Syringe IV 01/26/25 22:43 Q15MIN PRN BG 50-70 responsive npo pt Dextrose 50 ml 12/27/24 22:44 Dextrose 50%-Water Inj 50 Ml Syringe IV 01/26/25 22:43 Q15MIN PRN BG <50 OR BG <70 & pt unresponsive Duloxetine HCl 20 mg 12/29/24 17:30 01/02/25 09:40 Duloxetine Hcl 20 Mg Capsule PO 01/28/25 17:29 20 mg QDAY ALVARO Administration Gabapentin 300 mg 12/29/24 22:00 01/02/25 14:24 Gabapentin 300 Mg Capsule PO 01/28/25 21:59 300 mg TID ALVARO Administration Glucagon 1 mg 12/27/24 22:44 Glucagon Inj 1 Mg Vial IM Q15MIN PRN BG <70, and no IV access Haloperidol Lactate 0.5 mg 12/28/24 16:20 12/29/24 03:04 Haloperidol Lact Inj 5 Mg/Ml Vial IM 0.5 mg Q30MIN PRN Administration AGITATION Insulin Human Lispro 0 unit 12/28/24 07:30 01/02/25 20:15 Insulin Lispro (Admelog) 1 Unit/0.01 Ml Unit SC 01/27/25 07:29 Not Given ACHS ALVARO Protocol Levalbuterol HCl 0.63 mg 12/27/24 22:51 Levalbuterol Rt 0.63 Mg/3 Ml Nebu INH 01/26/25 22:50 Q8HR PRN WHEEZING Levofloxacin 250 mg 01/02/25 09:00 01/02/25 09:40 Levofloxacin 250 Mg Tablet PO 01/09/25 08:59 250 mg QDAY ALVARO Administration Midodrine 5 mg 01/02/25 14:00 01/02/25 14:25 Midodrine 5 Mg Tablet PO 02/01/25 13:59 5 mg TID ALVARO Administration Nicotine 21 mg 12/30/24 09:00 01/02/25 09:40 Nicotine Patch 21 Mg/24 Hr Patch.Td24 TOP 01/29/25 08:59 21 mg QDAY ALVARO Administration Ondansetron HCl 4 mg 12/27/24 22:44 Ondansetron Inj 2 Mg/Ml Inj 2 Ml IVP 01/26/25 22:43 Q6H PRN NAUSEA OR VOMITING Protocol Sacubitril/Valsartan 1 tab 12/31/24 21:00 01/02/25 09:41 Sacubitril 24 Mg/Valsartan 26 Mg Tablet PO 01/30/25 20:59 1 tab BID ALVARO Administration Sennosides 1 tab 12/28/24 09:00 01/02/25 09:41 Senna Tablet PO 01/27/25 08:59 1 tab QDAY ALVARO Administration Protocol Tramadol HCl 50 mg 12/28/24 22:08 01/02/25 16:34 Tramadol Hcl 50 Mg Tablet PO 01/02/25 22:07 50 mg Q6HR PRN Administration PAIN SCALE 7-10 (Severe Plan Ms. Dos Santos is a 83-year-old female Qatari speaker patient with past medical history of hypertension, HFrEF EF 20% , CAD status post PCI, type 2 diabetes and A-fib rate controlled on Eliquis following up with heat treater helper Dr. Franks presented to the ED on 12/28/2024 complaining of generalized weakness. Cardiology is consulted for worsening acute decompensated heart failure. #Acute on chronic CHF exacerbation #Decompensated systolic HF #HFrEF EF 20% #Chronic A-fib, rate controlled Patient has chronic history of HFrEF and follows Dr. Alvarado outpatient regularly. Patient has been on GDMT for a long time as well. -Patient has been having worsening shortness of breath and lower extremity edema as well as orthopnea. -Currently patient is saturating well on 3 L of oxygen and on physical examination patient has severe shortness of breath and S3 gallop and severe JVD -Echo done on 12/27/2024: Dilated cardiomyopathy with severe global hypokinesis. Estimated EF at 20 %. The Rv Vsize is mildy increased with mildly decreased systolic function. Moderate pulmonary hypetension estimated PASP, 65 mmHg. Severely increased LA volume. [id number] MR and TR. Aortic valve sclerosis no stensois. Dilated IVC. - EKG on admission shows A-fib with left bundle branch block, rate 97 QTc 499 -[id number] score 7 - 15.7% risk of stroke/TIA/systemic embolism. -Has bled score 3 -NYHA class lV, BNP on admission > 3280 Plan: -Recommend continue patient's home GDMT: Bumex, spironolactone, Entresto -Pt is currently rate controlled, will add beta mallorie as BP tolerates -Hold home Eliquis 2.5mg BID (due to angiogram scheduled for wednesday) -Once patient is more stable and orthopnea improves, will discuss with patient option of METAL FABRICATING SUPERVISOR-D, Pt does qualify because she is NYHA fucntional class IV and EKG shows left bundle branch block and EF < 35%. -Prior to METAL FABRICATING SUPERVISOR-D, pt will need to undergo cardiac angiogram to rule out worsening CAD or stent occulsion. #CAD s/p PCI #Hx of IA in 2019 -Patient has history of IA in 2019 and had 2 stents placed in [facility]. Patient follows Dr. Alvarado outpatient regularly -Pt denies any chest pain, pressure or palpitations -Takes atorvastatin and aspirin 81 mg daily at home. -Lipid panel 12/29: trig 47, total chol 98, LDL 32, HDL 57. Plan: - Continue home dose atorvastatin and aspirin #Acute encephalopathy 2/2 UTI #Stroke - ruled out #Generalized weakness #DM2, non insulin dependent #Microcytic anemia #Iron defiency anemia #DEMETRIUS on CKD - resolved #Bilateral Renal Cortical thinning, US (08/2024) #Severe Osteopenia, noted on humerus XR #NAFLD #Emphysema #COPD #Anxiety Thank you for the consult and allowing us to participate in the care of the patient. Cardiology will continue to follow. Assessment and plan discussed with my attending Fire Range Technician Dr. Onofre Hansen (PGY-2)- Internal medicine resident
[2025-01-02] MEDS: ATORVASTATIN CALCIUM 20 MG TABLET 40 MG PO (21:41)
[2025-01-02] MEDS: BUMETANIDE INJ 0.25 MG/ML VIAL 4 ML 1 MG IVP (22:10)
[2025-01-03] VITALS (23 sets, daily range): BP systolic 98–117; BP diastolic 43–65; PULSE 64–99; RESP 15–28; TEMP 36–36.8; O2SAT 93–100; BMI 30.7
[2025-01-03 04:58] LABS: Basophils # (Auto) 0.0 Thou/mm3 (0.0-0.2); Basophils % (Auto) 1 % (0-2.5); Eosinophils # (Auto) 0.1 Thou/mm3 (0.0-0.5); Eosinophils % (Auto) 3 % (0-10); Hematocrit 33.2 % (36.0-46.0); Hemoglobin 10.1 g/dL (12.0-16.0); Immature Granulocytes Auto 0.02 Thou/mm3 (0.00-0.00); Lymphocytes # (Auto) 1.1 Thou/mm3 (1.0-4.8); Lymphocytes % (Auto) 23 % (10-50); Mean Corpuscular HGB Conc 30.4 g/dl (31.0-37.0); Mean Corpuscular Hemoglobin 24.8 pg (25.0-35.0); Mean Corpuscular Volume 81 fL (80-100); Monocytes # (Auto) 0.4 Thou/mm3 (0.0-0.8); Monocytes % (Auto) 10 % (0-12); Neutrophils # (Auto) 3.0 Thou/mm3 (1.8-7.7); Neutrophils % (Auto) 64 % (37-80); Nucleated Red Blood Cell # 0.00 Thou/mm3 (0.00-0.00); Nucleated Red Blood Cell % 0 /100 WBC (0); Platelet Count 230 Thou/mm3 (140-440); RDW Standard Deviation 60.3 fL (36.4-46.3); Red Blood Count 4.08 Miln/mm3 (4.00-5.20); White Blood Count 4.6 Thou/mm3 (3.6-11.0)
[2025-01-03] MEDS: GABAPENTIN 300 MG CAPSULE PO (05:10)
[2025-01-03] MEDS: MIDODRINE 5 MG TABLET PO ×3 (05:10→21:14)
[2025-01-03 05:16] LABS: INR 1.0 (0.9-1.3); Partial Thromboplastin Time 26.5 Seconds (22.0-36.0); Prothrombin Time 11.1 Seconds (9.0-12.2)
[2025-01-03 05:22] LABS: Alanine Aminotransferase 22 U/L (10-49); Albumin, Serum 3.4 gm/dL (3.4-4.8); Albumin/Globulin Ratio 1.4 (1.2-2.2); Alkaline Phosphatase 155 U/L (46-116); Anion Gap 9 (7-16); Aspartate Amino Transferase 30 U/L (0-34); BUN/Creatinine Ratio 41 Ratio (12-20); Bilirubin,Total 0.6 mg/dL (0.3-1.2); Blood Urea Nitrogen 45 mg/dL (9-23); Calcium 8.6 mg/dL (8.3-10.6); Calcium (Corrected) 9.1 mg/dL (8.5-10.1); Carbon Dioxide 30.4 mMol/L (20.0-31.0); Chloride 101 mMol/L (98-107); Creatinine (Component) 1.1 mg/dL (0.6-1.3); Estimated Creatinine Clearance 30.8 mL/min (>60); Globulin 2.5 gm/dL (2.3-3.5); Glucose 93 mg/dL (74-106); Magnesium 2.0 mg/dL (1.6-2.6); Osmolality,Calculated 290 (275-295); Phosphorous 3.4 mg/dL (2.4-5.1); Potassium 4.5 mMol/L (3.4-5.1); Sodium 140 mMol/L (136-145); Total Protein 5.9 gm/dL (5.7-8.2); eGFR 49 See Note
--- NOTE | 2025-01-03 07:15 | PC.NURSE ---
Pt was sent to irrigation laborer via bam and irrigation laborer nurse.
--- NOTE | 2025-01-03 07:30 | CHAP ---
Patient was about to be taken to surgery and was sleeping. Family member was present and I gave her comfort and encouragement and prayed over patient with her.
--- NOTE | 2025-01-03 09:42 | ESPR_ITS ---
Documentation for date of: 01/03/25 No overnight events. Patient examed at bedside. Alert and following commands. Patient is scheduled for cardiac catherization. Continue to diuresis. s/p right and left heart cardiac catheterization. Noted Ischemic Cardiomyopathy, chronic systolic heart failure, ejection fraction of 20%. Elevated pulmonary wedge pressure, MIld pulmonary hypertension. Per cardiology recommendations: Aspirin 81 mg qday, Resume Eliquis 01/03/2025, Continue Bumex BID, Metoprolol succinate 25 mg qday-->50 mg qday. Addition day of IV bumex-->plan for discharge on Wednesday. Patient initially started on gabapentin, buspar, and duloxetine per neuro, currently discontinued per cardiology. Continue antibioitics unti 01/09/2025 for UTI. Subjective Subjective Interval history: No acute events overnight. Patient seen and examined at bedside this AM. S/p cardiac cath in AM, shows ischemic cardiomyopathy, chronic systolic heart failure, EF 20%. Elevated pulmonary wedge pressure with persistent left heart failure. Mild pulmonary hypertension, PA pressure 42/17. Labs and vitals were reviewed. +580 over past 24 hours, had bowel movement overnight. Continue Bumex BID and Entresto, started on spiranolactone; discontinue Jardiance, gabapentin, and Buspar per Dr. Adhikari. Will restart Eliquis tomorrow. Anticipate discharge to SNF on Wednesday, plan for ADULT DAY CARE WORKER implant 2 weeks for discharge. Will continue levofloxacin for total of 7 day course (started 01/02). Review of systems otherwise negative except what is mentioned above. Exam Vital Signs Temp Pulse Resp BP Pulse Ox O2 Del Method O2 Flow Rate 98.2 F 75 19 113/65 97 Room Air 3 01/03/25 07:48 01/03/25 07:48 01/03/25 07:48 01/03/25 07:48 01/03/25 07:48 01/03/25 07:48 01/03/25 04:00 Narrative Exam Physical Exam General: Awake in no acute distress. Conversational. Elderly woman sitting up on edge of bed. Pleasantly confused. HEENT: Normocephalic, atraumatic, mucous membranes moist. Heart: Regular rate and rhythm, normal S1 and S2, no murmurs. Lungs: Mild rhonchi likely secondary extensive to smoking history. Abdomen: Soft, nondistended, positive bowel sounds. Diffuse tenderness on palpation, chronic. No guarding or rebound tenderness. Neurologic: Alert and oriented X1 (oriented to self, not time or place), no gross neurological deficit, and patient able to move all 4 extremities. Extremities: 2+ pitting lower extremity edema bilaterally. Skin: No rash or ecchymoses. Objective Labs 01/04/25 04:21 01/04/25 04:21 Labs: Laboratory Results - last 24 hr 01/03/25 04:16 WBC 4.6 RBC 4.08 Hgb 10.1 L Hct 33.2 L MCV 81 MCH 24.8 L MCHC 30.4 L RDW Std Deviation 60.3 H Plt Count 230 Neut % (Auto) 64 Lymph % (Auto) 23 Ellis % (Auto) 10 Eos % (Auto) 3 Baso % (Auto) 1 Neut # (Auto) 3.0 Lymph # (Auto) 1.1 Ellis # (Auto) 0.4 Eos # (Auto) 0.1 Baso # (Auto) 0.0 Immature Gran # (Auto) 0.02 H Absolute Nucleated RBC 0.00 Immature Gran % 0 Nucleated RBC % 0 PT 11.1 INR 1.0 APTT 26.5 Sodium 140 Potassium 4.5 D Chloride 101 Carbon Dioxide 30.4 Anion Gap 9 BUN 45 H Creatinine 1.1 Estim Creat Clear Calc 30.8 L eGFR 49 L BUN/Creatinine Ratio 41 H Glucose 93 Calculated Osmolality 290 Calcium 8.6 Corrected Calcium 9.1 Phosphorus 3.4 Magnesium 2.0 Total Bilirubin 0.6 AST 30 ALT 22 Alkaline Phosphatase 155 H Total Protein 5.9 Albumin 3.4 Globulin 2.5 Albumin/Globulin Ratio 1.4 ABG Interpretation ABG results: 12/28/24 08:04 ABG pH 7.41 ABG pCO2 47 ABG pO2 113 H ABG HCO3 30 H ABG O2 Saturation 99 H ABG Base Excess 4 H Quality Measures Quality Measures none Advance care planning discussed with:: patient and child (daughter) Assessment & Plan Assessment Current Active Medications: Generic Name Dose Route Start Last Admin Trade Name Freq PRN Reason Stop Dose Admin Acetaminophen 650 mg 12/27/24 22:44 12/29/24 08:49 Acetaminophen 325 Mg Tablet PO 01/26/25 22:43 650 mg Q6H PRN Administration PAIN SCALE 1-3 (mild Atorvastatin Calcium 40 mg 12/28/24 21:00 01/02/25 21:41 Atorvastatin Calcium 20 Mg Tablet PO 01/27/25 20:59 40 mg HS ALVARO Administration Bumetanide 1 mg 01/02/25 17:09 01/02/25 22:10 Bumetanide Inj 0.25 Mg/Ml Vial 4 Ml IVP 01/31/25 20:59 1 mg BID ALVARO Administration Jardiance ( 0 ea 12/30/24 15:00 01/02/25 10:08 Empagliflozin) 10 Mg PO 01/29/25 14:59 1 tablet Tablet DAILY ALVARO Administration Dextrose 25 ml 12/27/24 22:44 Dextrose 50%-Water Inj 50 Ml Syringe IV 01/26/25 22:43 Q15MIN PRN BG 50-70 responsive npo pt Dextrose 50 ml 12/27/24 22:44 Dextrose 50%-Water Inj 50 Ml Syringe IV 01/26/25 22:43 Q15MIN PRN BG <50 OR BG <70 & pt unresponsive Duloxetine HCl 20 mg 12/29/24 17:30 01/02/25 09:40 Duloxetine Hcl 20 Mg Capsule PO 01/28/25 17:29 20 mg QDAY ALVARO Administration Glucagon 1 mg 12/27/24 22:44 Glucagon Inj 1 Mg Vial IM Q15MIN PRN BG <70, and no IV access Haloperidol Lactate 0.5 mg 12/28/24 16:20 12/29/24 03:04 Haloperidol Lact Inj 5 Mg/Ml Vial IM 0.5 mg Q30MIN PRN Administration AGITATION Insulin Human Lispro 0 unit 12/28/24 07:30 01/03/25 09:01 Insulin Lispro (Admelog) 1 Unit/0.01 Ml Unit SC 01/27/25 07:29 Not Given ACHS ALVARO Protocol Levalbuterol HCl 0.63 mg 12/27/24 22:51 Levalbuterol Rt 0.63 Mg/3 Ml Nebu INH 01/26/25 22:50 Q8HR PRN WHEEZING Levofloxacin 250 mg 01/02/25 09:00 01/02/25 09:40 Levofloxacin 250 Mg Tablet PO 01/09/25 08:59 250 mg QDAY ALVARO Administration Midodrine 5 mg 01/02/25 14:00 01/03/25 05:10 Midodrine 5 Mg Tablet PO 02/01/25 13:59 5 mg TID ALVARO Administration Nicotine 21 mg 12/30/24 09:00 01/02/25 09:40 Nicotine Patch 21 Mg/24 Hr Patch.Td24 TOP 01/29/25 08:59 21 mg QDAY ALVARO Administration Ondansetron HCl 4 mg 12/27/24 22:44 Ondansetron Inj 2 Mg/Ml Inj 2 Ml IVP 01/26/25 22:43 Q6H PRN NAUSEA OR VOMITING Protocol Sacubitril/Valsartan 1 tab 12/31/24 21:00 01/02/25 21:42 Sacubitril 24 Mg/Valsartan 26 Mg Tablet PO 01/30/25 20:59 1 tab BID ALVARO Administration Sennosides 1 tab 12/28/24 09:00 01/02/25 09:41 Senna Tablet PO 01/27/25 08:59 1 tab QDAY ALVARO Administration Protocol Plan Patient is a 84 year old female with past medical history of HTN, emphysema, HFrEF (EF 40-45%), CAD, DM2 non insulin dependent, Afib on Eliquis, and chronic abdominal pain who presented on 12/28 for 2 weeks of generalized deterioration, admitted for work up and management of acute CHF exacerbation, found to have UTI which is currently being treated with antibiotics. #Acute on chronic CHF exacerbation #HFrEF EF 20 % (12/27/2024), secondary to ischemic cardiomyopathy #Severe global hypokinesis #Mild pulmonary hypertension #Contraction alkalosis secondary to diuresis #Hypotension 2/2 diuresis Patient endorsed worsening dyspnea on exertion, orthopnea, and paroxysmal nocturnal dyspnea. Physical exam was pertinent for JVD and 2+ pitting lower extremity edema bilaterally. Home medications include benazepril, Lasix, Jardiance, and spiranolactone. Patient follows with flat finisher Dr. Franks outpatient. Echo 02/12/19: EF 40-45% with trace MR with valve thickening, mild TR, mild pulmonic valve regurgitation, and sclerotic aortic valve. Echo 12/27/24: EF 20% with dilated cardiomyopathy with severe global hypokinesis, moderate pulmonary hypertension. CXR 12/30/24: mild CHF with moderate cardiomegaly, prominent vascular congestion with basilar edema 01/01: Spoke with flat finisher Dr. Franks, requested that we consult on-call flat finisher Dr. Adhikari. Upon evaluation, Dr. Adhikari believes patient is candidate for ADULT DAY CARE WORKER placement, but will have to schedule at a later date when patient is free of infection and able to lay flat on her back for at least [address] Adhikari will update Dr. Franks. Will continue to diurese, decrease dose as patient has developed contraction alkalosis. 01/02: Patient continues to do well, weaning oxygen now on 1 L. Able to lay flat for at least 45 minutes. Per cardiology plan for cardiac cath tomorrow, will implant ADULT DAY CARE WORKER-D later outpatient. 01/03: Cardiac cath shows ischemic cardiomyopathy, chronic systolic heart failure, ejection fraction of 20%. Elevated pulmonary wedge pressure with persistent left heart failure. Mild pulmonary hypertension, PA pressure 42/17. Plan: - s/p cardiac cath - Started on spiranolactone 25 mg daily - Discontinue Jardiance - Continue IV Bumex 1g BID - Continue midodrine to 5 mg TID - Strict I&O's, daily weights - Fluid restriction 1800 mL - K>4 and Mg >2 - Supplemental oxygen as needed, keep O2 saturation between 88-92% - Continue Entresto as tolerated (MAP >65) - Work toward GDMT, recommend starting on metoprolol XL 25 mg daily and increase to 50 mg daily as tolerated - Plan to schedule for ADULT DAY CARE WORKER defibrillator implantation within 2 weeks - Consult cardiology Dr. Franks, appreciate recommendation #Acute infectious encephalopathy 2/2 UTI #Stroke - ruled out #Generalized weakness Per daughter, patient has been deteriorating for the past 2 weeks, started suddenly. Complained of headache during the first week and has been unable to ambulate independently. Is also not at mental baseline per family. On physical exam, patient was unable to lift her arms, likely due to pain but also concern for neurologic deficit, global cmo strength was 4/5. Also endorses urinary incontinence since 2 week onset. Will need to rule out stroke. Unlikely NPH (wet, wacky, wobbly) as CT head did not note any ventricular abnormalities/enlargement. Possibly medication induced; per daughter, pt is confused on buspirone but is one of her home medications. Possibly infectious, is having worsening abdominal pain, UA positive CT head negative for acute hemorrhage, mass effect or midline shift. Per neurology, patient has had step walsh decline in mental status, likely secondary to dementia. Pending EEG read. 12/29: Per daughter, patient has been having chronic abdominal pain since hernia repair (mesh placed?); however has been worsening as of late. PT evaluated patient, recommend SNF for short term rehab but patient not enthusiastic, family understands and will discuss with patient. 12/30: Abdominal US shows absent gallbladder, mild renal scar formation, and mild hepatomegaly with fatty infiltration, otherwise unremarkable. 12/31: UA 12/30 shows positive leukocyte esterase, nitrites, 13 WBC, and +1 bacteria, pending urine culture. 01/01: EEG was normal, no signs of dementia. Patient is more conversational however alert and oriented x 1 still (oriented to self, not to place and time). 01/01: Urine culture positive for Citrobacter freundii. Based on sensitivities, resistant to ceftriaxone, will transition to oral levofloxacin. Plan: - Continue ASA 81 mg and home dose atorvastatin/5 - Discontinue IV ceftriaxone 1 g (12/31?01/02), start on levofloxacin p.o. (01/02- - Consulted neurology Dr. Alexis, appreciate recommendations #DEMETRIUS on CKD - resolved #Bilateral Renal Cortical thinning, US (08/2024) Patient has a past medical history likely underlying CKD given bilateral renal cortical thinning from previous echo sounds. DEMETRIUS likely pre-renal given elevated BUN/Cr ratio, patient is altered and likely has not been well hydrated. Baseline creatinine 1.3 in 2023. Likely worsened with diuresis. Plan -Strict I&O's -Avoid nephrotoxins -Renally dose medication -if worsening DEMETRIUS on CKD, consider nephrology consult #Anxiety Takes Buspar 7.5mg BID at home; however was discontinued recently as it caused the patient to be confused. Continues to be anxious throughout admission, likely due to hospital/medical environment. - Discontinue BuSpar 10 mg and gabapentin - Continue Duloxitine 20 mg daily per neurology - Haloperidol, Seroquel, and diphenhydramine prn #Emphysema #COPD Patient has been smoking average of 4-5 cigarettes daily for the past 68 years, continues to smoke. Has developed emphysema/COPD as a result. - Continue levalbuterol prn - CHF management as above - Supplemental oxygen as needed, keep O2 saturation 88-92% #Microcytic anemia #BRISA On admission, Hgb 9.5 with MCV 78 and RDW 58.3. Baseline appears to be around 11. Iron panel 12/28 shows iron 15, TIBC 474, iron saturation 3, unsat iron binding 459, indicating iron deficiency anemia. Denies hemoptysis, melena, blood per rectum, hematuria, low concern for acute bleed at this time. - Consider starting on iron supplementation outpatient after cleared of infection - Continue to monitor H&H #Afib on Eliquis Takes Eliquis 2.5 mg daily. Holding in anticipation for cardiac cath tomorrow, will restart after procedure. - Restart Eliqiuis tomorrow #DM2, non insulin dependent A1c 08/20 was 6.6. Per daugther this is a recent diagnosis, taking Jardiance at home. - Continue sensitive insulin sliding scale #Hx of CAD Takes atorvastatin at home. Lipid panel 12/29: trig 47, total chol 98, LDL 32, HDL 57. ASCVD risk score: unable to be calculated as pt is over 79. - Continue on low dose ASA - Continue home dose atorvastatin #Incidential, Severe Osteopenia, noted on humerus XR - Consider on starting bisphosphonates outpatient - Family still concerned for fracture, scheduled open MRI outpatient #NAFLD On US abdomen. No significant alcohol use on history. - Recommend weight loss and diet modification outpatient Health Maintenance Disposition: management of CHF exacerbation, UTI, pending urine cultures DVT prophylaxis: Eliquis GI prophylaxis: Senna Diet: Cardiac CODE STATUS: FULL Patient plan of care was discussed with the resident, Dr. Smith, and attending physician, Dr. Luu. Molly Montano, PGY-1 - The patient's plan was discussed with attending Dr Bell Smith MD PGY2 Internal Medicine Attending Provider Attestation/Addendum I attest that I was physically present for the evaluation, physical examination, lab and imaging review of the patient with the residents. I discussed the case with the residents and agree with the findings and plans of care as documented above. Kassi Luu MD
[2025-01-03] MEDS: ACETAMINOPHEN 325 MG TABLET 650 MG PO (12:06)
[2025-01-03] MEDS: NICOTINE PATCH 21 MG/24 HR PATCH.TD24 TOP (12:07)
[2025-01-03] MEDS: LEVOFLOXACIN 250 MG TABLET PO (12:08)
[2025-01-03] MEDS: BUMETANIDE INJ 0.25 MG/ML VIAL 4 ML 1 MG IVP ×2 (12:08→21:13)
[2025-01-03] MEDS: DULoxetine HCL 20 MG CAPSULE PO (12:09)
[2025-01-03] MEDS: JARDIANCE (EMPAGLIFLOZIN) 10 MG TABLET PO (12:09)
--- NOTE | 2025-01-03 13:07 | ESOP_ITS ---
RE: MARTINE HOWARD : 1940 DATE OF OPERATION: 01/03/2025 PROCEDURES PERFORMED: 1. Diagnostic right and left heart cardiac catheterization, selective coronary angiogram, left ventricular angiogram, CPT 57316. 2. Conscious sedation, 15 minutes duration. 3. Ultrasound guided access of right radial artery and femoral vein. DIAGNOSES: 1. Ischemic cardiomyopathy. 2. Congestive heart failure. 3. Chronic systolic heart failure with left bundle branch block. 4. Acutely decompensated heart failure. HISTORY AND INDICATIONS: The patient is an 84-year-old lady with history of CAD, multivessel stent placement, ischemic cardiomyopathy, admitted to the hospital with acute decompensated systolic heart failure. Left ventricle was markedly dilated. Ejection fraction 20%, severe global hypokinesis and the patient was diuresed and the patient remained in heart failure. PA systolic pressure was elevated at 65 and also recommended to have evaluation for possible INTERPRETER defibrillator implantation and assessment of underlying reversible ischemic causes such as stent restenosis. DESCRIPTION OF PROCEDURE: The patient was brought to the cardiac catheterization laboratory. She already somewhat drowsy, lethargic and more sedation was not given so she was given BuSpar 10 mg and also gabapentin, which apparently made her drowsy and lethargic. Informed consent was obtained from the family as well. Radial approach was taken. Right femoral vein was cannulated by micropuncture technique. A 7-Maltese sheath was introduced. Right radial artery was cannulated after local anesthesia and ultrasound guidance was used and 6-Maltese Glidesheath was introduced. Right heart catheterization was performed with a [place] catheter. Right heart pressures were measured. Pulmonary wedge pressure was measured. Selective right and left coronary angiogram was performed by a TIG-4 diagnostic catheter. The patient tolerated the procedure well. No complications. Cardiac catheterization showed following findings: Hemodynamics: Right atrial pressure was found to be 10 mmHg. Pulmonary artery pressure was 42/17 mmHg, mean of 27 mmHg. Right ventricular pressure 42/4, EDP 10. Pulmonary artery wedge pressure is 19 mmHg. Aortic pressure is 84/48. LV angiogram was not performed because of low ejection fraction. Echo showed ejection fraction of 20%. The patient has dilated cardiomyopathy. Coronary venous sinus delayed phase angiogram was also performed. Coronary angiogram showed the following findings: Right coronary artery is large and dominant and showed evidence of PDA and PL branches. No significant stenosis. Left coronary system: Left main coronary artery is normal, left anterior descending artery showed multiple stents. Circumflex artery are also widely patent. Nonobstructive coronary arteries. SUMMARY OF FINDINGS: 1. Ischemic cardiomyopathy, chronic systolic heart failure, ejection fraction of 20%. 2. Elevated pulmonary wedge pressure with persistent left heart failure. 3. Mild pulmonary hypertension, PA pressure 42/17. RECOMMENDATIONS: The patient will be optimized for medical management and will be continued on low-dose aspirin. Eliquis can be resumed tomorrow. Entresto to be continued. Diuretic includes spironolactone and loop diuretic to be continued. We will also recommend beta- mallorie, metoprolol succinate 25 mg daily and increase to 50 mg daily, probably requires 1 more day of IV diuresis and discharge home probably on Wednesday. I will schedule her for INTERPRETER defibrillator implantation within 2 weeks once her heart failure is well compensated. The patient meets criteria for INTERPRETER defibrillator implantation because of left bundle branch block, QRS duration of 150 milliseconds, ejection fraction 20%. The patient was quite lethargic and it was recommended to discontinue gabapentin, which made her extremely lethargic and unresponsive, especially BuSpar and a combination of gabapentin as well as duloxetine. On initial admission, the patient was agitated because of severe shortness of breath from heart failure. She does not have any psychiatric illness. Most of her problems are due to heart failure, anxiety due to elevated wedge pressures. Should not be given excessive medications for this patient. DT: 12:38:47 TT: 13:05:00 Ref: [id number] - TID: [id number]
[2025-01-03] MEDS: METOPROLOL SUCCINATE XL 25 MG TABCR PO (13:41)
--- NOTE | 2025-01-03 15:23 | PC.SS ---
Rounding Note: Patient underwent cardiac cath this morning. Plan is to diuresis patient. Cardiology is consulting. Possible d/c on Wednesday.
[2025-01-03] MEDS: ATORVASTATIN CALCIUM 20 MG TABLET 40 MG PO (21:14)
[2025-01-04] VITALS (15 sets, daily range): BP systolic 103–116; BP diastolic 50–71; PULSE 43–88; RESP 15–22; TEMP 36.1–36.6; O2SAT 95–98; BMI 30.1
[2025-01-04 05:01] LABS: Basophils # (Auto) 0.0 Thou/mm3 (0.0-0.2); Basophils % (Auto) 1 % (0-2.5); Eosinophils # (Auto) 0.1 Thou/mm3 (0.0-0.5); Eosinophils % (Auto) 3 % (0-10); Hematocrit 31.6 % (36.0-46.0); Hemoglobin 9.6 g/dL (12.0-16.0); Immature Granulocytes Auto 0.01 Thou/mm3 (0.00-0.00); Lymphocytes # (Auto) 1.0 Thou/mm3 (1.0-4.8); Lymphocytes % (Auto) 22 % (10-50); Mean Corpuscular HGB Conc 30.4 g/dl (31.0-37.0); Mean Corpuscular Hemoglobin 24.7 pg (25.0-35.0); Mean Corpuscular Volume 81 fL (80-100); Monocytes # (Auto) 0.4 Thou/mm3 (0.0-0.8); Monocytes % (Auto) 10 % (0-12); Neutrophils # (Auto) 2.8 Thou/mm3 (1.8-7.7); Neutrophils % (Auto) 65 % (37-80); Nucleated Red Blood Cell # 0.00 Thou/mm3 (0.00-0.00); Nucleated Red Blood Cell % 0 /100 WBC (0); Platelet Count 220 Thou/mm3 (140-440); RDW Standard Deviation 60.0 fL (36.4-46.3); Red Blood Count 3.88 Miln/mm3 (4.00-5.20); White Blood Count 4.3 Thou/mm3 (3.6-11.0)
[2025-01-04] MEDS: MIDODRINE 5 MG TABLET PO ×3 (05:21→21:37)
[2025-01-04 05:43] LABS: Alanine Aminotransferase 21 U/L (10-49); Albumin, Serum 3.4 gm/dL (3.4-4.8); Albumin/Globulin Ratio 1.4 (1.2-2.2); Alkaline Phosphatase 149 U/L (46-116); Anion Gap 6 (7-16); Aspartate Amino Transferase 33 U/L (0-34); BUN/Creatinine Ratio 35 Ratio (12-20); Bilirubin,Total 0.6 mg/dL (0.3-1.2); Blood Urea Nitrogen 39 mg/dL (9-23); Calcium 8.7 mg/dL (8.3-10.6); Calcium (Corrected) 9.2 mg/dL (8.5-10.1); Carbon Dioxide 33.4 mMol/L (20.0-31.0); Chloride 101 mMol/L (98-107); Creatinine (Component) 1.1 mg/dL (0.6-1.3); Estimated Creatinine Clearance 31.0 mL/min (>60); Globulin 2.5 gm/dL (2.3-3.5); Glucose 108 mg/dL (74-106); Magnesium 1.9 mg/dL (1.6-2.6); Osmolality,Calculated 289 (275-295); Phosphorous 3.1 mg/dL (2.4-5.1); Potassium 4.4 mMol/L (3.4-5.1); Sodium 140 mMol/L (136-145); Total Protein 5.9 gm/dL (5.7-8.2); eGFR 49 See Note
[2025-01-04] MEDS: Magnesium Sulfate 2 GM Ivpb 2 GM/50 ML BAG IV (07:52)
[2025-01-04] MEDS: DULoxetine HCL 20 MG CAPSULE PO (08:37)
[2025-01-04] MEDS: SPIRONOLACTONE 25 MG TABLET PO (08:37)
[2025-01-04] MEDS: ASPIRIN EC 81 MG TABEC PO (08:37)
[2025-01-04] MEDS: METOPROLOL SUCCINATE XL 25 MG TABCR 50 MG PO (08:37)
[2025-01-04] MEDS: APIXABAN 2.5 MG TABLET PO ×2 (08:37→21:38)
[2025-01-04] MEDS: LEVOFLOXACIN 250 MG TABLET PO (08:37)
[2025-01-04] MEDS: BUMETANIDE INJ 0.25 MG/ML VIAL 4 ML 1 MG IVP ×2 (08:38→21:36)
[2025-01-04] MEDS: JARDIANCE (EMPAGLIFLOZIN) 10 MG TABLET PO (08:38)
[2025-01-04] MEDS: NICOTINE PATCH 21 MG/24 HR PATCH.TD24 TOP (08:39)
--- NOTE | 2025-01-04 09:11 | PD.RESPRO ---
Documentation for date of: 01/04/25 NO overnight events. Patient continues to diuresis for at least one additional day, likely discharge within the next 24 hours. Continue antibiotic course until 01/09/2025. Pending SNF placement at [facility]. I have discussed the case with supervising physician and jewelry internship physician involved in the care of patient. I personally saw and examined patient and discussed the assessment and plan with the entire medical team, including attending. I agree with assessment and plan as documented below. Loan Smith MD PGY-2 Internal Medicine Subjective Subjective Interval history: No acute events overnight. Patient seen and examined at bedside this AM. Patient was sitting up, compensating with family. Complaining of generalized pain, neuropathy versus fibromyalgia, will restart gabapentin at 100 mg 3 times daily. Complaining of abdominal pain but no tenderness on exam. Patient was also anxious, worried about her heart and kidneys. Reassured that she had no cardiac blockages and her kidneys are still doing well. Labs and vitals were reviewed. -40 mL over the past 24 hours, had 2 bowel movements this morning. CBC unremarkable, hemoglobin at baseline (9-10). Bicarb 33.4, likely contraction alkalosis secondary to overdiuresis. BUN 39, creatinine 1.1. Magnesium 1.9, repleted. Continue spironolactone and Bumex 1 g twice daily, also continue midodrine 5 for blood pressure. Restarted on Eliquis today. Outpatient consider starting on metoprolol succinate 25 mg then increase to 50 mg per cardiology recommendations. Anticipate SECURITY DEVELOPER placement within 2 weeks of discharge. Will continue levofloxacin for complete 14-day course, end date 01/07. Anticipate discharge tomorrow. Review of systems otherwise negative except what is mentioned above. Exam Vital Signs Temp Pulse Resp BP Pulse Ox O2 Del Method O2 Flow Rate 97.2 F 75 15 113/61 95 Nasal Cannula 1 01/04/25 08:00 01/04/25 08:38 01/04/25 08:00 01/04/25 08:38 01/04/25 08:00 01/04/25 08:00 01/04/25 08:00 Narrative Exam Physical Exam General: Awake in no acute distress. Conversational. Elderly woman sitting up in bed. Pleasantly confused. HEENT: Normocephalic, atraumatic, mucous membranes moist. Heart: Regular rate and rhythm, normal S1 and S2, no murmurs. Lungs: Mild rhonchi likely secondary extensive to smoking history. Abdomen: Soft, nondistended, positive bowel sounds. Diffuse tenderness on palpation, chronic. No guarding or rebound tenderness. Neurologic: Alert and oriented X2 (oriented to self and place, not time), no gross neurological deficit, and patient able to move all 4 extremities. Extremities: 1+ pitting lower extremity edema bilaterally. Skin: No rash or ecchymoses. Objective Labs 01/04/25 04:21 01/04/25 04:21 Labs: Laboratory Results - last 24 hr 01/04/25 04:21 WBC 4.3 RBC 3.88 L Hgb 9.6 L Hct 31.6 L MCV 81 MCH 24.7 L MCHC 30.4 L RDW Std Deviation 60.0 H Plt Count 220 Neut % (Auto) 65 Lymph % (Auto) 22 [place] % (Auto) 10 Eos % (Auto) 3 Baso % (Auto) 1 Neut # (Auto) 2.8 Lymph # (Auto) 1.0 [place] # (Auto) 0.4 Eos # (Auto) 0.1 Baso # (Auto) 0.0 Immature Gran # (Auto) 0.01 H Absolute Nucleated RBC 0.00 Immature Gran % 0 Nucleated RBC % 0 Sodium 140 Potassium 4.4 Chloride 101 Carbon Dioxide 33.4 H Anion Gap 6 L BUN 39 H Creatinine 1.1 Estim Creat Clear Calc 31.0 L eGFR 49 L BUN/Creatinine Ratio 35 H Glucose 108 H Calculated Osmolality 289 Calcium 8.7 Corrected Calcium 9.2 Phosphorus 3.1 Magnesium 1.9 Total Bilirubin 0.6 AST 33 ALT 21 Alkaline Phosphatase 149 H Total Protein 5.9 Albumin 3.4 Globulin 2.5 Albumin/Globulin Ratio 1.4 ABG Interpretation ABG results: 12/28/24 08:04 ABG pH 7.41 ABG pCO2 47 ABG pO2 113 H ABG HCO3 30 H ABG O2 Saturation 99 H ABG Base Excess 4 H Quality Measures Quality Measures none Advance care planning discussed with:: patient and other (family) Assessment & Plan Assessment Current Active Medications: Generic Name Dose Route Start Last Admin Trade Name Freq PRN Reason Stop Dose Admin Acetaminophen 650 mg 12/27/24 22:44 01/03/25 12:06 Acetaminophen 325 Mg Tablet PO 01/26/25 22:43 650 mg Q6H PRN Administration PAIN SCALE 1-3 (mild Apixaban 2.5 mg 01/04/25 09:00 01/04/25 08:37 Apixaban 2.5 Mg Tablet PO 02/03/25 08:59 2.5 mg BID ALVARO Administration Aspirin 81 mg 01/04/25 09:00 01/04/25 08:37 Aspirin Ec 81 Mg Tabec PO 02/03/25 08:59 81 mg QDAY ALVARO Administration Atorvastatin Calcium 40 mg 12/28/24 21:00 01/03/25 21:14 Atorvastatin Calcium 20 Mg Tablet PO 01/27/25 20:59 40 mg HS ALVARO Administration Bumetanide 1 mg 01/02/25 17:09 01/04/25 08:38 Bumetanide Inj 0.25 Mg/Ml Vial 4 Ml IVP 01/31/25 20:59 1 mg BID ALVARO Administration Jardiance ( 0 ea 12/30/24 15:00 01/04/25 08:38 Empagliflozin) 10 Mg PO 01/29/25 14:59 1 tablet Tablet DAILY ALVARO Administration Dextrose 25 ml 12/27/24 22:44 Dextrose 50%-Water Inj 50 Ml Syringe IV 01/26/25 22:43 Q15MIN PRN BG 50-70 responsive npo pt Dextrose 50 ml 12/27/24 22:44 Dextrose 50%-Water Inj 50 Ml Syringe IV 01/26/25 22:43 Q15MIN PRN BG <50 OR BG <70 & pt unresponsive Duloxetine HCl 20 mg 12/29/24 17:30 01/04/25 08:37 Duloxetine Hcl 20 Mg Capsule PO 01/28/25 17:29 20 mg QDAY ALVARO Administration Glucagon 1 mg 12/27/24 22:44 Glucagon Inj 1 Mg Vial IM Q15MIN PRN BG <70, and no IV access Insulin Human Lispro 0 unit 12/28/24 07:30 01/04/25 07:51 Insulin Lispro (Admelog) 1 Unit/0.01 Ml Unit SC 01/27/25 07:29 Not Given ACHS ALVARO Protocol Levalbuterol HCl 0.63 mg 12/27/24 22:51 Levalbuterol Rt 0.63 Mg/3 Ml Nebu INH 01/26/25 22:50 Q8HR PRN WHEEZING Levofloxacin 250 mg 01/02/25 09:00 01/04/25 08:37 Levofloxacin 250 Mg Tablet PO 01/09/25 08:59 250 mg QDAY ALVARO Administration Metoprolol Succinate 50 mg 01/04/25 09:00 01/04/25 08:37 Metoprolol Succinate Xl 25 Mg Tabcr PO 02/03/25 08:59 50 mg QDAY ALVARO Administration Midodrine 5 mg 01/02/25 14:00 01/04/25 05:21 Midodrine 5 Mg Tablet PO 02/01/25 13:59 5 mg TID ALVARO Administration Nicotine 21 mg 12/30/24 09:00 01/04/25 08:39 Nicotine Patch 21 Mg/24 Hr Patch.Td24 TOP 01/29/25 08:59 21 mg QDAY ALVARO Administration Ondansetron HCl 4 mg 12/27/24 22:44 Ondansetron Inj 2 Mg/Ml Inj 2 Ml IVP 01/26/25 22:43 Q6H PRN NAUSEA OR VOMITING Protocol Sacubitril/Valsartan 1 tab 12/31/24 21:00 01/04/25 08:36 Sacubitril 24 Mg/Valsartan 26 Mg Tablet PO 01/30/25 20:59 1 tab BID ALVARO Administration Sennosides 1 tab 12/28/24 09:00 01/04/25 08:37 Senna Tablet PO 01/27/25 08:59 1 tab QDAY ALVARO Administration Protocol Spironolactone 25 mg 01/04/25 09:00 01/04/25 08:37 Spironolactone 25 Mg Tablet PO 02/03/25 08:59 25 mg DAILY ALVARO Administration Tramadol HCl 50 mg 01/03/25 20:28 Tramadol Hcl 50 Mg Tablet PO 01/08/25 20:27 Q6HR PRN PAIN 4-6 Plan Patient is a 84 year old female with past medical history of HTN, emphysema, HFrEF (EF 40-45%), CAD, DM2 non insulin dependent, Afib on Eliquis, and chronic abdominal pain who presented on 12/28 for 2 weeks of generalized deterioration, admitted for work up and management of acute CHF exacerbation, found to have UTI which is currently being treated with IV CFX (12/31-01/02) and PO levofloxacin (01/02-01/07). #Acute on chronic CHF exacerbation #HFrEF EF 20 % (12/27/2024), secondary to ischemic cardiomyopathy #Severe global hypokinesis #Mild pulmonary hypertension #Contraction alkalosis secondary to diuresis #Hypotension 2/2 diuresis Patient endorsed worsening dyspnea on exertion, orthopnea, and paroxysmal nocturnal dyspnea. Physical exam was pertinent for JVD and 2+ pitting lower extremity edema bilaterally. Home medications include benazepril, Lasix, Jardiance, and spiranolactone. Patient follows with prop and effects designer Dr. Franks outpatient. Echo 02/12/19: EF 40-45% with trace MR with valve thickening, mild TR, mild pulmonic valve regurgitation, and sclerotic aortic valve. Echo 12/27/24: EF 20% with dilated cardiomyopathy with severe global hypokinesis, moderate pulmonary hypertension. CXR 12/30/24: mild CHF with moderate cardiomegaly, prominent vascular congestion with basilar edema 01/01: Spoke with prop and effects designer Dr. Franks, requested that we consult on-call prop and effects designer Dr. Adhikari. Upon evaluation, Dr. Adhikari believes patient is candidate for SECURITY DEVELOPER placement, but will have to schedule at a later date when patient is free of infection and able to lay flat on her back for at least [address] Adhikari will update Dr. Franks. Will continue to diurese, decrease dose as patient has developed contraction alkalosis. 01/02: Patient continues to do well, weaning oxygen now on 1 L. Able to lay flat for at least 45 minutes. Per cardiology plan for cardiac cath tomorrow, will implant SECURITY DEVELOPER-D later outpatient. 01/03: Cardiac cath shows ischemic cardiomyopathy, chronic systolic heart failure, ejection fraction of 20%. Elevated pulmonary wedge pressure with persistent left heart failure. Mild pulmonary hypertension, PA pressure 42/17. Noted multiple stents along LAD however still patent. Plan: - Continue spiranolactone 25 mg daily - Continue IV Bumex 1g BID - Continue midodrine 5 mg TID - Strict I&O's, daily weights - Fluid restriction 1800 mL - K>4 and Mg >2 - Supplemental oxygen as needed, keep O2 saturation between 88-92% - Continue Entresto as tolerated (MAP >65) - Work toward GDMT, recommend starting on metoprolol XL 25 mg daily and increase to 50 mg daily as tolerated - Plan to schedule for SECURITY DEVELOPER defibrillator implantation within 2 weeks - Consult cardiology Dr. Franks, appreciate recommendation #Acute infectious encephalopathy 2/2 UTI #Stroke - ruled out #Generalized weakness Per daughter, patient has been deteriorating for the past 2 weeks, started suddenly. Complained of headache during the first week and has been unable to ambulate independently. Is also not at mental baseline per family. On physical exam, patient was unable to lift her arms, likely due to pain but also concern for neurologic deficit, game advisor strength was 4/5. Also endorses urinary incontinence since 2 week onset. Will need to rule out stroke. Unlikely NPH (wet, wacky, wobbly) as CT head did not note any ventricular abnormalities/enlargement. Possibly medication induced; per daughter, pt is confused on buspirone but is one of her home medications. Possibly infectious, is having worsening abdominal pain, UA positive CT head negative for acute hemorrhage, mass effect or midline shift. Per neurology, patient has had step walsh decline in mental status, likely secondary to dementia. Pending EEG read. 12/29: Per daughter, patient has been having chronic abdominal pain since hernia repair (mesh placed?); however has been worsening as of late. PT evaluated patient, recommend SNF for short term rehab but patient not enthusiastic, family understands and will discuss with patient. 12/30: Abdominal US shows absent gallbladder, mild renal scar formation, and mild hepatomegaly with fatty infiltration, otherwise unremarkable. 12/31: UA 12/30 shows positive leukocyte esterase, nitrites, 13 WBC, and +1 bacteria, pending urine culture. 01/01: EEG was normal, no signs of dementia. Patient is more conversational however alert and oriented x 1 still (oriented to self, not to place and time). 01/01: Urine culture positive for Citrobacter freundii. Based on sensitivities, resistant to ceftriaxone, will transition to oral levofloxacin. Plan: - Continue ASA 81 mg and home dose atorvastatin - Discontinue IV ceftriaxone 1 g (12/31?01/02), start on levofloxacin p.o. (01/02- - Consulted neurology Dr. Alexis, appreciate recommendations #DEMETRIUS on CKD - resolved #Bilateral Renal Cortical thinning, US (08/2024) Patient has a past medical history likely underlying CKD given bilateral renal cortical thinning from previous echo sounds. DEMETRIUS likely pre-renal given elevated BUN/Cr ratio, patient is altered and likely has not been well hydrated. Baseline creatinine 1.3 in 2023. Likely worsened with diuresis. Plan -Strict I&O's -Avoid nephrotoxins -Renally dose medication -if worsening DEMETRIUS on CKD, consider nephrology consult #Anxiety #Neuropathy versus fibromyalgia Takes Buspar 7.5mg BID at home; however was discontinued recently as it caused the patient to be confused. Continues to be anxious throughout admission, likely due to hospital/medical environment. 01/04: Patient complaining of generalized pain, was started on gabapentin 300 3 times daily but discontinued due to drowsiness. - Restart gabapentin 100 mg 3 times daily, titrate up if pain not controlled - Continue Duloxitine 20 mg daily per neurology - Haloperidol, Seroquel, and diphenhydramine prn #Emphysema #COPD Patient has been smoking average of 4-5 cigarettes daily for the past 68 years, continues to smoke. Has developed emphysema/COPD as a result. - Continue levalbuterol prn - CHF management as above - Supplemental oxygen as needed, keep O2 saturation 88-92% #Microcytic anemia #BRISA On admission, Hgb 9.5 with MCV 78 and RDW 58.3. Baseline appears to be around 11. Iron panel 12/28 shows iron 15, TIBC 474, iron saturation 3, unsat iron binding 459, indicating iron deficiency anemia. Denies hemoptysis, melena, blood per rectum, hematuria, low concern for acute bleed at this time. - Consider starting on iron supplementation outpatient after cleared of infection - Continue to monitor H&H #Afib on Eliquis Takes Eliquis 2.5 mg daily. Holding in anticipation for cardiac cath tomorrow, will restart after procedure. - Continue Eliquis #DM2, non insulin dependent A1c 08/20 was 6.6. Per daugther this is a recent diagnosis, taking Jardiance at home. - Continue sensitive insulin sliding scale #Hx of CAD Takes atorvastatin at home. Lipid panel 12/29: trig 47, total chol 98, LDL 32, HDL 57. ASCVD risk score: unable to be calculated as pt is over 79. - Continue on low dose ASA - Continue home dose atorvastatin #Incidential, Severe Osteopenia, noted on humerus XR - Consider on starting bisphosphonates outpatient - Family still concerned for fracture, scheduled open MRI outpatient #NAFLD On US abdomen. No significant alcohol use on history. - Recommend weight loss and diet modification outpatient Health Maintenance Disposition: management of CHF exacerbation, UTI, pending urine cultures DVT prophylaxis: Eliquis GI prophylaxis: Senna Diet: Cardiac CODE STATUS: FULL Patient plan of care was discussed with the resident, Dr. Smith, and attending physician, Dr. Luu. Molly Montano, PGY-1 Attending Provider Attestation/Addendum I attest that I was physically present for the evaluation, physical examination, lab and imaging review of the patient with the residents. I discussed the case with the residents and agree with the findings and plans of care as documented above. At bedside today, patient complains of generalized pain and refused to wake up for exam. Underwent cardiac catheterization yesterday, was not found to have any blockages. She was found to have ejection fraction of 20%. Continues to be on aggressive diuresis with midodrine on board. Restarted on Eliquis today. Continues to be on antibiotics, goal-directed medical therapy, fluid restriction. Kidney function is stable. Gabapentin, buspirone was held as patient was sleepy yesterday, today she is complaining of worsening pain, we will start her on small dose of gabapentin and closely monitor. Kassi Luu MD
[2025-01-04] MEDS: GABAPENTIN 100 MG CAPSULE PO ×2 (13:25→21:38)
--- NOTE | 2025-01-04 16:08 | ESPR_ITS ---
<Statement entered by Ana Luisa Adhikari MD - 01/06/25 15:47> I personally examined evaluated this patient who has dilated cardiomyopathy chronic systolic heart failure ejection fraction 20% left bundle branch block underlying A-fib no evidence of underlying CAD all stents are patent recommend continue guideline directed max medical management as an outpatient we will schedule the patient for [employer] SAL[employer] once her condition is stable she can lay flat for at least 1 hour on the table. Evaluated patient with resident physician Dr. Hansen PGY2 agree with the treatment plan recommendation as documented Documentation for date of: 01/04/25 Subjective Subjective Interval history: Pt is seen at bedside, vitals are stable, pt is currently saturating on 1L O2 via NC. Pt is complaining of muscular and arthritis pain all over her body but denies any chest pain, tightness, palpitations. Pt endorses to improvement in shortness of breath. labs are reviewed. 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 Continue diueresis and GDMT. Will also continue midodrine 5mg TID to support blood pressure Exam Vital Signs Temp Pulse Resp BP Pulse Ox O2 Del Method O2 Flow Rate 97.8 F 61 20 116/71 96 Nasal Cannula 1 01/04/25 12:00 01/04/25 13:27 01/04/25 12:00 01/04/25 13:27 01/04/25 12:00 01/04/25 12:00 01/04/25 12:00 Narrative Exam GENERAL: A&Ox3 . Awake, Not in acute distress. Currently saturating via NC NEURO: no focal neurological deficits HEENT: Atraumatic, Normocephalic. mucous membranes moist. Eyes open, symmetrical, & clear HEART: regular rhythm and rate, S3 gallop and systolic murmur heard, JVD LUNGS: Clear to auscultation with no wheezing or crackles. ABDOMEN: soft, non-distended, non-tender, bowel sounds heard, no guarding or rebound tenderness SKIN: No Rash or ecchymoses EXTREMITIES: 1+ LE edema, no tenderness in LE, L shoulder tenderness, able to move all 4 extremities, pedal pulses palpated Objective Labs 01/04/25 04:21 01/04/25 04:21 Labs: Laboratory Results - last 24 hr 01/04/25 04:21 WBC 4.3 RBC 3.88 L Hgb 9.6 L Hct 31.6 L MCV 81 MCH 24.7 L MCHC 30.4 L RDW Std Deviation 60.0 H Plt Count 220 Neut % (Auto) 65 Lymph % (Auto) 22 [place] % (Auto) 10 Eos % (Auto) 3 Baso % (Auto) 1 Neut # (Auto) 2.8 Lymph # (Auto) 1.0 [place] # (Auto) 0.4 Eos # (Auto) 0.1 Baso # (Auto) 0.0 Immature Gran # (Auto) 0.01 H Absolute Nucleated RBC 0.00 Immature Gran % 0 Nucleated RBC % 0 Sodium 140 Potassium 4.4 Chloride 101 Carbon Dioxide 33.4 H Anion Gap 6 L BUN 39 H Creatinine 1.1 Estim Creat Clear Calc 31.0 L eGFR 49 L BUN/Creatinine Ratio 35 H Glucose 108 H Calculated Osmolality 289 Calcium 8.7 Corrected Calcium 9.2 Phosphorus 3.1 Magnesium 1.9 Total Bilirubin 0.6 AST 33 ALT 21 Alkaline Phosphatase 149 H Total Protein 5.9 Albumin 3.4 Globulin 2.5 Albumin/Globulin Ratio 1.4 ABG Interpretation ABG results: 12/28/24 08:04 ABG pH 7.41 ABG pCO2 47 ABG pO2 113 H ABG HCO3 30 H ABG O2 Saturation 99 H ABG Base Excess 4 H Quality Measures Quality Measures none Advance care planning discussed with:: patient and child Assessment & Plan Assessment Current Active Medications: Generic Name Dose Route Start Last Admin Trade Name Freq PRN Reason Stop Dose Admin Acetaminophen 650 mg 12/27/24 22:44 01/03/25 12:06 Acetaminophen 325 Mg Tablet PO 01/26/25 22:43 650 mg Q6H PRN Administration PAIN SCALE 1-3 (mild Apixaban 2.5 mg 01/04/25 09:00 01/04/25 08:37 Apixaban 2.5 Mg Tablet PO 02/03/25 08:59 2.5 mg BID ALVARO Administration Aspirin 81 mg 01/04/25 09:00 01/04/25 08:37 Aspirin Ec 81 Mg Tabec PO 02/03/25 08:59 81 mg QDAY ALVARO Administration Atorvastatin Calcium 40 mg 12/28/24 21:00 01/03/25 21:14 Atorvastatin Calcium 20 Mg Tablet PO 01/27/25 20:59 40 mg HS ALVARO Administration Bumetanide 1 mg 01/02/25 17:09 01/04/25 08:38 Bumetanide Inj 0.25 Mg/Ml Vial 4 Ml IVP 01/31/25 20:59 1 mg BID ALVARO Administration Jardiance ( 0 ea 12/30/24 15:00 01/04/25 08:38 Empagliflozin) 10 Mg PO 01/29/25 14:59 1 tablet Tablet DAILY ALVARO Administration Dextrose 25 ml 12/27/24 22:44 Dextrose 50%-Water Inj 50 Ml Syringe IV 01/26/25 22:43 Q15MIN PRN BG 50-70 responsive npo pt Dextrose 50 ml 12/27/24 22:44 Dextrose 50%-Water Inj 50 Ml Syringe IV 01/26/25 22:43 Q15MIN PRN BG <50 OR BG <70 & pt unresponsive Duloxetine HCl 20 mg 12/29/24 17:30 01/04/25 08:37 Duloxetine Hcl 20 Mg Capsule PO 01/28/25 17:29 20 mg QDAY ALVARO Administration Gabapentin 100 mg 01/04/25 14:00 01/04/25 13:25 Gabapentin 100 Mg Capsule PO 02/03/25 13:59 100 mg TID ALVARO Administration Glucagon 1 mg 12/27/24 22:44 Glucagon Inj 1 Mg Vial IM Q15MIN PRN BG <70, and no IV access Insulin Human Lispro 0 unit 12/28/24 07:30 01/04/25 12:46 Insulin Lispro (Admelog) 1 Unit/0.01 Ml Unit SC 01/27/25 07:29 Not Given ACHS ALVARO Protocol Levalbuterol HCl 0.63 mg 12/27/24 22:51 Levalbuterol Rt 0.63 Mg/3 Ml Nebu INH 01/26/25 22:50 Q8HR PRN WHEEZING Levofloxacin 250 mg 01/02/25 09:00 01/04/25 08:37 Levofloxacin 250 Mg Tablet PO 01/09/25 08:59 250 mg QDAY ALVARO Administration Metoprolol Succinate 50 mg 01/04/25 09:00 01/04/25 08:37 Metoprolol Succinate Xl 25 Mg Tabcr PO 02/03/25 08:59 50 mg QDAY ALVARO Administration Midodrine 5 mg 01/02/25 14:00 01/04/25 13:27 Midodrine 5 Mg Tablet PO 02/01/25 13:59 5 mg TID ALVARO Administration Nicotine 21 mg 12/30/24 09:00 01/04/25 08:39 Nicotine Patch 21 Mg/24 Hr Patch.Td24 TOP 01/29/25 08:59 21 mg QDAY ALVARO Administration Ondansetron HCl 4 mg 12/27/24 22:44 Ondansetron Inj 2 Mg/Ml Inj 2 Ml IVP 01/26/25 22:43 Q6H PRN NAUSEA OR VOMITING Protocol Sacubitril/Valsartan 1 tab 12/31/24 21:00 01/04/25 08:36 Sacubitril 24 Mg/Valsartan 26 Mg Tablet PO 01/30/25 20:59 1 tab BID ALVARO Administration Sennosides 1 tab 12/28/24 09:00 01/04/25 08:37 Senna Tablet PO 01/27/25 08:59 1 tab QDAY ALVARO Administration Protocol Spironolactone 25 mg 01/04/25 09:00 01/04/25 08:37 Spironolactone 25 Mg Tablet PO 02/03/25 08:59 25 mg DAILY ALVARO Administration Tramadol HCl 50 mg 01/03/25 20:28 01/04/25 13:25 Tramadol Hcl 50 Mg Tablet PO 01/08/25 20:27 50 mg Q6HR PRN Administration PAIN 4-6 Plan Ms. 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 Franks presented to the ED on 12/28/2024 complaining of generalized weakness. Cardiology is consulted for worsening acute decompensated heart failure. #Acute on chronic CHF exacerbation #Decompensated systolic HF #HFrEF EF 20% #Chronic A-fib, rate controlled Patient has chronic history of HFrEF and follows Dr. Alvarado outpatient regularly. Patient has been on GDMT for a long time as well. -Patient has been having worsening shortness of breath and lower extremity edema as well as orthopnea. -Currently patient is saturating well on 3 L of oxygen and on physical examination patient has severe shortness of breath and S3 gallop and severe JVD -Echo done on 12/27/2024: Dilated cardiomyopathy with severe global hypokinesis. Estimated EF at 20 %. The Rv Vsize is mildy increased with mildly decreased systolic function. Moderate pulmonary hypertension estimated PASP, 65 mmHg. Severely increased LA volume. [id number] MR and TR. Aortic valve sclerosis no stensois. Dilated IVC. - EKG on admission shows A-fib with left bundle branch block, rate 97 QTc 499 -[id number] score 7 - 15.7% risk of stroke/TIA/systemic embolism. -Has bled score 3 -NYHA class lV, BNP on admission > 3280 Plan: -Recommend continue patient's home Bumex and GDMT: spironolactone, Entresto -Pt is currently rate controlled, continue metoprolol xl 50mg Qd -Hold home Eliquis 2.5mg BID (due to angiogram scheduled for wednesday) -Once patient is more stable and orthopnea improves, will discuss with patient option of [employer] SALES CLERK-D, Pt does qualify because she is NYHA fucntional class IV and EKG shows left bundle branch block and EF < 35%. -Prior to B[employer] SAL[employer]ERK-D, pt will need to undergo cardiac angiogram to rule out worsening CAD or stent occulsion. #CAD s/p PCI #Hx of MD in 2019 -Patient has history of MD in 2019 and had 2 stents placed in [facility]. Patient follows Dr. Alvarado outpatient regularly -Pt denies any chest pain, pressure or palpitations -Takes atorvastatin and aspirin 81 mg daily at home. -Lipid panel 12/29: trig 47, total chol 98, LDL 32, HDL 57. Plan: - Continue home dose atorvastatin and aspirin #Acute encephalopathy 2/2 UTI #Stroke - ruled out #Generalized weakness #DM2, non insulin dependent #Microcytic anemia #Iron defiency anemia #DEMETRIUS on CKD - resolved #Bilateral Renal Cortical thinning, US (08/2024) #Severe Osteopenia, noted on humerus XR #NAFLD #Emphysema #COPD #Anxiety Thank you for the consult and allowing us to participate in the care of the patient. Cardiology will continue to follow. Assessment and plan discussed with my attending Manager Laboratory Dr. Onofre Hansen (PGY-2)- Internal medicine resident
--- NOTE | 2025-01-04 17:39 | PC.SS ---
Provided patient's family with list of accepting facilities. Family pending other SNF for placement. Previous choice was [facility]. MARKETING ANALYTICS ANALYST informed family that social worker assistant will confirm SNF decision tomorrow. Patient possible d/c for tomorrow.
--- NOTE | 2025-01-04 20:56 | PD.NEUROPROG ---
Documentation for date of: 01/04/25 Subjective Subjective Interval history: Patient is in telemetry with family at the bedside. no new symptoms reported. Exam - Neurology Vital Signs Temp Pulse Resp BP Pulse Ox O2 Del Method O2 Flow Rate 97.6 F 57 L 15 106/52 L 97 Nasal Cannula 1 01/04/25 16:00 01/04/25 16:00 01/04/25 16:00 01/04/25 16:00 01/04/25 16:00 01/04/25 16:00 01/04/25 16:00 Narrative Exam Narrative Exam General: No acute distress, well nourished, sitting on edge of bed and conversing with family members Eye: PERRL, EOMI, normal conjunctiva, no scleral icterus HENT: Normocephalic, atraumatic, hearing intact to conversation at normal volume, moist oral mucosa Neck: Supple, non-tender, no JVD, no lymphadenopathy Lungs: Non-labored respirations, symmetric chest rise Heart: Peripheral pulses intact bilaterally Abdomen: Soft, non-tender, non-distended Musculoskeletal: Normal range of motion and strength Skin: Skin is warm, dry, no rashes or lesions. Psychiatric: Cooperative, mood and affect: normal most of the time. Neurologic: Mental status: Orientation: AOx2. Ability to name family members fluctuates throughout the day Communication: Patient is cooperative and can follow simple instructions Language: Speech fluent, normal rate and volume, comprehension intact Cranial nerves:2-12 intact. Motor: Normal bulk and tone, No atrophy Muscle strength 5/5 b/l and symmetric in b/l lower extremities. Elbow flexion and extension symmetric and 5/5. Shoulder abduction 3/5 but easily fatigued Light touch intact and symmetric in all extremities coordination: intact to FNF and HKS bilaterally. No ataxia, dysmetria noted. Gait: not tested. Objective Labs 01/04/25 04:21 01/04/25 04:21 Labs: Laboratory Results - last 24 hr 01/04/25 04:21 WBC 4.3 RBC 3.88 L Hgb 9.6 L Hct 31.6 L MCV 81 MCH 24.7 L MCHC 30.4 L RDW Std Deviation 60.0 H Plt Count 220 Neut % (Auto) 65 Lymph % (Auto) 22 [place] % (Auto) 10 Eos % (Auto) 3 Baso % (Auto) 1 Neut # (Auto) 2.8 Lymph # (Auto) 1.0 [place] # (Auto) 0.4 Eos # (Auto) 0.1 Baso # (Auto) 0.0 Immature Gran # (Auto) 0.01 H Absolute Nucleated RBC 0.00 Immature Gran % 0 Nucleated RBC % 0 Sodium 140 Potassium 4.4 Chloride 101 Carbon Dioxide 33.4 H Anion Gap 6 L BUN 39 H Creatinine 1.1 Estim Creat Clear Calc 31.0 L eGFR 49 L BUN/Creatinine Ratio 35 H Glucose 108 H Calculated Osmolality 289 Calcium 8.7 Corrected Calcium 9.2 Phosphorus 3.1 Magnesium 1.9 Total Bilirubin 0.6 AST 33 ALT 21 Alkaline Phosphatase 149 H Total Protein 5.9 Albumin 3.4 Globulin 2.5 Albumin/Globulin Ratio 1.4 ABG Interpretation ABG results: 12/28/24 08:04 ABG pH 7.41 ABG pCO2 47 ABG pO2 113 H ABG HCO3 30 H ABG O2 Saturation 99 H ABG Base Excess 4 H Assessment & Plan Additional Assessment & Plan Additional Plan: Altered mental status with baseline dementia: improved to baseline. Most likely acute delirium on chronic dementia, exacerbated by DEMETRIUS and CHF exacerbation Per daughter, patient has been unable to walk for the past 2 weeks, likely worsening due to CHF exacerbation. Patient able to perform ADLs at baseline, no longer at baseline over the past 2 weeks. Daughter is trying to get her approved for IHSS No focal neuro deficits noted on exam Workup: CT head: Negative for acute hemorrhage EEG: normal Cognition enhancer therapies not appropriate in her case from comorbid cardiac conditions. Daughter is made aware. Advised her to follow routine schedule, lifestyle changes with diet and exercise as much as she can and control the vascular risk factors for preventing progression. #Anxiety: better when family is around -Continue Buspar 10 mg TID and Duloxetine 20 mg daily Patient is stable from Neuro stand point for dsicharge. # Headache - chronic: -continue Gabapentin 300 mg TID #Afib : Eliquis 2.5 mg BID #Acute CHF exacerbation #HFrEF (EF 40-45%) (02/2019) #Emphysema #DEMETRIUS #COPD #Microcytic anemia #DM2, non insulin dependent (A1C 6.5): A1c 08/20 was 6.6. Per daughter this is a recent diagnosis, taking Jardiance at home. #Hx of CAD #Mild hepatomegaly with fatty infiltration Plan: - Management per primary
[2025-01-04] MEDS: ATORVASTATIN CALCIUM 20 MG TABLET 40 MG PO (21:38)
[2025-01-05] VITALS (10 sets, daily range): BP systolic 99–117; BP diastolic 47–63; PULSE 56–84; RESP 14–21; TEMP 36.1–36.8; O2SAT 95–99; BMI 29.9
[2025-01-05] MEDS: MIDODRINE 5 MG TABLET PO (05:29)
[2025-01-05] MEDS: GABAPENTIN 100 MG CAPSULE PO (05:30)
[2025-01-05] MEDS: LEVOFLOXACIN 250 MG TABLET PO (08:54)
[2025-01-05] MEDS: DULoxetine HCL 20 MG CAPSULE PO (08:54)
[2025-01-05] MEDS: METOPROLOL SUCCINATE XL 25 MG TABCR 50 MG PO (08:54)
[2025-01-05] MEDS: NICOTINE PATCH 21 MG/24 HR PATCH.TD24 TOP (08:54)
[2025-01-05] MEDS: ASPIRIN EC 81 MG TABEC PO (08:54)
[2025-01-05] MEDS: APIXABAN 2.5 MG TABLET PO (08:54)
[2025-01-05] MEDS: JARDIANCE (EMPAGLIFLOZIN) 10 MG TABLET PO (08:55)
[2025-01-05] MEDS: SPIRONOLACTONE 25 MG TABLET PO (08:55)
[2025-01-05] MEDS: BUMETANIDE INJ 0.25 MG/ML VIAL 4 ML 1 MG IVP (08:59)
--- NOTE | 2025-01-05 09:31 | PC.SS ---
Addendum entered by ADOLFO Simmons 01/05/25 11:35: ETA with [facility] 1300. RN [place] notified. [facility] aware. Patient's daughter Janeth notified. Addendum entered by ADOLFO Simmons 01/05/25 10:42: [facility] reference number: [id number]. Addendum entered by Renee Naqvi CROOK OPERATOR 01/05/25 10:35: Contacted patient's RN to determine if patient has had a BM and will be ready for transport to [facility]. Was informed by MENDOZA Culp she is not sure and will have to check and call back. Original Note: SS follow up: [facility], Vicki confirmed they can accept the patient today if ready for d/c. Dr. Hansen is aware. Pending d/c orders.
[2025-01-05 10:44] LABS: Basophils # (Auto) 0.0 Thou/mm3 (0.0-0.2); Basophils % (Auto) 1 % (0-2.5); Eosinophils # (Auto) 0.1 Thou/mm3 (0.0-0.5); Eosinophils % (Auto) 3 % (0-10); Hematocrit 33.0 % (36.0-46.0); Hemoglobin 9.9 g/dL (12.0-16.0); Immature Granulocytes Auto 0.01 Thou/mm3 (0.00-0.00); Lymphocytes # (Auto) 0.8 Thou/mm3 (1.0-4.8); Lymphocytes % (Auto) 20 % (10-50); Mean Corpuscular HGB Conc 30.0 g/dl (31.0-37.0); Mean Corpuscular Hemoglobin 24.7 pg (25.0-35.0); Mean Corpuscular Volume 82 fL (80-100); Monocytes # (Auto) 0.4 Thou/mm3 (0.0-0.8); Monocytes % (Auto) 10 % (0-12); Neutrophils # (Auto) 2.8 Thou/mm3 (1.8-7.7); Neutrophils % (Auto) 66 % (37-80); Nucleated Red Blood Cell # 0.00 Thou/mm3 (0.00-0.00); Nucleated Red Blood Cell % 0 /100 WBC (0); Platelet Count 208 Thou/mm3 (140-440); RDW Standard Deviation 61.1 fL (36.4-46.3); Red Blood Count 4.01 Miln/mm3 (4.00-5.20); White Blood Count 4.2 Thou/mm3 (3.6-11.0)
[2025-01-05 11:12] LABS: Alanine Aminotransferase 24 U/L (10-49); Albumin, Serum 3.8 gm/dL (3.4-4.8); Albumin/Globulin Ratio 1.5 (1.2-2.2); Alkaline Phosphatase 155 U/L (46-116); Anion Gap 8 (7-16); Aspartate Amino Transferase 39 U/L (0-34); BUN/Creatinine Ratio 34 Ratio (12-20); Bilirubin,Total 0.5 mg/dL (0.3-1.2); Blood Urea Nitrogen 37 mg/dL (9-23); Calcium 9.2 mg/dL (8.3-10.6); Calcium (Corrected) 9.4 mg/dL (8.5-10.1); Carbon Dioxide 32.8 mMol/L (20.0-31.0); Chloride 99 mMol/L (98-107); Creatinine (Component) 1.1 mg/dL (0.6-1.3); Estimated Creatinine Clearance 30.6 mL/min (>60); Globulin 2.6 gm/dL (2.3-3.5); Glucose 110 mg/dL (74-106); Magnesium 1.8 mg/dL (1.6-2.6); Osmolality,Calculated 289 (275-295); Phosphorous 3.1 mg/dL (2.4-5.1); Potassium 4.2 mMol/L (3.4-5.1); Sodium 140 mMol/L (136-145); Total Protein 6.4 gm/dL (5.7-8.2); eGFR 49 See Note
--- NOTE | 2025-01-05 14:49 | ESDS_ITS ---
<Statement entered by Ron Baumann MD - 01/06/25 06:36> Patient was seen and examined by me personally. I have reviewed the below documentation by the team resident and agree with its findings. Discharge plan was discussed with the attending, Dr. Bell Baumann MD, PGY-2 Internal medicine Planned Discharge Date 01/05/25 DS: Providers Provider Date of admission: 12/27/24 22:44 Primary care physician: Physician No Primary/Family Admitting Provider: Kassi Luu MD Attending Provider on Admission: Kassi Luu MD Consults: 12/27/24 22:46 Consult to Cardiology Routine Comment: CHF exacerbation Consulting Provider: Paddy Franks 12/29/24 09:00 Consult to Neurology / Tele-Neurology Routine Comment: acute decomp 2 wks ago, S[place]AGO, weakness Consulting Provider: Javier Alexis Referral Physical Therapy Routine Comment: Physician Instructions: 12/31/24 13:55 Consult to Cardiology Routine Comment: Consulting Provider: Ana Luisa Adhikari Attending Provider on DC: Kassi Luu MD Discharging Provider: Kassi Luu MD DS: Diagnosis Problem List Completed Was Problem List Reviewed/Reconciled?: Yes Hospital Course Hospital Course Hospital course: Summary: Carla Dos Santos is a 84 year old female with past medical history of significant for HTN, emphysema, HFrEF (EF 20%), CAD, DM2 non insulin dependent, Afib on Eliquis, and chronic abdominal pain who presented to [facility] on 12/28 for 2 weeks of generalized deterioration, admitted for work up and m anagement of acute decompensation heart failure and AMS found to have UTI. Patient originally presented with elevated BNP with worsening dyspnea on exertion, orthopnea, paroxysmal nocturnal dyspnea. Cardiology was consulted and Echo showed an EF of 20% with dilated cardiomyopathy with severe global hypokinesis and moderate pulmonary hypertension and inpatient cardiac cath showed no acute pathology. Patient was diuresed aggressively with IV Bumex and was eventually started on GDMT as tolerated? spironolactone, Entresto 49/51 daily, metoprolol 50 mg daily, Jardiance and midodrine with significant improvement in CHF exacerbation. Patient was also lethargic/had some encephalopathy likely due to polypharmacy and found to have UTI as well for which patient's medication regimen was adjusted and patient was treated with IV antibiotics. Urine culture was positive for Citrobacter freundii and was treated with antibiotics per culture sensitivity. She is to take levoflaxacin 250 mg for 7 days (01/02-01/08). Neurology was also consulted for altered mental status and was recommended to follow-up outpatient. For patient's recent fall x-ray showed noes fracture but severe osteopenia for which patient will follow outpatient. Patient could not tolerate MRI for futher imaging due to claustrophobia, recommend to follow-up outpatient. Patient is stable and ready for discharge to SNF as per physical therapy recommendations. Patient needs close follow-up with medical laboratory manager outpatient, considering patient has low EF if there is no improvement with GDMT, patient will need [employer] SUPERVISOR-D placement at the dis cretion of medical laboratory manager. Patient responded well to hospital treatment. Patient is stable for discharge. Imaging: CXR: Moderate vascular congestion, mild enlargement of cardiac contour Echo: dilated with severe global hypokinesis, estimated EF at 20%. RV size mildly increased with mildly decreased systolic function. Moderate pulmonary hypertension. Severely increased LA volume. Moderate to severe MR and TR. Aortic valve sclerosis no stenosis. Dilated IVC. Humerus X-ray: No fractures detected. Severe osteopenia. Abdominal US: Normal common bile duct. Mild hepatomegaly fatty infiltration EEG normal. No focal, diffuse or generalized abnormalities. Discharge Recommendations: - Please take all medications as prescribed - START Levofloxacin 250 mg for 4 more days for UTI - START aspirin 81 mg daily, atorvastatin 40 mg daily, bumetanide 2 mg daily, iron supplement daily, metoprolol ER 50 mg daily, midodrine 5 mg TID - Continue Entresto 49/51 half twice daily, jardiance 10 mg daily, mybetriq 25 mg daily, spironolactone 25 mg daily - STOP buspirone, furosemide, and [place] - Please follow up with your PCP within one week of discharge - If your symptoms worsen, please seek immediate medical attention and return to your nearest emergency room. - If you do not have a PCP, you may follow up at the [facility] at [address], [facility] [address], - Close outpatient follow-up with medical laboratory manager Hospital Diagnoses: #Acute on chronic CHF exacerbation #HFrEF EF 20 % (12/27/2024), secondary to ischemic cardiomyopathy #Severe global hypokinesis #Mild pulmonary hypertension #Contraction alkalosis secondary to diuresis #Hypotension 2/2 diuresis #Acute infectious encephalopathy 2/2 UTI #Stroke - ruled out #Generalized weakness #DEMETRIUS on CKD - resolved #Bilateral Renal Cortical thinning, US (08/2024) #Anxiety #Emphysema #COPD #BRISA #Afib on Eliquis DM2, non insulin dependent #Hx of CAD #Incidential, Severe Osteopenia, noted on humerus XR #NAFLD Case discussed with Attending Physician Dr. Luu and senior resident Dr Baumann PGY-2 Dorene Montano PGY-1 Disclaimer: This note was dictated by speech recognition. Minor errors in pointer machine operator may be present due to voice recognition software. Status at Discharge Cognitive/behavioral status at discharge: Stable Overall status at discharge: patient is progressing back to baseline Time Spent with Patient Time attestation: Total time spent providing and/or coordinating discharge services: 36 min Time spent: Greater than 30 minutes Exam Vital Signs Temp Pulse Resp BP Pulse Ox O2 Del Method O2 Flow Rate 97.1 F 56 L 14 99/51 L 95 Nasal Cannula 1 01/05/25 12:00 01/05/25 12:01/05/25 12:01/05/25 12:01/05/25 12:01/05/25 12:01/05/25 12:00 Narrative Exam General: Awake in no acute distress. Conversational. Pleasantly confused. HEENT: Normocephalic, atraumatic, mucous membranes moist. Heart: Regular rate and rhythm, normal S1 and S2, no murmurs. Lungs: Mild rhonchi likely secondary extensive to smoking history. Abdomen: Soft, nondistended, positive bowel sounds. Diffuse tenderness on palpation, chronic. No guarding or rebound tenderness. Neurologic: Alert and oriented X2 (self and place only), no gross neurological deficit, and patient able to move all 4 extremities. Extremities: 1+ pitting lower extremity edema bilaterally. Skin: No rash or ecchymoses. Discharge Plan Plan Patient Disposition: Xfer Skilled Nsg Fac (SNF) Patient condition on transfer: Stable Care Plan Goals: Instructions: -Please complete course of antibiotics, Levofloxacin 250 mg orally once daily, for urinary tract infection, 4 more days. -Please take Midodrine 5 mg three times daily for low blood pressure. Skip dose if blood pressure >120. -continue all medication as prescribed (important to continue entresto, spironolactone, metoprolol) and Bumetanide -Please follow up with neurology, Jessika West, for your possible dementia within 2 weeks of discharge. -VERY IMPORTANT please follow up with Residential Case Manager Dr. Ibarra within 1-2 weeks to discuss [employer]PER[employer]-D plans -Please follow up with your primary care provider within one week of discharge -If your symptoms worsen,please seek immediate medical attention and return to your nearest emergency room Prescriptions/Referrals Prescriptions/Med Rec: New atorvastatin 40 mg tablet 40 mg PO QDAY 30 Days Qty: 30 0RF metoprolol succinate 50 mg tablet extended release 24 hr 50 mg PO QDAY 30 Days Qty: 30 0RF ferrous sulfate [Iron (ferrous sulfate)] 325 mg (65 mg iron) tablet 325 mg PO Q OTHER DAY Qty: 30 0RF aspirin 81 mg Tablet,Delayed Release (Dr/Ec) 81 mg PO QDAY Qty: 30 1RF midodrine 5 mg Tablet 5 mg PO TID 30 Days Qty: 90 0RF levofloxacin 250 mg Tablet 250 mg PO QDAY 4 Days Qty: 4 0RF bumetanide 2 mg tablet 2 mg PO QDAY Qty: 30 0RF Continued tramadol [Ultram] 50 MG tablet 1 tab PO QID PRN (Reason: PAIN) Qty: 0 Patient Comments: FOR PAIN, NOT TO EXCEED 8 TABS IN 24 HRS loratadine [Claritin] 10 MG tablet 10 mg PO QDAY Qty: 0 nitroglycerin [Nitrostat] 0.4 MG tablet, sublingual 0.4 mg SL PRN PRN (Reason: CHEST PAIN) Qty: 0 pantoprazole [Protonix] [address] for susp in packet 40 mg PO QDAY Qty: 30 0RF mirabegron [Myrbetriq] 25 mg Tablet Extended Release 24 Hr 25 mg PO QDAY albuterol sulfate 90 mcg/actuation HFA aerosol inhaler 2 puff inhalation QID PRN (Reason: shortness of breath or wheezing) Qty: 8.5 0RF spironolactone 25 mg tablet 25 mg PO .am Patient Comments: TAKE 1/2 TABLET BY MOUTH EVERY MORNING A DIURETIC Trelegy Ellipta 100-62.5-25 mcg blister with device 1 inh inhalation QDAY Entresto 49-51 mg tablet 1 tab PO BID Rx Instructions: take 1/2 tablet by mouth twice daily Jardiance 10 mg tablet 10 mg PO QDAY Eliquis 2.5 mg tablet 2.5 mg PO BID Discontinued furosemide [Lasix] 20 MG tablet 60 mg PO BID Qty: 0 Patient Comments: 1 and 1/2 tablets by mouth atorvastatin [Lipitor] 10 MG tablet 10 mg PO HS Qty: 0 aspirin 81 mg Capsule,Delayed Release(Dr/Ec) 81 mg PO QDAY albuterol 90 mcg/actuation Aerosol 90 mcg INHALATION Q4HR PRN (Reason: Dyspnea) atorvastatin 10 mg tablet 10 mg PO HS Patient Comments: TAKE ONE TABLET BY MOUTH AT BEDTIME FOR CHOLESTEROL hydrocodone-acetaminophen 5-325 mg tablet 1 tab PO Q12H PRN (Reason: pain) Patient Comments: TAKE ONE TABLET BY MOUTH TWICE DAILY NEEDED FOR PAIN buspirone 5 mg tablet 7.5 mg PO BID Referrals: No Primary/Family,Physician [Primary Care Provider] - Ana Luisa Adhikari MD [Physician] - Javier Alexis MD [Physician] - Patient/Caregiver Discharge Instructions Education Materials: Cardiomyopathy Dc, ED CYSTITIS Female Adult Print Language: British Stand Alone Forms: Yesi Award Info., Patient Portal Info Letter Discharge Order Discharge Orders: Discharge (Routine); Ordered 01/05/25 Ordered By: Ron Baumann Quality Discharge Quality Measures VTE prophylaxis Attestestation Attestation I attest that I was physically present for the evaluation, physical examination, lab and imaging review of the patient with the residents. I discussed the case with the residents and agree with the findings and plans of care as documented above. Kassi Luu MD
== END 2025-01-05 13:15 | disposition skilled nursing facility (03) | DRG 286 ==
LOC: SERX 22:10 → SERHOLD 23:00 → S2NX 12-28 18:07
PROVIDERS: Internal Medicine Cardiovascular Disease; Physician Assistant Medical; Student in an Organized Health Care Education/Training Program; Admitting Provider Student in an Organized Health Care Education/Training Program; Emergency Provider Emergency Medicine; Visit Provider Student in an Organized Health Care Education/Training Program
PROC: 4A023N8 Measurement of Cardiac Sampling and Pressure, Bilateral, Percutaneous Approach (ICD-10-PCS; principal; 2025-01-03 08:30)
DX: I13.0 Hypertensive heart and chronic kidney disease with heart failure and stage 1 through stage 4 chronic kidney disease, or unspecified chronic kidney disease (principal); I50.23 Acute on chronic systolic (congestive) heart failure; I48.20 Chronic atrial fibrillation, unspecified; E87.1 Hypo-osmolality and hyponatremia; S42.91XA Fracture of right shoulder girdle, part unspecified, initial encounter for closed fracture; F03.93 Unspecified dementia, unspecified severity, with mood disturbance; F05 Delirium due to known physiological condition; N17.9 Acute kidney failure, unspecified; N39.0 Urinary tract infection, site not specified; Z16.19 Resistance to other specified beta lactam antibiotics; G93.49 Other encephalopathy; G89.29 Other chronic pain; I25.10 Atherosclerotic heart disease of native coronary artery without angina pectoris; J43.9 Emphysema, unspecified; Z79.01 Long term (current) use of anticoagulants; F41.9 Anxiety disorder, unspecified; F32.A Depression, unspecified; F17.210 Nicotine dependence, cigarettes, uncomplicated; Z90.49 Acquired absence of other specified parts of digestive tract; D50.9 Iron deficiency anemia, unspecified; E11.22 Type 2 diabetes mellitus with diabetic chronic kidney disease; E78.5 Hyperlipidemia, unspecified; I25.5 Ischemic cardiomyopathy; I27.20 Pulmonary hypertension, unspecified; I35.8 Other nonrheumatic aortic valve disorders; I42.0 Dilated cardiomyopathy; I44.7 Left bundle-branch block, unspecified; I95.2 Hypotension due to drugs; J44.89 Other specified chronic obstructive pulmonary disease; I25.2 Old myocardial infarction; K76.0 Fatty (change of) liver, not elsewhere classified; F40.240 Claustrophobia; M85.80 Other specified disorders of bone density and structure, unspecified site; D53.9 Nutritional anemia, unspecified; N18.9 Chronic kidney disease, unspecified; R32 Unspecified urinary incontinence; Z79.84 Long term (current) use of oral hypoglycemic drugs; Z79.4 Long term (current) use of insulin; Z79.82 Long term (current) use of aspirin; Z79.899 Other long term (current) drug therapy; Z79.02 Long term (current) use of antithrombotics/antiplatelets; Z95.5 Presence of coronary angioplasty implant and graft; Z88.5 Allergy status to narcotic agent
CPT/HCPCS: 36415; 36600; 70450; 71045; 73060; 76700; 80053; 80061; 81001; 82728; 82803; 83036; 83540; 83550; 83735; 83880; 84100; 85025; 85046; 85610; 85730; 87077; 87086; 87186; 87811; 93005; 93306; 95816; 96372; 96374; 96375; 96376; 97162; 99285; A4649; C1769; C1887; C1894; J0168; J0461; J0696; J1630; J1643; J1650; J1815; J1938; J2060; J2250; J2310; J2371; J3010; J3475; J3490; Q9967; A9270

== ENCOUNTER 2025-02-02 06:37 | Day surgery (SDC) | payer MEDICARE, MEDICAID, SELFPAY ==
[2025-02-01 13:15] LABS: Basophils # (Auto) 0.0 Thou/mm3 (0.0-0.2); Basophils % (Auto) 0 % (0-2.5); Eosinophils # (Auto) 0.1 Thou/mm3 (0.0-0.5); Eosinophils % (Auto) 3 % (0-10); Hematocrit 30.8 % (36.0-46.0); Hemoglobin 9.3 g/dL (12.0-16.0); Immature Granulocytes Auto 0.01 Thou/mm3 (0.00-0.00); Lymphocytes # (Auto) 1.3 Thou/mm3 (1.0-4.8); Lymphocytes % (Auto) 32 % (10-50); Mean Corpuscular HGB Conc 30.2 g/dl (31.0-37.0); Mean Corpuscular Hemoglobin 25.5 pg (25.0-35.0); Mean Corpuscular Volume 84 fL (80-100); Monocytes # (Auto) 0.4 Thou/mm3 (0.0-0.8); Monocytes % (Auto) 10 % (0-12); Neutrophils # (Auto) 2.2 Thou/mm3 (1.8-7.7); Neutrophils % (Auto) 54 % (37-80); Nucleated Red Blood Cell # 0.00 Thou/mm3 (0.00-0.00); Nucleated Red Blood Cell % 0 /100 WBC (0); Platelet Count 153 Thou/mm3 (140-440); RDW Standard Deviation 74.5 fL (36.4-46.3); Red Blood Count 3.65 Miln/mm3 (4.00-5.20); White Blood Count 4.0 Thou/mm3 (3.6-11.0)
[2025-02-01 13:24] LABS: Anion Gap 6 (7-16); BUN/Creatinine Ratio 29 Ratio (12-20); Blood Urea Nitrogen 41 mg/dL (9-23); Calcium 9.6 mg/dL (8.3-10.6); Carbon Dioxide 31.0 mMol/L (20.0-31.0); Chloride 101 mMol/L (98-107); Creatinine (Component) 1.4 mg/dL (0.6-1.3); Glucose 106 mg/dL (74-106); Osmolality,Calculated 285 (275-295); Potassium 5.5 mMol/L (3.4-5.1); Sodium 138 mMol/L (136-145); eGFR 37 See Note
[2025-02-01 13:26] LABS: INR 1.0 (0.9-1.3); Partial Thromboplastin Time 26.4 Seconds (22.0-36.0); Prothrombin Time 10.9 Seconds (9.0-12.2)
[2025-02-02] VITALS (20 sets, daily range): BP systolic 104–140; BP diastolic 60–97; PULSE 58–90; RESP 15–24; TEMP 36.1–36.7; O2SAT 91–99; BMI 32.6
--- NOTE | 2025-02-02 07:17 | SUR.PREOP ---
Patient's family expressed gratitude for prayer before the procedure.
--- NOTE | 2025-02-02 09:56 | XR_ITS ---
Examination: AP chest single view Technique one AP upright portable chest single view Date and time: February 02, 2025 1007 hours, comparison December 30, 2024 INDICATIONS: Postop pacemaker insertion FINDINGS: Moderate enlargement cardiac contour Prominent vascular congestion Prominent osteopenia. No pneumothorax. Cardiac leads satisfactory position IMPRESSION: Cardiac leads satisfactory position
[2025-02-02] MEDS: VANCOMYCIN/NS 500 MG IVPB 100 ML 100 MG IV (10:10)
[2025-02-02] MEDS: FLUMAZENIL INJ 0.1 MG/ML VIAL 10 ML 0.5 MG IVP ×2 (11:31→11:58)
--- NOTE | 2025-02-02 11:41 | PC.NURSE ---
md floyd notified of patient only arousable with deep pain but quickly falls a sleep. vital signs stable. md order reversal meds to awake patient.
--- NOTE | 2025-02-02 13:03 | PC.NURSE ---
Addendum entered by Ashleigh Urbina RN 02/02/25 13:36: patient uses oxygen at home per family member, currently on 1L oxygen via nasal cannula Original Note: 1258 patient is sleepy and arousable to voice, breathing unlabored, s/p CRTD insertion to left chest, dressing dry with no bleeding. Report received from Carolyn DONALDSON, patient to recover till 1500 since pt had narcan and flumazicon.
--- NOTE | 2025-02-02 13:50 | PC.NURSE ---
Patient's family called pharmacy to see if prescriptions were ready, cephalexin antibiotic ready to filler picker, Lokelma is not covered by insurance, Dr. Adhikari called and made aware, he will order an alternative medication
--- NOTE | 2025-02-02 13:57 | PC.NURSE ---
patient starting to wake up more, sitting up in gurney eating pudding
[2025-02-02] MEDS: ACETAMINOPHEN 325 MG TABLET 650 MG PO (14:15)
--- NOTE | 2025-02-02 16:16 | PC.NURSE ---
Addendum entered by Ashleigh Urbina RN 02/02/25 16:23: family member has pacemaker information ID card Original Note: 1515 patient is awake, alert, breathing unlabored, dressing to left chest dry with no bleeding, arm sling in place, family educated to use arm sling for 24 hours. Patient back to pre op baseline, non ambulatory per family member, patient can stand on feet and get on wheelchair with assistance of 2 people, uses wheelchair for mobility. Able to tolerate water and pudding with no nausea or vomiting able to void in brief and pure wic device. Meets discharge criteria, discharge instructions given to patient and family member who cares for patient. patient discharged home in personal wheelchair with all belongings. patient has multiple family members available to help patient get inside her house on wheelchair.
--- NOTE | 2025-02-06 23:53 | ESOP_ITS ---
RE: MARTINE HOWARD : 1940 DATE OF OPERATION: 02/02/2025 PROCEDURES PERFORMED: 1. Implantation of automatic implantable cardiac defibrillator, cardiac resynchronization therapy defibrillator, CRTD, CPT 03855. 2. Placement of left ventricular lead in the lateral cardiac vein, CPT code 85060. 3. Conscious sedation for 1-1/2-hour duration. 4. Ultrasound-guided access left subclavian vein. 5. Left subclavian and coronary sinus venogram. DIAGNOSES: 1. Ischemic cardiomyopathy, chronic systolic heart failure, ejection fraction of 20% with patent coronary arteries, high risk for sudden cardiac . 2. Episodes of ventricular tachycardia. 3. Left bundle branch block, QRS duration of 160 milliseconds. 4. Congestive heart failure, [place] Heart Association functional class III. HISTORY AND INDICATIONS: The patient is an 84-year-old female with a history of CAD, status post multiple stent placement, no recent stent placement in more than 1 year, has ischemic cardiomyopathy, ejection fraction 20%. Admitted to the hospital with congestive heart failure and discharged home. The patient was in atrial fibrillation as well as recurrent episodes of wide QRS complex of tachycardia, VT, nonsustained and sustained VTs requiring medical management. Did undergo right and left heart catheterization which showed evidence of patent coronary arteries. Stents were patent, but ejection fraction only 20%. High risk for sudden cardiac . Has left bundle branch block pattern, wide QRS complex of 160-millisecond duration. High risk for sudden cardiac as well and is recommended to have ICD implantation for primary and secondary prevention of sudden cardiac as well as cardiac resynchronization therapy with left ventricular lead placement and multilead ICD implantation. OPERATION IN DETAIL: The patient was brought to the cardiac catheterization laboratory and informed consent was obtained. The patient was given conscious sedation with a combination of Versed and fentanyl. Left subclavian area was prepared in sterile fashion. Given 1% Xylocaine local anesthesia. Left subclavian vein was cannulated by micropuncture technique and 2 guidewires were introduced. A linear incision was made with a blunt dissection and a pocket was created. A 7-Mosotho sheath was introduced and a right ventricular high-voltage lead was advanced to the right ventricular apex. Its threshold was found to be excellent. After obtaining a satisfactory threshold, a 9-Mosotho sheath was introduced into the right atrium. It was difficult to cannulate the coronary sinus. The coronary sinus was finally engaged with using an AL2 diagnostic catheter and was cannulated and a coronary sinus venogram showed evidence of lateral cardiac veins. One of them was tortuous, but the higher 2 veins were nontortuous. Proceeded with deployment of the left ventricular lead. Initially, I attempted to deploy the left ventricular lead, the J type of simple curve, but it was not giving adequate support, then switched to the S-curved lead. I deployed the left S-curved [employer] door to door lead generation into the lateral cardiac vein successfully, excellent threshold obtained. After obtaining a satisfactory threshold, both leads were secured to the pectoral fascia with 2-0 silk suture and subsequently, the generator was placed in the pocket, secured to the pectoral fascia with 2-0 silk suture and the subcutaneous tissue was closed using 2-0 chromic continuous suture. Skin was closed using re. The patient tolerated the operation well. No complications. Ancef 1 g was given preprocedure and 500 mg vancomycin was given postprocedure. A chest x-ray postprocedure showed no pneumothorax. The patient did have a total of 8 mg of Versed and 100 mcg of fentanyl and an additional 100 mcg of fentanyl, total of 200 mcg of fentanyl over a 1-1/2-hour duration and reversal agents Romazicon and Narcan were used in the recovery phase since he was quite sleepy for several hours. In 4 hours, she was finally wide awake and we discharged the patient home in stable condition. SUMMARY: 1. Successful implantation of cardiac resynchronization therapy, [employer] defibrillator with excellent results. 2. Successful placement of left ventricular lead in the lateral cardiac vein. The device is programmed to VVIR mode, rate of 60 beats per minute. VT zone was monitored at 150 only. VT therapy at 180 beats per minute, ATP x2, followed by shock x4. The ventricular fibrillation zone 206, ATP x1 and followed by shock x6. The device details are as follows: Manufactured by [employer] and is a LIP CUTTER AND SCORER defibrillator. The device is a [place] Heart Failure. Serial number is [id number]. The ventricular lead is RV high voltage. The lead is manufactured by [employer]. It is a Durata 7122. Serial number is [id number]. The left ventricular lead is a 1458Q Quartet. Serial number is [id number]. The RV threshold is 0.4 volts and voltage is 10 millivolts. Lead impedance is 480. Left ventricular threshold is 0.5 volts and lead impedance is 150. FINAL SUMMARY: Successful implantation of cardiac resynchronization therapy defibrillator. No complications. Estimated blood loss less than 5 mL. DT: 22:55:59 TT: 23:51:00 Ref: [id number] - TID: [id number]
== END 2025-02-02 15:15 | disposition home or self-care (01) ==
PROVIDERS: PCP Physician Assistant; Referring Provider Internal Medicine Cardiovascular Disease; Visit Provider Internal Medicine Cardiovascular Disease
PROC: 0JH608Z Insertion of Defibrillator Generator into Chest Subcutaneous Tissue and Fascia, Open Approach (ICD-10-PCS; CPT 33249; principal; 2025-02-02 07:30)
DX: I25.5 Ischemic cardiomyopathy (principal); I50.22 Chronic systolic (congestive) heart failure; I44.7 Left bundle-branch block, unspecified; I48.21 Permanent atrial fibrillation; I47.20 Ventricular tachycardia, unspecified; I25.10 Atherosclerotic heart disease of native coronary artery without angina pectoris; Z95.5 Presence of coronary angioplasty implant and graft; Z79.01 Long term (current) use of anticoagulants; Z79.899 Other long term (current) drug therapy
CPT/HCPCS: 33249; 33225; 36415; 80048; 85025; 85610; 85730; 93005; 99152; 99153; A4565; A4649; C1769; C1777; C1882; C1887; C1894; C1900; J0168; J0461; J0689; J1643; J2250; J2312; J2371; J3010; J3373; J3490; Q9967; A9270